=== PATIENT | male | born 1930 | race Caucasian/White ===

== ENCOUNTER 2017-03-12 10:25 | Observation (INO) | payer OTHER ==
[2017-03-12] VITALS (8 sets, daily range): BP systolic 165–195; BP diastolic 79–91; PULSE 51–79; TEMP 36.6–37; O2SAT 91–95; Ht 188 cm; Wt 67.1 kg
[~2017-03-12] VITALS: Ht 188 cm; Wt 67.1 kg
[2017-03-12] MEDS ORDERED: SODIUM CHLORIDE 0.9% 1000ML 1,000 ML IV SCH (10:43)
[2017-03-12 10:59] LABS: BASO % 0.5 %; BASO ABS # 0.04 K/uL (0-0.2); EOS ABS # 0.29 K/uL (0-0.5); HEMATOCRIT 43.5 % (42-52); HEMOGLOBIN 14.1 g/dL (14.0-18.0); IG# 0.01 K/uL (0.00-0.02); LYMPH % 14.8 %; LYMPH ABS # 1.08 K/uL (1.2-3.4); MEAN CELL VOLUME 92.4 fL (80-100); MEAN CORPUSCULAR HEMOGLOBIN 29.9 pg (25-34); MEAN CORPUSCULAR HGB CONC 32.4 g/dl (32-36); MEAN PLATELET VOLUME 11.7 fL (7.4-10.4); MONO % 6.8 %; NEUT % 73.8 %; NEUT ABS # 5.38 K/uL (1.4-6.5); PLATELET COUNT 164 K/uL (130-400); RED CELL DISTRIBUTION WIDTH SD 51.4 fL (36.4-46.3)
--- NOTE | 2017-03-12 11:03 | EMERGENCY ROOM VISIT NOTE ---
History Report prepared by Ga: Juan Moon Under the Supervision of: Dr. Ammon Decker D.O. First contact with patient: 10:30 Chief Complaint: TIA Stated Complaint: TIA Nursing Triage Summary: "Concerned about recurring TIA's." Pt has been experiencing intermittent weakness since December. For the last 3 days pt has been having intermittent left sided weakness, word searching, slurred speech and confusion that has been worsening. History of Present Illness The patient is a 86 year old male who presents to the Emergency Room with complaints of intermittent left side weakness and numbness beginning 1.5 months ago. His symptoms effect his entire left side. He states that his symptoms have occurred at the same time each of the past three mornings. Per , she is worried about a possible TIA. The patient adds he is weak and gets a "funny" tingling feeling in his hands. In addition, he states he has multiple cardiac stents and is diabetic. Patient uses a cane to assist with current symptoms. Per , she has noticed intermittent slurred speech and delayed responses along with his weakness. The patient does not have any history of strokes. 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 Pt denies headache, change in vision, fevers, chest pain, shortness of breath, nausea, vomiting, diarrhea, pain with urination, and melena. Patient adds that [place] and lives a very active lifestyle. Patient's last bowel movement was last night. Source of History: patient Onset: 1.5 months ago Position: other (Left side of body) Quality: numbness, other (weakness) Timing: intermittent Associated Symptoms: No chest pain, No SOB, No nausea, No vomiting, No abdominal pain, No melena, No diarrhea, No urinary symptoms Note: The patient also complains of tingling in his left hand. Review of Systems See HPI for pertinent positives & negatives. A total of 10 systems reviewed and were otherwise negative. Past Medical & Surgical Medical Problems: (1) TIA (transient ischemic attack) Family History No pertinent family medical history. Social History Smoking Status: Former Smoker Marital Status: Housing Status: lives with family Current/Historical Medications Scheduled Alprazolam (Xanax), 1 TAB PO HS Ascorbic Acid (Vitamin C), 500 MG PO DAILY Aspirin (Aspirin Ec), 81 MG PO PM Biotin (Biotin), 1,000 MCG PO DAILY Cholecalciferol (Vitamin D), 1,000 UNITS PO BID Cyanocobalamin (Vitamin B-12), 1,000 MCG PO DAILY Digoxin (Digoxin), 0.125 MG PO DAILY Furosemide (Lasix), 20 MG PO MWF Insulin Aspart (Novolog), 3-6 UNITS SC TID Insulin Glargine (Basaglar Kwikpen), 15 UNITS SC QAM Levothyroxine Sodium (Levothyroxine Sodium), 75 MG PO QAM Metoprolol Tartrate (Lopressor) (Lopressor), 12.5 MG PO BIDM Ocuvite Preservision (Ocuvite Preservision), 1 TAB PO BID Warfarin Sod (Jantoven), 7.5 MG PO MWF Warfarin Sodium (Coumadin), 5 MG PO 4XWK Allergies Coded Allergies: Banana (Verified Allergy, Unknown, `, 10/04/15) Itraconazole (Unverified Adverse Reaction, Intermediate, UNKNOWN, 03/12/17 ) Physical Exam Vital Signs Date Time Temp Pulse Resp B/P (MAP) Pulse Ox O2 Delivery O2 Flow Rate FiO2 03/12/17 12:44 96 Room Air 03/12/17 12:07 67 18 148/82 98 Room Air 03/12/17 11:02 61 03/12/17 10:27 84 18 144/88 92 Room Air Physical Exam GENERAL: Sitting up in bed, alert, well appearing, well nourished, no distress, non-toxic EYE EXAM: normal conjunctiva. PERRL and EOM's intact. OROPHARYNX: no exudate, no erythema, lips, buccal mucosa, and tongue normal and mucous membranes are moist NECK: supple, no nuchal rigidity, no adenopathy, non-tender CHEST: Pacemaker in left chest wall LUNGS: Clear to auscultation. Normal chest wall mechanics HEART: no murmurs, S1 normal and S2 normal ABDOMEN: abdomen soft, non-tender, normo-active bowel sounds, no masses, no rebound or guarding. BACK: Back is symmetrical on inspection and there is no deformity, no midline tenderness, no CVA tenderness. SKIN: no rashes and no bruising UPPER EXTREMITIES: upper extremities are grossly normal. LOWER EXTREMITIES: No pitting edema. NEURO EXAM: Normal sensorium, cranial nerves II-XII intact, normal speech, no weakness of arms, no weakness of legs. No drift. Finger to nose intact. Sensation intact. Medical Decision & Procedures ER Provider Diagnostic Interpretation: Radiology results as stated below per my review and the radiologist's interpretation: HEAD CT NONCONTRAST Findings: The paranasal sinuses and mastoid air cells are clear. The calvarium and skull base are intact. There is no mass, hematoma, midline shift, acute infarct. White matter hypodensity is nonspecific but suggestive of moderate microvascular ischemic change. The ventricles and sulci demonstrate moderate age-related involutional changes. Old small infarcts seen within the left cerebellar hemisphere. Impression: No acute intracranial abnormality. Atrophy and microvascular ischemic changes. 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 Electronically signed by: Hitesh Pike M.D. 03/12/2017 11:30 AM CHEST ONE VIEW PORTABLE FINDINGS: Cardiac silhouette is moderately enlarged. Single left subclavian pacer/AICD is noted with leads overlying the region of the right ventricle. Mild biapical pleural-parenchymal scarring. There is mild pulmonary vascular congestion without overt pulmonary edema. There is no pneumothorax. There is blunting of the right costophrenic angle with probable small right loculated effusion and/or pleural thickening. Hazy opacity of the lateral right midlung is also noted below the minor fissure. Bones of the chest appear grossly intact. IMPRESSION: 1. Cardiomegaly and pulmonary vascular congestion without overt pulmonary edema. 2. Small right pleural effusion and/or pleural thickening with patchy right basilar and lateral right midlung opacities. Correlate with prior chest radiographs. The above report was generated using voice recognition software. It may contain grammatical, syntax or spelling errors. Electronically signed by: Simon Berrios M.D. 03/12/2017 11:47 AM Laboratory Results 03/12/17 10:45 Red Blood Count 4.71, Mean Corpuscular Volume 92.4, Mean Corpuscular Hemoglobin 29.9, Mean Corpuscular Hemoglobin Concent 32.4, Mean Platelet Volume 11.7, Neutrophils (%) (Auto) 73.8, Lymphocytes (%) (Auto) 14.8, Monocytes (%) (Auto) 6.8, Eosinophils (%) (Auto) 4.0, Basophils (%) (Auto) 0.5, Neutrophils # (Auto) 5.38, Lymphocytes # (Auto) 1.08, Monocytes # (Auto) 0.50, Eosinophils # (Auto) 0.29, Basophils # (Auto) 0.04 03/12/17 10:45 Test 03/12/17 10:45 White Blood Count 7.30 K/uL (4.8-10.8) Red Blood Count 4.71 M/uL (4.7-6.1) Hemoglobin 14.1 g/dL (14.0-18.0) Hematocrit 43.5 % (42-52) Mean Corpuscular Volume 92.4 fL (80-100) Mean Corpuscular Hemoglobin 29.9 pg (25-34) Mean Corpuscular Hemoglobin Concent 32.4 g/dl (32-36) Platelet Count 164 K/uL (130-400) Mean Platelet Volume 11.7 fL (7.4-10.4) Neutrophils (%) (Auto) 73.8 % Lymphocytes (%) (Auto) 14.8 % Monocytes (%) (Auto) 6.8 % Eosinophils (%) (Auto) 4.0 % Basophils (%) (Auto) 0.5 % Neutrophils # (Auto) 5.38 K/uL (1.4-6.5) Lymphocytes # (Auto) 1.08 K/uL (1.2-3.4) Monocytes # (Auto) 0.50 K/uL (0.11-0.59) Eosinophils # (Auto) 0.29 K/uL (0-0.5) Basophils # (Auto) 0.04 K/uL (0-0.2) RDW Standard Deviation 51.4 fL (36.4-46.3) RDW Coefficient of Variation 15.0 % (11.5-14.5) Immature Granulocyte % (Auto) 0.1 % Immature Granulocyte # (Auto) 0.01 K/uL (0.00-0.02) Prothrombin Time 15.3 SECONDS (9.0-12.0) Prothromb Time International Ratio 1.5 (0.9-1.1) Activated Partial Thromboplast Time 32.9 SECONDS (21.0-31.0) Partial Thromboplastin Ratio 1.3 Anion Gap 7.0 mmol/L (3-11) Est Creatinine Clear Calc Drug Dose 37.5 ml/min Estimated GFR () 50.6 Estimated GFR (Non- 43.7 BUN/Creatinine Ratio 20.5 (10-20) Calcium Level 9.0 mg/dl (8.5-10.1) Magnesium Level 2.3 mg/dl (1.8-2.4) Total Creatine Kinase 93 U/L (39-308) Creatine Kinase MB 2.1 ng/ml (0.5-3.6) Creatine Kinase MB Ratio 2.3 (0-3.0) Troponin I < 0.015 ng/ml (0-0.045) Laboratory results per my review. Medications Administered Medications (Trade) Dose Ordered Sig/[place] Route Start Time Stop Time Status Last Admin Dose Admin Sodium Chloride 1,000 ml @ 50 mls/hr Q20H IV 03/12/17 10:43 03/12/17 15:27 DC 03/12/17 11:30 50 MLS/HR ECG Indication: weakness Rate (beats per minute): 54 Rhythm: atrial fibrillation Findings: PVC, Q waves (Septal), ST depression (Lateral), T-wave inversion ( Inferior), other (Normal axis. ) ED Course ED COURSE: Vital signs were reviewed and showed mild hypertension The patients medical record was reviewed The above diagnostic studies were performed and reviewed. ED treatments and interventions as stated above. 1035: The patient was evaluated in room A4. A complete history and physical examination was performed. 1043: Sodium Chloride 1000 ml @ 50 mls/hr IV 1155: Upon reevaluation, the patient is resting comfortably.I discussed my findings with the patient and he understands and agrees with the treatment plan. Based on the patients age, coexisting illnesses, exam and lab findings the decision to treat as an inpatient was made. The patient remained stable while under my care. The patient will be evaluated for further management. Medical Decision Differential Diagnosis includes but is not limited to ischemic Stroke, hemorrhagic stroke, bells palsy, mass, neoplasm, migraine headache, seizure, subarachnoid hemorrhage, TIA, and transient global amnesia. 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 Patient has no other complaints at this time. He notices generally comes and goes in the morning. Referred in by family member who is an ER physician. On exam patient is completely neurologically intact. CT head shows old left cerebellar infarct. CBC along with BMP and troponin was negative. INR was subtherapeutic at 1.5. EKG shows A. fib. Patient family were updated bedside. Patient was admitted to internal medicine for possible TIAs. Medication Reconcilliation Current Medication List: was personally reviewed by me Blood Pressure Screening Patient's blood pressure: Elevated blood pressure Blood pressure disposition: Elevated BP felt to be situational Consults Time Called: 1150 Consulting Physician: Supriya Frye PA-C of [facility] Returned Call: [phone] I reviewed the patient's case with Supriya Frye PA-C. She will evaluate the patient for further management. Impression Primary Impression: TIA (transient ischemic attack) Scribe Attestation The scribe's documentation has been prepared under my direction and personally reviewed by me in its entirety. I confirm that the note above accurately reflects all work, treatment, procedures, and medical decision making performed by me. Departure Information Dispostion Being Evaluated By Hospitalist Referrals Robert Osullivan M.D. (PCP) Forms HOME CARE DOCUMENTATION FORM, IMPORTANT VISIT INFORMATION, WORK / SCHOOL INSTRUCTIONS Patient Instructions My [facility] Problem Qualifiers Primary Impression: TIA (transient ischemic attack) Transient cerebral ischemia type: unspecified Qualified Codes: G45.9 - Transient cerebral ischemic attack, unspecified
[2017-03-12 11:07] LABS: INR 1.5 (0.9-1.1); PTT PATIENT 32.9 SECONDS (21.0-31.0)
[2017-03-12 11:21] LABS: BLOOD UREA NITROGEN 30 mg/dl (7-18); CARBON DIOXIDE 28 mmol/L (21-32); CREATININE 1.44 mg/dl (0.60-1.40); GLUCOSE 288 mg/dl (70-99); POTASSIUM 4.2 mmol/L (3.5-5.1); SODIUM 137 mmol/L (136-145)
[2017-03-12 11:26] LABS: CKMB 2.1 ng/ml (0.5-3.6)
--- NOTE | 2017-03-12 11:31 | DIAGNOSTIC IMAGING REPORT ---
HEAD CT NONCONTRAST CT DOSE: 614.27 mGy.cm HISTORY: Stroke TECHNIQUE: Multiaxial CT images of the head were performed without the use of intravenous contrast. Automated exposure control was utilized for this study. A dose lowering technique was utilized adhering to the principles of ALARA. Comparison: None. Findings: The paranasal sinuses and mastoid air cells are clear. The calvarium and skull base are intact. There is no mass, hematoma, midline shift, acute infarct. White matter hypodensity is nonspecific but suggestive of moderate microvascular ischemic change. The ventricles and sulci demonstrate moderate age-related involutional changes. Old small infarcts seen within the left cerebellar hemisphere. Impression: No acute intracranial abnormality. Atrophy and microvascular ischemic changes. 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 Electronically signed by: Hitesh Pike M.D. 03/12/2017 11:30 AM Dictated Date/Time: 03/12/2017 11:25 AM
--- NOTE | 2017-03-12 11:48 | DIAGNOSTIC IMAGING REPORT ---
CHEST ONE VIEW PORTABLE HISTORY: 86 years-old Male Stroke acute strokelike symptoms COMPARISON: None available TECHNIQUE: Portable AP view of the chest FINDINGS: Cardiac silhouette is moderately enlarged. Single left subclavian pacer/AICD is noted with leads overlying the region of the right ventricle. Mild biapical pleural-parenchymal scarring. There is mild pulmonary vascular congestion without overt pulmonary edema. There is no pneumothorax. There is blunting of the right costophrenic angle with probable small right loculated effusion and/or pleural thickening. Hazy opacity of the lateral right midlung is also noted below the minor fissure. Bones of the chest appear grossly intact. IMPRESSION: 1. Cardiomegaly and pulmonary vascular congestion without overt pulmonary edema. 2. Small right pleural effusion and/or pleural thickening with patchy right basilar and lateral right midlung opacities. Correlate with prior chest radiographs. The above report was generated using voice recognition software. It may contain grammatical, syntax or spelling errors. Electronically signed by: Simon Berrios M.D. 03/12/2017 11:47 AM Dictated Date/Time: 03/12/2017 11:44 AM
[2017-03-12] MEDS ORDERED: FURO-85 PO (12:08)
[2017-03-12] MEDS ORDERED: WARF7.5T4 PO (12:08)
[2017-03-12] MEDS ORDERED: CYAN10005 PO (12:08)
[2017-03-12] MEDS ORDERED: LEVO75TA5 PO (12:08)
[2017-03-12] MEDS ORDERED: ASPI81TA28 PO (12:08)
[2017-03-12] MEDS ORDERED: BIOT1TAB5 PO (12:08)
[2017-03-12] MEDS ORDERED: ALPR1TAB3 PO (12:08)
[2017-03-12] MEDS ORDERED: LNX125 PO (12:08)
[2017-03-12] MEDS ORDERED: INSU100I23 SC (12:08)
[2017-03-12] MEDS ORDERED: METO25TA56 PO (12:08)
[2017-03-12] MEDS ORDERED: MULT-190 PO (12:08)
[2017-03-12] MEDS ORDERED: CHOL100010 PO (12:08)
[2017-03-12] MEDS ORDERED: ASCA500 PO (12:08)
[2017-03-12] MEDS ORDERED: WARF5TAB90 PO (12:08)
[2017-03-12] MEDS ORDERED: NVLG SC (12:08)
[2017-03-12] MEDS ORDERED: HEPARIN IV LOW DOSE NO BOLUS STA (12:29)
[2017-03-12] MEDS ORDERED: ONDANSETRON INJ 2 MG/ML 2 ML VIAL IV PRN (12:30)
[2017-03-12] MEDS ORDERED: ACETAMINOPHEN 325 MG TAB PO PRN (12:30)
[2017-03-12] MEDS ORDERED: NITROGLYCERIN 0.4 MG SL PER TAB CHARGE SL PRN (12:30)
[2017-03-12] MEDS ORDERED: ALUMINUM/MAGNESIUM/SIMETH (MAALOX MAX) 30 ML UDC PO PRN (12:30)
[2017-03-12] MEDS ORDERED: HEPARIN 25000 UNIT/500 ML D5W ONE (13:34)
[2017-03-12] MEDS ORDERED: IV FLUIDS COMPLETED PRN (13:45)
--- NOTE | 2017-03-12 13:49 | HISTORY & PHYSICAL EXAMINATION ---
DATE OF ADMISSION: 03/12/2017 CHIEF COMPLAINT: Left-sided weakness and numbness on and off since last 3 days. HISTORY OF PRESENT ILLNESS: This is an 86-year-old male with past medical history significant for diabetes, chronic ischemic cardiomyopathy with EF of 25%, status post defibrillator, chronic kidney disease stage III, hypertension, BPH, aortic valve insufficiency and mitral valve regurgitation, anemia of chronic renal disease,hx of histoplasmosis, chronic atrial fibrillation, asymptomatic bilateral carotid artery stenosis presents with having weakness and numbness on the left side for the last 3 days. The patient says in last 3 days in the morning, he felt like weakness in his left upper extremity and some numbness and tingling in his left lower extremity, lasted for a couple of hours and yesterday it lasted for several hours and there is also a question of some slurred speech which was noticed by his son, which got him and his worried and came to the ER today. Currently, resting comfortably and asymptomatic. 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 He has some chronic balance issues and has chronic dizziness. Denies any headaches. No difficulty swallowing. Currently speaking fine. No sore throat, has some runny nose. Denies any chest pain or shortness of breath. No cough, no fever, no chills. No belly pain, no nausea, no vomiting, normal bowel and bladder movements. No recent weight gain or weight loss. Appetite is okay. No swelling in the legs. Currently, resting comfortably and hemodynamically stable. ALLERGIES: BANANA CONCENTRATE, TOSHIA INHIBITORS, ANGIOTENSIN RECEPTOR BLOCKERS. PAST MEDICAL HISTORY: As mentioned above. PAST SURGICAL HISTORY: Cardiac catheterization with drug-eluting stent to LAD and status post defibrillator, appendectomy, cataract surgeries, and repair of inguinal hernia. MEDICATIONS: Lopressor 12.5 mg p.o. b.i.d., Xanax 0.5 mg p.o. at bedtime, Coumadin 5 mg on Mondays and Fridays and 7.5 mg on all other days, levothyroxine 75 mcg p.o. daily; Lasix 20 mg p.o. Sunday, Sunday and Sunday; digoxin 125 mcg p.o. daily, Lantus 18 units q.a.m., vitamin D 1000 units b.i.d., Ocuvite 2 tablets b.i.d., aspirin 81 mg p.o. daily, biotin 600 mcg p.o. daily, vitamin C 500 mg p.o. daily, and vitamin B12 500 mcg p.o. daily. FAMILY HISTORY: Father had cancer. Mother had heart disorder. Son has bipolar. SOCIAL HISTORY: Quit smoking in 1989, prior to that smoked 10 years. Alcohol - a glass of wine and a can of beer daily. No drug use. , lives in the form. REVIEW OF SYMPTOMS: As per HPI. Rest of review of symptoms negative. PHYSICAL EXAMINATION: GENERAL: The patient is old and frail, not in distress. VITAL SIGNS: Temperature afebrile, pulse 61, respiratory rate 18, blood pressure 144/88, oxygen 92% room air. HEENT: No pallor, no icterus. Pupils equal, round, and reactive to light. NECK: No JVD, no neck masses, no carotid bruits. CARDIOVASCULAR: S1, S2 heard, irregular. No murmur, no gallop. RESPIRATORY SYSTEM: Normal AP diameter. No accessory muscle use. No wheezing, no crackles. ABDOMEN: Soft, bowel sounds present. Nontender. No distention. CENTRAL NERVOUS SYSTEM: Cranial nerves II-XII grossly intact. Pulse 5/5 in all extremities. Position sense intact. [id number] test normal. Coordination of movements normal. No pronator drift. LABORATORIES: Sodium 137, potassium 4.2, chloride 102, bicarbonate 28, BUN 30, creatinine 1.4, serum glucose 288. Calcium 9, magnesium 2.3, total creatinine kinase 93. Troponin I less than 0.015. WBC 7.3, hemoglobin 14.1, hematocrit 43.5, platelets 164. PT 15.3, INR 1.5, PTT 32.9. IMAGING DATA: Chest x-ray: Cardiomegaly with pulmonary vascular congestion without overt pulmonary edema, small right pleural effusion with patchy right bibasilar and middle lung opacities. 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 EKG: Atrial fibrillation with a rate of 54. No acute ST changes seen. ASSESSMENT AND PLAN: This is an 86-year-old male who presents with on and off left-sided weakness and numbness. 1. Possible transient ischemic attack left-sided weakness in upper extremity and numbness in the lower extremity on left side for the last 3 days on in the mornings, but currently resolved. 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 Cannot do MRI of the head because of the defibrillator. The patient has a history of atrial fibrillation, INR subtherapeutic. Will give extra dose of Coumadin and place him on IV heparin low dose . monitor on tele floor. Repeat CT of the head in the a.m. We will follow carotid ultrasound and echocardiogram. Consult neurology for further recommendations and PT and OT, prior to discharge. Close monitor. 2. History of coronary artery disease status post stents. Continue his home medication of aspirin and Lopressor, not on statin. Will follow lipid profile. 3. History of atrial fibrillation. Continue digoxin and Lopressor. On Coumadin, but INR therapeutic . low dose IV heparin and follow the PT/INR. 4. History of diabetes. Continue Lantus and insulin sliding scale. Will follow hemoglobin A1c levels. 5. HTN on Lopressor. Added lisinopril. Needs bmp in 1-2 week if discharged on lisinopril. iv hydralazine prn.Will monitor 6. Hypothyroidism. Continue Synthroid. 6. History of ischemic cardiomyopathy with ejection fraction of 25% and status post defibrillator, on Lasix; Lopressor 12.5 b.i.d. could be changed to Toprol-XL, also digoxin. We will monitor for any volume overload. 7. Chronic kidney disease stage III, baseline creatinine about 1.2 to 1.4. presented with creatinine 1.4. We will follow the labs, avoid nephrotoxic agents. 8. Deep vein thrombosis prophylaxis, sequential compression devices and IV heparin. 9. Disposition: Observation tele floor. Expect to discharge home and follow with his family doctor. Level 1 full code. MTDD
[2017-03-12] MEDS ORDERED: METOPROLOL TARTRATE 1 MG/ML VIAL IV PRN (15:30)
[2017-03-12] MEDS ORDERED: PHARMACIST DISCHARGE MED REC CONSULT PRN (16:00)
--- NOTE | 2017-03-12 16:16 | ECHOCARDIOGRAM REPORT ---
*NOTICE TO RECEIVING [employer] This information is strictly Confidential and protected under [place] law. [place] law prohibits you from making any further disclosure of this information unless further disclosure is expressly permitted by the written consent of the person to whom it pertains or is authorized by law. A general authorization for the release of medical or other information is not sufficient for this purpose. Hospital accepts no responsibility if the information is made available to any other person, INCLUDING THE PATIENT. Interpretation Summary * Name: PALLAVI SANCHEZ Study Date: 03/12/2017 03:02 PM BP: 175/79 mmHg * Patient Location: .[facility]\S\N287\S\2 HR: 67 * : 1930 (M/d/yyyy) Gender: Male Height: 75 in * Age: 86 yrs Ethnicity: [place] Weight: 158 lb * Ordering Physician: Jerzy Morocho * Referring Physician: Self, Referred * Performed By: Mikaela Reyes RDCS * * Reason For Study: TIA * BSA: 2.0 m2 * -- Conclusions -- * Normal LV chamber size with moderate concentric LVH. * Low normal LV systolic function with borderline global hypokinesis, EF 50-55%. * No segmental left ventricular wall motion abnormalities are noted. * Grade II diastolic dysfunction. * Aortic valve sclerosis mild, without significant aortic valvular stenosis. Mild aortic regurgitation. * Mild mitral regurgitation. * Mild tricuspid regurgitation. * Severe biatrial enlargement. Procedure Details * A saline contrast injection was performed to assess for cardiac shunting. * The injection was performed through an intravenous line in the right arm. * The attending nurse who injected the saline contrast was DOUGLAS DORADO. * A total of 20 cc of agitated saline was given. Left Ventricle * The left ventricle is normal in size. * There is moderate concentric left ventricular hypertrophy. * Ejection Fraction = 50-55%. * Left ventricular systolic function is low normal. * No segmental left ventricular wall motion abnormalities are noted. * There is borderline global hypokinesis of the left ventricle. Right Ventricle * The right ventricular cavity size is normal (basal dimension <4.2 cm in right ventricular apical 4-chamber view). * There is a pacemaker lead in the right ventricle. * The right ventricular systolic function is normal as assessed by tricuspid annular plane systolic excursion (TAPSE) (normal >1.5 cm). Atria * The left atrium is severely dilated. * The right atrium is severely dilated. * The interatrial septum is intact with no evidence for an atrial septal defect. Mitral Valve * There is mild mitral annular calcification. * There is no mitral valve stenosis. * There is mild mitral regurgitation. Tricuspid Valve * The tricuspid valve anatomy is normal. * There is no tricuspid stenosis. * There is mild tricuspid regurgitation. Aortic Valve * The aortic valve is trileaflet. * Aortic valve sclerosis mild, without significant aortic valvular stenosis. * Mild aortic regurgitation. Pulmonic Valve * The pulmonary valve is not well seen, but the Doppler examination is normal without significant regurgitation or stenosis. Great Vessels * The aortic root is normal size. Pericardium/Pleural * There is no pericardial effusion. Left Ventricular Diastolic Function * Diastolic dysfunction, Grade II (pseudonormalization pattern). MMode 2D Measurements and Calculations IVSd 1.4 cm IVSs 2.0 cm LVIDd 4.6 cm LVIDs 3.4 cm LVPWd 1.5 cm LVPWs 1.6 cm IVS/LVPW 0.95 FS 26.4 % EDV(Teich) 98.1 ml ESV(Teich) 47.3 ml EF(Teich) 51.8 % EDV(cubed) 98.3 ml ESV(cubed) 39.2 ml EF(cubed) 60.1 % % IVS thick 43.6 % % LVPW thick 5.5 % LV mass(C)d 275.6 grams LV mass(C)dI 138.8 grams/m\S\2 LV mass(C)s 256.6 grams LV mass(C)sI 129.3 grams/m\S\2 SV(Teich) 50.8 ml SI(Teich) 25.6 ml/m\S\2 SV(cubed) 59.1 ml SI(cubed) 29.8 ml/m\S\2 Ao root diam 4.1 cm Ao root area 12.9 cm\S\2 LA dimension 4.2 cm LA/Ao 1.0 LVAd ap4 36.5 cm\S\2 LVLd ap4 8.4 cm EDV(MOD-sp4) 131.5 ml EDV(sp4-el) 134.3 ml LVAs ap4 23.0 cm\S\2 LVLs ap4 7.4 cm ESV(MOD-sp4) 67.8 ml ESV(sp4-el) 60.3 ml EF(MOD-sp4) 48.5 % EF(sp4-el) 55.1 % LVAd ap2 32.7 cm\S\2 LVLd ap2 8.4 cm EDV(MOD-sp2) 106.5 ml EDV(sp2-el) 107.5 ml LVAs ap2 22.2 cm\S\2 LVLs ap2 7.9 cm ESV(MOD-sp2) 63.2 ml ESV(sp2-el) 53.0 ml EF(MOD-sp2) 40.7 % EF(sp2-el) 50.7 % LVLd %diff 0.31 % EDV(MOD-bp) 119.7 ml LVLs %diff 5.8 % ESV(MOD-bp) 66.9 ml EF(MOD-bp) 44.1 % SV(MOD-sp4) 63.7 ml SI(MOD-sp4) 32.1 ml/m\S\2 SV(MOD-sp2) 43.3 ml SI(MOD-sp2) 21.8 ml/m\S\2 SV(MOD-bp) 52.8 ml SI(MOD-bp) 26.6 ml/m\S\2 SV(sp4-el) 74.0 ml SI(sp4-el) 37.3 ml/m\S\2 SV(sp2-el) 54.6 ml SI(sp2-el) 27.5 ml/m\S\2 Doppler Measurements and Calculations MV E max yimi 89.0 cm/sec MV A max yimi 39.9 cm/sec MV E/A 2.2 MV dec time 0.16 sec Ao V2 max 159.0 cm/sec Ao max PG 10.1 mmHg Ao max PG (full) 8.2 mmHg LV V1 max PG 1.9 mmHg LV V1 max 68.5 cm/sec TR max yimi 266.8 cm/sec
[2017-03-12] MEDS ORDERED: ALPR0.5T PO (16:34)
[2017-03-12] MEDS: HydrALAZINE HCL 20 MG/ML VIAL IV. PRN (16:53)
[2017-03-12] MEDS ORDERED: METOPROLOL TARTRATE 25 MG TAB PO SCH ×2 (17:00)
[2017-03-12] MEDS: WARFARIN SOD 7.5 MG TAB PO SCH (17:07)
[2017-03-12] MEDS: INSULIN ASPART 100 UNITS/ML 3 ML PEN SC SCH ×2 (17:12→21:00)
--- NOTE | 2017-03-12 18:30 | DIAGNOSTIC IMAGING REPORT ---
CAROTID DOPPLER NECK ART CLINICAL HISTORY: 86 years-old Male presenting with TIA. TECHNIQUE: Real-time grayscale and color and spectral Doppler ultrasound imaging of the bilateral carotid arteries was performed. NASCET criteria was used in evaluating this study. COMPARISON: None. FINDINGS: Right: Common carotid: Patent. Peak systolic velocity 41 cm/s. Internal carotid artery: Atherosclerosis of the proximal ICA. Peak systolic velocity 97 cm/s. Systolic ratio: 2.4. External carotid artery: Atherosclerosis. Peak systolic velocity 124 cm/s. Left: Common carotid: Patent. Peak systolic velocity 40 cm/s. Internal carotid artery: Patent. Peak systolic velocity 55 cm/s. Systolic ratio: 1.1. External carotid artery: Patent. Peak systolic velocity 92 cm/s. Bilateral antegrade flow within the vertebral arteries. Reference ranges: Stenosis measurements are compared to reference velocity parameters. ICA peak systolic velocity (PSV) < 125 cm/s normal or indicating < 50% stenosis; ICA PSV 125-230 cm/s equivalent to 50-69% stenosis; ICA PSV > 230 cm/s equivalent to greater than or equal to 70% stenosis. ICA PSV to common carotid artery PSV ratio < 2 normal or < 50% stenosis; 2-4 equates to 50-69% stenosis, > 4 equates to greater than or equal to 70% stenosis. Normal ICA end-diastolic velocity less than 40. Blood pressure Brachial: Right: 162/89 mmHg, Left: 161/85 mmHg. IMPRESSION: Findings concerning for 50-69% stenosis of the proximal right internal carotid artery. These findings are slightly clavicle given the limited actual elevation in velocity in the right ICA, however, the relative increase in velocity to the common carotid artery is significant. If there is further clinical confirmation, CTA of the neck could be obtained. Electronically signed by: Maged Laguna M.D. 03/12/2017 6:28 PM Dictated Date/Time: 03/12/2017 6:27 PM
[2017-03-12] MEDS ORDERED: LISINOPRIL 5 MG TAB PO ONE (18:45)
[2017-03-12 20:09] LABS: PTT PATIENT 49.3 SECONDS (21.0-31.0)
[2017-03-12] MEDS: ALPRAZOLAM 0.5 MG TAB PO SCH (21:09)
[2017-03-12] MEDS: CHOLECALCIFEROL 1000 INTER.UNIT TAB PO SCH (21:10)
[2017-03-12] MEDS: ASPIRIN 81 MG ECTAB PO SCH (21:11)
[2017-03-12] MEDS: METOPROLOL TARTRATE 25 MG TAB PO SCH (21:11)
[2017-03-13] VITALS (11 sets, daily range): BP systolic 117–179; BP diastolic 67–91; PULSE 50–77; TEMP 36.4–37.1; O2SAT 95–98
[2017-03-13] MEDS: LEVOTHYROXINE 75 MCG TAB PO SCH (05:37)
--- NOTE | 2017-03-13 07:04 | NEUROLOGY CONSULTATION ---
DATE OF CONSULTATION: 03/12/2017 REASON FOR CONSULTATION: Possible transient ischemic attack. HISTORY OF PRESENT ILLNESS: This patient is an 86-year-old right-handed male with a history of diabetes, chronic ischemic cardiomyopathy with an EF of 50, status post defibrillator, chronic kidney disease, hypertension, aortic insufficiency, mitral regurg, chronic atrial fibrillation, "asymptomatic" bilateral carotid artery stenosis,, presents to the hospital for about a week of intermittent left-sided numbness. The patient indicates that these bouts tended to occur sometime after breakfast daily, lasting 1-3 hours. The episode yesterday lasted 3 hours and he was advised by his [id number]-eyu who is an ER physician in [place] to go to the Emergency Room. There was never any accompanying headache. There was no change in vision, speech, language. No facial droop or unilateral weakness. There was no vertigo, nausea, vomiting or headache. The patient has been well. Has not had any fevers, chills, sweats, abdominal pain, nausea, vomiting. CT of the head, noncontrast, which I have reviewed showed atrophy and microvascular ischemic changes which are moderately severe and old left cerebellar infarction. The patient had checked his blood sugar during the times of these events and it would be either normal or mildly high. It also has not been associated with any orthostatic lightheadedness. Electrocardiogram on admission, atrial fibrillation with slow ventricular response, occasional PVCs, left bundle-branch block. White count, H&H and platelet count are normal. INR of 1.5. Chemistry profile notable for a random blood sugar of 288, BUN 30, creatinine 1.44. MEDICAL HISTORY: As above. SURGICAL HISTORY: Cardiac cath with drug-eluting stent to LAD, status post defibrillator, appendectomy, cataract surgery, inguinal hernia. The patient indicates to me he has also had an arterial stent in the left lower extremity that was a complication of his cardiac catheterization. MEDICATIONS: Lopressor, Xanax, Coumadin, levothyroxine, Lasix, digoxin, Lantus, Ocuvite, aspirin, vitamin D, vitamin B12. FAMILY HISTORY: Father, cancer; mother, heart disease; son, bipolar. 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 He stopped smoking in 1989. Occasional wine and beer. [place]. PHYSICAL EXAMINATION: GENERAL: The patient is a well-developed male in no distress. There is normal speech and language and his affect is appropriate. VITAL SIGNS: 36.7, 51, 170/81. NECK: There are no carotid bruits. HEART: No heart murmurs. Regular rate and rhythm. ABDOMEN: Soft and nontender. EXTREMITIES: No pretibial edema is noted. NEUROLOGIC: Pupils are equal. Optic nerves unremarkable. Normal cobb, motility, facial sensation and facial symmetry. Tongue is midline. No facial anesthesia is noted. Full strength, no drift. Normal rapid alternating movements. Sensation decreased to light touch and temperature on the left side. There is a mid calf level to temperature and vibration level at the ankles. His reflexes are mildly brisk at the knees, absent at the ankles. Toes are downgoing. Mitzis-gf-gylm and wlsi-ut-uhpy are normal. IMPRESSION: Presumed lacunar transient ischemic attack, query lacunar stroke given the hemianesthesia. No signs clinically localizing to the cervical spine. PLAN: 1. I agree at present with anticoagulation with heparin until therapeutic with Coumadin. 2. I would recommend a carotid ultrasound given the stereotype nature of these events which could represent right internal carotid ischemia. 3. Recommend a followup CT of the head tomorrow morning. 4. If recurrent events, would check blood sugar as well as blood pressure. We will follow with you. JAMI
[2017-03-13 07:20] LABS: BASO % 0.8 %; BASO ABS # 0.05 K/uL (0-0.2); EOS % 5.2 %; EOS ABS # 0.31 K/uL (0-0.5); HEMATOCRIT 37.4 % (42-52); HEMOGLOBIN 12.2 g/dL (14.0-18.0); IG# 0.01 K/uL (0.00-0.02); LYMPH ABS # 1.14 K/uL (1.2-3.4); MEAN CELL VOLUME 90.3 fL (80-100); MEAN CORPUSCULAR HEMOGLOBIN 29.5 pg (25-34); MEAN CORPUSCULAR HGB CONC 32.6 g/dl (32-36); MEAN PLATELET VOLUME 11.3 fL (7.4-10.4); MONO % 10.3 %; MONO ABS # 0.62 K/uL (0.11-0.59); NEUT % 64.5 %; NEUT ABS # 3.87 K/uL (1.4-6.5); PLATELET COUNT 141 K/uL (130-400); RED CELL DISTRIBUTION WIDTH CV 14.9 % (11.5-14.5); RED CELL DISTRIBUTION WIDTH SD 49.2 fL (36.4-46.3)
[2017-03-13 07:27] LABS: HEMOGLOBIN A1C 6.9 % (4.5-5.6)
[2017-03-13 07:30] LABS: INR 1.7 (0.9-1.1)
[2017-03-13 07:35] LABS: HEMOGLOBIN A1C 6.9 % (4.5-5.6)
[2017-03-13 07:38] LABS: CALCIUM 8.5 mg/dl (8.5-10.1); CREATININE 1.2 mg/dl (0.60-1.40)
[2017-03-13 08:43] LABS: PTT PATIENT 60.6 SECONDS (21.0-31.0)
--- NOTE | 2017-03-13 08:59 | DIAGNOSTIC IMAGING REPORT ---
CT HEAD WITHOUT CONTRAST (CT) CLINICAL HISTORY: TIA COMPARISON STUDY: 03/12/2017 TECHNIQUE: Axial CT of the brain is performed from the vertex to the skull base. IV contrast was not administered for this examination. A dose lowering technique was utilized adhering to the principles of ALARA. CT DOSE: 614.27 mGy.cm FINDINGS: No intra or extra-axial mass lesions are visualized. There is no CT evidence of acute cortical infarction. There is no evidence of midline shift. There is no acute hemorrhage. No calvarial fractures are visualized. There are moderate white matter hypodensities likely on a small vessel basis. There is an old left cerebellar infarct. There is no evidence of pathologic ventricular dilatation. There is no evidence of acute sinusitis IMPRESSION: No acute intracranial findings Electronically signed by: Gregor Santos M.D. 03/13/2017 8:58 AM Dictated Date/Time: 03/13/2017 8:57 AM
[2017-03-13] MEDS ORDERED: NON-FORMULARY MEDICATION (Biotin 1,000 MCG) PO SCH (09:00)
[2017-03-13] MEDS ORDERED: LISINOPRIL 5 MG TAB PO SCH (09:00)
[2017-03-13] MEDS: CEROVITE ADV FORMULA TAB PO SCH (09:04)
[2017-03-13] MEDS: ATORVASTATIN 40 MG TAB PO SCH (09:04)
[2017-03-13] MEDS: CHOLECALCIFEROL 1000 INTER.UNIT TAB PO SCH ×2 (09:05→21:35)
[2017-03-13] MEDS: CYANOCOBALAMIN 500 MCG TAB (VIT B-12) PO SCH (09:05)
[2017-03-13] MEDS: ASCORBIC ACID 500 MG TAB PO SCH (09:05)
[2017-03-13] MEDS: METOPROLOL TARTRATE 25 MG TAB PO SCH ×2 (09:07→16:37)
[2017-03-13] MEDS: INSULIN ASPART 100 UNITS/ML 3 ML PEN SC SCH ×4 (09:09→21:00)
[2017-03-13] MEDS: INSULIN GLARGINE SOLOSTAR 100 UNITS/ML 3 ML PEN SC SCH (09:10)
--- NOTE | 2017-03-13 10:10 | CONSULTATION REPORT ---
DATE OF CONSULTATION: 03/13/2017 CONSULTATION FOR: Minnie quiles. REASON FOR CONSULTATION: TIA. HISTORY OF PRESENT ILLNESS: This is an elderly 86-year-old male patient who I followed for the past several years with a history of an ischemic cardiomyopathy and chronic systolic heart failure. He is status post ICD and has chronic stage III kidney disease. He also has chronic atrial fibrillation and has been anticoagulated as outpatient. Most interesting, however, is his history of histoplasmosis. 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 Following those events, he has done well. He had presented with weakness of his left upper extremity and some slurred speech. This lasted for several hours and spontaneously resolved. It should be noted that the patient's warfarin was subtherapeutic on admission and I think this may have contributed to his TIA. He has no current cardiac complaints. ALLERGIES: TOSHIA INHIBITORS, ANGIOTENSIN RECEPTOR BLOCKERS AND BANANAS. PAST MEDICAL HISTORY: As outlined above, he has an ischemic cardiomyopathy. By our records, his last estimated left ventricular ejection fraction was 25%. Interestingly, during this admission, he had a repeat echocardiogram and his EF is now above 50%. He has markedly enlarged atrium most likely on the basis of chronic atrial fibrillation. He has had a previous drug-eluting stent in the LAD. At some time, he may have had an anterior wall VT. He is a diabetic with chronic kidney disease. He received an ICD at [facility] almost a decade ago. He has mild valvular heart disease with aortic insufficiency and mitral regurgitation. He has chronic anemia due to his kidney disease. 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 He lives with his . FAMILY MEDICAL HISTORY: Noncontributory. REVIEW OF SYSTEMS: A 10-point review of systems is negative except for the history of chief complaint. PHYSICAL EXAMINATION: GENERAL: He is alert and oriented. He is in no acute distress. HEENT: He is normocephalic. Pupils are equal and reactive to light. Extraocular muscles are intact bilaterally. VITAL SIGNS: Blood pressure 140/80 and pulse is regular at 60 beats per minute. He is afebrile. NECK: The neck veins are flat. Carotids have good upstrokes bilaterally without bruits. Thyroid is nonpalpable. CARDIOVASCULAR: Heart has an irregular rhythm. Normal S1 and S2. No S3 or S4. No cardiac rubs or murmurs. GASTROINTESTINAL: Abdomen is soft and nontender without organomegaly. RESPIRATORY: Breath sounds equal bilaterally and clear to auscultation. NEUROLOGIC: Grossly intact. SKIN: Warm to touch. LYMPH NODES: Negative to palpation. LABORATORY DATA: Initial CT shows some old cerebellar infarct and some age-related changes. Carotid ultrasound shows a 50%-69% stenosis on the right. IMPRESSION: 1. Transient ischemic attack. 2. Atrial fibrillation with subtherapeutic anticoagulation. 3. Ischemic cardiomyopathy with chronic systolic heart failure. 4. Status post ICD for primary prevention. 5. Diabetes mellitus. RECOMMENDATIONS: From a cardiac standpoint, the patient is stable. Neurology is on the case and evaluating the patient, but my thoughts are that this may be related to a subtherapeutic warfarin. We will follow along with you during his hospital stay. I would correct his warfarin to make sure his INR is above 2 before discharge.
[2017-03-13] MEDS ORDERED: OPTIRAY 320 IV PRN (14:00)
--- NOTE | 2017-03-13 14:13 | DIAGNOSTIC IMAGING REPORT ---
CTA ANGIOGRAPHY OF THE HEAD CLINICAL HISTORY: Transient ischemic attack. Recurrent left hemianesthesia. Possible right ICA stenosis. COMPARISON STUDY: Head CT March 13, 2017 at 8:53 AM. TECHNIQUE: Helical axial images of the head were obtained following uneventful intravenous administration of 95 cc of Optiray 320. A dose lowering technique was utilized adhering to the principles of ALARA. CT DOSE: 594.52 mGy.cm FINDINGS: No acute intracranial hemorrhage, midline shift or mass effect is identified. Ventricular system is unremarkable for age. Basilar cisterns are patent. An old left cerebellar infarct is noted. Right basal ganglia lacunar infarcts are age indeterminate although likely old. The bilateral M1, M2, A1 and A2 segments are patent. There is no abrupt vessel cut off. There is moderate atherosclerotic plaque within the bilateral cavernous carotids with mild stenosis. There is mild stenosis of the distal left middle cerebral artery as well as mild stenosis of the intracranial portion of the left vertebral artery. There is no intracranial aneurysm. There is no dissection within the major intracranial vessels. Sinuses and mastoid air cells are clear. There are no significant calvarial abnormalities. IMPRESSION: 1. No abrupt vessel cut off or intracranial aneurysm. 2. Moderate atherosclerotic plaque within the intracranial vessels with mild multifocal stenoses. Electronically signed by: Lj Guzman M.D. 03/13/2017 2:11 PM Dictated Date/Time: 03/13/2017 2:01 PM
--- NOTE | 2017-03-13 14:19 | DIAGNOSTIC IMAGING REPORT ---
NECK CTA HISTORY: Assess carotid stenosis. TECHNIQUE: Multiaxial CT images of the neck were performed following the intravenous administration of contrast to evaluate the major cervical vessels. Maximum intensity projection images were also obtained. All measurements were calculated based on NASCET criteria. A dose lowering technique was utilized adhering to the principles of ALARA. COMPARISON STUDY: None. FINDINGS: The aortic arch and proximal great vessels are widely patent. There is no significant stenosis, occlusion, or dissection identified within the bilateral common carotid, internal carotid, or vertebral arteries. Mild calcified plaque within the bilateral carotid bifurcations. There is approximately 40% stenosis at the origin of the right external carotid artery. 4 mm subpleural nodule within the left lung apex. There is also a stellate 6 mm nodule within the left lung apex which may represent scarring. A 4 mm nodule within the right upper lobe on image 2 of 237. Multiple mediastinal lymph nodes with the largest measuring 1 cm in short axis diameter. Left subclavian catheter is seen within the SVC. IMPRESSION: 1. No significant stenosis, occlusion, or dissection within the common carotid, internal carotid or vertebral arteries. 2. Approximately 40% stenosis at the origin of the right external carotid artery. 3. A few subcentimeter indeterminate pulmonary nodules with the largest measuring 6 mm. Please refer to the chart below for recommended follow-up. 4. Prominent mediastinal lymph nodes. Please refer to below summary of Fleischner criteria recommendations for follow-up of incidental CT nodules (Angie Hanley, Guidelines for management of small pulmonary nodules detected on CT scans: A statement from the Fleischner Society, Radiology 237: [phone].) SOLID NODULES Solitary nodule size: <6 mm * Low risk patients: no follow-up needed * high risk patients: optional CT at 12 months Solitary nodule size: 6-8 mm * Low risk patients: follow-up at 6-12 months, then consider further follow-up at 18-24 months * high risk patients: initial follow-up CT at 6-12 months and then at 18-24 months if no change Solitary nodule size: >8 mm * either low or high risk patients - consider follow-up CT at 3 months, and/or CT-PET, and/or biopsy Multiple nodules size: <6 mm * Low risk patients: no routine follow-up * high risk patients: optional CT at 12 months Multiple nodules size: 6-8 mm * Low risk patients: follow-up at 3-6 months, then consider further follow-up at 18-24 months * high risk patients: follow-up at 3-6 months, then at 18-24 months if no change Multiple nodules size: >8 mm * Low risk patients: follow-up at 3-6 months, then consider further follow-up at 18-24 months * high risk patients: follow-up at 3-6 months, then at 18-24 months if no change Note: newly detected indeterminate nodule in persons 35 years of age or older. * Low risk patients: minimal or absent history of smoking and/or other known risk factors * high risk patients: history of smoking or of other known risk factors (e.g. first degree relative with lung cancer, or exposure to asbestos, radon, uranium) * if a nodule up to 8 mm is partly solid or is ground glass further follow-up is required after 24 months to exclude possible slow growing adenocarcinoma (HAL) SUBSOLID NODULES Solitary pure ground-glass nodule * nodule size <6 mm - no CT follow-up required * nodule size >=6 mm - follow-up CT at 6-12 months, then every 2 years until 5 years Solitary part-solid nodule * nodule size <6 mm - no CT follow-up required * nodule size >=6 mm - follow-up CT at 3-6 months. If unchanged, and solid component remains <6 mm, then annual follow-up for 5 years Multiple subsolid nodules * nodule size <6 mm - follow-up CT at 3-6 months, consider further follow-up at 2 and 4 years if stable * nodule size >=6 mm - follow-up CT at 3-6 months, subsequent management based on the most suspicious nodule(s) Electronically signed by: Hitesh Pike M.D. 03/13/2017 2:17 PM Dictated Date/Time: 03/13/2017 2:08 PM
[2017-03-13] MEDS: HydrALAZINE HCL 20 MG/ML VIAL IV. PRN (14:43)
[2017-03-13] MEDS ORDERED: DIGOXIN 0.125 MG TAB PO SCH (16:00)
[2017-03-13] MEDS: WARFARIN SOD 7.5 MG TAB PO SCH (16:36)
--- NOTE | 2017-03-13 18:37 | Progress Note ---
Internal Med Progress Note Date of Service: Mar 13, 2017. Provider Documentation: SUBJECTIVE: resting comfortably just has some tinglings in left little finger eating ok could not sleep well last night and likes to go home soon denies any pain OBJECTIVE: Vital Signs-as noted below Exam: General-alert and oriented. not in distress ENT-Normal hearing Neck-no neck masses Lungs-Cta b/l no wheezing or crackles Heart-S1 and S2 heard regular No murmurs Abdomen-Soft Bowel sounds present Non tender No distension Extremities-No edema No erythema Neuro-alert and awake moves extremities Lab data as noted below. ASSESSMENT & PLAN: This is an 86-year-old male who presents with on and off left-sided weakness and numbness. 1. Possible transient ischemic attack left-sided weakness in upper extremity and numbness in the lower extremity on left side for the last 3 days on in the mornings, but currently resolved. 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 Cannot do MRI of the head because of the defibrillator. The patient has a history of atrial fibrillation, INR subtherapeutic. o iv heparin. INR 1.7 today. pt/ot 2. History of coronary artery disease status post stents. Continue his home medication of aspirin and Lopressor, not on statin. lipid profile at goal. 3. History of atrial fibrillation. Continue digoxin and Lopressor. On Coumadin, but INR therapeutic . low dose IV heparin and follow the PT/INR. 4. History of diabetes. Continue Lantus and insulin sliding scale. Hba1c 6.9 5. HTN on Lopressor. Added lisinopril. Needs bmp in 1-2 week if discharged on lisinopril. iv hydralazine prn.Will monitor 6. Hypothyroidism. Continue Synthroid. 6. History of ischemic cardiomyopathy with ejection fraction of 25% and status post defibrillator, on Lasix; Lopressor 12.5 b.i.d. could be changed to Toprol-XL, also digoxin. We will monitor for any volume overload. 7. Chronic kidney disease stage III, baseline creatinine about 1.2 to 1.4. presented with creatinine 1.4. We will follow the labs, avoid nephrotoxic agents. 8. Deep vein thrombosis prophylaxis, sequential compression devices and IV heparin. 9. Disposition: Observation tele floor. Expect to discharge home and follow with his family doctor. Level 1 full code. Vital Signs: Date Time Temp Pulse Resp B/P (MAP) Pulse Ox O2 Delivery O2 Flow Rate FiO2 03/13/17 16:37 77 03/13/17 16:33 77 170/81 (110) 03/13/17 16:16 Room Air 03/13/17 14:45 73 174/81 (112) 03/13/17 14:39 36.7 56 20 176/91 (119) 97 03/13/17 14:34 59 98 03/13/17 12:44 Room Air 03/13/17 11:10 36.4 50 20 117/67 (84) 98 03/13/17 09:15 Room Air 03/13/17 09:11 70 03/13/17 07:27 37.1 56 20 155/76 (102) 95 03/13/17 05:39 160/77 (104) 03/13/17 04:00 36.7 58 20 169/83 (111) 95 Room Air 03/13/17 04:00 Room Air 03/13/17 00:00 Room Air 03/12/17 23:49 36.6 57 20 172/85 (114) 95 Room Air 03/12/17 20:00 95 Room Air 03/12/17 19:31 37.0 79 18 181/83 (115) 91 Room Air 03/12/17 18:33 66 165/91 (115) Lab Results: Results Past 24 Hours Test 03/12/17 19:38 03/12/17 20:35 03/13/17 07:01 03/13/17 07:23 Range/Units Activated Partial Thromboplast Time 49.3 60.6 21.0-31.0 SECONDS Partial Thromboplastin Ratio 1.9 2.3 Bedside Glucose 128 200 70-99 mg/dl White Blood Count 6.00 4.8-10.8 K/uL Red Blood Count 4.14 4.7-6.1 M/uL Hemoglobin 12.2 14.0-18.0 g/dL Hematocrit 37.4 42-52 % Mean Corpuscular Volume 90.3 80-100 fL Mean Corpuscular Hemoglobin 29.5 25-34 pg Mean Corpuscular Hemoglobin Concent 32.6 32-36 g/dl Platelet Count 141 130-400 K/uL Mean Platelet Volume 11.3 7.4-10.4 fL Neutrophils (%) (Auto) 64.5 % Lymphocytes (%) (Auto) 19.0 % Monocytes (%) (Auto) 10.3 % Eosinophils (%) (Auto) 5.2 % Basophils (%) (Auto) 0.8 % Neutrophils # (Auto) 3.87 1.4-6.5 K/uL Lymphocytes # (Auto) 1.14 1.2-3.4 K/uL Monocytes # (Auto) 0.62 0.11-0.59 K/uL Eosinophils # (Auto) 0.31 0-0.5 K/uL Basophils # (Auto) 0.05 0-0.2 K/uL RDW Standard Deviation 49.2 36.4-46.3 fL RDW Coefficient of Variation 14.9 11.5-14.5 % Immature Granulocyte % (Auto) 0.2 % Immature Granulocyte # (Auto) 0.01 0.00-0.02 K/uL Prothrombin Time 17.3 9.0-12.0 SECONDS Prothromb Time International Ratio 1.7 0.9-1.1 Sodium Level 137 136-145 mmol/L Potassium Level 4.0 3.5-5.1 mmol/L Chloride Level 102 98-107 mmol/L Carbon Dioxide Level 30 21-32 mmol/L Anion Gap 5.0 3-11 mmol/L Blood Urea Nitrogen 25 7-18 mg/dl Creatinine 1.20 0.60-1.40 mg/dl Est Creatinine Clear Calc Drug Dose 42.3 ml/min Estimated GFR () 63.1 Estimated GFR (Non- 54.4 BUN/Creatinine Ratio 20.8 10-20 Random Glucose 194 70-99 mg/dl Estimated Average Glucose 151 mg/dl Hemoglobin A1c 6.9 4.5-5.6 % Calcium Level 8.5 8.5-10.1 mg/dl Magnesium Level 2.1 1.8-2.4 mg/dl Triglycerides Level 61 0-150 mg/dl Cholesterol Level 117 0-200 mg/dl HDL Cholesterol 57 mg/dl LDL Cholesterol, Calculated 48 mg/dl VLDL Cholesterol, Calculated 12 mg/dl Cholesterol/HDL Ratio 2.1 Thyroid Stimulating Hormone (TSH) 2.530 0.300-4.500 uIu/ml Free Thyroxine 1.28 0.80-1.60 ng/dl Digoxin Level 1.0 0.8-2.0 ng/ml Test 03/13/17 11:15 03/13/17 16:45 03/13/17 16:51 03/13/17 18:16 Range/Units Bedside Glucose 106 73 70-99 mg/dl Lyme Disease IgG Antibody NEG NEG Lyme Disease IgM Antibody NEG NEG
[2017-03-13] MEDS: HEPARIN 25,000 UNIT/500ML D5W 500 ML IV PRN ×2 (19:03→21:46)
--- NOTE | 2017-03-13 19:14 | PROGRESS NOTE ---
DATE: 03/13/2017 SUBJECTIVE: I am seeing Mr. Sarah in followup of multiple episodes of left hemianesthesia. His CT of the head today was unchanged compared to prior showing old left cerebellar infarction and moderately severe chronic bilateral chronic ischemic changes. An MRI cannot be done because of the permanent pacemaker. Carotid ultrasound suggests that was concern for a 50% to 69% stenosis of proximal right internal carotid. CTA of the neck and head were done in followup confirmation, there was no significant intracranial stenosis and there was no significant stenosis in the bilateral common carotid arteries, although there was mention of prominent mediastinal lymph nodes. He indicates he had one spell of numbness in the left face last evening. The patient had a mild bifrontal headache. With the episode of numbness, there was not any confusion or focal shaking activity. PHYSICAL EXAMINATION: VITAL SIGNS: 37, 77, 170/81. GENERAL: The patient is awake and alert. There is normal speech and language. His affect is appropriate. HEENT: Normal visual cobb. No visual extinction. Normal facial symmetry. NEUROLOGIC: Normal speech and language. Symmetric strength and reflexes, downgoing toes. There is a patchy decreased sensation to light touch between the left arm and left leg. His gait is reasonably good for age. IMPRESSION AND PLAN: 1. Presumed clinical small vessel transient ischemic attack based on sensory symptoms alone. Continue antiplatelet therapy, gradual reduction in blood pressure, and therapeutic anticoagulation with Coumadin. Fortunately there is no extracranial or intracranial stenosis. 2. 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 We spoke about safety ambulating outside and on uneven ground. I will do some blood work for treatable etiologies such as B12 deficiency and hypothyroidism. He will follow with you. JAMI
[2017-03-13] MEDS: ALPRAZOLAM 0.5 MG TAB PO SCH (21:35)
[2017-03-13] MEDS: ASPIRIN 81 MG ECTAB PO SCH (21:35)
[2017-03-14] VITALS: BP 168/89; PULSE 71; TEMP 36.7; O2SAT 96
[2017-03-14 02:27] LABS: RAPID PLASMA REAGIN NONREACTIVE (NONREACT)
[2017-03-14 04:00] VITALS: BP 154/83; PULSE 64; TEMP 36.5; O2SAT 96
[2017-03-14 05:23] LABS: BASO % 0.4 %; BASO ABS # 0.02 K/uL (0-0.2); EOS % 5.8 %; HEMATOCRIT 36.3 % (42-52); HEMOGLOBIN 12.1 g/dL (14.0-18.0); IG# 0.01 K/uL (0.00-0.02); LYMPH % 25.4 %; LYMPH ABS # 1.31 K/uL (1.2-3.4); MEAN CELL VOLUME 89.9 fL (80-100); MEAN CORPUSCULAR HGB CONC 33.3 g/dl (32-36); MEAN PLATELET VOLUME 11.3 fL (7.4-10.4); MONO % 10.5 %; MONO ABS # 0.54 K/uL (0.11-0.59); NEUT % 57.7 %; NEUT ABS # 2.97 K/uL (1.4-6.5); PLATELET COUNT 139 K/uL (130-400); RED CELL DISTRIBUTION WIDTH SD 48.8 fL (36.4-46.3); WHITE BLOOD COUNT 5.15 K/uL (4.8-10.8)
[2017-03-14 05:48] LABS: CALCIUM 8.6 mg/dl (8.5-10.1); CREATININE 1.07 mg/dl (0.60-1.40); POTASSIUM 3.7 mmol/L (3.5-5.1)
[2017-03-14] MEDS: LEVOTHYROXINE 75 MCG TAB PO SCH (05:56)
[2017-03-14 06:01] LABS: PTT PATIENT 79.3 SECONDS (21.0-31.0)
[2017-03-14] MEDS: HEPARIN 25,000 UNIT/500ML D5W 500 ML IV PRN (06:15)
[2017-03-14 07:27] VITALS: BP 171/81; PULSE 71; TEMP 36.3; O2SAT 96
[2017-03-14] MEDS: CYANOCOBALAMIN 500 MCG TAB (VIT B-12) PO SCH (08:40)
[2017-03-14] MEDS: CHOLECALCIFEROL 1000 INTER.UNIT TAB PO SCH (08:40)
[2017-03-14] MEDS: ATORVASTATIN 40 MG TAB PO SCH (08:40)
[2017-03-14] MEDS: METOPROLOL TARTRATE 25 MG TAB PO SCH (08:40)
[2017-03-14] MEDS: ASCORBIC ACID 500 MG TAB PO SCH (08:41)
[2017-03-14] MEDS: CEROVITE ADV FORMULA TAB PO SCH (08:42)
[2017-03-14] MEDS: INSULIN GLARGINE SOLOSTAR 100 UNITS/ML 3 ML PEN SC SCH (08:49)
[2017-03-14] MEDS: INSULIN ASPART 100 UNITS/ML 3 ML PEN SC SCH ×2 (08:50→12:23)
[2017-03-14] MEDS ORDERED: FUROSEMIDE 20 MG TAB PO SCH (09:00)
[2017-03-14] MEDS ORDERED: LISINOPRIL 10 MG TAB PO SCH (09:00)
[2017-03-14] MEDS ORDERED: LISINOPRIL 10 MG TAB PO STA (09:26)
--- NOTE | 2017-03-14 09:55 | CARDIOLOGY PROGRESS NOTE ---
DATE: 03/14/2017 DATE: 03/14/2017 FOLLOW-UP VISIT SUBJECTIVE: The patient is an 86-year-old male with a history of ischemic cardiomyopathy and chronic systolic heart failure. He also has chronic atrial fibrillation. The patient was admitted with transient ischemic attack like symptoms. Neurology was consulted and it appears that he has had no acute events by imaging. His INR was subtherapeutic on admission and it is currently 2 today. He has no new complaints. OBJECTIVE: GENERAL: He is alert and oriented in no acute distress. VITAL SIGNS: Blood pressure is 170/80. Pulse is regular at 71. He is afebrile. HEAD, EYES, EARS, NOSE, AND THROAT: He is normocephalic. Pupils are equal and reactive to light. Extraocular muscles are intact bilaterally. NECK: The neck veins are flat. Carotids have good upstrokes bilaterally without bruits. Thyroid is nonpalpable. RESPIRATORY: Breath sounds equal bilaterally and clear to auscultation. CARDIOVASCULAR: Heart has a regular rhythm. Normal S1, S2. No S3, S4. No cardiac rubs or murmurs. GASTROINTESTINAL: Abdomen is soft, nontender without organomegaly. EXTREMITIES: Free of edema, digit clubbing, or cyanosis. NEUROLOGIC: Grossly intact. SKIN: Warm to touch. LYMPH NODES: Negative to palpation. LABORATORY DATA: INR is 2.0 today. IMPRESSION: 1. Transient ischemic attack. 2. Subtherapeutic warfarin. 3. Chronic atrial fibrillation. 4. Chronic systolic heart failure because of an ischemic cardiomyopathy. 5. Chronic atrial fibrillation. RECOMMENDATIONS: I believe this patient could be discharged to outpatient followup. I do note that he had some lymph nodes on his CT imaging. 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 I think this could be followed as an outpatient. I will arrange outpatient visit through our clinic.
[2017-03-14 11:13] VITALS: BP 130/69; PULSE 50; TEMP 36.5; O2SAT 97
[2017-03-14] MEDS ORDERED: ATOR-22 PO (11:34)
[2017-03-14] MEDS ORDERED: CMD75 PO (11:34)
[2017-03-14] MEDS ORDERED: LSN20 PO (11:34)
--- NOTE | 2017-03-14 11:40 | Discharge Instructions ---
Discharge Instructions Date of Service Mar 14, 2017. Admission Reason for Admission: TIA Discharge Discharge Diagnosis / Problem: TIA. Hypertensive urgency Discharge Goals Goal(s): Decrease discomfort, Improve function Activity Recommendations Activity Limitations: resume your previous activity . Instructions / Follow-Up Instructions / Follow-Up FOLLOWUP WITH FAMILY DOCTOR ON Feb AT12:45AM FOLLOWUP WITH CARDIOLOGY SCHEDULED IN 1-2 WEEKS. FOLLOWUP LABS: PT/INR WITH COUMADIN CLINIC IN 2-3 DAYS FOR COUMADIN DOSING. NOTIFIED COUMADIN CLINIC. TO TAKE COUMADIN 7.5MG PO EVERY DAY IN PM UNTIL FURTHER INSTRUCTIONS FROM COUMADIN CLINIC. ADDED NEW BLOOD PRESSURE MEDICATION LISINOPRIL 20MG DAILY. ADDED CHOLESTEROL MEDICATION LIPITOR 20MG DAILY. BLOOD PRESSURE AND CHOLESTEROL FOLLOWUP WITH FAMILY DOCTOR AND CARDIOLOGY. LAB: BMP IN 1-2 WEEKS STARTED ON NEW MEDICATION LISINOPRIL( TO CHECK RENAL FUNCTION AND POTASSIUM LEVELS) Risk Factors for Stroke: You can reduce your chances of stroke by working with your medical provider to adopt a healthy lifestyle. Some specific ways to lower your chance of stroke are: * If you are a smoker, now is the time to stop smoking cigarettes * If you are diabetic, improve the control of your blood sugars * Avoid excessive amounts of alcohol * Control high blood pressure * Lose weight if you are overweight * Be sure to lead an active lifestyle * Eat a healthy diet low in salt, cholesterol and fat You should know about other risk factors for stroke that you are unable to control. These include: * Age 55 years or older * Male gender * Certain racial groups: , or / * Family History of Stroke, Mini stroke or Heart Attack * Sickle Cell Disease Follow Up: It is important for you to keep your follow up appointments with your medical provider. Current Hospital Diet Patient's current hospital diet: AHA Diet (Heart Healthy), Diabetes Type 2 Diet Discharge Diet Recommended Diet: AHA Diet (Heart Healthy), Diabetes Type 2 Diet Pending Studies Studies pending at discharge: no Laboratory Results Hemoglobin A1c Test 03/13/17 07:01 Range/Units Estimated Average Glucose 151 mg/dl Hemoglobin A1c 6.9 H 4.5-5.6 % Lipid Panel Test 03/13/17 07:01 Range/Units Triglycerides Level 61 0-150 mg/dl Cholesterol Level 117 0-200 mg/dl HDL Cholesterol 57 mg/dl Cholesterol/HDL Ratio 2.1 LDL Cholesterol, Calculated 48 mg/dl Medical Emergencies . Who to Call and When: Medical Emergencies: Call 911 immediately if you experience any of the following warning signs and symptoms of Stroke: * Sudden numbness or weakness of the face, arm or leg, especially on one side of the body * Sudden confusion, trouble speaking or understanding * Sudden trouble seeing in one or both eyes * Sudden trouble walking, dizziness, loss of balance or coordination * Sudden severe headache with no cause Do not delay calling 911 if you experience any warning signs or symptoms of a stroke. Delay in seeking medical attention may affect what treatments can be given to you. . Non-Emergent Contact Non-Emergency issues call your: Primary Care Provider . . "Provider Documentation" section prepared by Jerzy Morocho. . Stroke Core Measures Reason no t-PA for Stroke: Treatment not indicated Reason no antithrom by day 2: Treatment provided - N/A Reason no antithrom at D/C: Treatment provided - N/A Reason no statin at D/C: Treatment provided - N/A Reason no anticoag w/a fib: Treatment provided - N/A VTE Core Measure Inpt VTE Proph given/why not?: Warfarin (Coumadin), Other Anticoagulation (IV HEPARIN)
[2017-03-14 12:14] VITALS: BP 130/69; PULSE 50; TEMP 36.5; O2SAT 97
--- NOTE | 2017-03-14 14:19 | Pharmacy Progress Note ---
Pharmacist Stroke Counseling Date of Service Mar 14, 2017. Scope Pharmacy has been consulted to provide medication discharge counseling for this patient admitted with ischemic stroke/hemorrhagic stroke/ transient ischemic attack as per the Pharmacist Discharge Counseling for Stroke Patients Protocol. Medications on Discharge New Medications: Atorvastatin (Lipitor) 20 Mg Tab 20 MG PO DAILY for 30 Days, #30 TAB 2 Refills Lisinopril (Lisinopril) 20 Mg Tab 20 MG PO QAM, #30 TAB 2 Refills Warfarin Sod (Coumadin) 7.5 Mg Tab 7.5 MG PO DAILY@16, #30 TAB 2 Refills Continued Medications: Alprazolam (Xanax) 0.5 Mg Tab 1 TAB PO HS for 30 Days, TAB Ascorbic Acid (Vitamin C) 500 Mg Tab 500 MG PO DAILY Aspirin (Aspirin Ec) 81 Mg Tab 81 MG PO PM Biotin (Biotin) 1,000 Mcg Tab 1000 MCG PO DAILY Cholecalciferol (Vitamin D) 1,000 Unit Tab 1000 UNITS PO BID Cyanocobalamin (Vitamin B-12) 1,000 Mcg Tab 1000 MCG PO DAILY Digoxin (Digoxin) 0.125 Mg Tab 0.125 MG PO DAILY Furosemide (Lasix) 20 Mg Tab 20 MG PO MWF Insulin Aspart (Novolog) 100 Units/Ml Inj 3-6 UNITS SC TID BEFORE MEALS, NEEDED Insulin Glargine (Basaglar Kwikpen) 100 Unit/Ml Inj 15 UNITS SC QAM BEFORE BREAKFAST Levothyroxine Sodium (Levothyroxine Sodium) 75 Mcg Tab 75 MG PO QAM TAKE WITH WATER FIRST THING IN THE AM Metoprolol Tartrate (Lopressor) (Lopressor) 25 Mg Tab 12.5 MG PO BIDM 1/2 OF A 25 MG TWICE DAILY WITH FOOD Ocuvite Preservision (Ocuvite Preservision) 1 Tab Tab 1 TAB PO BID Discontinued Medications: Warfarin Sod (Jantoven) 7.5 Mg Tab 7.5 MG PO MWF MORNING Warfarin Sodium (Coumadin) 5 Mg Tab 5 MG PO 4XWK SUN, TUES, THURS, SAT Action The above medications, specifically ones for stroke treatment/prophylaxis, have been reviewed in detail with the patient and/or patient tax representative(s) prior to discharge. This includes indication, common adverse reactions, drug interactions, and medication administration. Medication counseling has been employed using the teach-back method to ensure understanding. Outcome The patient and/or patient tax representative(s) have demonstrated understanding of the medications. Please note, they are aware that the pharmacist will call them within 72 hours post-discharge to confirm that the appropriate medications are being taken and answer any further medication related questions the patient might have at that time. Contact information Individual to be contacted: Patient (George) Relationship to patient (if applicable): N/A Phone number: [phone] Best time to call: Lunch time Additional comments: Patient with potential issue picking up medication today- pt received doses of medications this morning. Should be okay to miner pick tomorrow. Potential interactions with digoxin (lisinopril/atorvastatin), aware this should be monitored/s/s of digoxin toxicity. Thank you for allowing pharmacy to be involved in the care of this patient. Please call [phone] or [phone] with any additional questions
--- NOTE | 2017-03-14 18:18 | Progress Note ---
Internal Med Progress Note Date of Service: Mar 14, 2017. Provider Documentation: SUBJECTIVE: sitting on the chair comfortably no more weakness or numbness on left side no chest pain or sob ok to go home OBJECTIVE: Vital Signs-as noted below Exam: General-alert and oriented. not in distress ENT-Normal hearing Neck-no neck masses Lungs-Cta b/l no wheezing or crackles Heart-S1 and S2 heard regular No murmurs Abdomen-Soft Bowel sounds present Non tender No distension Extremities-No edema No erythema Neuro-alert and awake moves extremities Lab data as noted below. ASSESSMENT & PLAN: This is an 86-year-old male who presents with on and off left-sided weakness and numbness. 1. Possible transient ischemic attack left-sided weakness in upper extremity and numbness in the lower extremity on left side for the last 3 days on in the mornings, but currently resolved. 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 Cannot do MRI of the head because of the defibrillator. The patient has a history of atrial fibrillation, INR subtherapeutic 1.5 on presentation. started on iv heparin and increased Coumadin to 7.5mg daily. INR 2.0 today discharged home with close f/u with pcp and Coumadin clinic. pt/ot 2. History of coronary artery disease status post stents. Continue his home medication of aspirin and Lopressor, not on statin. lipid profile at goal.added stain at discharge 3. History of atrial fibrillation. Continue digoxin and Lopressor. On Coumadin, but INR sub therapeutic on presentation. f/u with cardiology and Coumadin clinic. 4. History of diabetes. Continue Lantus and insulin sliding scale. Hba1c 6.9 5. HTN uncontrolled on Lopressor. Added lisinopril. Needs bmp in 1-2 week if discharged on lisinopril. iv hydralazine prn.Will monitor 6. Hypothyroidism. Continue Synthroid. 6. History of ischemic cardiomyopathy with ejection fraction of 25% and status post defibrillator, on Lasix; Lopressor 12.5 b.i.d. could be changed to Toprol-XL, also digoxin. We will monitor for any volume overload.stable. f/u with cardiology 7. Chronic kidney disease stage III, baseline creatinine about 1.2 to 1.4. presented with creatinine 1.4. We will follow the labs, avoid nephrotoxic agents. Discharged home with home health Vital Signs: Date Time Temp Pulse Resp B/P (MAP) Pulse Ox O2 Delivery O2 Flow Rate FiO2 03/14/17 12:14 36.5 50 18 97 Room Air 03/14/17 12:00 Room Air 03/14/17 11:13 36.5 50 18 130/69 (89) 97 Room Air 03/14/17 08:01 Room Air 03/14/17 07:27 36.3 71 18 171/81 (111) 96 Room Air 03/14/17 04:00 Room Air 03/14/17 04:00 36.5 64 18 154/83 (106) 96 Room Air 03/14/17 00:00 Room Air 03/14/17 00:00 36.7 71 20 168/89 (115) 96 Room Air 03/13/17 20:20 77 169/83 (111) 03/13/17 20:00 Room Air 03/13/17 19:57 36.9 68 18 179/79 (112) 95 Room Air Lab Results: Results Past 24 Hours Test 03/13/17 18:16 03/13/17 20:11 03/14/17 05:06 03/14/17 07:33 Range/Units Vitamin B12 Level 1227 211-911 pg/mL Folate 20.36 >5.38 ng/mL Bedside Glucose 104 110 70-99 mg/dl White Blood Count 5.15 4.8-10.8 K/uL Red Blood Count 4.04 4.7-6.1 M/uL Hemoglobin 12.1 14.0-18.0 g/dL Hematocrit 36.3 42-52 % Mean Corpuscular Volume 89.9 80-100 fL Mean Corpuscular Hemoglobin 30.0 25-34 pg Mean Corpuscular Hemoglobin Concent 33.3 32-36 g/dl Platelet Count 139 130-400 K/uL Mean Platelet Volume 11.3 7.4-10.4 fL Neutrophils (%) (Auto) 57.7 % Lymphocytes (%) (Auto) 25.4 % Monocytes (%) (Auto) 10.5 % Eosinophils (%) (Auto) 5.8 % Basophils (%) (Auto) 0.4 % Neutrophils # (Auto) 2.97 1.4-6.5 K/uL Lymphocytes # (Auto) 1.31 1.2-3.4 K/uL Monocytes # (Auto) 0.54 0.11-0.59 K/uL Eosinophils # (Auto) 0.30 0-0.5 K/uL Basophils # (Auto) 0.02 0-0.2 K/uL RDW Standard Deviation 48.8 36.4-46.3 fL RDW Coefficient of Variation 15.0 11.5-14.5 % Immature Granulocyte % (Auto) 0.2 % Immature Granulocyte # (Auto) 0.01 0.00-0.02 K/uL Prothrombin Time 20.7 9.0-12.0 SECONDS Prothromb Time International Ratio 2.0 0.9-1.1 Activated Partial Thromboplast Time 79.3 21.0-31.0 SECONDS Partial Thromboplastin Ratio 3.1 Sodium Level 137 136-145 mmol/L Potassium Level 3.7 3.5-5.1 mmol/L Chloride Level 104 98-107 mmol/L Carbon Dioxide Level 29 21-32 mmol/L Anion Gap 4.0 3-11 mmol/L Blood Urea Nitrogen 24 7-18 mg/dl Creatinine 1.07 0.60-1.40 mg/dl Est Creatinine Clear Calc Drug Dose 47.4 ml/min Estimated GFR () 72.5 Estimated GFR (Non- 62.5 BUN/Creatinine Ratio 22.1 10-20 Random Glucose 90 70-99 mg/dl Calcium Level 8.6 8.5-10.1 mg/dl Magnesium Level 2.0 1.8-2.4 mg/dl Test 03/14/17 11:32 Range/Units Bedside Glucose 166 70-99 mg/dl
--- NOTE | 2017-03-14 18:49 | Discharge Summary ---
Discharge Summary Date of Service Mar 14, 2017. Discharge Summary Admission Date: Mar 12, 2017 at 12:58 Discharge Date: Mar 14, 2017 Discharge Disposition: Home with services Principal Diagnosis: TIA UNCONTROLLED HYPERTENSION SUB THERAPEUTIC INR Secondary Diagnoses/Problems: diabetes, chronic ischemic cardiomyopathy with EF of 25%, status post defibrillator, chronic kidney disease stage III, hypertension, BPH, aortic valve insufficiency and mitral valve regurgitation, anemia of chronic renal disease,hx of histoplasmosis, chronic atrial fibrillation, asymptomatic bilateral carotid artery stenosis Procedures: CT HEAD: No acute intracranial abnormality. Atrophy and microvascular ischemic changes. 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 CAROTID US: Findings concerning for 50-69% stenosis of the proximal right internal carotid artery. These findings are slightly clavicle given the limited actual elevation in velocity in the right ICA, however, the relative increase in velocity to the common carotid artery is significant. If there is further clinical confirmation, CTA of the neck could be obtained. CTA HEAD: 1. No abrupt vessel cut off or intracranial aneurysm. 2. Moderate atherosclerotic plaque within the intracranial vessels with mild multifocal stenoses CTA NECK: 1. No significant stenosis, occlusion, or dissection within the common carotid, internal carotid or vertebral arteries. 2. Approximately 40% stenosis at the origin of the right external carotid artery. 3. A few subcentimeter indeterminate pulmonary nodules with the largest measuring 6 mm. Please refer to the chart below for recommended follow-up. 4. Prominent mediastinal lymph nodes. ECHO: ormal LV chamber size with moderate concentric LVH. * Low normal LV systolic function with borderline global hypokinesis, EF 50- 55%. * No segmental left ventricular wall motion abnormalities are noted. * Grade II diastolic dysfunction. * Aortic valve sclerosis mild, without significant aortic valvular stenosis. Mild aortic regurgitation. * Mild mitral regurgitation. * Mild tricuspid regurgitation. * Severe biatrial enlargement. Consultations: CARDIOLOGY NEUROLOGY Medication Reconciliation New Medications: Atorvastatin (Lipitor) 20 Mg Tab 20 MG PO DAILY for 30 Days, #30 TAB 2 Refills Lisinopril (Lisinopril) 20 Mg Tab 20 MG PO QAM, #30 TAB 2 Refills Warfarin Sod (Coumadin) 7.5 Mg Tab 7.5 MG PO DAILY@16, #30 TAB 2 Refills Continued Medications: Alprazolam (Xanax) 0.5 Mg Tab 1 TAB PO HS for 30 Days, TAB Ascorbic Acid (Vitamin C) 500 Mg Tab 500 MG PO DAILY Aspirin (Aspirin Ec) 81 Mg Tab 81 MG PO PM Biotin (Biotin) 1,000 Mcg Tab 1000 MCG PO DAILY Cholecalciferol (Vitamin D) 1,000 Unit Tab 1000 UNITS PO BID Cyanocobalamin (Vitamin B-12) 1,000 Mcg Tab 1000 MCG PO DAILY Digoxin (Digoxin) 0.125 Mg Tab 0.125 MG PO DAILY Furosemide (Lasix) 20 Mg Tab 20 MG PO MWF Insulin Aspart (Novolog) 100 Units/Ml Inj 3-6 UNITS SC TID BEFORE MEALS, NEEDED Insulin Glargine (Basaglar Kwikpen) 100 Unit/Ml Inj 15 UNITS SC QAM BEFORE BREAKFAST Levothyroxine Sodium (Levothyroxine Sodium) 75 Mcg Tab 75 MG PO QAM TAKE WITH WATER FIRST THING IN THE AM Metoprolol Tartrate (Lopressor) (Lopressor) 25 Mg Tab 12.5 MG PO BIDM 1/2 OF A 25 MG TWICE DAILY WITH FOOD Ocuvite Preservision (Ocuvite Preservision) 1 Tab Tab 1 TAB PO BID Discontinued Medications: Warfarin Sod (Jantoven) 7.5 Mg Tab 7.5 MG PO MWF MORNING Warfarin Sodium (Coumadin) 5 Mg Tab 5 MG PO 4XWK SUN, ES, THURS, SAT Admission Information HPI (per Admitting provider): This is an 86-year-old male with past medical history significant for diabetes, chronic ischemic cardiomyopathy with EF of 25%, status post defibrillator, chronic kidney disease stage III, hypertension, BPH, aortic valve insufficiency and mitral valve regurgitation, anemia of chronic renal disease,hx of histoplasmosis, chronic atrial fibrillation, asymptomatic bilateral carotid artery stenosis presents with having weakness and numbness on the left side for the last 3 days. The patient says in last 3 days in the morning, he felt like weakness in his left upper extremity and some numbness and tingling in his left lower extremity, lasted for a couple of hours and yesterday it lasted for several hours and there is also a question of some slurred speech which was noticed by his son, which got him and his worried and came to the ER today. Currently, resting comfortably and asymptomatic. 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 He has some chronic balance issues and has chronic dizziness. Denies any headaches. No difficulty swallowing. Currently speaking fine. No sore throat, has some runny nose. Denies any chest pain or shortness of breath. No cough, no fever, no chills. No belly pain, no nausea, no vomiting, normal bowel and bladder movements. No recent weight gain or weight loss. Appetite is okay. No swelling in the legs. Currently, resting comfortably and hemodynamically stable. Physical Exam (per Admitting): GENERAL: The patient is old and frail, not in distress. VITAL SIGNS: Temperature afebrile, pulse 61, respiratory rate 18, blood pressure 144/88, oxygen 92% room air. HEENT: No pallor, no icterus. Pupils equal, round, and reactive to light. NECK: No JVD, no neck masses, no carotid bruits. CARDIOVASCULAR: S1, S2 heard, irregular. No murmur, no gallop. RESPIRATORY SYSTEM: Normal AP diameter. No accessory muscle use. No wheezing, no crackles. ABDOMEN: Soft, bowel sounds present. Nontender. No distention. CENTRAL NERVOUS SYSTEM: Cranial nerves II-XII grossly intact. Pulse 5/5 in all extremities. Position sense intact. [id number] test normal. Coordination of movements normal. No pronator drift. Hospital Course This is an 86-year-old male who presents with on and off left-sided weakness and numbness. 1. Possible transient ischemic attack left-sided weakness in upper extremity and numbness in the lower extremity on left side for the last 3 days on in the mornings, but currently resolved. 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 Cannot do MRI of the head because of the defibrillator. The patient has a history of atrial fibrillation, INR subtherapeutic 1.5 on presentation. started on iv heparin and increased Coumadin to 7.5mg daily. INR 2.0 today discharged home with close f/u with pcp and Coumadin clinic. pt/ot 2. History of coronary artery disease status post stents. Continue his home medication of aspirin and Lopressor, not on statin. lipid profile at goal.added stain at discharge 3. History of atrial fibrillation. Continue digoxin and Lopressor. On Coumadin, but INR sub therapeutic on presentation. f/u with cardiology and Coumadin clinic. 4. History of diabetes. Continue Lantus and insulin sliding scale. Hba1c 6.9 5. HTN uncontrolled on Lopressor. Added lisinopril. Needs bmp in 1-2 week if discharged on lisinopril. iv hydralazine prn.Will monitor 6. Hypothyroidism. Continue Synthroid. 6. History of ischemic cardiomyopathy with ejection fraction of 25% and status post defibrillator, on Lasix; Lopressor 12.5 b.i.d. could be changed to Toprol-XL, also digoxin. We will monitor for any volume overload.stable. f/u with cardiology 7. Chronic kidney disease stage III, baseline creatinine about 1.2 to 1.4. presented with creatinine 1.4. We will follow the labs, avoid nephrotoxic agents. 8. LUNG NODULE ON CTA NECK MULTIPLE NODULES PROBABLY FROM HISTOPLASMOSIS LARGEST 6MM F/U WITH PCP Discharged home with home health Total time spent on discharge = 35MINUTES This includes examination of the patient, discharge planning, medication reconciliation, and communication with other providers. Discharge Instructions Discharge Instructions Date of Service Mar 14, 2017. Admission Reason for Admission: TIA Discharge Discharge Diagnosis / Problem: TIA. Hypertensive urgency Discharge Goals Goal(s): Decrease discomfort, Improve function Activity Recommendations Activity Limitations: resume your previous activity . Instructions / Follow-Up Instructions / Follow-Up FOLLOWUP WITH FAMILY DOCTOR ON Feb AT12:45AM FOLLOWUP WITH CARDIOLOGY SCHEDULED IN 1-2 WEEKS. FOLLOWUP LABS: PT/INR WITH COUMADIN CLINIC IN 2-3 DAYS FOR COUMADIN DOSING. NOTIFIED COUMADIN CLINIC. TO TAKE COUMADIN 7.5MG PO EVERY DAY IN PM UNTIL FURTHER INSTRUCTIONS FROM COUMADIN CLINIC. ADDED NEW BLOOD PRESSURE MEDICATION LISINOPRIL 20MG DAILY. ADDED CHOLESTEROL MEDICATION LIPITOR 20MG DAILY. BLOOD PRESSURE AND CHOLESTEROL FOLLOWUP WITH FAMILY DOCTOR AND CARDIOLOGY. LAB: BMP IN 1-2 WEEKS STARTED ON NEW MEDICATION LISINOPRIL( TO CHECK RENAL FUNCTION AND POTASSIUM LEVELS) Risk Factors for Stroke: You can reduce your chances of stroke by working with your medical provider to adopt a healthy lifestyle. Some specific ways to lower your chance of stroke are: * If you are a smoker, now is the time to stop smoking cigarettes * If you are diabetic, improve the control of your blood sugars * Avoid excessive amounts of alcohol * Control high blood pressure * Lose weight if you are overweight * Be sure to lead an active lifestyle * Eat a healthy diet low in salt, cholesterol and fat You should know about other risk factors for stroke that you are unable to control. These include: * Age 55 years or older * Male gender * Certain racial groups: , or / * Family History of Stroke, Mini stroke or Heart Attack * Sickle Cell Disease Follow Up: It is important for you to keep your follow up appointments with your medical provider. Current Hospital Diet Patient's current hospital diet: AHA Diet (Heart Healthy), Diabetes Type 2 Diet Discharge Diet Recommended Diet: AHA Diet (Heart Healthy), Diabetes Type 2 Diet Pending Studies Studies pending at discharge: no Laboratory Results Hemoglobin A1c Test 03/13/17 07:01 Range/Units Estimated Average Glucose 151 mg/dl Hemoglobin A1c 6.9 H 4.5-5.6 % Lipid Panel Test 03/13/17 07:01 Range/Units Triglycerides Level 61 0-150 mg/dl Cholesterol Level 117 0-200 mg/dl HDL Cholesterol 57 mg/dl Cholesterol/HDL Ratio 2.1 LDL Cholesterol, Calculated 48 mg/dl Medical Emergencies . Who to Call and When: Medical Emergencies: Call 911 immediately if you experience any of the following warning signs and symptoms of Stroke: * Sudden numbness or weakness of the face, arm or leg, especially on one side of the body * Sudden confusion, trouble speaking or understanding * Sudden trouble seeing in one or both eyes * Sudden trouble walking, dizziness, loss of balance or coordination * Sudden severe headache with no cause Do not delay calling 911 if you experience any warning signs or symptoms of a stroke. Delay in seeking medical attention may affect what treatments can be given to you. . Non-Emergent Contact Non-Emergency issues call your: Primary Care Provider . . "Provider Documentation" section prepared by Jerzy Morocho. . Stroke Core Measures Reason no t-PA for Stroke: Treatment not indicated Reason no antithrom by day 2: Treatment provided - N/A Reason no antithrom at D/C: Treatment provided - N/A Reason no statin at D/C: Treatment provided - N/A Reason no anticoag w/a fib: Treatment provided - N/A VTE Core Measure Inpt VTE Proph given/why not?: Warfarin (Coumadin), Other Anticoagulation (IV HEPARIN)
[2017-03-15] MEDS ORDERED: LISINOPRIL 20 MG TAB PO SCH (09:00)
--- NOTE | 2017-03-20 14:07 | Pharmacy Progress Note ---
Pharmacist Post D/C Phone Note Date of phone call: Mar 20, 2017. Individual with whom pharmacist spoke to: spoke initially to the patient's spouse then to the patient, George Sarah The following questions were reviewed during the phone call with responses listed below each: Can you tell me the medications that you are currently taking as well as when and how you take each medication? - Atorvastatin and lisinopril once daily. Warfarin was followed up on 03/16 with dose change necessary due to INR with follow-up tomorrow When have you missed any doses of your medications? - None - has followed the instructions on the prescription bottle What side effects are you having from your medications? - No new side effects after starting these new medications What questions do you have about your medications? - No new questions What problems are you having obtaining your medications? - He was able to obtain the new prescriptions When is your next appointment with your primary care doctor? - The patient has an appointment with Dr. Osullivan, tomorrow, Mar 21, 2017 Additional comments: - Due to the holiday period, this call occurred more than 72 hours after discharge As per the Pharmacist Discharge Counseling for Stroke Patients Protocol, this phone call has been completed within 72 hours of discharge. Thank you for allowing us to be involved in the care of this patient.
== END 2017-03-14 14:43 | disposition home or self-care (01) ==
LOC: C.EDB 10:26 → C.MED 12:58 → ENRESERV 13:19
PROVIDERS: ADMIT Hospitalist; ATTEND Internal Medicine
DX: G45.9 Transient cerebral ischemic attack, unspecified (principal); I16.0 Hypertensive urgency; R53.1 Weakness; E11.9 Type 2 diabetes mellitus without complications; I25.5 Ischemic cardiomyopathy; I25.10 Atherosclerotic heart disease of native coronary artery without angina pectoris; N18.3 Chronic kidney disease, stage 3 (moderate); I12.9 Hypertensive chronic kidney disease with stage 1 through stage 4 chronic kidney disease, or unspecified chronic kidney disease; N40.0 Benign prostatic hyperplasia without lower urinary tract symptoms; I48.91 Unspecified atrial fibrillation; E03.9 Hypothyroidism, unspecified; Z86.73 Personal history of transient ischemic attack (TIA), and cerebral infarction without residual deficits; Z87.891 Personal history of nicotine dependence; Z79.4 Long term (current) use of insulin; Z79.82 Long term (current) use of aspirin; Z79.01 Long term (current) use of anticoagulants; Z95.5 Presence of coronary angioplasty implant and graft; Z90.89 Acquired absence of other organs; Z98.41 Cataract extraction status, right eye; Z95.0 Presence of cardiac pacemaker; Z98.42 Cataract extraction status, left eye; Z82.49 Family history of ischemic heart disease and other diseases of the circulatory system; Z81.8 Family history of other mental and behavioral disorders; Z86.19 Personal history of other infectious and parasitic diseases

== ENCOUNTER 2019-01-19 11:36 | Inpatient (IN) ==
[2019-01-19 12:10] LABS: Basophils # (auto) 0.04 K/uL (0-0.2); Basophils % (auto) 0.7 %; Eosinophils # (auto) 0.21 K/uL (0-0.5); Eosinophils % (auto) 3.7 %; Hematocrit (blood only) 39.4 % (42-52); Hemoglobin 12.9 g/dL (14.0-18.0); Immature Granulocytes # (auto) 0.01 K/uL (0.00-0.02); Immature Granulocytes % (auto) 0.2 %; Lymphocytes # (auto) 1.03 K/uL (1.2-3.4); Lymphocytes % (auto) 18.1 %; Mean Corpuscular Hemoglobin 30.4 pg (25-34); Mean Corpuscular Hgb Conc 32.7 g/dL (32-36); Mean Corpuscular Volume 92.7 fL (80-100); Mean Platelet Volume 12.1 fL (7.4-10.4); Monocytes # (auto) 0.57 K/uL (0.11-0.59); Neutrophils # (auto) 3.84 K/uL (1.4-6.5); Neutrophils % (auto) 67.3 %; Platelet Count 160 K/uL (130-400); RDW Coefficient of Variation 15.1 % (11.5-14.5); RDW Standard Deviation 50.5 fL (36.4-46.3); Red Blood Count 4.25 M/uL (4.7-6.1)
[2019-01-19] MEDS ORDERED: OPTIRAY 320 125ml IV PRN (12:11)
[2019-01-19 12:18] LABS: INR 3.2 (0.9-1.1); Partial Thromboplastin Ratio 1.6; Partial Thromboplastin Time 43.8 Seconds (21.0-31.0); Prothrombin Time 30.2 Seconds (9.0-12.0)
[2019-01-19 12:20] LABS: iSTAT Creatinine 1.4 mg/dl (0.6-1.3); iSTAT Hemoglobin 13.3 g/dl (14.0-18.0); iSTAT Ionized Calcium 1.23 mmol/l (1.12-1.32)
[2019-01-19 12:26] LABS: Alanine Aminotransferase 15 U/L (12-78); Albumin Level 3.4 gm/dl (3.4-5.0); Aspartate Aminotransferase 14 U/L (15-37); BUN Creatinine Ratio 21.9 (10-20); Blood Urea Nitrogen 30 mg/dl (7-18); Calcium 8.9 mg/dl (8.5-10.1); Carbon Dioxide 30 mmol/L (21-32); Chloride 105 mmol/L (98-107); Creatinine Clr Calc Pharmacy 38.2 ml/min; Est GFR (African American) 53.5; Est GFR (Non-African American) 46.1; Glucose 68 mg/dl (70-99); Sodium 140 mmol/L (136-145)
[2019-01-19 12:30] LABS: Albumin Globulin Ratio 0.8 (0.9-2); Alkaline Phosphatase 110 U/L (45-117); Bilirubin,Total 0.7 mg/dl (0.2-1); Globulin 4.2 gm/dl (2.5-4.0); Total Protein 7.6 gm/dl (6.4-8.2); Troponin I < 0.015 ng/ml (0-0.045)
--- NOTE | 2019-01-19 12:42 | CT Scan Report ---
CT head/brain wo con CT DOSE: HISTORY: Mental status change Stroke evaluation TECHNIQUE: Multiaxial CT images of the head were performed without the use of intravenous contrast. A dose lowering technique was utilized adhering to the principles of ALARA. Comparison: 03/13/2017 Findings: The paranasal sinuses and mastoid air cells are clear. Age-related atrophy and chronic smal l vessel change. No acute intracranial abnormality. Impression: No acute intracranial abnormality. Age-related atrophy and chronic small vessel change. The above report was generated using voice recognition software. It may contain grammatical, syntax or spelling errors. Electronically signed by: Rojelio Watkins M.D. 01/19/2019 12:41 PM
--- NOTE | 2019-01-19 12:47 | CT Scan Report ---
CT angio neck with con HISTORY: Mental status change TIA, confusion/L weakness now improving TECHNIQUE: Multiaxial CT angiography of the neck was performed IV contrast: 100 cc All measurements were calculated based on NASCET criteria. Maximum intensity projection images were also obtained. A dose lowering technique was utilized adhering to the principles of ALARA. COMPARISON STUDY: 03/13/2017 FINDINGS: The aortic arch and proximal great vessels are widely patent. Mild plaque formation bilate rally. No significant left carotid stenosis. 40-50% narrowing origin right external carotid artery. This is unchanged from the prior exam. The vertebral basilar system shows moderate scattered plaque formation. There is a 75% stenosis of th e superior aspect of the left vertebral. There is a 50% stenosis of the right vertebral artery. This is seen at approximately the level of C1. Basilar is unremarkable. 1. IMPRESSION: 1. 40% stenosis origin right external carotid artery. RLQ. Scattered plaque formation of the carotid systems bilaterally with no additional stenosis. 3. 75% stenosis superior aspect left vertebral artery with a 50% stenosis of the right vertebral juan antonio ry. This is seen approximately the level of C1. The above report was generated using voice recognition software. It may contain grammatical, syntax or spelling errors. Electronically signed by: Rojelio Watkins M.D. 01/19/2019 12:46 PM
--- NOTE | 2019-01-19 12:51 | CT Scan Report ---
CT angio head w con HISTORY: TIA, confusion/L weakness TECHNIQUE: Multiaxial CT angiography of the head was performed IV contrast: None. Maximum intensit y projection images were also obtained. A dose lowering technique was utilized adhering to the princ iplStepan. COMPARISON: None. FINDINGS: There is no mass, hematoma, midline shift, or acute infarct. Intracranial vasculature is in general unremarkable. There is 30-40% narrowing of the cavernous components of the internal carotid arteries bilaterally. It is approximately 50% stenosis of the supraclinoid regions of the carotid sys tem bilaterally. No evidence for high grade or critical stenosis. IMPRESSION: 1. Moderate atherosclerotic narrowing of the cavernous components of the internal carotid arteries bi laterally. 2. This is estimated at 30-40% bilaterally. 3. 50% stenosis of the supraclinoid aspects of the internal carotid arteries bilaterally. 4. No evidence for critical stenosis. 5. Significant stenotic change of the distal vertebral arteries is again noted bilaterally. The above report was generated using voice recognition software. It may contain grammatical, syntax or spelling errors. Electronically signed by: Rojelio Watkins M.D. 01/19/2019 12:50 PM
--- NOTE | 2019-01-19 14:01 | History & Physical Report ---
Date of Service January 19, 2019 Assessment & Plan (1) TIA (transient ischemic attack): Pt is 88 y/o M with PMH TIA in 2017, DM II, CKD III, anemia of chronic disease, HTN, chronic ischemic cardiomyopathy, s/p defibrillator, chronic A. 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 Same symptoms have occurred several other times past month, lasting a few minutes and resolving. CT HEAD:No acute intracranial abnormality. Age-related atrophy and chronic small vessel change. CTA HEAD: 1. 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 2. This is estimated at 30-40% bilaterally. 3. 50% stenosis of the supraclinoid aspects of the internal carotid arteries bilaterally. 4. No evidence for critical stenosis. 5. Significant stenotic change of the distal vertebral arteries is again noted bilaterally. CTA NECK: 40% stenosis origin right external carotid artery. RLQ. Scattered plaque formation of the carotid systems bilaterally with no additional stenosis. 75% stenosis superior aspect left vertebral artery with a 50% stenosis of the right vertebral artery. This is seen approximately the level of C1. -No further symptoms while in ER. In ER vital stable, no significant electrolyte abnormality -INR: 3.2, had today's dose. Will hold tomorrow and re-evaluate INR -Continue aspirin 81mg daily -Lipid panel in AM, start low dose atorvastatin -Unable to perform MRI secondary to defibrillator -Echo -aspiration precautions -PT/OT consult -CBC, BMP in am -Neurology consult (2) Chronic atrial fibrillation: On Coumadin Rate controlled -Digoxin level pending -Continue digoxin -INR: 3.2, had today's dose. Will hold tomorrow and re-evaluate INR -Continue metoprolol (3) Chronic combined systolic and diastolic CHF (congestive heart failure): (4) Cardiomyopathy, ischemic: 2017 echo: EF: 50-55%, grade II diastolic dysfunction, mild aortic sclerosis, mild aortic regurgitation, mild mitral regurgitation, mild tricuspid regurgitation -Appears euvolemic -Continue lasix MWF (5) Diabetes mellitus, type II: A1c: 7.4 on 10/07/2018 -Hold home insulin -Novolog, Lantus Sliding scale per protocol (6) HTN (hypertension): Stable -Continue metoprolol (7) CKD (chronic kidney disease), stage III: Cr: 1.36. Baseline Cr: 1.2 -Monitor renal functions -Avoid nephrotoxic agents when possible (8) Anemia, chronic disease: Hgb: 12.9. Baseline ~12.4 -Monitor H&H (9) Hypothyroidism: TSH: 6.5 on 09/17/18 -Continue levothyroxine DVT Prophylaxis -On Coumadin with INR: 3.2 Full Code as per discussion with pt, reports if poor prognosis would not want on prolonged life support Follows with Dr Osullivan for routine care Pt was seen and care coordinated with Dr Tapia. See addendum History of Present Illness Chief Complaint: Confusion, Left sided weakness Primary Care Provider: Robert Osullivan MD Pt is 88 y/o M with PMH TIA in 2017, DM II, CKD III, anemia of chronic disease, HTN, chronic ischemic cardiomyopathy, s/p defibrillator, chronic A. 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 Reports has had several episodes of the same over the last couple of months and symptoms lasted for a few minutes and resolve. Reports patient with frequent falls over the past year. Reports several months ago fell and hit head, did not seek treatment at that time. Reports couple days ago fell however family member was there to catch him and denies any injury or hitting head. Reports having some neck and lower back pain intermittently. Reports only has left hand paresthesias when he sleeps on the left side " incorrectly". Denies any other paresthesias. Chronic vision loss, denies any other vision changes. Reports chronic intermittent lower extremity edema with left worse than right leg, however reports no significant edema recently. Denies fever/chills, diaphoresis, N/V/D/C, CEE, dizziness, syncope, CP, SOB, orthopnea, palpitations, cough, sore throat, choking, otalgia, rhinorrhea, abdominal pain, rashes, urinary symptoms. Allergies Allergy/AdvReac Type Severity Reaction Status Date / Time banana Allergy Unknown ` Verified 01/19/19 12:47 itraconazole AdvReac Intermediate UNKNOWN Unverified 03/12/17 12:09 Home Medications Home Medications Medication Instructions Recorded Confirmed Type BD Ultra-Fine Short Pen Needle 31 #400 ea NS 12/03/18 01/19/19 Rx gauge x 08/08" glucagon (human recombinant) 1 mg 1 mg IM Q20M PRN #1 ea 01/17/19 01/19/19 Rx solution for injection levothyroxine 50 mcg tablet 50 mcg PO DAILY #90 tab 01/17/19 01/19/19 Rx Super Beta Prostate 2 cap PO BID 01/19/19 History alprazolam 0.5 mg PO HS 01/19/19 01/19/19 History ascorbic acid (vitamin C) 500 mg PO DAILY 01/19/19 01/19/19 History aspirin 81 mg PO DAILY 01/19/19 01/19/19 History biotin 1 mg PO DAILY 01/19/19 01/19/19 History cholecalciferol (vitamin D3) 1,000 unit PO BID 01/19/19 01/19/19 History cyanocobalamin (vitamin B-12) 1,000 mcg PO DAILY 01/19/19 01/19/19 History digoxin 125 mcg PO QAM 01/19/19 01/19/19 History furosemide 20 mg PO 3XWK 01/19/19 01/19/19 History insulin aspart U-100 [Novolog 6 - 12 unit SQ TIDM 01/19/19 01/19/19 History Flexpen U-100 Insulin] insulin glargine [Basaglar KwikPen 8 unit SQ HS 01/19/19 01/19/19 History U-100 Insulin] metoprolol tartrate 12.5 mg PO BID 01/19/19 01/19/19 History vit C,K-Ex-jtvej-lutein-zeaxan 1 tab PO BID 01/19/19 01/19/19 History [PreserVision AREDS-2] warfarin 5 mg PO UD 01/19/19 01/19/19 History Past Med/Surg History Family History Other Cancer Heart disease Social History Preferred Language: Kyr[place] Communication Ability: Effective 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 Beliefs That Will Affect Care: None Current Living Situation: Spouse Other Information That Helps Us Care for You: No Feels Safe at Home: Yes Safety Concerns: Feels Safe At This Time Smoking Status: Former smoker Hx Alcohol Use: Yes Alcohol type: wine Alcohol Intake Frequency: Weekly Hx Substance Use: No Review of Systems Review of Systems: All systems reviewed & are unremarkable except as noted in HPI & below Physical Exam Physical Exam: General: no acute distress, moderate developed, moderate nourished elderly male Head: normocephalic, atraumatic Eyes: PERRL, EOM's intact, conjunctiva non-injected, anicteric ENT: Hard of hearing, normal inspection external ears, nose, mucous membranes moist Neck: supple, trachea midline, non-tender Lungs: clear, no respiratory distress, no wheezing/rhonchi/rales CV: irregularly irregular, no murmur, no pretibial edema Abd: normal BS, soft, non-tender Ext: no cyanosis, no calf tenderness Neuro: A&O x 3, facial sensation is intact and symmetric, The face is strong and symmetric, Soft palate elevates symmetrically, no dysarthria, shoulder shrug intact, Tongue is midline, normal movement, Muscle tone normal. Strength equal upper and lower bilateral extremities, normal affect Skin: warm, dry Results & Data Vital Signs (Past 12 Hours) Vital Signs Temp Pulse Pulse Resp BP BP Pulse Ox 01/19/19 12:21 60 20 153/87 H 96 01/19/19 12:01 60 20 137/71 96 01/19/19 11:38 36.4 C L 61 18 130/85 94 Laboratory Results Short CBC 01/19/19 Range/Units 11:53 WBC 5.70 (4.8-10.8) K/uL Hgb 12.9 L (14.0-18.0) g/dL Hct 39.4 L (42-52) % Plt Count 160 (130-400) K/uL BMP 01/19/19 11:53 Sodium 140 Potassium 4.0 Chloride 105 Carbon Dioxide 30 BUN 30 H Creatinine 1.36 Glucose 68 L Calcium 8.9 Cardiac Enzymes 01/19/19 Range/Units 11:53 Troponin I < 0.015 (0-0.045) ng/ml Liver Function 01/19/19 Range/Units 11:53 Total Bilirubin 0.7 (0.2-1) mg/dl AST 14 L (15-37) U/L ALT 15 (12-78) U/L Alkaline Phosphatase 110 (45-117) U/L Albumin 3.4 (3.4-5.0) gm/dl Diagnostic Findings CT HEAD: Impression: No acute intracranial abnormality. Age-related atrophy and chronic small vessel change. CTA HEAD: IMPRESSION: 1. 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 2. This is estimated at 30-40% bilaterally. 3. 50% stenosis of the supraclinoid aspects of the internal carotid arteries bilaterally. 4. No evidence for critical stenosis. 5. Significant stenotic change of the distal vertebral arteries is again noted bilaterally. CTA NECK: IMPRESSION: 1. 40% stenosis origin right external carotid artery. RLQ. Scattered plaque formation of the carotid systems bilaterally with no additional stenosis. 3. 75% stenosis superior aspect left vertebral artery with a 50% stenosis of the right vertebral artery. This is seen approximately the level of C1. Supervising Physician Co-Signing Physician Notes I saw this patient with the physician sales assistant entertainment and media, I participated in the history, physical, review of systems, and physical exam. I reviewed the medications with the patient and the physician sales assistant entertainment and media and helped reconcile the medications. I helped take a detailed family and social history as well. I formulated the assessment and plan personally with the physician sales assistant entertainment and media and went over it with the patient. ROS-No Headache, No Visual Changes, No Nausea, No Vomiting, No Fever, No Chills, No Neck Pain or Stiffness, No Chest Pain, No Palpitations, No SOB, No SANDOVAL, No Cough, No Sputum, No Wheezing, No Abdominal Pain, No Diarrhea, No Hematemesis, No Hemoptysis, No Unexpected Weight Loss, No Flank pain, No Melena, No Hematochezia, No Frequency, No Urgency, No Burning, No Hematuria, No Rashes, No Diaphoresis. Appetite is Normal, blind R Eye, c/o falls and legs giving out Physical Exam Gen-AAO x 3, NAD, Afebrile Head-NCAT, EOMI, PERRLA, Anicteric Sclera, No Posterior Pharyngeal Erythema Neck-Supple, No JVD, No Thyromegaly, No Masses, No LAD, No Bruits Lungs-Clear to Auscultation Bilaterally, No Rales, No Rhonchi, No Wheezing, No Crepitus Chest-No S4, +S1, +S2, No S3, No Murmurs, No Rubs, No Gallops, No Ectopy Abdomen-Soft, Bowel Sounds Present, Non Tender, Non Distended, No Hepatomegaly, No Splenomegaly, No Palpable Masses, No Rebound, No Rigidity, No Guarding Musculoskeletal-Full Range of Motion Bilaterally, No CVAT Extremities-No Cyanosis, No Clubbing, No Edema Nuero-Cranial Nerves II-XII grossly intact, Motor WNL, DTRs WNL, Strength WNL, Non Focal Psych-Normal Mood
[2019-01-19] MEDS ORDERED: GLUCAGON FOR INJ 1 MG VIAL SQ PRN (15:59)
[2019-01-19] MEDS ORDERED: DEXTROSE 50% 50 ML SYRINGE IV PRN (15:59)
[2019-01-19] MEDS ORDERED: ACETAMINOPHEN 325 MG TAB PO PRN (15:59)
[2019-01-19] MEDS ORDERED: PHARMACIST DISCHARGE MED REC CONSULT PRN (15:59)
[2019-01-19] MEDS ORDERED: CARBOHYDRATES FOR HYPOGLYCEMIA PO PRN (15:59)
[2019-01-19] MEDS ORDERED: GLUCOSE 10 TABS/TUBE PO PRN (15:59)
[2019-01-19] MEDS ORDERED: GLUCOSE 40% GEL 15 GM TUBE PO PRN (15:59)
--- NOTE | 2019-01-19 17:20 | CT Scan Report ---
CT cervical spine wo con CT DOSE: HISTORY: Pain neck pain TECHNIQUE: Multiaxial CT images of the cervical spine were performed and reformatted in the sagittal and coronal plane without the use of contrast. A dose lowering technique was utilized adhering to th e principles of ALARA. COMPARISON: None. FINDINGS: Vertebral body stature is normal. Considerable degenerative disc change C6-C7. No evidence for compression deformity. Moderate degenerative changes of the posterior elements. Transaxial images show no evidence of bony compromise of the spinal canal. C1-C2 complex is intact. M oderate degenerative changes present. IMPRESSION: Moderate degenerative change. No acute process. The above report was generated using voice recognition software. It may contain grammatical, syntax or spelling errors. Electronically signed by: Rojelio Watkins M.D. 01/19/2019 5:19 PM
[2019-01-19] MEDS: INSULIN ASPART 100 UNITS/ML 3 ML PEN SC SCH ×2 (17:38→20:22)
--- NOTE | 2019-01-19 17:43 | CT Scan Report ---
CT thoracic spine wo con CT DOSE: HISTORY: Pain back pain TECHNIQUE: Multiaxial CT images of the thoracic spine were performed and reformatted in the sagittal and coronal plane without the use of contrast. A dose lowering technique was utilized adhering to th e principles of ALARA. COMPARISON: None. FINDINGS: Vertebral body stature is unremarkable. Findings of osteoporosis. Considerable degenerative disc changes throughout. No evidence for an acute compression deformity. Degenerative changes of posterior elements throughout. Right pleural effusion is present. Bibasilar p arenchymal nodularity is noted. No evidence for a true lytic or blastic process. IMPRESSION: No fractures within the thoracic spine. Generalized degenerative change and osteoporosis. Bibasilar p leural fluid, parenchymal infiltrative change, and potential posterior nodularity. The above report was generated using voice recognition software. It may contain grammatical, syntax or spelling errors. Electronically signed by: Rojelio Watkins M.D. 01/19/2019 5:41 PM
--- NOTE | 2019-01-19 17:45 | CT Scan Report ---
CT lumbar spine wo con CT DOSE: 1896.22 mGy.cm HISTORY: Pain Back pain TECHNIQUE: Multiaxial CT images of the lumbar spine were performed and reformatted in the sagittal an d coronal plane without the use of contrast. A dose lowering technique was utilized adhering to the principles of ALARA. COMPARISON: None. FINDINGS: Significant degenerative disc changes throughout. Osteoporosis. No evidence for compression deformity. Moderate degenerative changes of posterior elements. Is also noted made of residual contrast within her right renal hilar nephrotic kidney. There is contr ast within the proximal to mid right ureter with the possibility of an annular lesion of the ureter a t the mid sacral level raised. IMPRESSION: 1. Considerable degenerative change lumbar spine. 2. Osteoporosis. 3. No evidence for compression deformity. 4. Residual contrast primarily within the right ureter and upper right renal collecting system with a ssociated hydronephrosis. Possibility of an annular lesion of the mid sacral level right ureter is co nsidered. The above report was generated using voice recognition software. It may contain grammatical, syntax or spelling errors. Electronically signed by: Rojelio Watkins M.D. 01/19/2019 5:44 PM
--- NOTE | 2019-01-19 20:13 | Emergency Department Note ---
Entered by Alejandra Tesfaye acting as a scribe for History of Present Illness General Chief complaint: TIA Symptoms Stated complaint: TIA History of Present Illness Provider complaint: TIA symptoms Onset (ago): hour(s) 2 Severity: similar to prior episodes (1 week ago) Pain Consistency: + other (episode) Maximum Pain Intensity: 2 Quality: + other (TIA symptoms) Associated symptoms: + denies other symptoms (current pain, trauma) and + other (sudden onset of confusion and left sided weakness, weakness worse in left leg, lasted 5-10 minutes, PCP remcommends outpatient treatment, on Coumadin, history of TIA) The patient is an 88 year old male who presents to the ED with complaints of an episode of TIA symptoms that occurred 2 hours ago. The patient states that he had a sudden onset of confusion and left sided weakness at this time. The patient states that the weakness is worse in his left leg specifically. The patient states that these symptoms only lasted for 5-10 minutes. The patient notes that he had a similar episode of these symptoms 1 week ago. The patient denies current pain or trauma. The patient states that he saw his PCP 3 days ago and they recommended outpatient workup. The patient notes that he is on Coumadin and has a history of TIA. Home Medications Home Medications Medication Instructions Recorded Confirmed Type BD Ultra-Fine Short Pen Needle 31 #400 ea NS 12/03/18 01/19/19 Rx gauge x 5/16" glucagon (human recombinant) 1 mg 1 mg IM Q20M PRN #1 ea 01/17/19 01/19/19 Rx solution for injection levothyroxine 50 mcg tablet 50 mcg PO DAILY #90 tab 01/17/19 01/19/19 Rx Super Beta Prostate 2 cap PO BID 01/19/19 History alprazolam 0.5 mg PO HS 01/19/19 01/19/19 History ascorbic acid (vitamin C) 500 mg PO DAILY 01/19/19 01/19/19 History aspirin 81 mg PO DAILY 01/19/19 01/19/19 History biotin 1 mg PO DAILY 01/19/19 01/19/19 History cholecalciferol (vitamin D3) 1,000 unit PO BID 01/19/19 01/19/19 History cyanocobalamin (vitamin B-12) 1,000 mcg PO DAILY 01/19/19 01/19/19 History digoxin 125 mcg PO QAM 01/19/19 01/19/19 History furosemide 20 mg PO 3XWK 01/19/19 01/19/19 History insulin aspart U-100 [Novolog 6 - 12 unit SQ TIDM 01/19/19 01/19/19 History Flexpen U-100 Insulin] insulin glargine [Basaglar KwikPen 8 unit SQ HS 01/19/19 01/19/19 History U-100 Insulin] metoprolol tartrate 12.5 mg PO BID 01/19/19 01/19/19 History vit C,H-Ja-rpxop-lutein-zeaxan 1 tab PO BID 01/19/19 01/19/19 History [PreserVision AREDS-2] warfarin 5 mg PO UD 01/19/19 01/19/19 History Allergies Allergy/AdvReac Type Severity Reaction Status Date / Time banana Allergy Unknown ` Verified 01/19/19 12:47 itraconazole AdvReac Intermediate UNKNOWN Unverified 03/12/17 12:09 Past Med/Surg History Family History Other Cancer Heart disease Social History Preferred Language: Japanese Communication Ability: Effective Intellectual Property Counsel Required: No Beliefs That Will Affect Care: None Current Living Situation: Spouse Other Information That Helps Us Care for You: No Feels Safe at Home: Yes Safety Concerns: Feels Safe At This Time Smoking Status: Former smoker Hx Alcohol Use: Yes Alcohol type: wine Alcohol Intake Frequency: Weekly Hx Substance Use: No Review of Systems See HPI for pertinent positives & negatives. and A total of 10 systems reviewed and were otherwise negative Physical Exam Vital Signs Vital Signs - 24 hr 01/19/19 11:38 01/19/19 11:55 01/19/19 11:56 Temperature 36.4 C L Temperature Source Oral Sepsis Recent Fever Within 48 Hours No Sepsis New/Unexplained Change in Mental Status No Sepsis Action Taken by Nursing No Action Required Pulse Rate 61 64 61 Pulse Rate [Apical] Pulse Rate from SpO2 Sensor 61 60 Respiratory Rate 18 Blood Pressure 130/85 137/71 Blood Pressure [Right Arm] Blood Pressure Mean 100 93 Blood Pressure Mean [Right Arm] Pulse Oximetry 94 96 97 Oxygen Delivery Method Room Air 01/19/19 12:00 01/19/19 12:01 01/19/19 12:21 Temperature Temperature Source Sepsis Recent Fever Within 48 Hours Sepsis New/Unexplained Change in Mental Status Sepsis Action Taken by Nursing Pulse Rate 67 63 Pulse Rate [Apical] 60 60 Pulse Rate from SpO2 Sensor 63 Respiratory Rate 20 20 Blood Pressure 153/87 H Blood Pressure [Right Arm] 137/71 153/87 H Blood Pressure Mean 109 Blood Pressure Mean [Right Arm] 93 109 Pulse Oximetry 96 96 Oxygen Delivery Method Room Air Room Air 01/19/19 12:30 01/19/19 12:44 01/19/19 13:00 Temperature Temperature Source Sepsis Recent Fever Within 48 Hours Sepsis New/Unexplained Change in Mental Status Sepsis Action Taken by Nursing Pulse Rate 61 61 62 Pulse Rate [Apical] Pulse Rate from SpO2 Sensor 60 60 63 Respiratory Rate 19 20 Blood Pressure 157/81 H 155/85 H Blood Pressure [Right Arm] Blood Pressure Mean 106 108 Blood Pressure Mean [Right Arm] Pulse Oximetry 96 95 96 Oxygen Delivery Method 01/19/19 13:30 Temperature Temperature Source Sepsis Recent Fever Within 48 Hours Sepsis New/Unexplained Change in Mental Status Sepsis Action Taken by Nursing Pulse Rate 58 L Pulse Rate [Apical] Pulse Rate from SpO2 Sensor 61 Respiratory Rate 17 Blood Pressure 156/89 H Blood Pressure [Right Arm] Blood Pressure Mean 111 Blood Pressure Mean [Right Arm] Pulse Oximetry 97 Oxygen Delivery Method GENERAL: Awake, alert, well-appearing, in no distress HENT: Normocephalic, atraumatic. Oropharynx unremarkable. EYES: Normal conjunctiva. Sclera non-icteric. NECK: Supple. No nuchal rigidity. RESPIRATORY: Clear to auscultation. No wheezes. Normal respiratory effort. CARDIAC: Normal rate. Normal rhythm. Extremities warm and well perfused. GI: Soft, non-distended. No tenderness to palpation. No rebound or guarding RECTAL: Deferred. MUSCULOSKELETAL: Atraumatic. Chest examination reveals no tenderness. LOWER EXTREMITIES: Calves are equal size bilaterally and non-tender. No edema NEURO: Normal sensorium. No sensory or motor deficits noted. No facial droop. No pronator drift or leg drift. No slurred speech. Cranial nerves 2-12 grossly intact. SKIN: Warm and dry. No rash or jaundice noted. Course 1153: Past medical records reviewed. The patient was evaluated in room A01. A complete history and physical exam was performed. 1228: I updated the patient at this time. 1325: I discussed the patient's case with Dr. Burgess [facility] Hospitalist. He will evaluate the patient for further management. Consultations Consultation #1: I discussed the patient's case with Dr. Burgess [facility] Hospitalist. He will evaluate the patient for further management. Time: 13:25 Administered Medications Insulin Aspart (Novolog Flexpen) 0 units SC ACHS AZAEL Stop: 02/18/19 16:29 Last Admin: 01/19/19 17:38 Dose: 4 units Documented by: [id number] Cosigned by: [id number] Discontinued Medications Ioversol (Optiray 320 125ml) 120 ml IV ONCE PRN PRN Reason: Interaction Checking Stop: 01/23/19 12:10 Last Admin: 01/19/19 12:11 Dose: 120 ml Documented by: [id number] Medical Decision Making Differential Diagnosis Differential diagnosis: Etiologies such as metabolic, infection, hypo/hyperglycemia, electrolyte abnormalities, cardiac sources, intracerebral event, toxicologic, neurologic, as well as others were entertained. Medical Records Attestation: I reviewed the patient's medical records. Home Medications Current Medication List: was personally reviewed by me Laboratory Data Attestation: I reviewed the patient's lab results. Result diagrams: 01/19/19 11:53 01/19/19 11:53 Lab Results 01/19/19 01/19/19 01/19/19 Range/Units 11:53 11:53 11:53 WBC 5.70 (4.8-10.8) K/uL RBC 4.25 L (4.7-6.1) M/uL Hgb 12.9 L (14.0-18.0) g/dL POC Hgb (14.0-18.0) g/dl Hct 39.4 L (42-52) % POC Hct (42-52) % MCV 92.7 (80-100) fL MCH 30.4 (25-34) pg MCHC 32.7 (32-36) g/dL RDW Std Deviation 50.5 H (36.4-46.3) fL RDW Coeff of Manohar 15.1 H (11.5-14.5) % Plt Count 160 (130-400) K/uL MPV 12.1 H (7.4-10.4) fL Immature Gran % (Auto) 0.2 % Neut % (Auto) 67.3 % Lymph % (Auto) 18.1 % Bent % (Auto) 10.0 % Eos % (Auto) 3.7 % Baso % (Auto) 0.7 % Immature Gran # (Auto) 0.01 (0.00-0.02) K/uL Neut # (Auto) 3.84 (1.4-6.5) K/uL Lymph # (Auto) 1.03 L (1.2-3.4) K/uL Bent # (Auto) 0.57 (0.11-0.59) K/uL Eos # (Auto) 0.21 (0-0.5) K/uL Baso # (Auto) 0.04 (0-0.2) K/uL PT 30.2 H (9.0-12.0) Seconds POC INR (0.9-1.1) INR 3.2 H (0.9-1.1) APTT 43.8 H (21.0-31.0) Seconds PTT Ratio 1.6 POC Sodium (135-144) mEq/L Sodium 140 (136-145) mmol/L POC Potassium (3.3-5.0) mEq/L Potassium 4.0 (3.5-5.1) mmol/L POC Chloride (101-112) mEq/L Chloride 105 (98-107) mmol/L Carbon Dioxide 30 (21-32) mmol/L POC Total CO2 (24-31) mEq/l Anion Gap 5.0 (3-11) POC Anion Gap (16-25) mmol/L POC BUN (7-18) mg/dl BUN 30 H (7-18) mg/dl Creatinine 1.36 (0.6-1.4) mg/dl POC Creatinine (0.6-1.3) mg/dl Est Cr Clr Drug Dosing 38.2 ml/min Est GFR ( Amer) 53.5 Est GFR (Non-Af Amer) 46.1 BUN/Creatinine Ratio 21.9 H (10-20) Glucose 68 L (70-99) mg/dl POC Glucose (70-99) POC Glucose (other) (70-99) mg/dl Calcium 8.9 (8.5-10.1) mg/dl POC Ioniz Calcium Demetrio (1.12-1.32) mmol/l Magnesium 2.0 (1.8-2.4) mg/dl Total Bilirubin 0.7 (0.2-1) mg/dl AST 14 L (15-37) U/L ALT 15 (12-78) U/L Alkaline Phosphatase 110 (45-117) U/L Troponin I < 0.015 (0-0.045) ng/ml Total Protein 7.6 (6.4-8.2) gm/dl Albumin 3.4 (3.4-5.0) gm/dl Globulin 4.2 H (2.5-4.0) gm/dl Albumin/Globulin Ratio 0.8 L (0.9-2) Blood Type Antibody Screen 01/19/19 01/19/19 01/19/19 Range/Units 11:53 12:04 12:06 WBC (4.8-10.8) K/uL RBC (4.7-6.1) M/uL Hgb (14.0-18.0) g/dL POC Hgb 13.3 L (14.0-18.0) g/dl Hct (42-52) % POC Hct 39 L (42-52) % MCV (80-100) fL MCH (25-34) pg MCHC (32-36) g/dL RDW Std Deviation (36.4-46.3) fL RDW Coeff of Manohar (11.5-14.5) % Plt Count (130-400) K/uL MPV (7.4-10.4) fL Immature Gran % (Auto) % Neut % (Auto) % Lymph % (Auto) % Bent % (Auto) % Eos % (Auto) % Baso % (Auto) % Immature Gran # (Auto) (0.00-0.02) K/uL Neut # (Auto) (1.4-6.5) K/uL Lymph # (Auto) (1.2-3.4) K/uL Bent # (Auto) (0.11-0.59) K/uL Eos # (Auto) (0-0.5) K/uL Baso # (Auto) (0-0.2) K/uL PT (9.0-12.0) Seconds POC INR 3.2 H (0.9-1.1) INR (0.9-1.1) APTT (21.0-31.0) Seconds PTT Ratio POC Sodium 141 (135-144) mEq/L Sodium (136-145) mmol/L POC Potassium 4.0 (3.3-5.0) mEq/L Potassium (3.5-5.1) mmol/L POC Chloride 102 (101-112) mEq/L Chloride (98-107) mmol/L Carbon Dioxide (21-32) mmol/L POC Total CO2 29 (24-31) mEq/l Anion Gap (3-11) POC Anion Gap 15.0 L (16-25) mmol/L POC BUN 30 H (7-18) mg/dl BUN (7-18) mg/dl Creatinine (0.6-1.4) mg/dl POC Creatinine 1.4 H (0.6-1.3) mg/dl Est Cr Clr Drug Dosing ml/min Est GFR ( Amer) Est GFR (Non-Af Amer) BUN/Creatinine Ratio (10-20) Glucose (70-99) mg/dl POC Glucose 97 (70-99) POC Glucose (other) 68 L* (70-99) mg/dl Calcium (8.5-10.1) mg/dl POC Ioniz Calcium Demetrio 1.23 (1.12-1.32) mmol/l Magnesium (1.8-2.4) mg/dl Total Bilirubin (0.2-1) mg/dl AST (15-37) U/L ALT (12-78) U/L Alkaline Phosphatase (45-117) U/L Troponin I (0-0.045) ng/ml Total Protein (6.4-8.2) gm/dl Albumin (3.4-5.0) gm/dl Globulin (2.5-4.0) gm/dl Albumin/Globulin Ratio (0.9-2) Blood Type Antibody Screen 01/19/19 Range/Units 12:23 WBC (4.8-10.8) K/uL RBC (4.7-6.1) M/uL Hgb (14.0-18.0) g/dL POC Hgb (14.0-18.0) g/dl Hct (42-52) % POC Hct (42-52) % MCV (80-100) fL MCH (25-34) pg MCHC (32-36) g/dL RDW Std Deviation (36.4-46.3) fL RDW Coeff of Manohar (11.5-14.5) % Plt Count (130-400) K/uL MPV (7.4-10.4) fL Immature Gran % (Auto) % Neut % (Auto) % Lymph % (Auto) % Bent % (Auto) % Eos % (Auto) % Baso % (Auto) % Immature Gran # (Auto) (0.00-0.02) K/uL Neut # (Auto) (1.4-6.5) K/uL Lymph # (Auto) (1.2-3.4) K/uL Bent # (Auto) (0.11-0.59) K/uL Eos # (Auto) (0-0.5) K/uL Baso # (Auto) (0-0.2) K/uL PT (9.0-12.0) Seconds POC INR (0.9-1.1) INR (0.9-1.1) APTT (21.0-31.0) Seconds PTT Ratio POC Sodium (135-144) mEq/L Sodium (136-145) mmol/L POC Potassium (3.3-5.0) mEq/L Potassium (3.5-5.1) mmol/L POC Chloride (101-112) mEq/L Chloride (98-107) mmol/L Carbon Dioxide (21-32) mmol/L POC Total CO2 (24-31) mEq/l Anion Gap (3-11) POC Anion Gap (16-25) mmol/L POC BUN (7-18) mg/dl BUN (7-18) mg/dl Creatinine (0.6-1.4) mg/dl POC Creatinine (0.6-1.3) mg/dl Est Cr Clr Drug Dosing ml/min Est GFR ( Amer) Est GFR (Non-Af Amer) BUN/Creatinine Ratio (10-20) Glucose (70-99) mg/dl POC Glucose (70-99) POC Glucose (other) (70-99) mg/dl Calcium (8.5-10.1) mg/dl POC Ioniz Calcium Demetrio (1.12-1.32) mmol/l Magnesium (1.8-2.4) mg/dl Total Bilirubin (0.2-1) mg/dl AST (15-37) U/L ALT (12-78) U/L Alkaline Phosphatase (45-117) U/L Troponin I (0-0.045) ng/ml Total Protein (6.4-8.2) gm/dl Albumin (3.4-5.0) gm/dl Globulin (2.5-4.0) gm/dl Albumin/Globulin Ratio (0.9-2) Blood Type B Positive Antibody Screen NEGATIVE Imaging Data Radiologist's Impression: Radiology results as stated below per my review and the radiologist's interpretation: CT head/brain wo con CT DOSE: HISTORY: Mental status change Stroke evaluation TECHNIQUE: Multiaxial CT images of the head were performed without the use of intravenous contrast. A dose lowering technique was utilized adhering to the principles of ALARA. Comparison: 03/13/2017 Findings: The paranasal sinuses and mastoid air cells are clear. Age-related atrophy and chronic small vessel change. No acute intracranial abnormality. Impression: No acute intracranial abnormality. Age-related atrophy and chronic small vessel change. The above report was generated using voice recognition software. It may contain grammatical, syntax or spelling errors. Electronically signed by: Rojelio Watkins M.D. 01/19/2019 12:[address] angio head w con HISTORY: TIA, confusion/L weakness TECHNIQUE: Multiaxial CT angiography of the head was performed IV contrast: None. Maximum intensity projection images were also obtained. A dose low ering technique was utilized adhering to the principles of ALARA. COMPARISON: None. FINDINGS: There is no mass, hematoma, midline shift, or acute infarct. Intracranial vasculature is in general unremarkable. There is 30-40% narrowing of the cavernous components of the internal carotid arteries bilaterally. It is approximately 50% stenosis of the supraclinoid regions of the carotid system bilaterally. No evidence for high grade or critical stenosis. IMPRESSION: 1. 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 2. This is estimated at 30-40% bilaterally. 3. 50% stenosis of the supraclinoid aspects of the internal carotid arteries bilaterally. 4. No evidence for critical stenosis. 5. Significant stenotic change of the distal vertebral arteries is again noted bilaterally. The above report was generated using voice recognition software. It may contain grammatical, syntax or spelling errors. Electronically signed by: Rojelio Watkins M.D. 01/19/2019 12:[address] cervical spine wo con CT DOSE: HISTORY: Pain neck pain TECHNIQUE: Multiaxial CT images of the cervical spine were performed and reformatted in the sagittal and coronal plane without the use of contrast. A dose lowering technique was utilized adhering to the principles of ALARA. COMPARISON: None. FINDINGS: Vertebral body stature is normal. Considerable degenerative disc change C6-C7. No evidence for compression deformity. Moderate degenerative changes of the posterior elements. Transaxial images show no evidence of bony compromise of the spinal canal. C1-C2 complex is intact. Moderate degenerative changes present. IMPRESSION: Moderate degenerative change. No acute process. The above report was generated using voice recognition software. It may contain grammatical, syntax or spelling errors. Electronically signed by: Rojelio Watkins M.D. 01/19/2019 5:[address] angio neck with con HISTORY: Mental status change TIA, confusion/L weakness now improving TECHNIQUE: Multiaxial CT angiography of the neck was performed IV contrast: 100 cc All measurements were calculated based on NASCET criteria. Maximum intensity projection images were also obtained. A dose lowering technique was utilized adhering to the principles of ALARA. COMPARISON STUDY: 03/13/2017 FINDINGS: The aortic arch and proximal great vessels are widely patent. Mild plaque formation bilaterally. No significant left carotid stenosis. 40-50% narrowing origin right external carotid artery. This is unchanged from the prior exam. The vertebral basilar system shows moderate scattered plaque formation. There is a 75% stenosis of the superior aspect of the left vertebral. There is a 50% stenosis of the right vertebral artery. This is seen at approximately the level of C1. Basilar is unremarkable. 1. IMPRESSION: 1. 40% stenosis origin right external carotid artery. RLQ. Scattered plaque formation of the carotid systems bilaterally with no additional stenosis. 3. 75% stenosis superior aspect left vertebral artery with a 50% stenosis of the right vertebral artery. This is seen approximately the level of C1. The above report was generated using voice recognition software. It may contain grammatical, syntax or spelling errors. Electronically signed by: Rojelio Watkins M.D. 01/19/2019 12:46 PM ECG Data Attestation: I personally reviewed and interpreted this ECG as follows: Indication: other (TIA) Rate (beats per minute): 60 Rhythm: other (junctional rhythm) Findings: + other (frequently paced) and + left axis deviation; no ST elevation Comparison ECG Date: from (03/13/2017) Change: the following changes noted (now predominately paced) Blood Pressure Blood Pressure Findings: Elevated blood pressure Blood Pressure Disposition: further management by hospitalist GAURAV Narrative Patient is a 88-year-old gentleman with a past medical history significant for TIA, AICD, peripheral vascular disease, diabetes presenting today with onset around 1030 abruptly of confusion and some left-sided weakness particuarly in the left leg. This has resolved and according to lasted maybe 5 to 10 minutes. This happened several times in the past week and last Sunday. History of TIA in 2017. Patient denies pain or trauma. Patient reportedly back at baseline and I do not see significant neuro deficit on exam here. Patient is on Coumadin and has an INR of 3.2 today. Noncontrast scan of the head was complete without acute intracranial bleed. CT angiography was also completed of the head and neck without acute large vessel occlusion noted patient does have evidence of some stenoses. Concern given the escalating repeat episodes of TIA. Laboratory studies without other significant findings. Believe the patient requires admission for further evaluation of these periods of concerning TIA symptoms. Discussed with [facility] hospitalist team. Impression & Plan TIA (transient ischemic attack) Discharge Plan Visit Data *Final* Discharge Date/Time: 01/19/19 15:35 Chief Complaint: TIA Symptoms Stated Complaint: TIA ED Provider: George De Discharge Problem: TIA (transient ischemic attack) Patient Disposition: Admitted As Inpatient Discharge Instructions Interventions: ED Discharge Assessment Last Done: 01/19/19 15:35 The gayathriibe's documentation has been prepared under my direction and personally reviewed by me in its entirety. I confirm that the note above accurately reflects all work, treatment, procedures, and medical decision making performed by me.
[2019-01-19] MEDS: INSULIN GLARGINE SOLOSTAR 100 UNITS/ML 3 ML PEN SC SCH (20:22)
[2019-01-19] MEDS: CEROVITE ADV FORMULA TAB PO SCH (20:22)
[2019-01-19] MEDS: METOPROLOL TARTRATE 25 MG TAB PO SCH (20:22)
[2019-01-19] MEDS: CHOLECALCIFEROL 1,000 UNITS TAB PO SCH (20:22)
[2019-01-19] MEDS: ALPRAZolam 0.5 MG TABLET PO SCH (20:23)
[2019-01-20 03:26] LABS: Appearance Urine Clear (Clear); Bilirubin Urine Negative (Negative); Blood Urine Negative (Negative); Color Urine Yellow; Glucose Urine UA Negative (Negative); Ketones Urine Negative (Negative); Leukocyte Esterase Urine Negative (Negative); Nitrite Urine Negative (Negative); Protein Urine Negative (Negative); Specific Gravity Urine 1.025 (1.000-1.030); Urobilinogen Urine Negative (Negative); pH Urine 6.5 (4.5-7.5)
[2019-01-20] MEDS: LEVOTHYROXINE SODIUM 50 MCG TABLET PO SCH (05:26)
[2019-01-20 06:24] LABS: Estimated Average Glucose 157 mg/dl; Hemoglobin A1C 7.1 % (4.5-5.6)
[2019-01-20 06:38] LABS: Basophils # (auto) 0.06 K/uL (0-0.2); Basophils % (auto) 1.1 %; Eosinophils # (auto) 0.25 K/uL (0-0.5); Eosinophils % (auto) 4.8 %; Hematocrit (blood only) 35.9 % (42-52); Hemoglobin 11.9 g/dL (14.0-18.0); Immature Granulocytes # (auto) 0.01 K/uL (0.00-0.02); Immature Granulocytes % (auto) 0.2 %; Lymphocytes # (auto) 1.15 K/uL (1.2-3.4); Mean Corpuscular Hemoglobin 29.8 pg (25-34); Mean Corpuscular Hgb Conc 33.1 g/dL (32-36); Mean Platelet Volume 11.2 fL (7.4-10.4); Monocytes # (auto) 0.48 K/uL (0.11-0.59); Monocytes % (auto) 9.2 %; Neutrophils # (auto) 3.28 K/uL (1.4-6.5); Neutrophils % (auto) 62.7 %; Platelet Count 135 K/uL (130-400); RDW Coefficient of Variation 14.6 % (11.5-14.5); RDW Standard Deviation 47.8 fL (36.4-46.3); Red Blood Count 3.99 M/uL (4.7-6.1); White Blood Count 5.23 K/uL (4.8-10.8)
[2019-01-20 06:49] LABS: INR 2.7 (0.9-1.1); Prothrombin Time 26.1 Seconds (9.0-12.0)
[2019-01-20 07:14] LABS: BUN Creatinine Ratio 19.8 (10-20); Calcium 8.7 mg/dl (8.5-10.1); Est GFR (African American) 54.4; Potassium 3.9 mmol/L (3.5-5.1)
[2019-01-20] MEDS: ASPIRIN 81 MG ECTAB PO SCH (08:49)
[2019-01-20] MEDS: DIGOXIN 0.125 MG TAB PO SCH (08:49)
[2019-01-20] MEDS: ATORVASTATIN 10 MG TAB PO SCH (08:50)
[2019-01-20] MEDS: ASCORBIC ACID 500 MG TAB PO SCH (08:50)
[2019-01-20] MEDS: CEROVITE ADV FORMULA TAB PO SCH ×2 (08:50→20:16)
[2019-01-20] MEDS: CHOLECALCIFEROL 1,000 UNITS TAB PO SCH ×2 (08:50→20:16)
[2019-01-20] MEDS: METOPROLOL TARTRATE 25 MG TAB PO SCH ×2 (08:50→20:16)
[2019-01-20] MEDS: CYANOCOBALAMIN 500 MCG TABLET (VITAMIN B-12) PO SCH (08:50)
[2019-01-20] MEDS: INSULIN ASPART 100 UNITS/ML 3 ML PEN SC SCH ×4 (08:51→20:16)
[2019-01-20] MEDS ORDERED: FUROSEMIDE 20 MG TAB PO SCH (12:00)
--- NOTE | 2019-01-20 15:12 | Neurology Consultation ---
Date of Consultation January 20, 2019 Assessment & Plan (1) TIA (transient ischemic attack): 1. CT head- no acute findings 2. CTA head/neck- 75% left vert stenosis/ 50% right vert stenosis 3. CT c/t/l - no acute findings 4. TTE- EF 50% no ASD 5. continue coumadin with therapeutic INR 2.0-3.0 6. continue aspirin 81 mg daily 7. medical management per primary team 8. EEG- no seizure activity- may need 72 hour EEG as outpatient to r/o seizure 9. ZIO patch as outpatient 10. orthostatic blood pressures- ordered Supervising Physician Co-Signing Physician Notes I have seen and discussed above patient with Dr Sandro Tamez, neurology I have seen and examined and interviewed this man in the accompaniment of his and have discussed the case with Lilly Fatima PA-C Currently he presents with several episodes of fairly stereotypic type characterized by the onset of bilateral left greater than right leg weakness and confusion with some language disturbance all of relatively brief duration (no more than 10 minutes maximum) and generally associated with rapid assumption of the erect posture after having been seated in a chair and usually occurring in the mid morning hours This occurs with a preceding history of bilateral knee pain for which she uses a lot of "homemade" bracing devices but is not associated on examination of any significant spasticity evidence for polyneuropathy or anything that would suggest a significant central gait disturbance and without any other focal neurologic signs He does have a mild cardiomyopathy, atrial fibrillation, and a pacemaker on board which prevents performance of an MRI but imaging of 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 and is totally negative in terms of evidence for potential lesions that might cause cervical thoracic or lumbar cord compromise and frankly the story sounds more like a central event My suspicions are that this is recurrent hypotensive episodes perhaps related to orthostatic issues perhaps due to a cardiac arrhythmia and I really doubt that these are seizures particularly in light of the fact we have at least one EEG is normal but apparently he is anxious for discharge and we are going to arrange for a 70 to our outpatient monitoring study and a ZIO patch and will follow-up on an outpatient basis Arrangements for these studies are currently being made and these impressions and recommendations have been discussed with his hospitalist Dr. Patty Tamez MD History of Present Illness Reason for Consultation: TIA Requesting Physician: Edis Brambila MD Attending Physician: Edis Brambila MD History of Present Illness George is an 88 year old male with PMH -TIA in 2017, DM II, CKD III, anemia of chronic disease, HTN, chronic ischemic cardiomyopathy, s/p defibrillator, chronic A. 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 He had several episodes of the same over the last couple of months and symptoms lasted for a few minutes and resolve. There has also been frequent falls over the past year. When he fell several days ago a family member was there to catch him and denies any injury or hitting head. He does have some neck and lower back pain intermittently. There is left hand paresthesias when he sleeps on the left side " incorrectly". [place] with his has 3 adult children that are not local. He is still driving but not at night. denies CP, SOB, abdominal pain, one sided weekness, numbness tingling, N, V, swallowing issues, vision changes. Allergies Allergy/AdvReac Type Severity Reaction Status Date / Time banana Allergy Unknown ` Verified 01/19/19 12:47 itraconazole AdvReac Intermediate UNKNOWN Unverified 03/12/17 12:09 Home Medications Home Medications Medication Instructions Recorded Confirmed Type BD Ultra-Fine Short Pen Needle 31 #400 ea NS 12/03/18 01/19/19 Rx gauge x 5/16" glucagon (human recombinant) 1 mg 1 mg IM Q20M PRN #1 ea 01/17/19 01/19/19 Rx solution for injection levothyroxine 50 mcg tablet 50 mcg PO DAILY #90 tab 01/17/19 01/19/19 Rx Super Beta Prostate 2 cap PO BID 01/19/19 History alprazolam 0.5 mg PO HS 01/19/19 01/19/19 History ascorbic acid (vitamin C) 500 mg PO DAILY 01/19/19 01/19/19 History aspirin 81 mg PO DAILY 01/19/19 01/19/19 History biotin 1 mg PO DAILY 01/19/19 01/19/19 History cholecalciferol (vitamin D3) 1,000 unit PO BID 01/19/19 01/19/19 History cyanocobalamin (vitamin B-12) 1,000 mcg PO DAILY 01/19/19 01/19/19 History digoxin 125 mcg PO QAM 01/19/19 01/19/19 History furosemide 20 mg PO 3XWK 01/19/19 01/19/19 History insulin aspart U-100 [Novolog 6 - 12 unit SQ TIDM 01/19/19 01/19/19 History Flexpen U-100 Insulin] insulin glargine [Basaglar KwikPen 8 unit SQ HS 01/19/19 01/19/19 History U-100 Insulin] metoprolol tartrate 12.5 mg PO BID 01/19/19 01/19/19 History vit C,A-Ib-czxfh-lutein-zeaxan 1 tab PO BID 01/19/19 01/19/19 History [PreserVision AREDS-2] warfarin 5 mg PO UD 01/19/19 01/19/19 History Patient History Family History Other Cancer Heart disease Social History Preferred Language: Azeri Communication Ability: Effective Engineering Systems Analyst Required: No Beliefs That Will Affect Care: None Current Living Situation: Spouse Other Information That Helps Us Care for You: No Feels Safe at Home: Yes Safety Concerns: Feels Safe At This Time Smoking Status: Former smoker Hx Alcohol Use: Yes Alcohol type: wine Alcohol Intake Frequency: Weekly Hx Substance Use: No Physical Exam Physical Exam: Physical Exam: Constitutional: appearance nourished, healthy and normal Ears, Nose, Mouth and Throat: mucous membranes moist, no injection and skin normal, eyes normal Cardiovascular: irregular Respiratory: clear to auscultation (CTA) and no rales, ronchi or wheeze Musculoskeletal: no peripheral edema and good distal pulses Skin: no stigmata of neurocutaneous disease noted and normal and intact Eyes: extraocular muscles intact (EOMI) and pupils equal, round and reactive to light (PERRL) NEUROLOGIC EXAMINATION: Mental status: Alert and interactive Oriented to [facility], president [place], 2019 Oriented to person Speech fluent with no evidence of aphasia Cranial Nerves smile eye brow raise symmetric Reflexes: Deep tendon reflexes were symmetrical. Sensory: light or cool touch Coordination: Romberg present with eye closed Gait/Stance: Posture normal. Gait normal: with steady with steps, base, tandem gait. Motor: Negative for pronator drift of out stretched arms with eyes closed. Strength: biceps triceps deltoids bilaterally 5/5 hip flex 5/5 Results & Data Vital Signs (Past 12 Hours) Vital Signs Temp Pulse Pulse Pulse Resp BP Pulse Ox 01/20/19 11:31 36.7 C 77 16 177/89 H 98 01/20/19 08:49 64 01/20/19 08:18 61 01/20/19 07:34 36.4 C L 60 16 183/91 H 96 01/20/19 04:00 36.5 C 62 20 159/77 H 93 Laboratory Results Abnormal lab results 01/19/19 01/19/19 01/19/19 Range/Units 11:53 17:02 20:18 RBC (4.7-6.1) M/uL Hgb (14.0-18.0) g/dL Hct (42-52) % RDW Std Deviation (36.4-46.3) fL RDW Coeff of Manohar (11.5-14.5) % MPV (7.4-10.4) fL Lymph # (Auto) (1.2-3.4) K/uL PT (9.0-12.0) Seconds INR (0.9-1.1) BUN (7-18) mg/dl POC Glucose 139 H 139 H (70-99) Hemoglobin A1c 7.1 H (4.5-5.6) % 01/20/19 01/20/19 01/20/19 Range/Units 06:12 06:12 06:12 RBC 3.99 L (4.7-6.1) M/uL Hgb 11.9 L (14.0-18.0) g/dL Hct 35.9 L (42-52) % RDW Std Deviation 47.8 H (36.4-46.3) fL RDW Coeff of Manohar 14.6 H (11.5-14.5) % MPV 11.2 H (7.4-10.4) fL Lymph # (Auto) 1.15 L (1.2-3.4) K/uL PT 26.1 H (9.0-12.0) Seconds INR 2.7 H (0.9-1.1) BUN 27 H (7-18) mg/dl POC Glucose (70-99) Hemoglobin A1c (4.5-5.6) % 01/20/19 Range/Units 11:41 RBC (4.7-6.1) M/uL Hgb (14.0-18.0) g/dL Hct (42-52) % RDW Std Deviation (36.4-46.3) fL RDW Coeff of Manohar (11.5-14.5) % MPV (7.4-10.4) fL Lymph # (Auto) (1.2-3.4) K/uL PT (9.0-12.0) Seconds INR (0.9-1.1) BUN (7-18) mg/dl POC Glucose 171 H (70-99) Hemoglobin A1c (4.5-5.6) % Diagnostic Findings CT head-No acute intracranial abnormality. Age-related atrophy and chronic small vessel change. CTA head- Moderate atherosclerotic narrowing of the cavernous components of the internal carotid arteries bilaterally. This is estimated at 30-40% bilaterally. 50% stenosis of the supraclinoid aspects of the internal carotid arteries bilaterally. No evidence for critical stenosis. Significant stenotic change of the distal vertebral arteries is again noted bilaterally. CTA neck- 40% stenosis origin right external carotid artery. RLQ. Scattered plaque formation of the carotid systems bilaterally with no additional stenosis. 75% stenosis superior aspect left vertebral artery with a 50% stenosis of the right vertebral artery. This is seen approximately the level of C1. CT c spine-moderate degenerative change. No acute process. CT l spine-Considerable degenerative change lumbar spine. Osteoporosis. No evidence for compression deformity. Residual contrast primarily within the right ureter and upper right renal collecting system with associated hydronephrosis. Possibility of an annular lesion of the mid sacral level right ureter is considered. CT t spine-No fractures within the thoracic spine. Generalized degenerative change and osteoporosis. Bibasilar pleural fluid, parenchymal infiltrative change, and potential posterior nodularity. TTE- EF 50% no ASD EEG- This is a normal EEG during wakefulness revealing no evidence for focal or generalized encephalopathy or potentially epileptogenic activity but a brief d uration tracing would not exclude the diagnosis of a partial seizure disorder and an outpatient 72-hour tracing may be advisable depending on the clinical situation
--- NOTE | 2019-01-20 15:14 | Electroencephalogram ---
EEG Procedure Note Date of Service January 20, 2019 Start / End Times Start Time: 910 End Time: 930 Referring Physician Sandro Tamez MD History Recurrent stereotypic episodes of confusion and left leg weakness of brief duration Home Medication List Home Medications Medication Instructions Recorded Confirmed Type BD Ultra-Fine Short Pen Needle 31 #400 ea NS 12/03/18 01/19/19 Rx gauge x 5/16" glucagon (human recombinant) 1 mg 1 mg IM Q20M PRN #1 ea 01/17/19 01/19/19 Rx solution for injection levothyroxine 50 mcg tablet 50 mcg PO DAILY #90 tab 01/17/19 01/19/19 Rx Super Beta Prostate 2 cap PO BID 01/19/19 History alprazolam 0.5 mg PO HS 01/19/19 01/19/19 History ascorbic acid (vitamin C) 500 mg PO DAILY 01/19/19 01/19/19 History aspirin 81 mg PO DAILY 01/19/19 01/19/19 History biotin 1 mg PO DAILY 01/19/19 01/19/19 History cholecalciferol (vitamin D3) 1,000 unit PO BID 01/19/19 01/19/19 History cyanocobalamin (vitamin B-12) 1,000 mcg PO DAILY 01/19/19 01/19/19 History digoxin 125 mcg PO QAM 01/19/19 01/19/19 History furosemide 20 mg PO 3XWK 01/19/19 01/19/19 History insulin aspart U-100 [Novolog 6 - 12 unit SQ TIDM 01/19/19 01/19/19 History Flexpen U-100 Insulin] insulin glargine [Basaglar KwikPen 8 unit SQ HS 01/19/19 01/19/19 History U-100 Insulin] metoprolol tartrate 12.5 mg PO BID 01/19/19 01/19/19 History vit C,W-Xy-wtzjn-lutein-zeaxan 1 tab PO BID 01/19/19 01/19/19 History [PreserVision AREDS-2] warfarin 5 mg PO UD 01/19/19 01/19/19 History Inpatient Medication List Alprazolam (Xanax) 0.5 mg PO HS [facility] Stop: 02/18/19 20:59 Last Admin: 01/19/19 20:23 Dose: 0.5 mg Documented by: [id number] Ascorbic Acid (Vitamin C) 500 mg PO DAILY [facility] Stop: 02/19/19 08:59 Last Admin: 01/20/19 08:50 Dose: 500 mg Documented by: [id number] Aspirin (Ecotrin Ectab) 81 mg PO DAILY [facility] Stop: 02/19/19 08:59 Last Admin: 01/20/19 08:49 Dose: 81 mg Documented by: [id number] Atorvastatin Calcium (Lipitor) 10 [facility] Stop: 02/19/19 08:59 Last Admin: 01/20/19 08:50 Dose: 10 mg Documented by: [id number] Cyanocobalamin (Vitamin B-12) 1,000 mcg PO DAILY [facility] Stop: 02/19/19 08:59 Last Admin: 01/20/19 08:50 Dose: 1,000 mcg Documented by: [id number] Digoxin (Lanoxin) 0.125 mg PO QAWW [facility] Stop: 02/19/19 08:59 Last Admin: 01/20/19 08:49 Dose: 0.125 mg Documented by: [id number] Furosemide (Lasix) 20 mg PO [id number] [facility] Stop: 02/19/19 11:59 Last Admin: 01/20/19 12:16 Dose: 20 mg Documented by: [id number] Insulin Aspart (Novolog Flexpen) 0 units [facility] Stop: 02/18/19 16:29 Last Admin: 01/20/19 12:16 Dose: 4 units Documented by: [id number] Cosigned by: [id number] Admin: 01/20/19 08:51 Dose: 1 units Documented by: [id number] Cosigned by: [id number] Admin: 01/19/19 20:22 Dose: Not Given Documented by: [id number] Cosigned by: [id number] Admin: 01/19/19 17:38 Dose: 4 units Documented by: [id number] Cosigned by: [id number] Insulin Glargine (Lantus Solostar Pen) 0 units [facility]; Protocol Stop: 02/18/19 20:59 Last Admin: 01/19/19 20:22 Dose: 8 units Documented by: [id number] Cosigned by: [id number] [facility]othy[facility]ine [facility]th[facility]) [facility] Stop: 02/19/19 06:29 Last Admin: 01/20/19 05:26 Dose: 50 mcg Documented by: [id number] Metoprolol Tartrate (Lopressor) 12.5 mg PO BID [facility] Stop: 02/18/19 20:59 Last Admin: 01/20/19 08:50 Dose: 12.5 mg Documented by: [id number] Admin: 01/19/19 20:22 Dose: 12.5 mg Documented by: [id number] Multivitamins/Minerals (Multivitamin W/ Minerals Tab) 1 tab PO BID [facility] Stop: 02/18/19 20:59 Last Admin: 01/20/19 08:50 Dose: 1 tab Documented by: [id number] Admin: 01/19/19 20:22 Dose: 1 tab Documented by: [id number] Vitamin D (Vitamin D3) 1,000 units PO BID [facility] Stop: 02/18/19 20:59 Last Admin: 01/20/19 08:50 Dose: 1,000 units Documented by: [id number] Admin: 01/19/19 20:22 Dose: 1,000 units Documented by: [id number] Discontinued Medications Ioversol (Optiray 320 125ml) 120 ml IV ONCE PRN PRN Reason: Interaction Checking Stop: 01/23/19 12:10 Last Admin: 01/19/19 12:11 Dose: 120 ml Documented by: [id number] Description This is a 21 electrode EEG with a single channel dedicated to limited EKG. The electrodes were placed in accordance with the International 10-20 system. This EEG was obtained as a bedside recording is of good technical quality with few or no muscle movement artifacts. Photic stimulation was performed. Drowsiness and light sleep are not obtained. Under these conditions there is evidence for normal symmetrical background alpha rhythm and posterior head regions of up to 10 Hz maximum frequency of up to 30 V maximum amplitude. Central mid frequency modest voltage theta activity of symmetrical type is seen as well. Anterior head region maximum bilaterally symmetrical low voltage fast activity in the beta range is present Photic stimulation provokes a modest driving response without a photo myogenic a photoparoxysmal component No time during the brief waking tracing is evidence for potentially epileptogenic activity Interpretation Normal during wakefulness without a focal generalized encephalopathy or potentially epileptogenic activity Clinical Correlation This is a normal EEG during wakefulness revealing no evidence for focal or generalized encephalopathy or potentially epileptogenic activity but a brief duration tracing would not exclude the diagnosis of a partial seizure disorder and an outpatient 72-hour tracing may be advisable depending on the clinical situation Sandro Tamez MD
[2019-01-20] MEDS ORDERED: WARFARIN SOD 5 MG TAB PO SCH (16:00)
--- NOTE | 2019-01-20 16:27 | Hospitalist Progress Note ---
Date of Service January 20, 2019 Assessment & Plan (1) TIA (transient ischemic attack): Patient is an 88-year-old male with multiple comorbidities presents with history of an episode of confusion and left leg weakness that occurred this morning lasting 5 to 10 minutes and resolved. Strokelike symptoms --CT HEAD:No acute intracranial abnormality. Age-related atrophy and chronic small vessel change. --CTA HEAD:Moderate atherosclerotic narrowing of the cavernous components of the internal carotid arteries bilaterally. This is estimated at 30-40% bilaterally. 50% stenosis of the supraclinoid aspects of the internal carotid arteries bilaterally. No evidence for critical stenosis. Significant stenotic change of the distal vertebral arteries is again noted bilaterally. --NECK CTA: 40% stenosis origin right external carotid artery. RLQ. Scattered plaque formation of the carotid systems bilaterally with no additional stenosis. 75% stenosis superior aspect left vertebral artery with a 50% stenosis of the right vertebral artery. This is seen approximately the level of C1. --EEG:Normal during wakefulness without a focal generalized encephalopathy or potentially epileptogenic activity --ECHO: Mild global hypokinesis of left ventricle, EF 50%, no thrombus, pulmonary hypertension, no evidence of ASD. Could not assess patent foramen ovale --INR in therapeutic range, on Coumadin for chronic atrial fibrillation --Lipid panel within normal limits --Continue aspirin --Also on Coumadin --Could not perform MRI secondary to defibrillator --aspiration precautions --PT/OT eval completed --Appreciate neurology input --Needs 72-hour EEG, ZI0 patch arranged as outpatient (2) Chronic atrial fibrillation: -Rate controlled -Digoxin level: Normal -Continue digoxin, metoprolol -INR: 2.7 today Resume Coumadin (3) Chronic combined systolic and diastolic CHF (congestive heart failure): (4) Cardiomyopathy, ischemic: 2017 echo: EF: 50-55%, grade II diastolic dysfunction, mild aortic sclerosis, mild aortic regurgitation, mild mitral regurgitation, mild tricuspid regurgitation -Appears euvolemic -Continue lasix MWF (5) Diabetes mellitus, type II: A1c: 7.4 on 10/07/2018 -Hold home insulin -Novolog, Lantus Sliding scale per protocol (6) HTN (hypertension): Stable -Continue metoprolol (7) CKD (chronic kidney disease), stage III: Cr: 1.36. Baseline Cr: 1.2 -Monitor renal functions -Avoid nephrotoxic agents when possible (8) Anemia, chronic disease: Hgb: 12.9. Baseline ~12.4 -Monitor H&H (9) Hypothyroidism: TSH: 6.5 on 09/17/18 -Continue levothyroxine DVT Px -On Coumadin CODE STATUS Full code Disposition Plan to discharge home today Subjective Patient is seen and examined at bedside Left-sided weakness resolved Did well with physical therapy today No new focal weakness Denies any chest pain, shortness of breath, nausea, abdominal pain, dizziness Discussed with neurology today Here to get discharged Office no other complaints Review of Systems Review of Systems: All systems reviewed & are unremarkable except as noted in HPI & below Physical Exam Physical Exam: Physical Exam: Vitals signs as noted above General Appearance:Moderately built and nourished, no apparent distress Head: normocephalic, Atraumatic Eyes: normal inspection, EOMI Neck: supple, Trachea midline Respiratory/Chest: Normal breath sounds, CTA Cardiovascular: S1, S2, No murmur Abdomen/GI:Soft, Non tender, Bowel sounds present Extremities/Musculoskelatal:normal inspection, no edema Neurologic/Psych:AAOX3, grossly no focal neurological deficits Skin: normal color, warm Results & Data Vital Signs (Past 12 Hours) Vital Signs Temp Pulse Pulse Resp BP Pulse Ox 01/20/19 15:49 36.7 C 60 19 168/85 H 95 01/20/19 11:31 36.7 C 77 16 177/89 H 98 01/20/19 08:49 64 01/20/19 08:18 61 01/20/19 07:34 36.4 C L 60 16 183/91 H 96 Laboratory Results Short CBC 01/20/19 Range/Units 06:12 WBC 5.23 (4.8-10.8) K/uL Hgb 11.9 L (14.0-18.0) g/dL Hct 35.9 L (42-52) % Plt Count 135 (130-400) K/uL BMP 01/20/19 06:12 Sodium 140 Potassium 3.9 Chloride 105 Carbon Dioxide 29 BUN 27 H Creatinine 1.34 Glucose 89 Calcium 8.7 Urine 01/20/19 Range/Units 03:00 Urine Color Yellow Urine Appearance Clear (Clear) Urine pH 6.5 (4.5-7.5) Ur Specific [place] 1.025 (1.000-1.030) Urine Protein Negative (Negative) Urine Glucose (UA) Negative (Negative)
[2019-01-20] MEDS ORDERED: STROKE PATIENT DISCHARGE STA (16:38)
--- NOTE | 2019-01-20 16:39 | Discharge Summary ---
Date of Service January 20, 2019 Discharge Data Allergies Allergy/AdvReac Type Severity Reaction Status Date / Time banana Allergy Unknown ` Verified 01/19/19 12:47 itraconazole AdvReac Intermediate UNKNOWN Unverified 03/12/17 12:09 Hospital Course (1) TIA (transient ischemic attack): (2) Chronic atrial fibrillation: (3) Chronic combined systolic and diastolic CHF (congestive heart failure): (4) Cardiomyopathy, ischemic: (5) Diabetes mellitus, type II: (6) HTN (hypertension): (7) CKD (chronic kidney disease), stage III: (8) Anemia, chronic disease: (9) Hypothyroidism: Discharge Plan Discharge Items Patient Disposition: Home - Self-Care Reason For Visit: TIA Discharge Diagnosis: Strokelike symptoms Activity: Resume your previous activity Exercise/Sports: Gradually increase as tolerated Non-emergency contact: Primary Care Provider and Neurologist Call non-emergency contact if: you have any medication questions, your symptoms worsen, your pain is not controlled, your pain is worsening, your pain is unusual for you, your pain is concerning for you and you have a fever Follow-up/Referrals: Robert Osullivan MD [Primary Care Provider] - Diet: Carb Consistent or DM2 and Heart Healthy Addtl Attending Provider Instructions: Follow-up with your primary care physician Dr. Osullivan on January 24, 2019 at 2:40 PM Follow-up with your neurologist Dr. Sandro Tamez in 4 to 6 weeks as needed Get a 72-hour electroencephalogram, ZIO patch arranged as outpatient as per the recommendations from your neurologist Seek immediate medical attention if your symptoms reoccur or worsen Risk Factors for Stroke: You can reduce your chances of stroke by working with your medical provider to adopt a healthy lifestyle. Some specific ways to lower your chance of stroke are: * If you are a smoker, now is the time to stop smoking cigarettes * If you are diabetic, improve the control of your blood sugars * Avoid excessive amounts of alcohol * Control high blood pressure * Lose weight if you are overweight * Be sure to lead an active lifestyle * Eat a healthy diet low in salt, cholesterol and fat You should know about other risk factors for stroke that you are unable to control. These include: * Age 55 years or older * Male gender * Certain racial groups: , or / * Family History of Stroke, Mini stroke or Heart Attack * Sickle Cell Disease Follow Up: It is important for you to keep your follow up appointments with your medical provider. Who to Call and When: Medical Emergencies: Call 911 immediately if you experience any of the following warning signs and symptoms of Stroke: * Sudden numbness or weakness of the face, arm or leg, especially on one side of the body * Sudden confusion, trouble speaking or understanding * Sudden trouble seeing in one or both eyes * Sudden trouble walking, dizziness, loss of balance or coordination * Sudden severe headache with no cause Do not delay calling 911 if you experience any warning signs or symptoms of a stroke. Delay in seeking medical attention may affect what treatments can be given to y ou. Pending Studies at Discharge: No Stand-Alone Forms: My [facility] [employer], Smoking Cessation Medications and DC Order Prescriptions: New atorvastatin 10 mg Tablet 10 mg PO QAM Qty: 30 RF: 0 Continued pen needle, diabetic [BD Ultra-Fine Short Pen Needle] 31 gauge x 5/16" needle .ROUTE .MEDSUPPLY Qty: 400 RF: 3 Glucagon Emergency Kit (human) 1 mg recon soln 1 mg IM Q20M PRN (Reason: hypoglycemia) Qty: 1 RF: 3 levothyroxine 50 mcg tablet 50 mcg PO DAILY Qty: 90 RF: 3 cyanocobalamin (vitamin B-12) 1,000 mcg Tablet 1,000 mcg PO DAILY RF: 0 aspirin 81 mg Tablet,Delayed Release (Dr/Ec) 81 mg PO DAILY RF: 0 alprazolam 0.5 mg tablet 0.5 mg PO HS RF: 0 ascorbic acid (vitamin C) 500 mg Tablet 500 mg PO DAILY RF: 0 warfarin 5 mg tablet 5 mg PO UD RF: 0 digoxin 125 mcg (0.125 mg) tablet 125 mcg PO QAM RF: 0 furosemide 20 mg tablet 20 mg PO 3XWK RF: 0 metoprolol tartrate 25 mg tablet 12.5 mg PO BID RF: 0 cholecalciferol (vitamin D3) 1,000 unit (25 mcg) Tablet 1,000 unit PO BID RF: 0 biotin 1 mg Capsule 1 mg PO DAILY RF: 0 PreserVision AREDS-2 [id number] [id number]-mg Capsule 1 tab PO BID RF: 0 Super Beta Prostate 2 cap PO BID RF: 0 Novolog Flexpen U-100 Insulin 100 unit/mL (3 mL) insulin pen 6 - 12 unit SQ TIDM RF: 0 Ambaragljovan HanleyPen U-100 Insulin 100 unit/mL (3 mL) insulin pen 8 unit SQ HS RF: 0 Discharge Orders: Discharge Order (Routine); Ordered 01/20/19 Ordered By: Edis Brambila Admission Data Admit Date/Time: 01/19/19 13:51 Attending Provider: Edis Brambila Admit Provider: Shantanu Tapia Primary Care Provider: Robert Osullivan Other Providers: Sandro Tamez ; Shantanu Tapia
[2019-01-20] MEDS: INSULIN GLARGINE SOLOSTAR 100 UNITS/ML 3 ML PEN SC SCH (20:15)
[2019-01-20] MEDS: ALPRAZolam 0.5 MG TABLET PO SCH (20:16)
[2019-01-21] MEDS: LEVOTHYROXINE SODIUM 50 MCG TABLET PO SCH (05:46)
[2019-01-21 07:04] LABS: Basophils # (auto) 0.03 K/uL (0-0.2); Basophils % (auto) 0.6 %; Eosinophils # (auto) 0.19 K/uL (0-0.5); Hematocrit (blood only) 37.5 % (42-52); Hemoglobin 12.2 g/dL (14.0-18.0); Immature Granulocytes # (auto) 0.01 K/uL (0.00-0.02); Immature Granulocytes % (auto) 0.2 %; Lymphocytes # (auto) 1.04 K/uL (1.2-3.4); Lymphocytes % (auto) 21.7 %; Mean Corpuscular Hemoglobin 29.6 pg (25-34); Mean Corpuscular Hgb Conc 32.5 g/dL (32-36); Monocytes # (auto) 0.48 K/uL (0.11-0.59); Neutrophils # (auto) 3.05 K/uL (1.4-6.5); Neutrophils % (auto) 63.5 %; Platelet Count 143 K/uL (130-400); RDW Coefficient of Variation 14.7 % (11.5-14.5); RDW Standard Deviation 48.4 fL (36.4-46.3); Red Blood Count 4.12 M/uL (4.7-6.1)
[2019-01-21 07:24] LABS: INR 1.8 (0.9-1.1)
[2019-01-21 07:41] LABS: BUN Creatinine Ratio 21.6 (10-20); Calcium 8.6 mg/dl (8.5-10.1); Creatinine Clr Calc Pharmacy 35.8 ml/min; Est GFR (African American) 53.5; Est GFR (Non-African American) 46.1; Potassium 3.9 mmol/L (3.5-5.1)
[2019-01-21] MEDS: ASPIRIN 81 MG ECTAB PO SCH (08:36)
[2019-01-21] MEDS: DIGOXIN 0.125 MG TAB PO SCH (08:36)
[2019-01-21] MEDS: ASCORBIC ACID 500 MG TAB PO SCH (08:37)
[2019-01-21] MEDS: CYANOCOBALAMIN 500 MCG TABLET (VITAMIN B-12) PO SCH (08:37)
[2019-01-21] MEDS: CHOLECALCIFEROL 1,000 UNITS TAB PO SCH (08:37)
[2019-01-21] MEDS: INSULIN ASPART 100 UNITS/ML 3 ML PEN SC SCH (08:37)
[2019-01-21] MEDS: CEROVITE ADV FORMULA TAB PO SCH (08:37)
[2019-01-21] MEDS: METOPROLOL TARTRATE 25 MG TAB PO SCH (08:37)
[2019-01-21] MEDS: ATORVASTATIN 10 MG TAB PO SCH (08:37)
--- NOTE | 2019-01-21 10:25 | Hospitalist Progress Note ---
Date of Service January 21, 2019 Assessment & Plan (1) TIA (transient ischemic attack): Patient is an 88-year-old male with multiple comorbidities presents with history of an episode of confusion and left leg weakness that occurred this morning lasting 5 to 10 minutes and resolved. Stroke like symptoms --CT HEAD:No acute intracranial abnormality. Age-related atrophy and chronic small vessel change. --CTA HEAD:Moderate atherosclerotic narrowing of the cavernous components of the internal carotid arteries bilaterally. This is estimated at 30-40% bilaterally. 50% stenosis of the supraclinoid aspects of the internal carotid arteries bilaterally. No evidence for critical stenosis. Significant stenotic change of the distal vertebral arteries is again noted bilaterally. --NECK CTA: 40% stenosis origin right external carotid artery. RLQ. Scattered plaque formation of the carotid systems bilaterally with no additional stenosis. 75% stenosis superior aspect left vertebral artery with a 50% stenosis of the right vertebral artery. This is seen approximately the level of C1. --EEG:Normal during wakefulness without a focal generalized encephalopathy or potentially epileptogenic activity --ECHO: Mild global hypokinesis of left ventricle, EF 50%, no thrombus, pulmonary hypertension, no evidence of ASD. Could not assess patent foramen ovale --INR in therapeutic range, on Coumadin for chronic atrial fibrillation --Lipid panel within normal limits --Continue aspirin --Also on Coumadin --Could not perform MRI secondary to defibrillator --aspiration precautions --PT/OT eval completed --Appreciate neurology input --Needs 72-hour EEG, ZI0 patch arranged as outpatient (2) Chronic atrial fibrillation: -Rate controlled -Digoxin level: Normal -Continue digoxin, metoprolol -INR: 1.8 today Continue Coumadin (3) Chronic combined systolic and diastolic CHF (congestive heart failure): (4) Cardiomyopathy, ischemic: 2017 echo: EF: 50-55%, grade II diastolic dysfunction, mild aortic sclerosis, mild aortic regurgitation, mild mitral regurgitation, mild tricuspid regurgitation -Appears euvolemic -Continue lasix MWF (5) Diabetes mellitus, type II: A1c: 7.4 on 10/07/2018 -Hold home insulin -Novolog, Lantus Sliding scale per protocol (6) HTN (hypertension): Stable -Continue metoprolol (7) CKD (chronic kidney disease), stage III: Cr: 1.36. Baseline Cr: 1.2 -Monitor renal functions -Avoid nephrotoxic agents when possible (8) Anemia, chronic disease: Hgb: 12.9. Baseline ~12.4 -Monitor H&H (9) Hypothyroidism: TSH: 6.5 on 09/17/18 -Continue levothyroxine DVT Px -On Coumadin CODE STATUS Full code Disposition Plan to discharge home today Subjective Patient is seen and examined at bedside No new focal weakness Pacer Interrogation done Eager to et discharged Denies any chest pain, shortness of breath, nausea, abdominal pain, dizziness Review of Systems Review of Systems: All systems reviewed & are unremarkable except as noted in HPI & below Physical Exam Physical Exam: Physical Exam: Vitals signs as noted above General Appearance:Moderately built and nourished, no apparent distress Head: normocephalic, Atraumatic Eyes: normal inspection, EOMI Neck: supple, Trachea midline Respiratory/Chest: Normal breath sounds, CTA Cardiovascular: S1, S2, No murmur Abdomen/GI:Soft, Non tender, Bowel sounds present Extremities/Musculoskelatal:normal inspection, no edema Neurologic/Psych:AAOX3, grossly no focal neurological deficits Skin: normal color, warm Results & Data Vital Signs (Past 12 Hours) Vital Signs Temp Pulse Pulse Resp BP BP Pulse Ox 01/21/19 10:14 60 01/21/19 08:36 61 01/21/19 07:36 36.6 C 61 16 153/79 H 95 01/21/19 04:00 36.6 C 65 18 159/82 H 95 01/20/19 23:52 36.5 C 72 18 151/82 H 94 01/20/19 23:09 63 Laboratory Results Short CBC 01/21/19 Range/Units 06:36 WBC 4.80 (4.8-10.8) K/uL Hgb 12.2 L (14.0-18.0) g/dL Hct 37.5 L (42-52) % Plt Count 143 (130-400) K/uL BMP 01/21/19 06:36 Sodium 139 Potassium 3.9 Chloride 104 Carbon Dioxide 31 BUN 29 H Creatinine 1.36 Glucose 110 H Calcium 8.6
--- NOTE | 2019-01-21 10:27 | Discharge Summary ---
Date of Service January 21, 2019 Admission HPI Per Admitting Provider Chief Complaint: Confusion, Left sided weakness Primary Care Provider: Robert Osullivan MD Pt is 88 y/o M with PMH TIA in 2017, DM II, CKD III, anemia of chronic disease, HTN, chronic ischemic cardiomyopathy, s/p defibrillator, chronic A. 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 Reports has had several episodes of the same over the last couple of months and symptoms lasted for a few minutes and resolve. Reports patient with frequent falls over the past year. Reports several months ago fell and hit head, did not seek treatment at that time. Reports couple days ago fell however family member was there to catch him and denies any injury or hitting head. Reports having some neck and lower back pain intermittently. Reports only has left hand paresthesias when he sleeps on the left side " incorrectly". Denies any other paresthesias. Chronic vision loss, denies any other vision changes. Reports chronic intermittent lower extremity edema with left worse than right leg, however reports no significant edema recently. Denies fever/chills, diaphoresis, N/V/D/C, CEE, dizziness, syncope, CP, SOB, orthopnea, palpitations, cough, sore throat, choking, otalgia, rhinorrhea, abdominal pain, rashes, urinary symptoms. Admission Exam Per Admitting Provider General: no acute distress, moderate developed, moderate nourished elderly male Head: normocephalic, atraumatic Eyes: PERRL, EOM's intact, conjunctiva non-injected, anicteric ENT: Hard of hearing, normal inspection external ears, nose, mucous membranes moist Neck: supple, trachea midline, non-tender Lungs: clear, no respiratory distress, no wheezing/rhonchi/rales CV: irregularly irregular, no murmur, no pretibial edema Abd: normal BS, soft, non-tender Ext: no cyanosis, no calf tenderness Neuro: A&O x 3, facial sensation is intact and symmetric, The face is strong and symmetric, Soft palate elevates symmetrically, no dysarthria, shoulder shrug intact, Tongue is midline, normal movement, Muscle tone normal. Strength equal upper and lower bilateral extremities, normal affect Skin: warm, dry Principal Diagnosis Strokelike symptoms Discharge Data Allergies Allergy/AdvReac Type Severity Reaction Status Date / Time banana Allergy Unknown ` Verified 01/19/19 12:47 itraconazole AdvReac Intermediate UNKNOWN Unverified 03/12/17 12:09 Consultations 01/19/19 13:01 ED Decision to Admit Stat 01/19/19 15:59 Consult Case Management - Discharge Planning Routine Consult Neurology Routine Procedures Performed --CT HEAD:No acute intracranial abnormality. Age-related atrophy and chronic small vessel change. --CTA HEAD:Moderate atherosclerotic narrowing of the cavernous components of the internal carotid arteries bilaterally. This is estimated at 30-40% bilaterally. 50% stenosis of the supraclinoid aspects of the internal carotid arteries bilaterally. No evidence for critical stenosis. Significant stenotic change of the distal vertebral arteries is again noted bilaterally. --NECK CTA: 40% stenosis origin right external carotid artery. RLQ. Scattered plaque formation of the carotid systems bilaterally with no additional stenosis. 75% stenosis superior aspect left vertebral artery with a 50% stenosis of the right vertebral artery. This is seen approximately the level of C1. --EEG:Normal during wakefulness without a focal generalized encephalopathy or potentially epileptogenic activity --ECHO: Mild global hypokinesis of left ventricle, EF 50%, no thrombus, pulmonary hypertension, no evidence of ASD. Could not assess patent foramen ovale Ordered Studies 01/19/19 11:53 CT head/brain wo con Stat 01/19/19 12:03 CT angio head w con Stat CT angio neck with con Stat 01/19/19 15:59 CT cervical spine wo con Routine CT lumbar spine wo con Routine CT thoracic spine wo con Routine Hospital Course (1) TIA (transient ischemic attack): Patient is an 88-year-old male with multiple comorbidities presents with history of an episode of confusion and left leg weakness that occurred this morning lasting 5 to 10 minutes and resolved. Stroke like symptoms --CT HEAD:No acute intracranial abnormality. Age-related atrophy and chronic small vessel change. --CTA HEAD:Moderate atherosclerotic narrowing of the cavernous components of the internal carotid arteries bilaterally. This is estimated at 30-40% bilaterally. 50% stenosis of the supraclinoid aspects of the internal carotid arteries bilaterally. No evidence for critical stenosis. Significant stenotic change of the distal vertebral arteries is again noted bilaterally. --NECK CTA: 40% stenosis origin right external carotid artery. RLQ. Scattered plaque formation of the carotid systems bilaterally with no additional stenosis. 75% stenosis superior aspect left vertebral artery with a 50% stenosis of the right vertebral artery. This is seen approximately the level of C1. --EEG:Normal during wakefulness without a focal generalized encephalopathy or potentially epileptogenic activity --ECHO: Mild global hypokinesis of left ventricle, EF 50%, no thrombus, pulmonary hypertension, no evidence of ASD. Could not assess patent foramen ovale --INR in therapeutic range, on Coumadin for chronic atrial fibrillation --Lipid panel within normal limits --Continue aspirin --Also on Coumadin --Could not perform MRI secondary to defibrillator --aspiration precautions --PT/OT eval completed --Appreciate neurology input --Needs 72-hour EEG, ZI0 patch arranged as outpatient (2) Chronic atrial fibrillation: -Rate controlled -Digoxin level: Normal -Continue digoxin, metoprolol -INR: 1.8 today Continue Coumadin (3) Chronic combined systolic and diastolic CHF (congestive heart failure): (4) Cardiomyopathy, ischemic: 2017 echo: EF: 50-55%, grade II diastolic dysfunction, mild aortic sclerosis, mild aortic regurgitation, mild mitral regurgitation, mild tricuspid regurgitation -Appears euvolemic -Continue lasix MWF (5) Diabetes mellitus, type II: A1c: 7.4 on 10/07/2018 -Hold home insulin -Novolog, Lantus Sliding scale per protocol (6) HTN (hypertension): Stable -Continue metoprolol (7) CKD (chronic kidney disease), stage III: Cr: 1.36. Baseline Cr: 1.2 -Monitor renal functions -Avoid nephrotoxic agents when possible (8) Anemia, chronic disease: Hgb: 12.9. Baseline ~12.4 -Monitor H&H (9) Hypothyroidism: TSH: 6.5 on 09/17/18 -Continue levothyroxine DVT Px -On Coumadin CODE STATUS Full code Disposition Plan to discharge home today Total Time Total Time Spent Total Time Spent (In Minutes): 40 minutes Total Time Includes: Examination of the Patient, Discharge Planning, Medication Reconciliation, Communication With Other Providers and Other Discharge Plan Discharge Items Patient Disposition: Home - Self-Care Reason For Visit: TIA Discharge Diagnosis: Strokelike symptoms Activity: Resume your previous activity Exercise/Sports: Gradually increase as tolerated Non-emergency contact: Primary Care Provider and Neurologist Call non-emergency contact if: you have any medication questions, your symptoms worsen, your pain is not controlled, your pain is worsening, your pain is unus ual for you, your pain is concerning for you and you have a fever Follow-up/Referrals: Robert Osullivan MD [Primary Care Provider] - Diet: Carb Consistent or DM2 and Heart Healthy Addtl Attending Provider Instructions: Follow-up with your primary care physician Dr. Osullivan on January 24, 2019 at 2:40 PM Follow-up with your neurologist Dr. Sandro Tamez in 4 to 6 weeks as needed Get a 72-hour electroencephalogram, ZIO patch arranged as outpatient as per the recommendations from your neurologist Take 7.5 mg warfarin (Coumadin) today and resume to usual usual dose starting tomorrow as your PT/INR is subtherapeutic today Seek immediate medical attention if your symptoms reoccur or worsen Risk Factors for Stroke: You can reduce your chances of stroke by working with your medical provider to adopt a healthy lifestyle. Some specific ways to lower your chance of stroke are: * If you are a smoker, now is the time to stop smoking cigarettes * If you are diabetic, improve the control of your blood sugars * Avoid excessive amounts of alcohol * Control high blood pressure * Lose weight if you are overweight * Be sure to lead an active lifestyle * Eat a healthy diet low in salt, cholesterol and fat You should know about other risk factors for stroke that you are unable to control. These include: * Age 55 years or older * Male gender * Certain racial groups: , or / * Family History of Stroke, Mini stroke or Heart Attack * Sickle Cell Disease Follow Up: It is important for you to keep your follow up appointments with your medical provider. Who to Call and When: Medical Emergencies: Call 911 immediately if you experience any of the following warning signs and symptoms of Stroke: * Sudden numbness or weakness of the face, arm or leg, especially on one side of the body * Sudden confusion, trouble speaking or understanding * Sudden trouble seeing in one or both eyes * Sudden trouble walking, dizziness, loss of balance or coordination * Sudden severe headache with no cause Do not delay calling 911 if you experience any warning signs or symptoms of a stroke. Delay in seeking medical attention may affect what treatments can be given to you. Pending Studies at Discharge: No Stand-Alone Forms: My [facility], Smoking Cessation Medications and DC Order Prescriptions: New atorvastatin 10 mg Tablet 10 mg PO QAM Qty: 30 RF: 0 Continued pen needle, diabetic [BD Ultra-Fine Short Pen Needle] 31 gauge x 5/16" needle .ROUTE .MEDSUPPLY Qty: 400 RF: 3 Glucagon Emergency Kit (human) 1 mg recon soln 1 mg IM Q20M PRN (Reason: hypoglycemia) Qty: 1 RF: 3 levothyroxine 50 mcg tablet 50 mcg PO DAILY Qty: 90 RF: 3 cyanocobalamin (vitamin B-12) 1,000 mcg Tablet 1,000 mcg PO DAILY RF: 0 aspirin 81 mg Tablet,Delayed Release (Dr/Ec) 81 mg PO DAILY RF: 0 alprazolam 0.5 mg tablet 0.5 mg PO HS RF: 0 ascorbic acid (vitamin C) 500 mg Tablet 500 mg PO DAILY RF: 0 warfarin 5 mg tablet 5 mg PO UD RF: 0 digoxin 125 mcg (0.125 mg) tablet 125 mcg PO QAM RF: 0 furosemide 20 mg tablet 20 mg PO 3XWK RF: 0 metoprolol tartrate 25 mg tablet 12.5 mg PO BID RF: 0 cholecalciferol (vitamin D3) 1,000 unit (25 mcg) Tablet 1,000 unit PO BID RF: 0 biotin 1 mg Capsule 1 mg PO DAILY RF: 0 PreserVision AREDS-2 [id number]-mg Capsule 1 tab PO BID RF: 0 Super Beta Prostate 2 cap PO BID RF: 0 Novolog Flexpen U-100 Insulin 100 unit/mL (3 mL) insulin pen 6 - 12 unit SQ TIDM RF: 0 Basaglar KwikPen U-100 Insulin 100 unit/mL (3 mL) insulin pen 8 unit SQ HS RF: 0 Discharge Orders: Discharge Order (Routine); Ordered 01/21/19 Ordered By: Edis Brambila Admission Data Admit Date/Time: 01/19/19 13:51 Attending Provider: Edsi Brambila Admit Provider: Shantanu Tapia Primary Care Provider: Robert Osullivan Other Providers: Sandro Tamez Gary Other Interventions: Discharge Summary Assessment (RN) Last Done: 01/21/19 10:36 DC Date/Time DO NOT enter until pt leaves facility: 01/21/19 11:41
[2019-01-21] MEDS ORDERED: WARFARIN SOD 7.5 MG TAB PO SCH (16:00)
--- NOTE | 2019-02-04 13:24 | Coding Query ---
CODING QUERY To promote full compliance with coding requirements relating to patient care, provider participation is requested in all cases of [employer] uncertainty. Please assist us with the question(s) below: Coding Question(s): Please clarify if TIA was ruled out. Physician's Response(s): TIA Thank you Kayley Harrington Principal Diagnosis: "that condition established after study, to be chiefly responsible for occasioning the admission of the patient to the hospital for care." Co-Existing Principal Diagnosis: "when two or more diagnoses equally meet the criteria for principal diagnosis as determined by the circumstances of admission, diagnostic work up, and/or therapy provided, and the Alphabetic Index, Tabular List, or another coding guideline does not provide sequencing direction, any one of the diagnoses may be sequenced first." "When the physician has documented what appears to be a current diagnosis in the body of the record, but has not included the diagnosis in the final diagnostic statement, the physician should be asked whether the diagnosis should be added." (Source [facility] 2 QTR90. p3-4) JAMI
== END 2019-01-21 11:41 | disposition home or self-care (01) | DRG 69 ==
LOC: ED 11:36 → 2N 13:51 → SUATTDRO 13:51 → 2N 15:35

== ENCOUNTER 2019-03-16 16:44 | Inpatient (IN) ==
[2019-03-16 17:20] LABS: Basophils # (auto) 0.04 K/uL (0-0.2); Basophils % (auto) 0.7 %; Eosinophils # (auto) 0.14 K/uL (0-0.5); Eosinophils % (auto) 2.4 %; Hematocrit (blood only) 28.5 % (42-52); Immature Granulocytes # (auto) 0.02 K/uL (0.00-0.02); Immature Granulocytes % (auto) 0.3 %; Lymphocytes # (auto) 0.59 K/uL (1.2-3.4); Lymphocytes % (auto) 10.1 %; Mean Corpuscular Hemoglobin 30.3 pg (25-34); Mean Corpuscular Hgb Conc 31.6 g/dL (32-36); Mean Platelet Volume 10.9 fL (7.4-10.4); Monocytes # (auto) 0.49 K/uL (0.11-0.59); Monocytes % (auto) 8.4 %; Neutrophils # (auto) 4.54 K/uL (1.4-6.5); Neutrophils % (auto) 78.1 %; Platelet Count 202 K/uL (130-400); RDW Coefficient of Variation 15.9 % (11.5-14.5); RDW Standard Deviation 54.7 fL (36.4-46.3); Red Blood Count 2.97 M/uL (4.7-6.1); White Blood Count 5.82 K/uL (4.8-10.8)
--- NOTE | 2019-03-16 17:36 | XRay Report ---
XR chest 1V portable CLINICAL HISTORY: weakness COMPARISON STUDY: Chest radiograph March 12, 2017. FINDINGS: A left subclavian pacer/AICD is in place. Moderate cardiomegaly is noted without evidence f or pulmonary edema. There is no pneumothorax. Minimal left basilar opacity favors atelectasis. There is a small right pleural effusion which is unchanged. IMPRESSION: 1. No pneumothorax. 2. No change in a small right pleural effusion with mild bibasilar opacities. 3. Stable cardiomegaly without evidence for pulmonary edema. ACT 112: Negative or not required by law. Electronically signed by: Lj Guzman M.D. 03/16/2019 5:35 PM
--- NOTE | 2019-03-16 17:41 | XRay Report ---
XR femur RT 2V routine CLINICAL HISTORY: fall, lateral hematoma COMPARISON: None FINDINGS: Alignment of the right hip and right knee is anatomic. There is no acute fracture within t he right femur. 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 Postoperative findings wit hin the right hemipelvis are noted. There is moderate vascular calcification. There is no right knee joint effusion. IMPRESSION: No acute fracture of the right femur. ACT 112: Negative or not required by law. Electronically signed by: Lj Guzman M.D. 03/16/2019 5:39 PM
[2019-03-16 17:44] LABS: Albumin Level 3.1 gm/dl (3.4-5.0); BUN Creatinine Ratio 22.8 (10-20); Calcium 8.6 mg/dl (8.5-10.1); Creatinine Clr Calc Pharmacy 36.9 ml/min; Est GFR (African American) 51.6; Est GFR (Non-African American) 44.5; Magnesium 2.1 mg/dl (1.8-2.4); Potassium 5.2 mmol/L (3.5-5.1)
--- NOTE | 2019-03-16 17:51 | CT Scan Report ---
CT OF THE HEAD WITHOUT CONTRAST CLINICAL HISTORY: Fall. Weakness. COMPARISON STUDY: Head CT January 19, 2019. CT DOSE: 614.27 mGy.cm TECHNIQUE: Helical axial images of the head were obtained without IV contrast. Automated exposure con trol was utilized for the study. A dose lowering technique was utilized adhering to the principles o f ALARA. FINDINGS: No acute intracranial hemorrhage, midline shift or mass effect is present. The ventricular system is stable. Basilar cisterns are patent. There are no extra axial collections. White matter hyp odensities are unchanged and suggest extensive small vessel disease. 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 There are no findings to suggest acute dural sinus thrombosis or acute territorial infarct. There is no calvarial fracture. IMPRESSION: 1. No acute intracranial findings. No change in appearance of the brain. 2. No calvarial fracture. ACT 112: Negative or not required by law. Electronically signed by: Lj Guzman M.D. 03/16/2019 5:50 PM
[2019-03-16 17:54] LABS: Albumin Globulin Ratio 0.7 (0.9-2); Globulin 4.4 gm/dl (2.5-4.0); Thyroid Stimulating Hormone 5.38 uIu/ml (0.300-4.500); Total Protein 7.5 gm/dl (6.4-8.2)
[2019-03-16 18:07] LABS: T4 Free Thyroxine 1.1 ng/dl (0.8-1.6)
[2019-03-16] MEDS ORDERED: SODIUM CHLORIDE 0.9% 1000ML 1,000 ML IV STA (18:32)
[2019-03-16 18:42] LABS: Appearance Urine Clear (Clear); Bilirubin Urine Negative (Negative); Blood Urine Negative (Negative); Color Urine Yellow; Glucose Urine UA Trace (Negative); Ketones Urine Negative (Negative); Leukocyte Esterase Urine Negative (Negative); Nitrite Urine Negative (Negative); Protein Urine Negative (Negative); Specific Gravity Urine 1.015 (1.000-1.030); Urobilinogen Urine Negative (Negative); pH Urine 6.5 (4.5-7.5)
[2019-03-16 18:50] LABS: Prothrombin Time 43.4 Seconds (9.0-12.0)
[2019-03-16 18:51] LABS: INR 4.7 (0.9-1.1)
[2019-03-16] MEDS ORDERED: ONDANSETRON INJ 2 MG/ML 2 ML VIAL IV PRN (21:28)
[2019-03-16] MEDS ORDERED: ACETAMINOPHEN 325 MG TAB PO PRN (21:28)
[2019-03-16] MEDS ORDERED: NITROGLYCERIN SL 0.4 MG/TAB TAB SL PRN (21:28)
[2019-03-16] MEDS ORDERED: POLYETHYLENE (MIRALAX) 17 GM PACK PO PRN (21:28)
[2019-03-16] MEDS ORDERED: PHYTONADIONE 5 MG TAB PO STA (21:28)
[2019-03-16] MEDS ORDERED: GLUCOSE 40% GEL 15 GM TUBE PO PRN (22:15)
[2019-03-16] MEDS ORDERED: DEXTROSE 50% 50 ML SYRINGE IV PRN (22:15)
[2019-03-16] MEDS ORDERED: GLUCAGON FOR INJ 1 MG VIAL IM PRN (22:15)
[2019-03-16] MEDS ORDERED: GLUCOSE 10 TABS/TUBE PO PRN (22:15)
[2019-03-16] MEDS: ALPRAZolam 0.5 MG TABLET PO SCH (22:38)
[2019-03-16] MEDS: INSULIN GLARGINE SOLOSTAR 100 UNITS/ML 3 ML PEN SQ SCH (22:39)
[2019-03-16] MEDS: METOPROLOL TARTRATE 25 MG TAB PO SCH (22:39)
[2019-03-16] MEDS: CHOLECALCIFEROL 1,000 UNITS TAB PO SCH (22:39)
[2019-03-16] MEDS: CEROVITE ADV FORMULA TAB PO SCH (22:39)
[2019-03-16] MEDS: INSULIN ASPART 100 UNITS/ML 3 ML PEN SC SCH (22:39)
[2019-03-16] MEDS: SODIUM CHLORIDE 0.9% 1000ML 1,000 ML IV SCH (22:40)
[2019-03-16] MEDS ORDERED: INSULIN ASPART 100 UNITS/ML 3 ML PEN SC STA (22:54)
--- NOTE | 2019-03-16 23:17 | History and Physical Report ---
DATE OF ADMISSION: 03/16/2019 CHIEF COMPLAINT: Status post fall, anemia. HISTORY OF PRESENT ILLNESS: This is 88-year-old male with past medical history significant for type 2 diabetes, peripheral vascular disease, chronic kidney disease stage III, hypothyroidism, ischemic heart disease, chronic atrial fibrillation, chronic systolic heart failure, hypertension, BPH, anemia of chronic kidney disease, status post defibrillator, history of TIA, history of frequent falls, history of insomnia, who lives with his , walks with a walker. Comes in because of fall. The patient says now and then he is falling at home because his legs give away. Today he was walking with a walker and his legs gave away and he fell down, slightly hit his head, but not much impact on the head, but he has soreness in his right knee and thigh region. Whenever he falls, he could not get up. This is an ongoing issue. He says his legs are getting weak and they give up and he falls. He is on Coumadin for his atrial fibrillation. The patient denies any loss of consciousness. No headache, no blurred visions. He has some earache in the ear where he puts his hearing aids. No runny nose, no sore throat, no difficulty swallowing. Appetite is okay. No chest pain, no shortness of breath, no cough, no fever, no chills, no nausea, no abdominal pain. Normal bowel and bladder movements. No blood in the stools, black stools. No hematuria. No swelling or rash. Currently resting comfortable and hemodynamically stable. ALLERGIES: BANANA, TOSHIA INHIBITORS, ANGIOTENSIN RECEPTOR BLOCKERS. PAST MEDICAL HISTORY: As mentioned above. PAST SURGICAL HISTORY: Cardiac stent placement, insertion of defibrillator, appendectomy, cataract surgery, inguinal hernia repair, repair of laparoscopic hernia x2. MEDICATIONS: The patient is on aspirin 81 mg p.o. daily, alprazolam 0.5 mg p.o. at bedtime, vitamin C 500 mg p.o. daily, atorvastatin 10 mg p.o. a.m., biotin 1 mg p.o. at lunchtime, vitamin D 1000 units p.o. b.i.d., vitamin B12 1000 mcg p.o. daily, digoxin 125 mcg p.o. daily, Lasix 20 mg p.o. daily, ibuprofen 200 mg p.o. q. 6 hours p.r.n., insulin glargine 8-10 units at bedtime, levothyroxine 50 mcg p.o. daily, metoprolol tartrate 12.5 mg p.o. b.i.d., PreserVision Areds 1 tablet p.o. q.i.d., Coumadin 5 mg as directed. FAMILY HISTORY: Significant for father had cancer, mother had heart disorder, son has bipolar disorder. SOCIAL HISTORY: . Quit smoking in 1959, smoked for 10 years. Alcohol,few drinks of alcohol per week. No drug use. REVIEW OF SYSTEMS: As per HPI. Rest of the review of systems negative. PHYSICAL EXAMINATION: GENERAL: The patient is old and frail, not in acute distress. VITAL SIGNS: Temperature 36.7, pulse 71, respiratory rate 21, blood pressure 162/79, oxygen 92% room air. HEENT: No pallor, no icterus. Pupils equal, round, reactive to light. NECK: No JVD, no neck masses, no carotid bruits. CARDIOVASCULAR: S1, S2 heard, regular rate and rhythm, no murmur, no gallop. RESPIRATORY SYSTEM: Normal AP diameter. No accessory muscle use. No wheezing, no crackles. ABDOMEN: Soft, bowel sounds are present. Nontender. No distention. CENTRAL NERVOUS SYSTEM: Alert, awake, and oriented. Obeys simple commands. Moves extremities. EXTREMITIES: Right lower extremity, bruise seen in the thigh region and also knee region. No erythema seen. LABORATORY DATA: WBC 5.8, hemoglobin 9, hematocrit 28.5, platelets 202. PT 43.4, INR 4.7. Sodium 136, potassium 5.2, chloride 103, bicarbonate 29, BUN 32, creatinine 1.4, serum glucose 256, calcium 8.6, magnesium 2.1, total bilirubin 1, AST 20, ALT 17, alkaline phosphatase 116, total creatinine kinase 113, total protein 7.5. TSH 5.3, free T4 of 1.1. Urinalysis negative. IMAGING DATA: Femur x-ray, no acute fracture is seen on the right femur x-ray. CT of the head, no acute intracranial findings. Chest x-ray, no pneumothorax, no changes, small right pleural effusion with bibasilar opacities, stable cardiomegaly without evidence for pulmonary edema. ASSESSMENT AND PLAN: This is an 88-year-old male who presents status post fall. 1. Status post fall. History of multiple falls. Possibly from deconditioning . He says his legs give away. PT and OT. Social Service to help with discharge planning. 2. Questionable right thigh hematoma. The patient is status post fall and having some soreness in the right leg and his hemoglobin dropped from 12.9 in December to 9 today and his INR is 4.7. We will give vitamin K 2.5. We will check ultrasound to for any hematoma and will monitor his hemoglobin. 3. History of elevated INR of 4.7, holding Coumadin, and gave him PO vitamin K 2.5mg. Follow the PT/INR. 4. History of atrial fibrillation, rate controlled on Lopressor and digoxin. Holding aspirin and Coumadin as above. 5. History of type 2 diabetes. Continue his home insulin, long-acting insulin and sliding scale. Follow hemoglobin A1c levels. Follow his blood sugars. 6. History of insomnia. Continue Xanax at bedtime. 7. Hyperlipidemia. Continue statin. 8. Hypothyroidism. Continue levothyroxine. His TSH is slightly high and free T4 is normal. Needs to follow up with family doctor with repeat levels. 9. Hyperkalemia, potassium of 5.2, borderline high. We will follow the repeat labs. 10. Chronic systolic congestive heart failure, on digoxin, Lopressor, and Lasix. EF of 50% on echo done in December 2018. Getting IV fluids at 75 mL per hour. We will monitor for any volume overload. Status post ICD. 11. History of benign prostatic hypertrophy, will monitor for any urinary retention. 12. Anemia of chronic kidney disease, stage III. Hemoglobin is 12.9. We will follow the labs. 13. Deep venous thrombosis prophylaxis, sequential compression devices. INR is supratherapeutic. DISPOSITION: Closely monitor in the med/surg tele. Level 1 full code. PT, OT prior to discharge. Social Service to help with discharge planning. Addendum: HB in am 8.2 and INR still 4.6. Will get blood consent. Follow ultrasound of right lower extremity. H and h q6hrs.Will give another vitamin k iv 2.5mg.Will consider consulting orthopedics. MTDD
--- NOTE | 2019-03-17 00:05 | Emergency Department Note ---
Entered by Alejandra Tesfaye acting as a scribe for ED Provider Note CHIEF COMPLAINT: Fall HISTORY OF PRESENT ILLNESS: The patient is an 88 year old male who presents to the Emergency Room with complaints of intermittent falls that started a couple weeks ago. The patient states that he falls because he loses all feeling in his legs and then he becomes too weak to hold himself up. The patient states that he came to the ED because he was too weak to stand up on his own after the fall today. The patient states that within the past week, he has fallen at least once or twice every day. The patient notes that he fell 3 weeks ago and hit the left side of his head. The patient notes that he has bruises all over his body from falling so frequently. The patient states that he has e-mailed his doctors about this problem, but none of them have responded. The patient notes that he is diabetic and his sugars have been high in the 300-340 range. Pt denies LOC, headache, fevers, chills, diaphoresis, visual changes, neck pain, chest pain, breathing difficulties, nausea, vomiting, abdominal pain, back pain, melena, hematochezia, urinary symptoms, numbness, lymphadenopathy, rash, or other complaints. REVIEW OF SYSTEMS: See HPI for pertinent positives and negatives. A total of ten systems were reviewed and were otherwise negative. PMHx/PSHx: TIA, DM II, CKD III, diabetes, anemia of chronic disease, HTN, chronic ischemic cardiomyopathy, defibrillator, chronic A. fib on Coumadin, chronic systolic and diastolic heart failure, carotid stenosis, hypothyroidism, chronic balance issues, frequent falls. SOCIAL HISTORY: Patient lives at home with . He is a former smoker. PHYSICAL EXAM: GENERAL: Awake, alert, well-appearing, in no distress HENT: Normocephalic, atraumatic. Oropharynx unremarkable. EYES: PERRL. Normal conjunctiva. Sclera non-icteric. NECK: Inspection normal. Non-tender. Supple. No nuchal rigidity. FROM. No masses. RESPIRATORY: Clear to auscultation. No wheezes. No rales. Normal respiratory effort. CARDIAC: Normal rate. Normal rhythm. No murmurs. No rubs. Extremities warm and well perfused. Pulses equal. No JVD. GI: Soft, non-distended. No tenderness to palpation. No rebound or guarding. No masses. RECTAL: Deferred. MUSCULOSKELETAL: Atraumatic. Chest examination reveals no tenderness. The back is symmetrical on inspection without obvious abnormality. There is no CVA tenderness to palpation. No joint edema. UPPER EXTREMITIES: Scattered bruises to bilateral upper extremities. LOWER EXTREMITIES: Calves are equal size bilaterally and non-tender. No edema. Hematoma to lateral right knee, lateral right thigh and medial lower right thigh. Tenderness and firmness to hematoma on right thigh without erythema. NEURO: 3.5- 4/5 strength bilateral lower extremities, cranial nerves II-XII intact, normal rapid alternating movements. Normal sensorium. No sensory or motor deficits noted. SKIN: No rash or jaundice noted. EMERGENCY DEPARTMENT COURSE: 164: Past medical records reviewed. The patient was evaluated in room C05, and a complete history and physical examination were performed. 171: I updated the patient's on the treatment plan. The patient is resting comfortably. 1810: I updated the patient and his on the test results and plan for ad mission. They verbally agree and understand. 184: I discussed the patient's case with Dr. Suni Hartman, Hospitalist. He will evaluate the patient for further management. MEDICAL DECISION MAKING: C5 Prior records/ancillary studies reviewed. Nursing notes reviewed and agree them. Additional history obtained from the patient's . The patient's history was concerning for weakness. Differential diagnosis: Etiologies such as metabolic, infection, hypo/hyperglycemia, electrolyte abnormalities, cardiac sources, intracerebral event, toxicologic, neurologic, as well as others were entertained. Physical examination: As above. Moderate size hematoma in the right femur. Generally weak in the lower extremities. No saddle anesthesia. ER treatment provided: IV [place] hydration On reassessment the patient was stable. Diagnostics interpretation by me: ECG: Paced rhythm. The labs revealed an unremarkable white count. CBC did reveal the patient's hemoglobin dropped from 12 down to 9. This is concerning in light of the right thigh hematoma. INR reveals a supratherapeutic INR. Urinalysis negative. Troponin negative. Total CK negative. Imaging studies: CT scan of the head was negative for acute process. Chest x-ray and x-ray of the right femur negative for acute process. The patient is not doing well at home. He is very weak. He has a significant hematoma in the right thigh with a supratherapeutic INR. He needs serial H&H monitoring, management of his coagulopathy, and evaluation of his generalized weakness as he was too weak to get up without assistance today. Consultation: A consultation was placed with the hospitalist. The case was discussed and diagnostics were reviewed. The patient was evaluated in the ER for further treatment. IMPRESSION: Weakness Anemia Hematoma of right lower extremity Supratherapeutic INR PLAN: Being evaluated by Hospitalist The scribe's documentation has been prepared under my direction and personally reviewed by me in its entirety. I confirm that the note above accurately reflects all work, treatment, procedures, and medical decision making performed by me. Impression & Plan Weakness, Anemia, Hematoma of right lower extremity, Supratherapeutic INR Past Med/Surg History Medical History (Updated 03/16/19 @ 20:29 by Alejandra Tesfaye) Anemia, chronic disease (Chronic) Cardiac defibrillator in place (Chronic) Cardiomyopathy, ischemic (Chronic) Chronic atrial fibrillation (Chronic) Chronic combined systolic and diastolic CHF (congestive heart failure) (Chronic) CKD (chronic kidney disease), stage III (Chronic) HTN (hypertension) (Chronic) Hypothyroidism (Chronic) Meniere disease (Chronic) Recurrent falls (Chronic) TIA (transient ischemic attack) (Chronic) 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) Surgical History History of appendectomy (Chronic) History of heart artery stent (Chronic) 2004 - Hx of cataract surgery (Chronic) Family History (Updated 01/19/19 @ 14:11 by Janina Frye PA-C) Other Cancer Heart disease Social History Preferred Language: Armenian Communication Ability: Effective Child Day Care Provider Required: No Beliefs That Will Affect Care: None Current Living Situation: Spouse Other Information That Helps Us Care for You: No Feels Safe at Home: Yes Safety Concerns: Feels Safe At This Time Smoking Status: Former smoker Hx Alcohol Use: Yes Alcohol type: beer and wine Alcohol Intake Frequency: Weekly Hx Substance Use: No Results & Data Vital Signs Vital Signs - 24 hr 03/16/19 16:27 03/16/19 16:48 03/16/19 17:02 Temperature 36.7 C Temperature Source Oral Pulse Rate 61 61 65 Pulse Rate [Apical] Pulse Rate from SpO2 Sensor Respiratory Rate 18 15 21 Respiratory Effort / Characteristics Non-Labored Spontaneous Respiratory Depth Normal Blood Pressure 163/80 H 163/80 H Blood Pressure [Right Arm] Blood Pressure Mean 107 107 Blood Pressure Mean [Right Arm] Pulse Oximetry 96 Oxygen Delivery Method Room Air Sepsis Recent Fever Within 48 Hours No Sepsis Action Taken by Nursing No Action Required 03/16/19 17:10 03/16/19 17:18 03/16/19 17:20 Temperature Temperature Source Pulse Rate 65 64 Pulse Rate [Apical] Pulse Rate from SpO2 Sensor Respiratory Rate 24 22 Respiratory Effort / Characteristics Respiratory Depth Blood Pressure Blood Pressure [Right Arm] Blood Pressure Mean Blood Pressure Mean [Right Arm] Pulse Oximetry 96 Oxygen Delivery Method Room Air Sepsis Recent Fever Within 48 Hours Sepsis Action Taken by Nursing 03/16/19 17:25 03/16/19 17:30 03/16/19 17:50 Temperature Temperature Source Pulse Rate 69 70 84 Pulse Rate [Apical] Pulse Rate from SpO2 Sensor 70 73 Respiratory Rate 18 23 17 Respiratory Effort / Characteristics Respiratory Depth Blood Pressure 175/89 H Blood Pressure [Right Arm] Blood Pressure Mean 119 Blood Pressure Mean [Right Arm] Pulse Oximetry 97 98 Oxygen Delivery Method Sepsis Recent Fever Within 48 Hours Sepsis Action Taken by Nursing 03/16/19 18:00 03/16/19 18:10 03/16/19 18:20 Temperature Temperature Source Pulse Rate 68 65 73 Pulse Rate [Apical] Pulse Rate from SpO2 Sensor Respiratory Rate 20 20 20 Respiratory Effort / Characteristics Respiratory Depth Blood Pressure Blood Pressure [Right Arm] Blood Pressure Mean Blood Pressure Mean [Right Arm] Pulse Oximetry Oxygen Delivery Method Sepsis Recent Fever Within 48 Hours Sepsis Action Taken by Nursing 03/16/19 18:21 03/16/19 18:22 03/16/19 18:30 Temperature Temperature Source Pulse Rate 72 76 Pulse Rate [Apical] 69 Pulse Rate from SpO2 Sensor 73 Respiratory Rate 17 19 23 Respiratory Effort / Characteristics Non-Labored Respiratory Depth Normal Blood Pressure 150/76 H Blood Pressure [Right Arm] 150/76 H Blood Pressure Mean 108 Blood Pressure Mean [Right Arm] 100 Pulse Oximetry 97 96 Oxygen Delivery Method Room Air Sepsis Recent Fever Within 48 Hours Sepsis Action Taken by Nursing 03/16/19 18:40 03/16/19 18:50 03/16/19 19:00 Temperature Temperature Source Pulse Rate 68 70 70 Pulse Rate [Apical] Pulse Rate from SpO2 Sensor Respiratory Rate 19 16 15 Respiratory Effort / Characteristics Respiratory Depth Blood Pressure 100/78 Blood Pressure [Right Arm] Blood Pressure Mean 82 Blood Pressure Mean [Right Arm] Pulse Oximetry Oxygen Delivery Method Sepsis Recent Fever Within 48 Hours Sepsis Action Taken by Nursing 03/16/19 19:01 03/16/19 19:10 03/16/19 19:20 Temperature Temperature Source Pulse Rate 76 76 74 Pulse Rate [Apical] Pulse Rate from SpO2 Sensor Respiratory Rate 14 23 21 Respiratory Effort / Characteristics Respiratory Depth Blood Pressure Blood Pressure [Right Arm] Blood Pressure Mean Blood Pressure Mean [Right Arm] Pulse Oximetry Oxygen Delivery Method Sepsis Recent Fever Within 48 Hours Sepsis Action Taken by Nursing 03/16/19 19:30 03/16/19 19:40 03/16/19 19:50 Temperature Temperature Source Pulse Rate 72 70 75 Pulse Rate [Apical] Pulse Rate from SpO2 Sensor Respiratory Rate 23 20 21 Respiratory Effort / Characteristics Respiratory Depth Blood Pressure Blood Pressure [Right Arm] Blood Pressure Mean Blood Pressure Mean [Right Arm] Pulse Oximetry Oxygen Delivery Method Sepsis Recent Fever Within 48 Hours Sepsis Action Taken by Nursing 03/16/19 20:00 03/16/19 20:01 03/16/19 20:10 Temperature Temperature Source Pulse Rate 70 67 76 Pulse Rate [Apical] Pulse Rate from SpO2 Sensor Respiratory Rate 22 23 16 Respiratory Effort / Characteristics Respiratory Depth Blood Pressure 162/79 H Blood Pressure [Right Arm] Blood Pressure Mean 117 Blood Pressure Mean [Right Arm] Pulse Oximetry 92 Oxygen Delivery Method Sepsis Recent Fever Within 48 Hours Sepsis Action Taken by Nursing 03/16/19 20:20 03/16/19 20:30 Temperature Temperature Source Pulse Rate 71 76 Pulse Rate [Apical] Pulse Rate from SpO2 Sensor Respiratory Rate 21 16 Respiratory Effort / Characteristics Respiratory Depth Blood Pressure Blood Pressure [Right Arm] Blood Pressure Mean Blood Pressure Mean [Right Arm] Pulse Oximetry Oxygen Delivery Method Sepsis Recent Fever Within 48 Hours Sepsis Action Taken by Assisted Medications Current Medication List: was personally reviewed by me Laboratory Data Attestation: I reviewed the patient's lab results. Result diagrams: 03/16/19 17:10 03/16/19 17:10 Lab Results 03/16/19 03/16/19 03/16/19 Range/Units 17:10 17:10 17:10 WBC 5.82 (4.8-10.8) K/uL RBC 2.97 L (4.7-6.1) M/uL Hgb 9.0 L (14.0-18.0) g/dL Hct 28.5 L (42-52) % MCV 96.0 (80-100) fL MCH 30.3 (25-34) pg MCHC 31.6 L (32-36) g/dL RDW Std Deviation 54.7 H (36.4-46.3) fL RDW Coeff of Manohar 15.9 H (11.5-14.5) % Plt Count 202 (130-400) K/uL MPV 10.9 H (7.4-10.4) fL Immature Gran % (Auto) 0.3 % Neut % (Auto) 78.1 % Lymph % (Auto) 10.1 % [place] % (Auto) 8.4 % Eos % (Auto) 2.4 % Baso % (Auto) 0.7 % Immature Gran # (Auto) 0.02 (0.00-0.02) K/uL Neut # (Auto) 4.54 (1.4-6.5) K/uL Lymph # (Auto) 0.59 L (1.2-3.4) K/uL [place]lee # (Auto) 0.49 (0.11-0.59) K/uL Eos # (Auto) 0.14 (0-0.5) K/uL Baso # (Auto) 0.04 (0-0.2) K/uL PT 43.4 H (9.0-12.0) Seconds INR 4.7 H (0.9-1.1) Sodium 136 (136-145) mmol/L Potassium 5.2 H (3.5-5.1) mmol/L Chloride 103 (98-107) mmol/L Carbon Dioxide 29 (21-32) mmol/L Anion Gap 4.0 (3-11) BUN 32 H (7-18) mg/dl Creatinine 1.40 (0.6-1.4) mg/dl Est Cr Clr Drug Dosing 36.9 ml/min Est GFR ( Amer) 51.6 Est GFR (Non-Af Amer) 44.5 BUN/Creatinine Ratio 22.8 H (10-20) Glucose 256 H (70-99) mg/dl Calcium 8.6 (8.5-10.1) mg/dl Magnesium 2.1 (1.8-2.4) mg/dl Total Bilirubin 1.0 (0.2-1) mg/dl AST 20 (15-37) U/L ALT 17 (12-78) U/L Alkaline Phosphatase 116 (45-117) U/L Total Creatine Kinase 113 (39-308) U/L Total Protein 7.5 (6.4-8.2) gm/dl Albumin 3.1 L (3.4-5.0) gm/dl Globulin 4.4 H (2.5-4.0) gm/dl Albumin/Globulin Ratio 0.7 L (0.9-2) TSH 5.380 H (0.300-4.500) uIu/ml Free T4 1.10 (0.8-1.6) ng/dl Urine Color Urine Appearance (Clear) Urine pH (4.5-7.5) Ur Specific [place] (1.000-1.030) Urine Protein (Negative) Urine Glucose (UA) (Negative) Urine Ketones (Negative) Urine Blood (Negative) Urine Nitrite (Negative) Urine Bilirubin (Negative) Urine Urobilinogen (Negative) Ur Leukocyte Esterase (Negative) 03/16/19 Range/Units 18:30 WBC (4.8-10.8) K/uL RBC (4.7-6.1) M/uL Hgb (14.0-18.0) g/dL Hct (42-52) % MCV (80-100) fL MCH (25-34) pg MCHC (32-36) g/dL RDW Std Deviation (36.4-46.3) fL RDW Coeff of Manohar (11.5-14.5) % Plt Count (130-400) K/uL MPV (7.4-10.4) fL Immature Gran % (Auto) % Neut % (Auto) % Lymph % (Auto) % [place] % (Auto) % Eos % (Auto) % Baso % (Auto) % Immature Gran # (Auto) (0.00-0.02) K/uL Neut # (Auto) (1.4-6.5) K/uL Lymph # (Auto) (1.2-3.4) K/uL [place] # (Auto) (0.11-0.59) K/uL Eos # (Auto) (0-0.5) K/uL Baso # (Auto) (0-0.2) K/uL PT (9.0-12.0) Seconds INR (0.9-1.1) Sodium (136-145) mmol/L Potassium (3.5-5.1) mmol/L Chloride (98-107) mmol/L Carbon Dioxide (21-32) mmol/L Anion Gap (3-11) BUN (7-18) mg/dl Creatinine (0.6-1.4) mg/dl Est Cr Clr Drug Dosing ml/min Est GFR ( Amer) Est GFR (Non-Af Amer) BUN/Creatinine Ratio (10-20) Glucose (70-99) mg/dl Calcium (8.5-10.1) mg/dl Magnesium (1.8-2.4) mg/dl Total Bilirubin (0.2-1) mg/dl AST (15-37) U/L ALT (12-78) U/L Alkaline Phosphatase (45-117) U/L Total Creatine Kinase (39-308) U/L Total Protein (6.4-8.2) gm/dl Albumin (3.4-5.0) gm/dl Globulin (2.5-4.0) gm/dl Albumin/Globulin Ratio (0.9-2) TSH (0.300-4.500) uIu/ml Free T4 (0.8-1.6) ng/dl Urine Color Yellow Urine Appearance Clear (Clear) Urine pH 6.5 (4.5-7.5) Ur Specific [place] 1.015 (1.000-1.030) Urine Protein Negative (Negative) Urine Glucose (UA) Trace H (Negative) Urine Ketones Negative (Negative) Urine Blood Negative (Negative) Urine Nitrite Negative (Negative) Urine Bilirubin Negative (Negative) Urine Urobilinogen Negative (Negative) Ur Leukocyte Esterase Negative (Negative) Administered Medications Alprazolam (Xanax) 0.5 mg PO HS [facility] Stop: 04/15/19 21:27 Last Admin: 03/16/19 22:38 Dose: 0.5 mg Documented by: [id number] Sodium Chloride (Nss 1000ml) 1,000 mls @ 75 mls/hr IV .[id number] AZAEL Stop: 04/15/19 21: Last Admin: 03/16/19 22:40 Dose: 75 mls/hr Documented by: [id number] Insulin Aspart (Novolog Flexpen) 0 units SC ACHS AZAEL Stop: 04/15/19 21:59 Last Admin: 03/16/19 22:39 Dose: 7 units Documented by: [id number] Cosigned by: [id number] Insulin Glargine (Lantus Solostar Pen) 8 units SQ HS [facility] Stop: 04/15/19 21:27 Last Admin: 03/16/19 22:39 Dose: 8 units Documented by: [id number] Cosigned by: [id number] Metoprolol Tartrate (Lopressor) 12.5 mg PO BID AZAEL Stop: 04/15/19 21:27 Last Admin: 03/16/19 22:39 Dose: Not Given Documented by: [id number] Multivitamins/Minerals (Multivitamin W/ Minerals Tab) 1 tab PO BID [facility]AEL Stop: 04/15/19 21:59 Last Admin: 03/16/19 22:39 Dose: 1 tab Documented by: [id number] Vitamin D (Vitamin D3) 1,000 units PO BID [facility]EL Stop: 04/15/19 21:59 Last Admin: 03/16/19 22:39 Dose: 1,000 units Documented by: [id number] Discontinued Medications Sodium Chloride (Nss 1000ml) 1,000 mls @ 125 mls/hr IV .Q8H STA Stop: 03/17/19 02:31 Last Infusion: 03/16/19 22:02 Dose: 0 mls/hr Documented by: [id number] Admin: 03/16/19 18:59 Dose: 125 mls/hr Documented by: [id number] Insulin Aspart (Novolog Flexpen) 5 units SC NOW STA Stop: 03/16/19 22:55 Last Admin: 03/16/19 23:25 Dose: 5 units Documented by: [id number] Cosigned by: [id number] Phytonadione (Mephyton) 2.5 mg PO NOW STA Stop: 03/16/19 21:29 Last Admin: 03/16/19 22:38 Dose: 2.5 mg Documented by: [id number] Imaging Data Radiologist's Impression: Radiology results as stated below per my review and the radiologist's interpretation: CT OF THE HEAD WITHOUT CONTRAST CLINICAL HISTORY: Fall. Weakness. COMPARISON STUDY: Head CT January 19, 2019. CT DOSE: 614.27 mGy.cm TECHNIQUE: Helical axial images of the head were obtained without IV contrast. Automated exposure control was utilized for the study. A dose lowering technique was utilized adhering to the principles of ALARA. FINDINGS: No acute intracranial hemorrhage, midline shift or mass effect is present. The ventricular system is stable. Basilar cisterns are patent. There are no extra axial collections. White matter hypodensities are unchanged and suggest extensive small vessel disease. 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 There are no findings to suggest acute dural sinus thrombosis or acute territorial infarct. There is no calvarial fracture. IMPRESSION: 1. No acute intracranial findings. No change in appearance of the brain. 2. No calvarial fracture. ACT 112: Negative or not required by law. Electronically signed by: Lj Guzman M.D. 03/16/2019 5:50 PM XR chest 1V portable CLINICAL HISTORY: weakness COMPARISON STUDY: Chest radiograph March 12, 2017. FINDINGS: A left subclavian pacer/AICD is in place. Moderate cardiomegaly is noted without evidence for pulmonary edema. There is no pneumothorax. Minimal left basilar opacity favors atelectasis. There is a small right pleural effusion which is unchanged. IMPRESSION: 1. No pneumothorax. 2. No change in a small right pleural effusion with mild bibasilar opacities. 3. Stable cardiomegaly without evidence for pulmonary edema. ACT 112: Negative or not required by law. Electronically signed by: Lj Guzman M.D. 03/16/2019 5:35 PM XR femur RT 2V routine CLINICAL HISTORY: fall, lateral hematoma COMPARISON: None FINDINGS: Alignment of the right hip and right knee is anatomic. There is no acute fracture within the right femur. 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 Postoperative findings within the right hemipelvis are noted. There is moderate vascular calcification. There is no right knee joint effusion. IMPRESSION: No acute fracture of the right femur. ACT 112: Negative or not required by law. Electronically signed by: Lj Guzman M.D. 03/16/2019 5:39 PM ECG Data Attestation: I personally reviewed and interpreted this ECG as follows: Indication: + weakness Rate (beats per minute): 63 Rhythm: other (paced rhythm) ECG ST segments: no ST elevation ECG Findings: no PVCs Comparison ECG Date: from (01/19/2019) Change: no significant change Blood Pressure Blood Pressure Findings: Elevated blood pressure Blood Pressure Disposition: further management by hospitalist Head Trauma GCS Score: 15 Discharge Plan Visit Data *Final* Discharge Date/Time: 03/16/19 20:54 Chief Complaint: Illness Stated Complaint: DIFF. AMBULATING ED Provider: Sandro Barrett Discharge Problem: Weakness, Anemia, Hematoma of right lower extremity, Supratherapeutic INR Patient Disposition: Admitted As Inpatient Discharge Instructions Interventions: ED Discharge Assessment Last Done: 03/16/19 20:54 Discharge Problem: Anemia Qualifiers: Anemia type: unspecified type Qualified Code(s): D64.9 - Anemia, unspecified Hematoma of right lower extremity Qualifiers: Encounter type: initial encounter Qualified Code(s): S80.11XA - Contusion of right lower leg, initial encounter The scribe's documentation has been prepared under my direction and personally reviewed by me in its entirety. I confirm that the note above accurately reflects all work, treatment, procedures, and medical decision making performed by me.
[2019-03-17] MEDS: CARBOHYDRATES FOR HYPOGLYCEMIA PO PRN ×2 (03:26→03:45)
[2019-03-17 05:37] LABS: Basophils # (auto) 0.03 K/uL (0-0.2); Basophils % (auto) 0.6 %; Eosinophils # (auto) 0.28 K/uL (0-0.5); Eosinophils % (auto) 5.6 %; Hematocrit (blood only) 25.7 % (42-52); Hemoglobin 8.2 g/dL (14.0-18.0); Immature Granulocytes # (auto) 0.01 K/uL (0.00-0.02); Immature Granulocytes % (auto) 0.2 %; Lymphocytes # (auto) 0.81 K/uL (1.2-3.4); Lymphocytes % (auto) 16.3 %; Mean Corpuscular Hemoglobin 30.3 pg (25-34); Mean Corpuscular Hgb Conc 31.9 g/dL (32-36); Mean Corpuscular Volume 94.8 fL (80-100); Mean Platelet Volume 10.2 fL (7.4-10.4); Monocytes # (auto) 0.64 K/uL (0.11-0.59); Monocytes % (auto) 12.9 %; Neutrophils # (auto) 3.21 K/uL (1.4-6.5); Neutrophils % (auto) 64.4 %; Platelet Count 188 K/uL (130-400); RDW Coefficient of Variation 16.1 % (11.5-14.5); RDW Standard Deviation 55.5 fL (36.4-46.3); Red Blood Count 2.71 M/uL (4.7-6.1); White Blood Count 4.98 K/uL (4.8-10.8)
[2019-03-17] MEDS: LEVOTHYROXINE SODIUM 50 MCG TABLET PO SCH (05:40)
[2019-03-17 06:02] LABS: Prothrombin Time 41.9 Seconds (9.0-12.0)
[2019-03-17 06:07] LABS: BUN Creatinine Ratio 23.9 (10-20); Calcium 8.6 mg/dl (8.5-10.1); Creatinine Clr Calc Pharmacy 44.1 ml/min; Est GFR (African American) 67.6; Est GFR (Non-African American) 58.3; Magnesium 2.1 mg/dl (1.8-2.4); Potassium 4.5 mmol/L (3.5-5.1)
[2019-03-17 06:14] LABS: INR 4.6 (0.9-1.1)
[2019-03-17] MEDS ORDERED: PHYTONADIONE 2.5 MG in SODIUM CHLORIDE 0.9% 50 ML IV ONE (06:30)
[2019-03-17 07:30] LABS: Estimated Average Glucose 169 mg/dl; Hemoglobin A1C 7.5 % (4.5-5.6)
--- NOTE | 2019-03-17 07:46 | Ultrasound Report ---
US extremity nonvascular HISTORY: 88 years-old Male right thigh hematoma acute pain and swelling of the right thigh with poss ible hematoma COMPARISON: Right femur radiographs 03/16/2019 TECHNIQUE: Multiple real-time sonographic images of the right thigh soft tissues were obtained assess ing grayscale appearance and color flow FINDINGS: Within the area of clinical concern about the proximal right thigh there are multiple heterogeneous c ollections which predominantly appear to be intramuscular, conglomerate measuring up to 19.8 x 3.8 x 2.8 cm without areas of flow. Mild to moderate associated subcutaneous edema. IMPRESSION: Heterogeneous multiloculated collection(s) of the proximal right thigh measuring up to 20 cm suggest intramuscular hematomas. Follow-up recommended. ACT 112: Positive. There are findings on this exam that require communication between the performing entity and the patient following Patient Test Result Information Act ([place] Act 112) guidelines. The above report was generated using voice recognition software. It may contain grammatical, syntax o r spelling errors. Electronically signed by: Simon Berrios M.D. 03/17/2019 7:45 AM
[2019-03-17] MEDS: CHOLECALCIFEROL 1,000 UNITS TAB PO SCH ×2 (07:55→21:02)
[2019-03-17] MEDS: METOPROLOL TARTRATE 25 MG TAB PO SCH ×2 (07:56→20:05)
[2019-03-17] MEDS: ATORVASTATIN 10 MG TAB PO SCH (07:56)
[2019-03-17] MEDS: FUROSEMIDE 20 MG TAB PO SCH (07:56)
[2019-03-17] MEDS: CEROVITE ADV FORMULA TAB PO SCH ×2 (07:57→20:05)
[2019-03-17] MEDS: INSULIN ASPART 100 UNITS/ML 3 ML PEN SC SCH ×4 (07:58→21:03)
[2019-03-17] MEDS ORDERED: PNEUMOCOCCAL Polysaccharide Vaccine 25mcg/0.5mL vial/Syr IM ONE (08:00)
[2019-03-17] MEDS ORDERED: DIGOXIN 0.125 MG TAB PO SCH (09:00)
--- NOTE | 2019-03-17 10:57 | Hospitalist Progress Note ---
Date of Service March 17, 2019 Assessment & Plan (1) Hematoma of right lower extremity: RLE Large Intramuscular hematoma - patient is status post fall and having some soreness in the RLE, large posterior thigh ecchymosis - hemoglobin dropped from 12.9 in December to 9 on admission - in the setting of supratherapeutic INR of 4.7 - US of RLE obtained, shows 20 cm intramuscular hematoma, will need f/u US - RLE thigh circumference 42.5 cm, LLE 40.5 cm, will cont. to monitor - ortho consulted, no surg. intervention at this time, manage coagulopathy, will cont. to follow - currently pt has difficulty moving his RLE - PT/OT ordered - cont. to monitor H&H, hold coumadin (2) Supratherapeutic INR: INR elevated at 4.7, received PO vit.K and then IV vit. K by admitting night physician - cont. to hold coumadin for now - cont. to monitor INR (3) Chronic atrial fibrillation: - on lopressor and digoxin - on coumadin, currently INR supratherapeuric, will hold coumadin for now - follows with Dr. Shah (4) Acute on chronic anemia: Hx of anemia of chronic disease, hx of CKD stage III - now exacerbated d/t hematoma Acute blood loss anemia - will cont. 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 home levothyroxine (7) Coronary artery disease: s/p stent in LAD in 2004 - holding ASA, d/t hematoma - will plan to restart as soon as possible if bleeding controlled - cont. home lopressor and digoxin (8) Recurrent falls: - previously worked w/ PT - no s/p fall, will need further PT/OT eval and treatment - ambulation complicated by RLE hematoma (9) Chronic combined systolic and diastolic CHF (congestive heart failure): EF of 50% on echo done in December 2018. Getting IV fluids at 75 mL per hour. We will monitor for any volume overload. Status post ICD. Subjective Pt is lying in bed in no acute distress, however can not really lift his RLE. He is s/p fall, large ecchymosis noted jahaira. posterior thigh, U/S shows 20 cm intramuscular hematoma. Circumference measured by nursing staff - RLE 42.5 cm, LLE 40.5 cm INR elevated at 4.7, received PO vit K and IV vit. K Review of Systems Review of Systems: All systems reviewed & are unremarkable except as noted in HPI & below Constitutional: no fever and no chills Respiratory: no cough and no dyspnea Cardiovascular: no chest pain and no palpitations Gastrointestinal: no abdominal pain, no nausea and no vomiting Musculoskeletal: + muscle weakness (can not lift his RLE, after fall) Physical Exam Physical Exam: GENERAL: Elderly thin male, lying in bed, not in acute distress. HEENT: No pallor, no icterus. Pupils equal, round, reactive to light. NECK: No JVD, no neck masses, no carotid bruits. CARDIOVASCULAR: S1, S2 heard, regular rate and rhythm, no murmur, no gallop. RESPIRATORY: Normal AP diameter. No accessory muscle use. Clear to auscultation bilaterally. No wheezing, no crackles. ABDOMEN: Soft, bowel sounds are present. Nontender. No distention. CENTRAL NERVOUS SYSTEM: Alert, awake, and oriented. Obeys simple commands. Speech fluent, no facial asymmetry, moves all 4 extremities, has difficulty lifting his right lower extremity due to hematoma EXTREMITIES: Right lower extremity, ecchymosis at posterior thigh and knee. No erythema seen. Results & Data Vital Signs (Past 12 Hours) Vital Signs Temp Pulse Pulse Resp BP BP Pulse Ox 03/17/19 08:30 56 L 03/17/19 08:00 36.4 C L 50 L 18 147/69 H 96 03/17/19 07:54 36.6 C 68 18 157/85 H 95 03/17/19 07:00 36.4 C L 71 18 167/72 H 95 03/17/19 06:13 36.4 C L 61 16 157/71 H 96 03/17/19 01:16 61 03/16/19 23:25 36.5 C 64 18 164/85 H 95 Laboratory Results 03/17/19 03/17/19 03/17/19 Range/Units 07:59 05:24 05:24 WBC (4.8-10.8) K/uL RBC (4.7-6.1) M/uL Hgb (14.0-18.0) g/dL Hct (42-52) % MCV (80-100) fL MCH (25-34) pg MCHC (32-36) g/dL RDW Std Deviation (36.4-46.3) fL RDW Coeff of Manohar (11.5-14.5) % Plt Count (130-400) K/uL MPV (7.4-10.4) fL Immature Gran % (Auto) % Neut % (Auto) % Lymph % (Auto) % [place] % (Auto) % Eos % (Auto) % Baso % (Auto) % Immature Gran # (Auto) (0.00-0.02) K/uL Neut # (Auto) (1.4-6.5) K/uL Lymph # (Auto) (1.2-3.4) K/uL [place] # (Auto) (0.11-0.59) K/uL Eos # (Auto) (0-0.5) K/uL Baso # (Auto) (0-0.2) K/uL PT (9.0-12.0) Seconds INR (0.9-1.1) Sodium 141 (136-145) mmol/L Potassium 4.5 (3.5-5.1) mmol/L Chloride 107 (98-107) mmol/L Carbon Dioxide 32 (21-32) mmol/L Anion Gap 2.0 L (3-11) BUN 27 H (7-18) mg/dl Creatinine 1.12 (0.6-1.4) mg/dl Est Cr Clr Drug Dosing 44.1 ml/min Est GFR ( Amer) 67.6 Est GFR (Non-Af Amer) 58.3 BUN/Creatinine Ratio 23.9 H (10-20) Glucose 91 (70-99) mg/dl POC Glucose 71 (70-99) Estimat Average Glucose 169 mg/dl Hemoglobin A1c 7.5 H (4.5-5.6) % Calcium 8.6 (8.5-10.1) mg/dl Magnesium 2.1 (1.8-2.4) mg/dl Total Bilirubin (0.2-1) mg/dl AST (15-37) U/L ALT (12-78) U/L Alkaline Phosphatase (45-117) U/L Total Creatine Kinase (39-308) U/L Total Protein (6.4-8.2) gm/dl Albumin (3.4-5.0) gm/dl Globulin (2.5-4.0) gm/dl Albumin/Globulin Ratio (0.9-2) TSH (0.300-4.500) uIu/ml Free T4 (0.8-1.6) ng/dl Urine Color Urine Appearance (Clear) Urine pH (4.5-7.5) Ur Specific [place] (1.000-1.030) Urine Protein (Negative) Urine Glucose (UA) (Negative) Urine Ketones (Negative) Urine Blood (Negative) Urine Nitrite (Negative) Urine Bilirubin (Negative) Urine Urobilinogen (Negative) Ur Leukocyte Esterase (Negative) 03/17/19 03/17/19 03/17/19 Range/Units 05:24 05:24 04:00 WBC 4.98 (4.8-10.8) K/uL RBC 2.71 L (4.7-6.1) M/uL Hgb 8.2 L (14.0-18.0) g/dL Hct 25.7 L (42-52) % MCV 94.8 (80-100) fL MCH 30.3 (25-34) pg MCHC 31.9 L (32-36) g/dL RDW Std Deviation 55.5 H (36.4-46.3) fL RDW Coeff of Manohar 16.1 H (11.5-14.5) % Plt Count 188 (130-400) K/uL MPV 10.2 (7.4-10.4) fL Immature Gran % (Auto) 0.2 % Neut % (Auto) 64.4 % Lymph % (Auto) 16.3 % [place] % (Auto) 12.9 % Eos % (Auto) 5.6 % Baso % (Auto) 0.6 % Immature Gran # (Auto) 0.01 (0.00-0.02) K/uL Neut # (Auto) 3.21 (1.4-6.5) K/uL Lymph # (Auto) 0.81 L (1.2-3.4) K/uL [place] # (Auto) 0.64 H (0.11-0.59) K/uL Eos # (Auto) 0.28 (0-0.5) K/uL Baso # (Auto) 0.03 (0-0.2) K/uL PT 41.9 H (9.0-12.0) Seconds INR 4.6 H (0.9-1.1) Sodium (136-145) mmol/L Potassium (3.5-5.1) mmol/L Chloride (98-107) mmol/L Carbon Dioxide (21-32) mmol/L Anion Gap (3-11) BUN (7-18) mg/dl Creatinine (0.6-1.4) mg/dl Est Cr Clr Drug Dosing ml/min Est GFR ( Amer) Est GFR (Non-Af Amer) BUN/Creatinine Ratio (10-20) Glucose (70-99) mg/dl POC Glucose 89 (70-99) Estimat Average Glucose mg/dl Hemoglobin A1c (4.5-5.6) % Calcium (8.5-10.1) mg/dl Magnesium (1.8-2.4) mg/dl Total Bilirubin (0.2-1) mg/dl AST (15-37) U/L ALT (12-78) U/L Alkaline Phosphatase (45-117) U/L Total Creatine Kinase (39-308) U/L Total Protein (6.4-8.2) gm/dl Albumin (3.4-5.0) gm/dl Globulin (2.5-4.0) gm/dl Albumin/Globulin Ratio (0.9-2) TSH (0.300-4.500) uIu/ml Free T4 (0.8-1.6) ng/dl Urine Color Urine Appearance (Clear) Urine pH (4.5-7.5) Ur Specific [place] (1.000-1.030) Urine Protein (Negative) Urine Glucose (UA) (Negative) Urine Ketones (Negative) Urine Blood (Negative) Urine Nitrite (Negative) Urine Bilirubin (Negative) Urine Urobilinogen (Negative) Ur Leukocyte Esterase (Negative) 03/17/19 03/17/19 03/17/19 Range/Units 03:41 03:24 03:22 WBC (4.8-10.8) K/uL RBC (4.7-6.1) M/uL Hgb (14.0-18.0) g/dL Hct (42-52) % MCV (80-100) fL MCH (25-34) pg MCHC (32-36) g/dL RDW Std Deviation (36.4-46.3) fL RDW Coeff of Manohar (11.5-14.5) % Plt Count (130-400) K/uL MPV (7.4-10.4) fL Immature Gran % (Auto) % Neut % (Auto) % Lymph % (Auto) % [place] % (Auto) % Eos % (Auto) % Baso % (Auto) % Immature Gran # (Auto) (0.00-0.02) K/uL Neut # (Auto) (1.4-6.5) K/uL Lymph # (Auto) (1.2-3.4) K/uL [place] # (Auto) (0.11-0.59) K/uL Eos # (Auto) (0-0.5) K/uL Baso # (Auto) (0-0.2) K/uL PT (9.0-12.0) Seconds INR (0.9-1.1) Sodium (136-145) mmol/L Potassium (3.5-5.1) mmol/L Chloride (98-107) mmol/L Carbon Dioxide (21-32) mmol/L Anion Gap (3-11) BUN (7-18) mg/dl Creatinine (0.6-1.4) mg/dl Est Cr Clr Drug Dosing ml/min Est GFR ( Amer) Est GFR (Non-Af Amer) BUN/Creatinine Ratio (10-20) Glucose (70-99) mg/dl POC Glucose 66 L* 65 L* 73 (70-99) Estimat Average Glucose mg/dl Hemoglobin A1c (4.5-5.6) % Calcium (8.5-10.1) mg/dl Magnesium (1.8-2.4) mg/dl Total Bilirubin (0.2-1) mg/dl AST (15-37) U/L ALT (12-78) U/L Alkaline Phosphatase (45-117) U/L Total Creatine Kinase (39-308) U/L Total Protein (6.4-8.2) gm/dl Albumin (3.4-5.0) gm/dl Globulin (2.5-4.0) gm/dl Albumin/Globulin Ratio (0.9-2) TSH (0.300-4.500) uIu/ml Free T4 (0.8-1.6) ng/dl Urine Color Urine Appearance (Clear) Urine pH (4.5-7.5) Ur Specific [place] (1.000-1.030) Urine Protein (Negative) Urine Glucose (UA) (Negative) Urine Ketones (Negative) Urine Blood (Negative) Urine Nitrite (Negative) Urine Bilirubin (Negative) Urine Urobilinogen (Negative) Ur Leukocyte Esterase (Negative) 03/17/19 03/16/19 03/16/19 Range/Units 03:20 22:26 18:30 WBC (4.8-10.8) K/uL RBC (4.7-6.1) M/uL Hgb (14.0-18.0) g/dL Hct (42-52) % MCV (80-100) fL MCH (25-34) pg MCHC (32-36) g/dL RDW Std Deviation (36.4-46.3) fL RDW Coeff of Manohar (11.5-14.5) % Plt Count (130-400) K/uL MPV (7.4-10.4) fL Immature Gran % (Auto) % Neut % (Auto) % Lymph % (Auto) % [place] % (Auto) % Eos % (Auto) % Baso % (Auto) % Immature Gran # (Auto) (0.00-0.02) K/uL Neut # (Auto) (1.4-6.5) K/uL Lymph # (Auto) (1.2-3.4) K/uL [place] # (Auto) (0.11-0.59) K/uL Eos # (Auto) (0-0.5) K/uL Baso # (Auto) (0-0.2) K/uL PT (9.0-12.0) Seconds INR (0.9-1.1) Sodium (136-145) mmol/L Potassium (3.5-5.1) mmol/L Chloride (98-107) mmol/L Carbon Dioxide (21-32) mmol/L Anion Gap (3-11) BUN (7-18) mg/dl Creatinine (0.6-1.4) mg/dl Est Cr Clr Drug Dosing ml/min Est GFR ( Amer) Est GFR (Non-Af Amer) BUN/Creatinine Ratio (10-20) Glucose (70-99) mg/dl POC Glucose 55 L* 348 H* (70-99) Estimat Average Glucose mg/dl Hemoglobin A1c (4.5-5.6) % Calcium (8.5-10.1) mg/dl Magnesium (1.8-2.4) mg/dl Total Bilirubin (0.2-1) mg/dl AST (15-37) U/L ALT (12-78) U/L Alkaline Phosphatase (45-117) U/L Total Creatine Kinase (39-308) U/L Total Protein (6.4-8.2) gm/dl Albumin (3.4-5.0) gm/dl Globulin (2.5-4.0) gm/dl Albumin/Globulin Ratio (0.9-2) TSH (0.300-4.500) uIu/ml Free T4 (0.8-1.6) ng/dl Urine Color Yellow Urine Appearance Clear (Clear) Urine pH 6.5 (4.5-7.5) Ur Specific [place] 1.015 (1.000-1.030) Urine Protein Negative (Negative) Urine Glucose (UA) Trace H (Negative) Urine Ketones Negative (Negative) Urine Blood Negative (Negative) Urine Nitrite Negative (Negative) Urine Bilirubin Negative (Negative) Urine Urobilinogen Negative (Negative) Ur Leukocyte Esterase Negative (Negative) 03/16/19 03/16/19 03/16/19 Range/Units 17:10 17:10 17:10 WBC 5.82 (4.8-10.8) K/uL RBC 2.97 L (4.7-6.1) M/uL Hgb 9.0 L (14.0-18.0) g/dL Hct 28.5 L (42-52) % MCV 96.0 (80-100) fL MCH 30.3 (25-34) pg MCHC 31.6 L (32-36) g/dL RDW Std Deviation 54.7 H (36.4-46.3) fL RDW Coeff of Manohar 15.9 H (11.5-14.5) % Plt Count 202 (130-400) K/uL MPV 10.9 H (7.4-10.4) fL Immature Gran % (Auto) 0.3 % Neut % (Auto) 78.1 % Lymph % (Auto) 10.1 % [place] % (Auto) 8.4 % Eos % (Auto) 2.4 % Baso % (Auto) 0.7 % Immature Gran # (Auto) 0.02 (0.00-0.02) K/uL Neut # (Auto) 4.54 (1.4-6.5) K/uL Lymph # (Auto) 0.59 L (1.2-3.4) K/uL [place] # (Auto) 0.49 (0.11-0.59) K/uL Eos # (Auto) 0.14 (0-0.5) K/uL Baso # (Auto) 0.04 (0-0.2) K/uL PT 43.4 H (9.0-12.0) Seconds INR 4.7 H (0.9-1.1) Sodium 136 (136-145) mmol/L Potassium 5.2 H (3.5-5.1) mmol/L Chloride 103 (98-107) mmol/L Carbon Dioxide 29 (21-32) mmol/L Anion Gap 4.0 (3-11) BUN 32 H (7-18) mg/dl Creatinine 1.40 (0.6-1.4) mg/dl Est Cr Clr Drug Dosing 36.9 ml/min Est GFR ( Amer) 51.6 Est GFR (Non-Af Amer) 44.5 BUN/Creatinine Ratio 22.8 H (10-20) Glucose 256 H (70-99) mg/dl POC Glucose (70-99) Estimat Average Glucose mg/dl Hemoglobin A1c (4.5-5.6) % Calcium 8.6 (8.5-10.1) mg/dl Magnesium 2.1 (1.8-2.4) mg/dl Total Bilirubin 1.0 (0.2-1) mg/dl AST 20 (15-37) U/L ALT 17 (12-78) U/L Alkaline Phosphatase 116 (45-117) U/L Total Creatine Kinase 113 (39-308) U/L Total Protein 7.5 (6.4-8.2) gm/dl Albumin 3.1 L (3.4-5.0) gm/dl Globulin 4.4 H (2.5-4.0) gm/dl Albumin/Globulin Ratio 0.7 L (0.9-2) TSH 5.380 H (0.300-4.500) uIu/ml Free T4 1.10 (0.8-1.6) ng/dl Urine Color Urine Appearance (Clear) Urine pH (4.5-7.5) Ur Specific [place] (1.000-1.030) Urine Protein (Negative) Urine Glucose (UA) (Negative) Urine Ketones (Negative) Urine Blood (Negative) Urine Nitrite (Negative) Urine Bilirubin (Negative) Urine Urobilinogen (Negative) Ur Leukocyte Esterase (Negative) Diagnostic Findings U/S RLE 03/17/2019 FINDINGS: Within the area of clinical concern about the proximal right thigh there are multiple heterogeneous collections which predominantly appear to be intramuscular, conglomerate measuring up to 19.8 x 3.8 x 2.8 cm without areas of flow. Mild to moderate associated subcutaneous edema. IMPRESSION: Heterogeneous multiloculated collection(s) of the proximal right thigh measuring up to 20 cm suggest intramuscular hematomas. Follow-up recommended. Medications Administered Current Inpatient Medications Acetaminophen (Tylenol) 650 mg PO Q4H PRN PRN Reason: Pain or Fever Stop: 04/15/19 21:27 Alprazolam (Xanax) 0.5 mg PO HS [facility] Stop: 04/15/19 21:27 Last Admin: 03/16/19 22:38 Dose: 0.5 mg Documented by: Ascorbic Acid (Vitamin C) 500 mg PO QDL [facility] Stop: 04/16/19 11:29 Atorvastatin Calcium (Lipitor) 10 mg PO QAM [facility] Stop: 04/16/19 08:59 Last Admin: 03/17/19 07:56 Dose: 10 mg Documented by: Cyanocobalamin (Vitamin B-12) 1,000 mcg PO QDL [facility] Stop: 04/16/19 11:29 Dextrose (Dextrose 50%) 25 - 50 ml IV UD PRN; Protocol PRN Reason: Hypoglycemia Protocol Stop: 04/15/19 22:14 Digoxin (Lanoxin) 0.125 mg PO DAILY@1600 [facility] Stop: 04/16/19 15:59 Furosemide (Lasix) 20 mg PO DAILY [facility] Stop: 04/16/19 08:59 Last Admin: 03/17/19 07:56 Dose: 20 mg Documented by: Glucagon (Glucagen) 1 mg IM UD PRN; Protocol PRN Reason: Hypoglycemia Protocol Stop: 04/15/19 22:14 Glucose (Glucose 40%) 15 - 30 gm PO UD PRN; Protocol PRN Reason: Hypoglycemia Protocol Stop: 04/15/19 22:14 Glucose (Dex4 Glucose) 4 - 8 tabs PO UD PRN; Protocol PRN Reason: Hypoglycemia Protocol Stop: 04/15/19 22:14 Sodium Chloride (Nss 1000ml) 1,000 mls @ 75 mls/hr IV .[id number] [facility] Stop: 04/15/19 21:27 Last Admin: 03/16/19 22:40 Dose: 75 mls/hr Documented by: Insulin Aspart (Novolog Flexpen) 0 units SC ACHS [facility] Stop: 04/15/19 21:59 Last Admin: 03/17/19 07:58 Dose: Not Given Documented by: Insulin Glargine (Lantus Solostar Pen) 8 units SQ HS [facility] Stop: 04/15/19 21:27 Last Admin: 03/16/19 22:39 Dose: 8 units Documented by: Levothyroxine Sodium (Synthroid) 50 mcg PO DAILYBB [facility] Stop: 04/16/19 06:29 Last Admin: 03/17/19 05:40 Dose: 50 mcg Documented by: Metoprolol Tartrate (Lopressor) 12.5 mg PO BID [facility] Stop: 04/15/19 21:27 Last Admin: 03/17/19 07:56 Dose: 12.5 mg Documented by: Miscellaneous (Carbohydrates For Hypoglycemia) 15 - 30 gm PO UD PRN PRN Reason: Hypoglycemia Treatment Stop: 04/15/19 22:14 Last Admin: 03/17/19 03:45 Dose: 15 gm Documented by: Multivitamins/Minerals (Multivitamin W/ Minerals Tab) 1 tab PO BID [facility] Stop: 04/15/19 21:59 Last Admin: 03/17/19 07:57 Dose: 1 tab Documented by: Nitroglycerin (Nitrostat) 0.4 mg SL UD PRN PRN Reason: Chest Pain Stop: 04/15/19 21:27 Ondansetron HCl (Zofran) 4 mg IV Q6H PRN PRN Reason: Nausea Stop: 04/15/19 21:27 Polyethylene Glycol (Miralax Powder Packet) 17 gm PO DAILY PRN PRN Reason: Constipation Stop: 04/15/19 21:27 Vitamin D (Vitamin D3) 1,000 units PO BID AZAEL Stop: 04/15/19 21:59 Last Admin: 03/17/19 07:55 Dose: 1,000 units Documented by: (1) Hematoma of right lower extremity Encounter type: initial encounter Qualified Code(s): S80.11XA - Contusion of right lower leg, initial encounter
[2019-03-17 11:10] LABS: Hematocrit (blood only) 27.2 % (42-52); Hemoglobin 8.7 g/dL (14.0-18.0)
[2019-03-17] MEDS: SODIUM CHLORIDE 0.9% 1000ML 1,000 ML IV SCH (11:44)
[2019-03-17] MEDS: ASCORBIC ACID 500 MG TAB PO SCH (11:45)
[2019-03-17] MEDS: CYANOCOBALAMIN 500 MCG TABLET (VITAMIN B-12) PO SCH (11:45)
[2019-03-17] MEDS: DIGOXIN 0.125 MG TAB PO SCH (16:34)
[2019-03-17 17:16] LABS: Hematocrit (blood only) 27.9 % (42-52); Hemoglobin 8.9 g/dL (14.0-18.0)
--- NOTE | 2019-03-17 19:00 | Consultation Report ---
DATE OF CONSULTATION: 03/17/2019 PERTINENT HISTORY: This is an 88-year-old gentleman seen at request of Dr. Po Rothman. The patient was reportedly having difficulty with ambulation and had several falls, the worst of which apparently struck thigh on a bench at home, had severe pain, swelling and transported to [facility], he is evaluated for multiple medical issues including the contusion on his right thigh and subsequently had an ultrasound performed which revealed fluid collection measuring 19.8 x 3.8 x 2.8 cm without area of flow within the proximal right thigh at the area of concern. No active bleeding was noted. The patient's INR was noted to be 4.7, supratherapeutic and Coumadin is being reversed and corrected. The patient had no numbness or tingling in his legs. He does have weakness and some difficulty with weightbearing; however, he attributes this to a generalized weakness rather than any specific pain. PAST MEDICAL HISTORY: Type 2 diabetes, peripheral vascular disease, kidney disease stage III, hypothyroidism, ischemic heart disease, chronic atrial fibrillation, chronic systolic heart failure, hypertension, BPH, chronic kidney disease, cardiac dysrhythmia, history of TIA, history of frequent recurrent falls and insomnia. PAST SURGICAL HISTORY: Cardiac stent placed and insertion of AICD, appendectomy, cataract surgery, inguinal hernia repair, repair of laparoscopic hernia x2. ALLERGIES: BANANAS, TOSHIA INHIBITORS, ANGIOTENSIN RECEPTOR BLOCKERS. MEDICATIONS: Please note the list present in the medical record. 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 He is . Quit smoking in 1960, smoked for 10 years. Drinks alcohol occasionally. Denies drug or tobacco abuse. He is retired. PHYSICAL EXAMINATION: A pleasant 88-year-old gentleman lying supine in his hospital room bed. He is awake, alert and oriented x3. Speech clear and fluent. Affect is appropriate. He is conversant and has discomfort related to his right lateral thigh. Right lateral thigh demonstrates skin warm, dry and intact. Dorsalis pedis and posterior tibial pulses are 2/4 symmetric bilaterally. Cap refill is approximately 2 seconds. Feet are warm. Hair growth is scant. He has tenderness to palpation in the proximal lateral right thigh in the area of firm hematoma. There is no skin breakdown, no skin at risk. No streaking, no redness, no erythema. Radiographs and ultrasound reviewed confirming a hematoma lateral thigh. No obvious fractures. IMPRESSION: 1. Right lateral thigh hematoma status post mechanical fall. 2. Right lateral thigh pain. 3. Coagulopathy with supratherapeutic INR, bilateral leg weakness, generalized deconditioning, multiple medical comorbidities. RECOMMENDATION: Continue observation. Nonsurgical candidate at this time, continue management of supratherapeutic coagulopathy as per Department of Medicine. I will follow with you. Thank you for the opportunity to consult in care of this patient.
[2019-03-17] MEDS: ALPRAZolam 0.5 MG TABLET PO SCH (21:02)
[2019-03-17] MEDS: INSULIN GLARGINE SOLOSTAR 100 UNITS/ML 3 ML PEN SQ SCH (21:03)
[2019-03-17 23:04] LABS: Hemoglobin 7.9 g/dL (14.0-18.0)
[2019-03-18] MEDS: SODIUM CHLORIDE 0.9% 1000ML 1,000 ML IV SCH ×2 (01:05→14:18)
[2019-03-18] MEDS: LEVOTHYROXINE SODIUM 50 MCG TABLET PO SCH (05:50)
[2019-03-18 06:45] LABS: Hematocrit (blood only) 26.9 % (42-52); Hemoglobin 8.5 g/dL (14.0-18.0); Mean Corpuscular Hemoglobin 30.5 pg (25-34); Mean Corpuscular Hgb Conc 31.6 g/dL (32-36); Mean Corpuscular Volume 96.4 fL (80-100); Mean Platelet Volume 10.8 fL (7.4-10.4); Platelet Count 205 K/uL (130-400); RDW Coefficient of Variation 16.2 % (11.5-14.5); Red Blood Count 2.79 M/uL (4.7-6.1); White Blood Count 5.42 K/uL (4.8-10.8)
[2019-03-18 06:58] LABS: INR 1.4 (0.9-1.1)
[2019-03-18 07:21] LABS: BUN Creatinine Ratio 20.7 (10-20); Calcium 8.7 mg/dl (8.5-10.1); Creatinine Clr Calc Pharmacy 39.8 ml/min; Est GFR (African American) 59.8; Est GFR (Non-African American) 51.6; Magnesium 1.8 mg/dl (1.8-2.4); Potassium 4.7 mmol/L (3.5-5.1)
[2019-03-18] MEDS: INSULIN ASPART 100 UNITS/ML 3 ML PEN SC SCH ×4 (09:05→20:34)
[2019-03-18] MEDS: CHOLECALCIFEROL 1,000 UNITS TAB PO SCH ×2 (09:07→20:31)
[2019-03-18] MEDS: METOPROLOL TARTRATE 25 MG TAB PO SCH ×2 (09:07→20:35)
[2019-03-18] MEDS: ATORVASTATIN 10 MG TAB PO SCH (09:07)
[2019-03-18] MEDS: FUROSEMIDE 20 MG TAB PO SCH (09:08)
[2019-03-18] MEDS: CEROVITE ADV FORMULA TAB PO SCH ×2 (09:08→20:30)
[2019-03-18] MEDS: ASCORBIC ACID 500 MG TAB PO SCH (12:22)
[2019-03-18] MEDS: CYANOCOBALAMIN 500 MCG TABLET (VITAMIN B-12) PO SCH (12:22)
[2019-03-18] MEDS ORDERED: PHARMACY GLYCEMIC MGMT CONSULT PRN (14:32)
--- NOTE | 2019-03-18 15:21 | Pharmacy Report ---
Glycemic Control Consultation - Date of Service March 18, 2019 - Scope Scope: Glycemic Pharmacist consulted by Dr Rothman on 03/18/19 for glycemic control and to write orders per [facility] inpatient glycemic control protocol - Objective Weight: 68.4 kg Accuchecks BSG (last 24hrs): 03/17/19 03/17/19 03/18/19 16:23 20:45 06:15 Glucose 278 H POC Glucose 216 H 223 H 03/18/19 03/18/19 03/18/19 07:50 11:49 11:50 Glucose POC Glucose 294 H 328 H* 299 H 03/18/19 11:51 Glucose POC Glucose 314 H* Laboratory Data (last 24hrs): 03/18/19 06:15 Potassium 4.7 Carbon Dioxide 30 Anion Gap 4.0 Creatinine 1.24 Est Cr Clr Drug Dosing 39.8 HbA1c: Hemoglobin A1c 7.5 % (4.5-5.6) H 03/17/19 05:24 - Recent Pertinent Medications Outpatient Anti-diabetic Regimen: * Lantus 8-10 units HS * Novolog 6-12 units QID prn * A1c = 7.5 % on 03/17/19 The patient WAS receiving: * Basal insulin: Lantus 8 units qHS * Correctional Insulin: Novolog Correction per scale ACHS Goal Range: Low 120 mg/dL - High 150 mg/dL Correction Factor: 30 mg/dL/unit * Prandial insulin: Per carb ratio of 1 unit per 15 grams CHO consumed Risk Factors for Insulin Resistance: * IVF: NS @ 75 ml/hr * Diet: T2DM - Assessment & Plan Assessment & Plan: ASSESSMENT: * 88 y/o M admitted for fall. Patient with Type 1 Diabetes managed at home by Lantus and Novolog. * In the past around 24 hrs, patient's BSGs have been high above 200 and the latest BSG at lunch today trended up above 300. * Lantus dose at HS was increased to 10 units which is the upper limit of patient's home dose. * Novolog parameters were tightened based on insulin SQ calculator using wt and stress factor of between 2 to 3. PLAN FOR INPATIENT GLYCEMIC CONTROL: * Basal insulin: increased * Lantus 10 units SQ HS * Bolus insulin: tightened * NovoLog per scale ACHS or Q6hrs while NPO * Goal Range: Low 120 mg/dL - High 150 mg/dL * Correction Factor: 25 mg/dL/unit * Nutritional / Prandial insulin per carb ratio of 1 unit per 12 grams CHO consumed * Please note that the plan above was derived based on current level of insulin resistance and hospital stress. These recommendations are appropriate for inpatient admission only. Plan of care upon discharge will need to be reassessed to avoid potential outpatient hypo/hyperglycemia. Thank you.
[2019-03-18] MEDS ORDERED: WARFARIN SOD 2.5 MG TAB PO SCH (16:00)
[2019-03-18] MEDS: DIGOXIN 0.125 MG TAB PO SCH (16:55)
[2019-03-18] MEDS: ALPRAZolam 0.5 MG TABLET PO SCH (20:30)
[2019-03-18] MEDS: INSULIN GLARGINE SOLOSTAR 100 UNITS/ML 3 ML PEN SQ SCH (20:32)
--- NOTE | 2019-03-18 23:48 | Hospitalist Progress Note ---
Date of Service March 18, 2019 Assessment & Plan (1) Hematoma of right lower extremity: RLE Large Intramuscular hematoma - patient is status post fall and having some soreness in the RLE, large posterior thigh ecchymosis - hemoglobin dropped from 12.9 in December to 9 on admission - in the setting of supratherapeutic INR of 4.7 - US of RLE obtained, shows 20 cm intramuscular hematoma, will need f/u US - RLE thigh circumference 42.5 cm, LLE 40.5 cm, will cont. to monitor - circumference unchanged today (03/18) - ortho consulted, no surg. intervention at this time, manage coagulopathy, will cont. to follow - currently pt has difficulty moving his RLE - PT/OT ordered - cont. to monitor H&H,current Hgb 8.5 - held coumadin, now INR 1.4, will start coumadin at lower dose (2.5 mg today) (2) Supratherapeutic INR: INR elevated at 4.7, received PO vit.K and then IV vit. K by admitting night physician - now INR 1.4, will re-start coumadin at lower dose of 2.5 mg today - cont. to monitor INR (3) Chronic atrial fibrillation: - on lopressor and digoxin - initially INR supratherapeuric, so coumadin was held yesterday - now INR 1.4, will re-start coumadin at lower dose of 2.5 mg today - pt follows with Dr. Shah - pt says he had to cancel appointment w/ Dr. Shah who wanted to have digoxin level done - will order digoxin level, if level not in range will notify Dr. Shah and adjust dose appropriately (4) Acute on chronic anemia: Hx of anemia of chronic disease, hx of CKD stage III - now exacerbated d/t hematoma Acute blood loss anemia - will cont. 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 home lopressor and digoxin, statin (7) Recurrent falls: - previously worked w/ PT - now s/p fall, will need further PT/OT eval and treatment - ambulation complicated by RLE hematoma (8) Chronic combined systolic and diastolic CHF (congestive heart failure): EF of 50% on echo done in December 2018. Status post ICD - Getting IV fluids at 75 mL per hour, will stop now, pt has good PO intake - will monitor for any volume overload. (9) Hypothyroidism: - cont. home levothyroxine - TSH slightly elevated, T4 wnl, will need to follow up as outpt CODE STATUS: FULL DVT ppx: on coumadin (initially supratherapeutic, now INR 1.4, will re-start coumadin) Dispo: pt will need PT/OT, likely rehab/snf after discharge Subjective Pt is lying in bed in no acute distress, however can not really lift his RLE. He is s/p fall, large ecchymosis noted jahaira. posterior thigh, U/S shows 20 cm intramuscular hematoma. Circumference measured by nursing staff, unchanged from yesterday INR down to 1.4 Pt says he missed the appointment w/ Dr. Shah, was supposed to get digoxin level done, will order. Denies fever, chills, chest pain, shortness of breath, abd. pain, nausea, vomiting. Update: Pt's son Emmett, asked to be called. Talked to him in the evening, he is concerned about pt's frequent falling. Review of Systems Review of Systems: All systems reviewed & are unremarkable except as noted in HPI & below Constitutional: + weakness (jahaira. in lower extremities); no fever and no chills Respiratory: no cough and no dyspnea Cardiovascular: no chest pain and no palpitations Gastrointestinal: no abdominal pain, no nausea and no vomiting Musculoskeletal: + muscle weakness (can not lift his RLE, after fall) Physical Exam Physical Exam: GENERAL: Elderly thin male, lying in bed, not in acute distress. HEENT: No pallor, no icterus. Pupils equal, round, reactive to light. NECK: No JVD, no neck masses, no carotid bruits. CARDIOVASCULAR: S1, S2 heard, regular rate and rhythm, no murmur, no gallop. RESPIRATORY: Normal AP diameter. No accessory muscle use. Clear to auscultation bilaterally. No wheezing, no crackles. ABDOMEN: Soft, bowel sounds are present. Nontender. No distention. CENTRAL NERVOUS SYSTEM: Alert, awake, and oriented. Speech fluent, no facial asymmetry, moves all 4 extremities, has difficulty lifting his right lower extremity due to hematoma EXTREMITIES: Right lower extremity, ecchymosis at posterior thigh and knee. No erythema seen. Results & Data Vital Signs (Past 12 Hours) Vital Signs Temp Pulse Pulse Resp BP BP Pulse Ox 03/18/19 23:19 36.4 C L 60 20 165/83 H 98 03/18/19 19:25 37.0 C 54 L 20 162/77 H 98 03/18/19 16:55 65 03/18/19 15:58 60 03/18/19 15:38 36.3 C L 60 20 142/69 H 97 Laboratory Results 03/18/19 03/18/19 03/18/19 Range/Units 20:27 16:37 11:51 WBC (4.8-10.8) K/uL RBC (4.7-6.1) M/uL Hgb (14.0-18.0) g/dL Hct (42-52) % MCV (80-100) fL MCH (25-34) pg MCHC (32-36) g/dL RDW Std Deviation (36.4-46.3) fL RDW Coeff of Manohar (11.5-14.5) % Plt Count (130-400) K/uL MPV (7.4-10.4) fL PT (9.0-12.0) Seconds INR (0.9-1.1) Sodium (136-145) mmol/L Potassium (3.5-5.1) mmol/L Chloride (98-107) mmol/L Carbon Dioxide (21-32) mmol/L Anion Gap (3-11) BUN (7-18) mg/dl Creatinine (0.6-1.4) mg/dl Est Cr Clr Drug Dosing ml/min Est GFR ( Amer) Est GFR (Non-Af Amer) BUN/Creatinine Ratio (10-20) Glucose (70-99) mg/dl POC Glucose 140 H 120 H 314 H* (70-99) Calcium (8.5-10.1) mg/dl Magnesium (1.8-2.4) mg/dl 03/18/19 03/18/19 03/18/19 Range/Units 11:50 11:49 07:50 WBC (4.8-10.8) K/uL RBC (4.7-6.1) M/uL Hgb (14.0-18.0) g/dL Hct (42-52) % MCV (80-100) fL MCH (25-34) pg MCHC (32-36) g/dL RDW Std Deviation (36.4-46.3) fL RDW Coeff of Manohar (11.5-14.5) % Plt Count (130-400) K/uL MPV (7.4-10.4) fL PT (9.0-12.0) Seconds INR (0.9-1.1) Sodium (136-145) mmol/L Potassium (3.5-5.1) mmol/L Chloride (98-107) mmol/L Carbon Dioxide (21-32) mmol/L Anion Gap (3-11) BUN (7-18) mg/dl Creatinine (0.6-1.4) mg/dl Est Cr Clr Drug Dosing ml/min Est GFR ( Amer) Est GFR (Non-Af Amer) BUN/Creatinine Ratio (10-20) Glucose (70-99) mg/dl POC Glucose 299 H 328 H* 294 H (70-99) Calcium (8.5-10.1) mg/dl Magnesium (1.8-2.4) mg/dl 03/18/19 03/18/19 03/18/19 Range/Units 06:15 06:15 06:15 WBC 5.42 (4.8-10.8) K/uL RBC 2.79 L (4.7-6.1) M/uL Hgb 8.5 L (14.0-18.0) g/dL Hct 26.9 L (42-52) % MCV 96.4 (80-100) fL MCH 30.5 (25-34) pg MCHC 31.6 L (32-36) g/dL RDW Std Deviation 55.0 H (36.4-46.3) fL RDW Coeff of Manohar 16.2 H (11.5-14.5) % Plt Count 205 (130-400) K/uL MPV 10.8 H (7.4-10.4) fL PT 14.0 H (9.0-12.0) Seconds INR 1.4 H (0.9-1.1) Sodium 137 (136-145) mmol/L Potassium 4.7 (3.5-5.1) mmol/L Chloride 103 (98-107) mmol/L Carbon Dioxide 30 (21-32) mmol/L Anion Gap 4.0 (3-11) BUN 26 H (7-18) mg/dl Creatinine 1.24 (0.6-1.4) mg/dl Est Cr Clr Drug Dosing 39.8 ml/min Est GFR ( Amer) 59.8 Est GFR (Non-Af Amer) 51.6 BUN/Creatinine Ratio 20.7 H (10-20) Glucose 278 H (70-99) mg/dl POC Glucose (70-99) Calcium 8.7 (8.5-10.1) mg/dl Magnesium 1.8 (1.8-2.4) mg/dl Medications Administered Current Inpatient Medications Acetaminophen (Tylenol) 650 mg PO Q4H PRN PRN Reason: Pain or Fever Stop: 04/15/19 21:27 Alprazolam (Xanax) 0.5 mg PO HS [facility] Stop: 04/15/19 21:27 Last Admin: 03/18/19 20:30 Dose: 0.5 mg Documented by: Ascorbic Acid (Vitamin C) 500 mg PO QDL [facility] Stop: 04/16/19 11:29 Last Admin: 03/18/19 12:22 Dose: 500 mg Documented by: Atorvastatin Calcium (Lipitor) 10 mg PO QAM [facility] Stop: 04/16/19 08:59 Last Admin: 03/18/19 09:07 Dose: 10 mg Documented by: Cyanocobalamin (Vitamin B-12) 1,000 mcg PO QDL [facility] Stop: 04/16/19 11:29 Last Admin: 03/18/19 12:22 Dose: 1,000 mcg Documented by: Dextrose (Dextrose 50%) 25 - 50 ml IV UD PRN; Protocol PRN Reason: Hypoglycemia Protocol Stop: 04/15/19 22:14 Digoxin (Lanoxin) 0.125 mg PO DAILY@1600 [facility] Stop: 01/22/20 15:59 Last Admin: 03/18/19 16:55 Dose: 0.125 mg Documented by: Furosemide (Lasix) 20 mg PO DAILY [facility] Stop: 04/16/19 08:59 Last Admin: 03/18/19 09:08 Dose: 20 mg Documented by: Glucagon (Glucagen) 1 mg IM UD PRN; Protocol PRN Reason: Hypoglycemia Protocol Stop: 04/15/19 22:14 Glucose (Glucose 40%) 15 - 30 gm PO UD PRN; Protocol PRN Reason: Hypoglycemia Protocol Stop: 04/15/19 22:14 Glucose (Dex4 Glucose) 4 - 8 tabs PO UD PRN; Protocol PRN Reason: Hypoglycemia Protocol Stop: 04/15/19 22:14 Sodium Chloride (Nss 1000ml) 1,000 mls @ 75 mls/hr IV .[id number] [facility] Stop: 04/15/19 21:27 Last Admin: 03/18/19 14:18 Dose: 75 mls/hr Documented by: Insulin Aspart (Novolog Flexpen) 0 units SC ACHS [facility] Stop: 04/15/19 21:59 Last Admin: 03/18/19 20:34 Dose: Not Given Documented by: Insulin Glargine (Lantus Solostar Pen) 10 units SQ HS [facility] Stop: 04/17/19 20:59 Last Admin: 03/18/19 20:32 Dose: 10 units Documented by: Levothyroxine Sodium (Synthroid) 50 mcg PO DAILYBB [facility] Stop: 04/16/19 06:29 Last Admin: 03/18/19 05:50 Dose: 50 mcg Documented by: Metoprolol Tartrate (Lopressor) 12.5 mg PO BID [facility] Stop: 04/15/19 21:27 Last Admin: 03/18/19 20:35 Dose: 12.5 mg Documented by: Miscellaneous (Carbohydrates For Hypoglycemia) 15 - 30 gm PO UD PRN PRN Reason: Hypoglycemia Treatment Stop: 04/15/19 22:14 Last Admin: 03/17/19 03:45 Dose: 15 gm Documented by: Miscellaneous Information (Consult Glycemic Management Pharmacy) 1 ea N/A UD PRN PRN Reason: Consult Stop: 04/17/19 14:31 Multivitamins/Minerals (Multivitamin W/ Minerals Tab) 1 tab PO BID [facility] Stop: 04/15/19 21:59 Last Admin: 03/18/19 20:30 Dose: 1 tab Documented by: Nitroglycerin (Nitrostat) 0.4 mg SL UD PRN PRN Reason: Chest Pain Stop: 04/15/19 21:27 Ondansetron HCl (Zofran) 4 mg IV Q6H PRN PRN Reason: Nausea Stop: 04/15/19 21:27 Polyethylene Glycol (Miralax Powder Packet) 17 gm PO DAILY PRN PRN Reason: Constipation Stop: 04/15/19 21:27 Vitamin D (Vitamin D3) 1,000 units PO BID [facility] Stop: 04/15/19 21:59 Last Admin: 03/18/19 20:31 Dose: 1,000 units Documented by: Warfarin Sodium (Coumadin) 2.5 mg PO DAILY@1600 [facility] Stop: 04/17/19 15:59 Last Admin: 03/18/19 16:54 Dose: 2.5 mg Documented by: (1) Hematoma of right lower extremity Encounter type: initial encounter Qualified Code(s): S80.11XA - Contusion of right lower leg, initial encounter
[2019-03-19] MEDS: SODIUM CHLORIDE 0.9% 1000ML 1,000 ML IV SCH (02:24)
[2019-03-19] MEDS: LEVOTHYROXINE SODIUM 50 MCG TABLET PO SCH (06:19)
--- NOTE | 2019-03-19 06:32 | Orthopedic Progress Note ---
Date of Service March 19, 2019 Assessment & Plan (1) Hematoma of right lower extremity: Continue conservative management. Nonsurgical candidate at this time, continue management of supratherapeutic coagulopathy as per primary team. Subjective Pt is lying in bed in no acute distress, having some pain in his thigh but states it is improving. denies N/T He denies fever, chills, chest pain, shortness of breath, abd. pain, nausea, vomiting. Physical Exam Physical Exam: Vital Signs Temp 36.1 C L 03/19/19 04:45 Pulse 60 03/19/19 04:45 Resp 21 03/19/19 04:45 BP 155/81 H 03/19/19 04:45 Pulse Ox 96 03/19/19 04:45 Intake & Output 03/18/19 03/18/19 03/19/19 06:59 18:59 06:59 Intake Total 1200 / 2330.25 1541.25 / 2723.75 1182.5 / 2723.75 Output Total 1001 / 1101 400 / 600 200 / 600 Balance 199 / 1229.25 1141.25 / 2123.75 982.5 / 2123.75 Weight 68.4 kg 69.6 kg Intake: IV 1000 / 2030.25 991.25 / 1898.75 907.5 / 1898.75 Nss 1000ML 1,0 00 ml @ 75 mls/hr 1000 / 1980 991.25 / 1898.75 907.5 / 1898.75 IV .[id number] SC H Rx#:[id number] Oral 200 / 300 550 / 825 275 / 825 Output: Urine 1000 / 1100 400 / 600 200 / 600 # Bowel Movement s / Other: # Unmeasured Voi ds 3 1 Constitutional: WD/WN, vitals as above Musculoskeletal: right thigh: Right lateral thigh He has tenderness to palpation in the proximal lateral right thigh in the area of firm hematoma. DP and posterior tibial pulses are 2/4 symmetric bilaterally. Cap refill is approximately 2 seconds. . There is no skin breakdown, no skin at risk. No streaking, no redness, no erythema. Results & Data Vital Signs (Past 12 Hours) Vital Signs Temp Pulse Pulse Resp BP BP Pulse Ox 03/19/19 04:45 36.1 C L 60 21 155/81 H 96 03/19/19 03:50 62 03/18/19 23:19 36.4 C L 60 20 165/83 H 98 03/18/19 19:25 37.0 C 54 L 20 162/77 H 98 (1) Hematoma of right lower extremity Encounter type: initial encounter Qualified Code(s): S80.11XA - Contusion of right lower leg, initial encounter
[2019-03-19 06:50] LABS: Hematocrit (blood only) 27.7 % (42-52); Hemoglobin 8.8 g/dL (14.0-18.0); Mean Corpuscular Hemoglobin 30.1 pg (25-34); Mean Corpuscular Hgb Conc 31.8 g/dL (32-36); Mean Corpuscular Volume 94.9 fL (80-100); Mean Platelet Volume 10.6 fL (7.4-10.4); Platelet Count 211 K/uL (130-400); RDW Coefficient of Variation 16.4 % (11.5-14.5); Red Blood Count 2.92 M/uL (4.7-6.1); White Blood Count 5.25 K/uL (4.8-10.8)
[2019-03-19 06:57] LABS: INR 1.3 (0.9-1.1); Prothrombin Time 12.8 Seconds (9.0-12.0)
[2019-03-19 07:34] LABS: BUN Creatinine Ratio 21.3 (10-20); Calcium 8.7 mg/dl (8.5-10.1); Creatinine Clr Calc Pharmacy 40.5 ml/min; Est GFR (African American) 59.8; Est GFR (Non-African American) 51.6; Potassium 3.9 mmol/L (3.5-5.1)
[2019-03-19] MEDS: CEROVITE ADV FORMULA TAB PO SCH ×2 (08:07→21:26)
[2019-03-19] MEDS: METOPROLOL TARTRATE 25 MG TAB PO SCH ×2 (08:07→21:26)
[2019-03-19] MEDS: FUROSEMIDE 20 MG TAB PO SCH (08:08)
[2019-03-19] MEDS: INSULIN ASPART 100 UNITS/ML 3 ML PEN SC SCH ×4 (08:08→21:27)
[2019-03-19] MEDS: ATORVASTATIN 10 MG TAB PO SCH (08:08)
[2019-03-19] MEDS: CHOLECALCIFEROL 1,000 UNITS TAB PO SCH ×2 (08:08→21:27)
[2019-03-19] MEDS: CYANOCOBALAMIN 500 MCG TABLET (VITAMIN B-12) PO SCH (12:09)
[2019-03-19] MEDS: ASCORBIC ACID 500 MG TAB PO SCH (12:09)
--- NOTE | 2019-03-19 12:58 | Hospitalist Progress Note ---
Date of Service March 19, 2019 Assessment & Plan (1) Hematoma of right lower extremity: RLE Large Intramuscular hematoma - patient is status post fall and having some soreness in the RLE, large posterior thigh ecchymosis - hemoglobin dropped from 12.9 ( 0n December 2018) to 8.8 - in the setting of supratherapeutic INR of 4.7-given IV vitamin K, INR improved to 1.3 - US of RLE obtained, shows 20 cm intramuscular hematoma - ortho consulted, no surg. intervention at this time, manage coagulopathy, will cont. to follow -LE - PT/OT ordered - cont. to monitor H&H, hold coumadin (2) Supratherapeutic INR: INR elevated at 4.7, received PO vit.K and then IV vit. K by admitting night physician - cont. to hold coumadin for now -NR 1.3, given extensive nests of hematoma, will continue to hold Coumadin for next few days (3) Chronic atrial fibrillation: - on lopressor and digoxin -Coumadin kept on hold for hematoma - follows with Dr. Shah (4) Acute on chronic anemia: Hx of anemia of chronic disease, hx of CKD stage III - now exacerbated d/t hematoma Acute blood loss anemia Due to large right lower extremity hematoma, - will cont. 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 home levothyroxine (7) Coronary artery disease: s/p stent in LAD in 2004 - holding ASA, d/t hematoma -No complaint of angina, no chest pain no shortness of breath no dyspnea on exertion - cont. home lopressor and digoxin (8) Recurrent falls: - pt has been having intermittent weakness /jerky movement of left lower ext which extends to his left arm describes as complete numbness and weakness leading to fall recent admission to [facility] on 01/19/19 with complaint of episode of confusion and left leg weakness that occurred this morning lasting 5 to 10 minutes. Reports has had several episodes of the same over the last couple of months and symptoms lasted for a few minutes and resolve. few months back pt fell due to left sided weakness and hit his back of the head , did not lose consciousness Reports patient with frequent falls over the past year -symptoms has been progressively getting worse . Reports having some neck and lower back pain and rt knee pain intermittently. pt had detail neuro imaging done on 12/2018 admission for possible stroke like symptom , including Neurology eval --CT HEAD:No acute intracranial abnormality. Age-related atrophy and chronic small vessel change. --CTA HEAD:Moderate atherosclerotic narrowing of the cavernous components of the internal carotid arteries bilaterally. This is estimated at 30-40% bilaterally. 50% stenosis of the supraclinoid aspects of the internal carotid arteries bilaterally. No evidence for critical stenosis. Significant stenotic change of the distal vertebral arteries is again noted bilaterally. --NECK CTA: 40% stenosis origin right external carotid artery. RLQ. Scattered plaque formation of the carotid systems bilaterally with no additional stenosis. 75% stenosis superior aspect left vertebral artery with a 50% stenosis of the right vertebral artery. This is seen approximately the level of C1. MRI could not be done due to presence of Debirillator device --EEG:Normal during wakefulness without a focal generalized encephalopathy or potentially epileptogenic activity --ECHO: Mild global hypokinesis of left ventricle, EF 50%, no thrombus, pulmonary hypertension, no evidence of ASD. 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 ) Neurology eval requested , pt remains in high risk for bleeding due to trauma /recurrent fall on coumadin 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 : noted in CTA of neck on 01/19/2019 -symptoms of intermittent left sided weakness, paresthesia causing loss of balance and fall will consult vascular surgery (9) Chronic combined systolic and diastolic CHF (congestive heart failure): stable vol status CODE STATUS : FULL CODE DISPOSITION: PT/OT eval requested given recurrent fall may benefit with SNF update given to pt;s family , son present at bedside pts family requested to discuss /update pt's DIL -Physician in [facility] spoke with Pt's DIL Dr Jovita Sarah # [phone] given update Subjective Patient reports of feeling fine, very pleasant, Right lower extremity pain and discomfort has improved markedly, still has significant ecchymosis, bruise No cough, no chest heaviness, no shortness of breath or dyspnea on exertion Complains of chronic left lower extremity weakness episodic, due to left upper extremity weakness, leading to recurrent fall Review of Systems Musculoskeletal: + joint pain (Left knee) and + muscle weakness (Left lower extremity) Physical Exam Constitutional: WD/WN, vitals as above no acute distress Eyes: PERRL, conjunctivae normal, anicteric sclerae ENMT: external ear and nose normal, oropharynx normal Neck: trachea midline, no thyromegaly Respiratory: normal respiratory effort, lungs clear to auscultation Cardiovascular: RRR, no murmur, no edema Gastrointestinal (Abdomen): normal bowel sounds, soft, nontender, no hepatosplenomegaly Musculoskeletal: Extremities: + lower leg abnormality (Diffuse ecchymosis on right lower extremity) Right Diffuse ecchymosis on right lower extremity, lower thigh and upper leg area, no open wounds Neurologic: PERRL, EOMI, accommodation nl, no face palsy, no dysarthria Psychiatric: A+Ox3, euthymic affect Results & Data Vital Signs (Past 12 Hours) Vital Signs Temp Pulse Pulse Resp BP BP Pulse Ox 03/19/19 11:28 36.4 C L 80 18 140/52 L 95 03/19/19 07:52 36.8 C 82 18 156/80 H 99 03/19/19 07:22 62 03/19/19 04:45 36.1 C L 60 21 155/81 H 96 03/19/19 03:50 62 (1) Hematoma of right lower extremity Encounter type: initial encounter Qualified Code(s): S80.11XA - Contusion of right lower leg, initial encounter
[2019-03-19] MEDS: DIGOXIN 0.125 MG TAB PO SCH (17:04)
[2019-03-19] MEDS: INSULIN GLARGINE SOLOSTAR 100 UNITS/ML 3 ML PEN SQ SCH (21:25)
[2019-03-19] MEDS: ALPRAZolam 0.5 MG TABLET PO SCH (21:29)
[2019-03-20] MEDS: LEVOTHYROXINE SODIUM 50 MCG TABLET PO SCH (06:32)
[2019-03-20 06:52] LABS: Hematocrit (blood only) 29.4 % (42-52); Hemoglobin 9.5 g/dL (14.0-18.0)
[2019-03-20 07:14] LABS: INR 1.2 (0.9-1.1); Prothrombin Time 12.6 Seconds (9.0-12.0)
--- NOTE | 2019-03-20 08:05 | Pharmacy Report ---
Glycemic Control Progress Note - Date of Service March 20, 2019 - Scope Glycemic Pharmacist consulted for glycemic control to write orders per [facility] inpatient glycemic control protocol. - Objective Accuchecks BSG(last 24 hours):: 03/19/19 03/19/19 03/19/19 11:25 16:08 21:24 POC Glucose 173 H 183 H 143 H 03/20/19 07:49 POC Glucose 89 HbA1c:: Hemoglobin A1c 7.5 % (4.5-5.6) H 03/17/19 05:24 - Recent Pertinent Medications The patient is currently receiving: * Basal insulin: Lantus 10 units every 24 hours * Correctional Insulin: Novolog Correction per scale ACHS Goal Range: Low 120 mg/dL - High 150 mg/dL Correction Factor: 25 mg/dL/unit * Prandial insulin: Per carb ratio of 1 unit per 10 grams CHO consumed - Outpatient Anti-Diabetic Meds Lantus 8-10 units HS plus Novolog 6-12 units QID PRN (32-58 units/day) - Assessment & Plan ASSESSMENT: * See progress note from 03/18/19 for more background info, in short: * Pt receiving SQ basal bolus insulin regimen for hyperglycemia secondary to baseline DM (outpatient regimen on hold). * Patient is currently receiving an average of 23 units of insulin per day * 10 units of basal insulin * 13 units of prandial/correctional insulin * BSGs ranging 120 - 183 mg/dl over the past 24hrs * Changes needed to insulin regimen: * AM Fasting BSG = 89 mg/dl. This is slightly below goal range for patient based on inpatient targets and co-morbidities. Therefore Basal insulin will be reduced slightly to 9 units. at home patient takes between 8-10 units. * Post-prandial BSGs did trend up yesterday. Only two blood sugars out of range. Tighten carbohydrate ratio slightly. * Total daily dose = ~20-25 units. PLAN FOR INPATIENT GLYCEMIC CONTROL: * Decreasing Lantus to 9 units SQ HS * Continuing correction factor of 25 mg/dl/unit * Changing carb ratio to 1 unit per 9 grams CHO consumed * Continuing goal range of Low 110 mg/dL - High 140 mg/dL RECOMMENDATIONS FOR DISCHARGE: * Patient's HbA1C is reasonably controlled for his age and co-morbidities. May also not be entirely accurate due to anemia of chronic disease. Recommend following blood sugars as an outpatient and adjusting appropriately. * Please note that the plan above was derived based on current level of insulin resistance and hospital stress. These recommendations are appropriate for inpatient admission only. Plan of care upon discharge will need to be reassessed to avoid potential outpatient hypo/hyperglycemia. Thank you.
[2019-03-20] MEDS: INSULIN ASPART 100 UNITS/ML 3 ML PEN SC SCH ×4 (08:07→20:34)
[2019-03-20] MEDS: CEROVITE ADV FORMULA TAB PO SCH ×2 (08:09→20:32)
[2019-03-20] MEDS: METOPROLOL TARTRATE 25 MG TAB PO SCH (08:09)
[2019-03-20] MEDS: CHOLECALCIFEROL 1,000 UNITS TAB PO SCH ×2 (08:09→20:33)
[2019-03-20] MEDS: FUROSEMIDE 20 MG TAB PO SCH (08:10)
[2019-03-20] MEDS: ATORVASTATIN 10 MG TAB PO SCH (08:10)
--- NOTE | 2019-03-20 08:47 | Hospitalist Progress Note ---
Date of Service March 20, 2019 Assessment & Plan (1) Hematoma of right lower extremity: RLE Large Intramuscular hematoma - patient is status post fall and having some soreness in the RLE, large posterior thigh ecchymosis - hemoglobin dropped from 12.9 ( 0n December 2018) to 8.8 - in the setting of supratherapeutic INR of 4.7-given IV vitamin K, INR improved to 1.3 - US of RLE obtained, shows 20 cm intramuscular hematoma - ortho consulted, no surg. intervention at this time, - - PT/OT ordered (2) Supratherapeutic INR: INR elevated at 4.7, received PO vit.K and then IV vit. K by admitting night physician -INR 1.2 today, Is hemoglobin staying is stable, symptomatically patient's pain and discomfort on the right leg improved, ordered to resume Coumadin (3) Chronic atrial fibrillation: - on lopressor and digoxin -Coumadin kept on hold for hematoma - follows with Dr. 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 home levothyroxine - TSH slightly elevated, T4 wnl, will need to follow up as outpt CODE STATUS: FULL DVT ppx: on coumadin (initially supratherapeutic, now INR 1.4, will re-start coumadin) Dispo: pt will need PT/OT, likely rehab/snf after discharge (7) Coronary artery disease: s/p stent in LAD in 2005 - holding ASA, d/t hematoma -No complaint of angina, no chest pain no shortness of breath no dyspnea on exertion - cont. home lopressor and digoxin (8) Recurrent falls: - pt has been having intermittent weakness /jerky movement of left lower ext which extends to his left arm describes as complete numbness and weakness leading to fall recent admission to [facility] on 01/19/19 with complaint of episode of confusion and left leg weakness that occurred this morning lasting 5 to 10 minutes. Reports has had several episodes of the same over the last couple of months and symptoms lasted for a few minutes and resolve. few months back pt fell due to left sided weakness and hit his back of the head , did not lose consciousness Reports patient with frequent falls over the past year -symptoms has been progressively getting worse . Reports having some neck and lower back pain and rt knee pain intermittently. pt had detail neuro imaging done on 12/2018 admission for possible stroke like symptom , including Neurology eval --CT HEAD:No acute intracranial abnormality. Age-related atrophy and chronic small vessel change. --CTA HEAD:Moderate atherosclerotic narrowing of the cavernous components of the internal carotid arteries bilaterally. This is estimated at 30-40% bilaterally. 50% stenosis of the supraclinoid aspects of the internal carotid arteries bilaterally. No evidence for critical stenosis. Significant stenotic change of the distal vertebral arteries is again noted bilaterally. --NECK CTA: 40% stenosis origin right external carotid artery. RLQ. Scattered plaque formation of the carotid systems bilaterally with no additional stenosis. 75% stenosis superior aspect left vertebral artery with a 50% stenosis of the right vertebral artery. This is seen approximately the level of C1. MRI could not be done due to presence of Debirillator device --EEG:Normal during wakefulness without a focal generalized encephalopathy or potentially epileptogenic activity --ECHO: Mild global hypokinesis of left ventricle, EF 50%, no thrombus, pulmonary hypertension, no evidence of ASD. 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 fib on Coumadin, history of coronary artery disease, peripheral vascular disease high risk for embolic CVA No vascular surgery coverage until March 26 2019 [facility] Initial plan was to consider transfer to [facility] for possible neuro surgery procedure for left intravertebral artery stent, Discussed with on-call neurology Dr. Gaitan -given the fact patient does not present with acute stroke, recommend optimizing medical management, continue with aspirin, statin, Coumadin should be resumed when risk of bleeding is acceptable Do not believe patient needs an urgent left vertebral artery stent placement Patient should be seen neurology in the clinic for further evaluation (9) Chronic combined systolic and diastolic CHF (congestive heart failure): stable vol status CODE STATUS : FULL CODE DISPOSITION: PT/OT eval requested given recurrent fall may benefit with SNF update given to pt;s family , pts family requested to discuss /update pt's DIL -Physician in [facility] Dr Jovita Sarah # [phone] given update Subjective Patient is seen after returning from lower extremity Doppler/arterial ultrasound States he had an on eventful night-no pain or discomfort reported on right lower extremity, This morning his left leg was more weak and wobbly, does not have any left knee pain, no weakness or paresthesia of left upper extremity, no neck pain, no headache no blurred vision speech is fluent No fever chills, no shortness of breath no cough, denies of any abdominal pain or discomfort Review of Systems Review of Systems: All systems reviewed & are unremarkable except as noted in HPI & below Constitutional: + weakness (jahaira. in lower extremities); no fever and no chills Musculoskeletal: + joint pain (Left knee) and + muscle weakness (Left lower extremity) Physical Exam Constitutional: WD/WN, vitals as above no acute distress Eyes: PERRL, conjunctivae normal, anicteric sclerae ENMT: external ear and nose normal, oropharynx normal Neck: trachea midline, no thyromegaly Respiratory: normal respiratory effort, lungs clear to auscultation Cardiovascular: RRR, no murmur, no edema Gastrointestinal (Abdomen): normal bowel sounds, soft, nontender, no hepatosplenomegaly Musculoskeletal: Extremities: + lower leg abnormality (Diffuse ecchymosis on right lower extremity) Neurologic: PERRL, EOMI, accommodation nl, no face palsy, no dysarthria Psychiatric: A+Ox3, euthymic affect Results & Data Vital Signs (Past 12 Hours) Vital Signs Temp Pulse Pulse Pulse Resp BP BP 03/20/19 07:34 36.3 C L 100 H 18 153/75 H 03/20/19 04:10 37.1 C 69 20 155/61 H 03/20/19 01:38 89 03/19/19 23:17 36.8 C 75 19 171/82 H 03/19/19 20:54 74 Pulse Ox 03/20/19 07:34 92 03/20/19 04:10 97 03/20/19 01:38 03/19/19 23:17 95 03/19/19 20:54 (1) Hematoma of right lower extremity Encounter type: initial encounter Qualified Code(s): S80.11XA - Contusion of right lower leg, initial encounter
--- NOTE | 2019-03-20 09:23 | Ultrasound Report ---
US arterial duplex LE BI HISTORY: 88 years-old Male peripheral vascular disease /weakness acute bilateral lower extremity wea tegan with peripheral arterial disease. Reported right thigh hematoma COMPARISON: Right lower extremity sonographic images 03/17/2019 TECHNIQUE: Segmental blood pressures were obtained bilaterally. No grayscale images were submitted fo r review. FINDINGS: RIGHT: Brachial-115 (index); posterior tibial-168 (1.46); dorsalis pedis-159 (1.38). LEFT: Brachial-113 (index); posterior tibial-159 (1.38); dorsalis pedis-146 (1.27). No decreased segmental blood pressures identified to suggest significant peripheral arterial disease. IMPRESSION: Segmental blood pressures as above. ACT 112: Negative or not required by law. The above report was generated using voice recognition software. It may contain grammatical, syntax o r spelling errors. Electronically signed by: Simon Berrios M.D. 03/20/2019 9:22 AM
[2019-03-20] MEDS ORDERED: WARFARIN SOD 5 MG TAB PO ONE (10:45)
[2019-03-20] MEDS ORDERED: OPTIRAY 320 125ml IV PRN (10:59)
--- NOTE | 2019-03-20 11:27 | CT Scan Report ---
CT angio head wo/w, CT angio neck with con HISTORY: 88 years-old Male left verterbral artery occlusion follow-up study in a patient with histor y of left vertebral artery stenosis. COMPARISON: Head CT 03/16/2019, CTA head neck 01/19/2019 TECHNIQUE: CTA of the head and neck was obtained following the intravenous ministration of 119 mL Opt iray 320 IV contrast. 3-D coronal and sagittal MIPS were obtained from the axial data set and were sethi bmitted for review. Additional noncontrast CT of the head was obtained. All measurements were obtaine d utilizing NASCET criteria. A dose lowering technique was used consistent with the principals of JAVI KRAUSE. FINDINGS: CT HEAD: Age-related involutional changes with ex vacuo ventriculomegaly. Remote lacunar infarctions of the ri ght morrison radiata and caudate nucleus. Extensive patchy white matter hypodensities suggest chronic m icrovascular ischemic disease. Cephalization malacia of the left cerebellar hemisphere suggests remot e infarct. Cerebral vascular calcifications noted. There is no acute intracranial hemorrhage, midline shift, abnormal extra-axial collection, hydrocephalus or acute territorial ischemia or intracranial mass. No abnormal intracranial enhancement. Prior bilateral cataract repair. No acute fracture. Soft tissues are unremarkable. Mastoid air cells and paranasal sinuses appear clear. CTA HEAD AND NECK: The opacified pulmonary arterial tree is unremarkable. The imaged thoracic aortic arch. Some unremark able. There is patency of the imaged bilateral subclavian arteries. Patent bilateral common carotid a rteries. The origin of the left common carotid artery is not imaged. Moderate mixed plaque of the yves ateral carotid bulbs results in less than 50% stenosis bilaterally. There is approximately 50% lumina l narrowing at the origin of the right external carotid artery. Calcified plaque of the cavernous, cl inoid and supraclinoid segments bilaterally. Focal area of 60% luminal narrowing of the supraclinoid left internal carotid artery, image 412 of series 4 is unchanged from comparison. Bilateral middle ce rebral arteries are patent. Multifocal luminal narrowing of the left M1 segment, high-grade just prox imal to the trifurcation, image 422 series 4 which is also unchanged. The bilateral anterior cerebral arteries are patent. Calcified plaque of the bilateral V3 and V4 segments. There is mild luminal narrowing of less than 50 % involving the bilateral V4 segments. Mild tortuosity/kinking of the V3 segment right vertebral juan antonio ry on image 265 series 4 without high-grade stenosis. The basilar and posterior cerebral arteries are patent. There is mostly mild multifocal luminal narrowing throughout the right P1 segment with short segment moderate luminal narrowing on image 44 series 4. This is also unchanged from comparison. No aneurysm or dissection. Cerebral venous sinuses appear patent. No pneumothorax. 6 x 4 mm solid nodule of the left lung apex. 3 mm apical left solid nodules unchange d. Mild biapical pleural-parenchymal scarring. 5 mm solid nodule of the superior segment left lower l obe. Partially imaged left pectoral pacer. Prior bilateral cataract repair. Degenerative changes of t he spine. Mastoid air cells are clear. IMPRESSION: 1. No acute intracranial abnormality. 2. CTA head and neck is unchanged from 01/19/2019 and demonstrates no aneurysm, dissection or proxima l branch occlusion. 3. 60% luminal narrowing of the supraclinoid left internal carotid artery. 4. High-grade stenosis of the distal left M1 segment, just proximal to the trifurcation. 5. Solid nodules of the left lung apex as above measure up to 6 mm. A follow-up nonemergent CT of the chest recommended to evaluate for additional pulmonary nodules. 6. No vertebral artery occlusion. 7. Additional findings as above. ACT 112: Negative or not required by law. Please refer to below summary of Fleischner criteria recommendations for follow-up of incidental CT n odules (Angie Hanley, Guidelines for management of small pulmonary nodules detected on CT scans: A sta tement from the Fleischner Society, Radiology 237: [phone].) SOLID NODULES Multiple nodules size: <6 mm * Low risk patients: no routine follow-up * high risk patients: optional CT at 12 months Multiple nodules size: 6-8 mm * Low risk patients: follow-up at 3-6 months, then consider further follow-up at 18-24 months * high risk patients: follow-up at 3-6 months, then at 18-24 months if no change Note: newly detected indeterminate nodule in persons 35 years of age or older. * Low risk patients: minimal or absent history of smoking and/or other known risk factors * high risk patients: history of smoking or of other known risk factors (e.g. first degree relative with lung cancer, or exposure to asbestos, radon, uranium) * if a nodule up to 8 mm is partly solid or is ground glass further follow-up is required after 24 m onths to exclude possible slow growing adenocarcinoma (HAL) The above report was generated using voice recognition software. It may contain grammatical, syntax o r spelling errors. Electronically signed by: Simon Berrios M.D. 03/20/2019 11:25 AM
[2019-03-20] MEDS: ASPIRIN 81 MG ECTAB PO SCH (11:28)
[2019-03-20] MEDS: CYANOCOBALAMIN 500 MCG TABLET (VITAMIN B-12) PO SCH (12:47)
[2019-03-20] MEDS: ASCORBIC ACID 500 MG TAB PO SCH (12:47)
--- NOTE | 2019-03-20 14:37 | Neurology Consultation ---
Date of Consultation March 20, 2019 Assessment & Plan (1) Weakness: 1. bilateral LE weakness- increased over past few months 2. orthopedics for LE injury- will follow 3. PT/OT for discharge needs 4. input of family for baseline weakness (2) Diabetic peripheral neuropathy associated with type 1 diabetes mellitus: 1. improve DM control but consider patient age (3) Chronic atrial fibrillation: 1. super therapeutic at admission now subtherapeutic INR 2.0-3.0 for afib 2. already on aspirin 81 mg daily 3. cardiac defibrillator in place 4. MRI may be helpful to r/o stroke however with cardiac defibrillator likely not possible Supervising Physician Co-Signing Physician Notes I have seen and discussed above patient with Dr Lilly Mcfarland, neurology patient is seen and examined with Lilly Fatima. He gives a history of an unknown duration episodes of the left leg giving out. This was not associated with any left leg pain. He denies that this is associated with any lightheadedness or other focal neurologic concerns. It has only occurred with walking. It is not associated with back back or leg pain. He does admit to some numbness in his feet. There is some urgency incontinence. On last admission CT of the CT and L-spine did not show anything of significance which would explain his symptoms. Report a prior CTA of the head and neck. While showing some vascular disease would not none of which would explain his symptoms in his left lower extremity. The patient denies weight loss. On exam he is a wake and alert speech and language are normal. Affect is appropriate. He is mildly impulsive. There is no facial masking. There is normal extraocular motility. Normal visual cobb. No facial asymmetry. No head voice or jaw tremor. No resting tremor or cogwheel rigidity. The patient is diffusely thin without focal atrophy or fasciculations. Strength is essentially full in the upper and lower extremities. He is areflexic at the knees and ankles. There is no clonus and toes are downgoing. Vibration sense is only appreciated at the knees and there is above the ankle level to temperature. The patient uses his walker impulsively. When asked to stop he continues to walk. While he was walking he had sudden shaking of the left lower extremity. It was difficult to comment as to whether or not this was weakness. It did not appear to be clonus. Could be freezing although it was unclear and the patient did not feel as if it was an episode of inability to move the leg and felt rather that it was weakness. Impression episodes of left leg giving out unclear etiology. The patient does not have significant vascular disease or accompanying neurologic symptoms which would explain his focal complaints of the left lower extremity. Similarly he denies orthostasis but I would recommend checking orthostatic blood pressures and pulses. As the patient is unclear as to when the left leg weakness began i.e. does not know if it was present before the December hospitalization would recommend repeat CT of the baldwin-spine. The patient appears to have a fairly significant peripheral neuropathy which is likely the reason in general for falls. Most likely this is diabetic. Would check for labs for other treatable etiologies. Including B12 folate TSH RPR. Clinically I do not think he is diabetic amyotrophy. As an outpatient a nerve conduction EMG might be reasonable. Check CK if not already done. Will follow with you History of Present Illness Reason for Consultation: left LE weakness Requesting Physician: Mirtha Arellano MD Attending Physician: Mirtha Arellano MD History of Present Illness George is an 88 year old male with PMH DM2, PVD, CKD III, hypothyroidism, ischemic heart disease, chronic AF,chronic systolic heart failure, HTN, BPH, anemia of chronic kidney disease, status post defibrillator, history of TIA, history of frequent falls, history of insomnia, [place] (menieres disease), macular degeneration who lives with his and walks with a walker. He states his legs are wobbly when he walks. Prior to admission he was walking with his walker and his legs gave way and he fell. His legs are ongoing weakness which he feels is getting worse. He is on coumadin for AF. denies CP, SOB, abdominal pain, back or leg pain, vision changes, headache, LE weakness bilaterally left worse than right Allergies Allergy/AdvReac Type Severity Reaction Status Date / Time banana Allergy Unknown ` Verified 03/16/19 17:51 itraconazole AdvReac Intermediate UNKNOWN Unverified 03/16/19 17:51 Home Medications Home Medications Medication Instructions Recorded Confirmed Type BD Ultra-Fine Short Pen Needle 31 #400 ea NS 12/03/18 03/16/19 Rx gauge x 5/16" glucagon (human recombinant) 1 mg 1 mg IM Q20M PRN #1 ea 01/17/19 03/16/19 Rx solution for injection levothyroxine 50 mcg tablet 50 mcg PO DAILY #90 tab 01/17/19 03/16/19 Rx PreserVision AREDS-2 1 tab PO BID 01/19/19 03/16/19 History alprazolam 0.5 mg PO HS 01/19/19 03/16/19 History ascorbic acid (vitamin C) 500 mg PO QDL 01/19/19 03/16/19 History aspirin 81 mg PO QAM 01/19/19 03/16/19 History biotin 1 mg PO QDL 01/19/19 03/16/19 History cholecalciferol (vitamin D3) 1,000 unit PO BID 01/19/19 03/16/19 History cyanocobalamin (vitamin B-12) 1,000 mcg PO QDL 01/19/19 03/16/19 History digoxin 125 mcg PO QAM 01/19/19 03/16/19 History metoprolol tartrate 12.5 mg PO BID 01/19/19 03/16/19 History warfarin 5 mg PO UD 01/19/19 03/16/19 History atorvastatin 10 mg PO QAM #30 tab 01/20/19 03/16/19 Rx furosemide 20 mg tablet 20 mg PO DAILY tab 02/12/19 03/16/19 History insulin aspart U-100 100 unit/mL 6 - 12 unit SQ QID PRN ml 02/12/19 03/16/19 History (3 mL) subcutaneous pen insulin glargine 100 unit/mL (3 8 - 10 units SQ HS ml 02/12/19 03/16/19 History mL) subcutaneous pen ibuprofen 200 mg PO Q6H PRN 03/16/19 03/16/19 History dzfocq-bbmrefn-[id number] palm-min 17 1 cap PO BID 03/16/19 03/16/19 History [Prostate Therapy] Patient History Medical History (Updated 03/19/19 @ 12:23 by Po Rothman MD) Anemia, chronic disease (Chronic) Cardiac defibrillator in place (Chronic) Cardiomyopathy, ischemic (Chronic) Chronic atrial fibrillation (Chronic) Chronic combined systolic and diastolic CHF (congestive heart failure) (Chronic) CKD (chronic kidney disease), stage III (Chronic) HTN (hypertension) (Chronic) Hypothyroidism (Chronic) Meniere disease (Chronic) Recurrent falls (Chronic) TIA (transient ischemic attack) (Chronic) 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) Surgical History History of appendectomy (Chronic) History of heart artery stent (Chronic) 2004 - Hx of cataract surgery (Chronic) Family History (Updated 01/19/19 @ 14:11 by Janina Frye PA-C) Other Cancer Heart disease Social History Preferred Language: Tajik Communication Ability: Effective Environmental Aid Required: No Beliefs That Will Affect Care: None marital status: Current Living Situation: Spouse Other Information That Helps Us Care for You: No Feels Safe at Home: Yes Safety Concerns: Feels Safe At This Time Smoking Status: Former smoker Hx Alcohol Use: Yes Alcohol type: beer and wine Alcohol Intake Frequency: Weekly Hx Substance Use: No Physical Exam Physical Exam: Physical Exam: Constitutional: appearance very thin ill appearing Ears, Nose, Mouth and Throat: mucous membranes moist, no injection and skin normal, eyes normal, [place] Cardiovascular: irregular Respiratory: course breath sounds Musculoskeletal: distal pulses intact Skin: no stigmata of neurocutaneous disease noted and normal and intact Eyes: extraocular muscles intact (EOMI) and pupils equal, round and reactive to light (PERRL), central vision decreased NEUROLOGIC EXAMINATION: Mental status: Alert and interactive Oriented to hospital Oriented to person Speech no slurred speech Cranial Nerves smile eye brow raise symmetric Reflexes: Deep tendon reflexes were symmetrical and graded 2/5. GT proprioception decreased Sensory: light touch and vibration absent to knees Coordination: finger to nose intact if in peripheral vision Gait/Stance: Posture lying in bed. gait tandem not shuffling, using walker and becomes unable to move left LE, after some time again able to walk tandem Motor: Negative for pronator drift of out stretched arms with eyes closed. 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, hip flex left 4+/5, hip flex halted right, plantar flex ext 5/5 Results & Data Vital Signs (Past 12 Hours) Vital Signs Temp Pulse Pulse Resp BP BP Pulse Ox 03/20/19 11:00 36.6 C 62 16 123/67 92 03/20/19 08:10 64 03/20/19 07:34 36.3 C L 100 H 18 153/75 H 92 03/20/19 04:10 37.1 C 69 20 155/61 H 97 Laboratory Results Abnormal lab results 03/19/19 03/19/19 03/20/19 Range/Units 16:08 21:24 06:26 Hgb (14.0-18.0) g/dL Hct (42-52) % PT 12.6 H (9.0-12.0) Seconds INR 1.2 H (0.9-1.1) POC Glucose 183 H 143 H (70-99) 03/20/19 03/20/19 Range/Units 06:26 11:15 Hgb 9.5 L (14.0-18.0) g/dL Hct 29.4 L (42-52) % PT (9.0-12.0) Seconds INR (0.9-1.1) POC Glucose 177 H (70-99) Diagnostic Findings CTA head/ neck- No acute intracranial abnormality. CTA head and neck is unchanged from 01/19/2019 and demonstrates no aneurysm, dissection or proximal branch occlusion. 60% luminal narrowing of the supraclinoid left internal carotid artery. High-grade stenosis of the distal left M1 segment, just proximal to the trifurcation. Solid nodules of the left lung apex as above measure up to 6 mm. A follow-up nonemergent CT of the chest recommended to evaluate for additional pulmonary nodules. No vertebral artery occlusion. US LE- Heterogeneous multiloculated collection(s) of the proximal right thigh measuring up to 20 cm suggest intramuscular hematomas. Follow-up recommended. CXR-. No pneumothorax No change in a small right pleural effusion with mild bibasilar opacities. Stable cardiomegaly without evidence for pulmonary edema. xray femur-No acute fracture of the right femur.
[2019-03-20] MEDS: DIGOXIN 0.125 MG TAB PO SCH (16:06)
--- NOTE | 2019-03-20 20:13 | Hospitalist Progress Note ---
Date of Service March 20, 2019 Subjective ATTENDING NOTE: Orthostatic vitals noted : Lying : 123/61 sitting : 107/33 standing : 94/57 significant orthostatic drop of BP noted ordered to DC all bp med ( Lasix /metoprolol ) IV NSS 500 ml bolus now then cont 100ml/hr x 1 liter postural hypotension could be contributing to pts intermittent left sided weakness /TIA like symptoms cont to monitor in tele Mirtha Arellano MD Results & Data Vital Signs (Past 12 Hours) Vital Signs Temp Pulse Pulse Resp BP BP Pulse Ox 03/20/19 16:26 60 03/20/19 16:24 36.3 C L 62 18 146/72 H 94 03/20/19 16:06 62 03/20/19 11:00 36.6 C 62 16 123/67 92 03/20/19 08:10 64
[2019-03-20] MEDS ORDERED: SODIUM CHLORIDE 0.9% 1000ML 500 ML IV ONE (20:20)
[2019-03-20] MEDS: ALPRAZolam 0.5 MG TABLET PO SCH (20:34)
[2019-03-20] MEDS: INSULIN GLARGINE SOLOSTAR 100 UNITS/ML 3 ML PEN SQ SCH (20:35)
[2019-03-20] MEDS ORDERED: SODIUM CHLORIDE 0.9% 1000ML 1,000 ML IV SCH (20:50)
[2019-03-21 06:29] LABS: Hematocrit (blood only) 26.5 % (42-52); Hemoglobin 8.4 g/dL (14.0-18.0)
[2019-03-21 06:39] LABS: INR 1.3 (0.9-1.1); Prothrombin Time 13.1 Seconds (9.0-12.0)
[2019-03-21] MEDS: LEVOTHYROXINE SODIUM 50 MCG TABLET PO SCH (06:39)
[2019-03-21] MEDS: ASPIRIN 81 MG ECTAB PO SCH (08:01)
[2019-03-21] MEDS: CHOLECALCIFEROL 1,000 UNITS TAB PO SCH ×2 (08:01→21:53)
[2019-03-21] MEDS: CEROVITE ADV FORMULA TAB PO SCH ×2 (08:01→21:54)
[2019-03-21] MEDS: INSULIN ASPART 100 UNITS/ML 3 ML PEN SC SCH ×4 (08:01→21:54)
[2019-03-21] MEDS: ATORVASTATIN 10 MG TAB PO SCH (08:01)
[2019-03-21 08:44] LABS: Folate (Folic Acid) 22.19 ng/ml (>5.38)
--- NOTE | 2019-03-21 11:21 | Orthopedic Progress Note ---
Date of Service March 21, 2019 Assessment & Plan (1) Hematoma of right lower extremity: Continue conservative management. Nonsurgical candidate at this time, continue management of supratherapeutic coagulopathy as per primary team. Ortho to sign off. Reconsult if any worsening symptoms. He may follow up with us on a prn basis. Subjective Much improved right leg pain and hematoma. States he is feeling better. No other complaints today. Physical Exam Constitutional: WD/WN, vitals as above no acute distress Musculoskeletal: Right lateral thigh: Hematoma noted with induration but little tenderness today. The ecchymosis of the posteromedial distal upper leg and medial lower leg is stable. Skin: no rashes, warm and dry Neurologic: normal touch/pain/proprioception Psychiatric: A+Ox3, euthymic affect Results & Data Vital Signs (Past 12 Hours) Vital Signs Temp Pulse Pulse Resp BP Pulse Ox 03/21/19 09:00 65 03/21/19 07:13 36.3 C L 65 18 143/68 H 98 03/21/19 02:57 36.5 C 64 19 148/70 H 98 03/21/19 02:02 62 03/20/19 23:20 36.4 C L 65 19 144/57 H 100 (1) Hematoma of right lower extremity Encounter type: initial encounter Qualified Code(s): S80.11XA - Contusion of right lower leg, initial encounter
[2019-03-21] MEDS: CYANOCOBALAMIN 500 MCG TABLET (VITAMIN B-12) PO SCH (11:56)
[2019-03-21] MEDS: ASCORBIC ACID 500 MG TAB PO SCH (11:56)
--- NOTE | 2019-03-21 13:18 | Neurology Progress Note ---
Date of Service March 21, 2019 Assessment & Plan (1) Weakness: 1. bilateral LE weakness- increased over past few months- today appears better 2. orthopedics for LE injury- will follow 3. PT/OT for discharge needs 4. input of family for baseline weakness but falls are likely due to severe peripheral neuropathy- DM related 5. needs better control of DM but need to consider age 6. folice acid, B12, TSH- WNL, RPR pending (2) Diabetic peripheral neuropathy associated with type 1 diabetes mellitus: 1. improve DM control but consider patient age (3) Chronic atrial fibrillation: 1. super therapeutic at admission now subtherapeutic INR 2.0-3.0 for afib 2. already on aspirin 81 mg daily 3. cardiac defibrillator in place 4. MRI may be helpful to r/o stroke however with cardiac defibrillator likely not possible will request follow up for EMG as outpatient will be available for any questions concerns. Supervising Physician Co-Signing Physician Notes I have seen and discussed above patient with Dr Sandro Tamez, neurology I have seen this man today, reviewed his history, have spoken with his family, and discussed his case with Dr. Arellano and have reviewed the prior notes by Lilly Fatima and Dr. Lilly Mcfarland I had seen him in December at which point a question was raised about seizures, we found evidence for some moderate stenosis of the vertebral arteries 50% on one side and 75% on the other, EEGs were negative, imaging studies of the brain have shown leukoencephalopathic changes moderate severity and exam was consistent with a polyneuropathy. My conclusions at that point was that he was having orthostatic hypotension is most likely cause of his recurrent falls but then he was lost to follow-up and apparently his blood pressure medications have been maintained, beta-fern was apparently restarted and his gait declined significantly to the point he was now using a walker and had more instability and near syncopal events. CT angiographic studies done this time around again show the modest stenoses in the vertebrals and a high-grade stenosis of the left supraclinoid portion of the internal carotid artery and Dr. Arellano apparently contacted neurology or neurosurgery at [place] and was told that these lesions were not surgically approachable and that medical management was appropriate and I certainly agree with this position Today he is improved he is able to stand take a few steps but he has a gait apraxia and the polyneuropathy by examination which is mainly sensory and there is no myelopathy on my examination The blood pressure medications have been stopped, his Coumadin which was held has been restarted, but he still remains orthostatic and I believe midodrine is been added to the mix We will check back through the weekend but at this point I do not think neurology has a whole lot more to offer here other than suggestions that his blood pressure be permitted to run a little higher than standard to maintain perfusion pressures through these moderately stenosed vessels Sandro Tamez MD Joann Vazquez is an 88 year old male with PMH DM2, PVD, CKD III, hypothyroidism, ischemic heart disease, chronic AF,chronic systolic heart failure, HTN, BPH, anemia of chronic kidney disease, status post defibrillator, history of TIA, history of frequent falls, history of insomnia, [employer] (menieres disease), macular degeneration who lives with his and walks with a walker. He states his legs are wobbly when he walks. Prior to admission he was walking with his walker and his legs gave way and he fell. His legs are ongoing weakness which he feels is getting worse. He is on coumadin for AF. denies He is sitting up in bedside chair and wants to know when he is going home. He states he is feeling better todayCP, SOB, abdominal pain, back or leg pain, vision changes, headache/ Physical Exam Physical Exam: Gen: alert NAD lungs course breath sounds CV irregular strength biceps triceps hand drafter refrigeration 5/5 bilaterall hip flex plantar flex ext 5/5 bilaterally sensation decreased to cool light touch and vibration below knee. Results & Data Vital Signs (Past 12 Hours) Vital Signs Temp Pulse Pulse Resp BP Pulse Ox 03/21/19 11:27 36.8 C 57 L 18 133/66 90 03/21/19 09:00 65 03/21/19 07:13 36.3 C L 65 18 143/68 H 98 03/21/19 02:57 36.5 C 64 19 148/70 H 98 03/21/19 02:02 62 Laboratory Results Abnormal lab results 03/20/19 03/20/19 03/21/19 Range/Units 16:25 20:33 06:05 Hgb (14.0-18.0) g/dL Hct (42-52) % PT 13.1 H (9.0-12.0) Seconds INR 1.3 H (0.9-1.1) POC Glucose 113 H 132 H (70-99) Vitamin B12 (211-911) pg/ml 03/21/19 03/21/19 03/21/19 Range/Units 06:05 06:05 07:32 Hgb 8.4 L (14.0-18.0) g/dL Hct 26.5 L (42-52) % PT (9.0-12.0) Seconds INR (0.9-1.1) POC Glucose 126 H (70-99) Vitamin B12 919 H (211-911) pg/ml 03/21/19 Range/Units 11:43 Hgb (14.0-18.0) g/dL Hct (42-52) % PT (9.0-12.0) Seconds INR (0.9-1.1) POC Glucose 216 H (70-99) Vitamin B12 (211-911) pg/ml Diagnostic Findings no new imaging
[2019-03-21] MEDS: WARFARIN SOD 5 MG TAB PO SCH (17:09)
[2019-03-21] MEDS: DIGOXIN 0.125 MG TAB PO SCH (17:09)
[2019-03-21] MEDS: MIDODRINE HCL 2.5 MG TAB PO SCH (17:09)
--- NOTE | 2019-03-21 17:46 | Hospitalist Progress Note ---
Date of Service March 21, 2019 Assessment & Plan (1) Hematoma of right lower extremity: RLE Large Intramuscular hematoma - patient is status post fall and having some soreness in the RLE, large posterior thigh ecchymosis - hemoglobin dropped from 12.9 ( 0n December 2018) to 8.8 - in the setting of supratherapeutic INR of 4.7-given IV vitamin K, - US of RLE obtained, shows 20 cm intramuscular hematoma - ortho consulted, no surg. intervention at this time, -Coumadin resumed -high risk for stroke due to history of paroxysmal A. fib Continue to monitor H&H (2) Supratherapeutic INR: INR elevated at 4.7, received PO vit.K and then IV vit. K by admitting night physician - symptomatically patient's pain and discomfort on the right leg improved, ordered to resume Coumadin INR 1.3 Continue Coumadin with close monitoring of H&H goal INR 23 (3) Chronic atrial fibrillation: - on lopressor and digoxin -Ordered to resume Coumadin, given risk of acute CVA without anticoagulation - follows with Dr. Shah (4) Acute on chronic anemia: Hx of anemia of chronic disease, hx of CKD stage III - now exacerbated d/t hematoma Acute blood loss anemia Due to large right lower extremity hematoma, -Hemoglobin 9.58.4 today, Given 1.5 L of IV NSS fluid overnight due to orthostatic hypotension Possible dilutional 8 H&H tomorrow (5) Type 1 diabetes mellitus with complications: Hgb A1c 7.5% - follows w/ endocrine clinic, last visit per EMR, in 01/2019 - (6) Hypothyroidism: - cont. home levothyroxine - TSH slightly elevated, T4 wnl, will need to follow up as outpt CODE STATUS: FULL (7) Coronary artery disease: s/p stent in LAD in 2004 - holding ASA, d/t hematoma -No complaint of angina, no chest pain no shortness of breath no dyspnea on exertion - cont. home lopressor and digoxin Orthostatic Hypotension Orthostatic vitals show: BP lying 153/61 Sitting 125/68 Standing : 144/54 Orthostatic/postural drop of blood pressure noted more than 30 mmHg Possible causing weakness paresthesia on left extremities (patient had stenosis of left vertebral artery) Order to DC Lasix, metoprolol Allow permissive hypertension: Goal SBP between [id number] Started on midodrine 5 mg 3 times daily, Continue to monitor (8) Recurrent falls: - pt has been having intermittent weakness /jerky movement of left lower ext which extends to his left arm describes as complete numbness and weakness leading to fall recent admission to [facility] on 01/19/19 with complaint of episode of confusion and left leg weakness that occurred this morning lasting 5 to 10 minutes. Reports has had several episodes of the same over the last couple of months and symptoms lasted for a few minutes and resolve. few months back pt fell due to left sided weakness and hit his back of the head , did not lose consciousness Reports patient with frequent falls over the past year -symptoms has been progressively getting worse . Reports having some neck and lower back pain and rt knee pain intermittently. pt had detail neuro imaging done on 12/2018 admission for possible stroke like symptom , including Neurology eval --CT HEAD:No acute intracranial abnormality. Age-related atrophy and chronic small vessel change. --CTA HEAD:Moderate atherosclerotic narrowing of the cavernous components of the internal carotid arteries bilaterally. This is estimated at 30-40% bilaterally. 50% stenosis of the supraclinoid aspects of the internal carotid arteries bilaterally. No evidence for critical stenosis. Significant stenotic change of the distal vertebral arteries is again noted bilaterally. --NECK CTA: 40% stenosis origin right external carotid artery. RLQ. Scattered plaque formation of the carotid systems bilaterally with no additional stenosis. 75% stenosis superior aspect left vertebral artery with a 50% stenosis of the right vertebral artery. This is seen approximately the level of C1. MRI could not be done due to presence of Debirillator device --EEG:Normal during wakefulness without a focal generalized encephalopathy or potentially epileptogenic activity --ECHO: Mild global hypokinesis of left ventricle, EF 50%, no thrombus, pulmonary hypertension, no evidence of ASD. 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 fib on Coumadin, history of coronary artery disease, peripheral vascular disease high risk for embolic CVA No vascular surgery coverage until March 26 2019 [facility] Initial plan was to consider transfer to [facility] for possible neuro surgery procedure for left intravertebral artery stent, Discussed with on-call neurology Dr. Gaitan -given the fact patient does not present with acute stroke, recommend optimizing medical management, continue with aspirin, statin, Coumadin should be resumed when risk of bleeding is acceptable Do not believe patient needs an urgent left vertebral artery stent placement Patient should be seen neurology in the clinic for further evaluation (9) Chronic combined systolic and diastolic CHF (congestive heart failure): stable vol status CODE STATUS : FULL CODE DISPOSITION: PT/OT eval requested Patient will need to skilled rehab, referral made to [facility] Will need continued hospital stay secondary to ambulatory dysfunction, orthostatic hypotension, titration of Coumadin dose to goal INR 23 update given to pt;s family , pts family requested to discuss /update pt's DIL -Physician in [facility] Dr Jovita Sarah # [phone] given update Subjective Offers no new complaint, No pain or discomfort on right lower extremity Able to walk to the bathroom today no dizzy spell or lightheadedness, had occasional left lower extremity weakness with shakiness No fall or syncope No cough no fever or chills Feels comfortable Review of Systems Constitutional: + weakness (jahaira. in lower extremities); no fever and no chills Musculoskeletal: + joint pain (Left knee) and + muscle weakness (Left lower extremity) Physical Exam Constitutional: WD/WN, vitals as above no acute distress Eyes: PERRL, conjunctivae normal, anicteric sclerae ENMT: external ear and nose normal, oropharynx normal Neck: trachea midline, no thyromegaly Respiratory: normal respiratory effort, lungs clear to auscultation Cardiovascular: RRR, no murmur, no edema Gastrointestinal (Abdomen): normal bowel sounds, soft, nontender, no hepatosplenomegaly Musculoskeletal: Extremities: + lower leg abnormality (Diffuse ecchymosis on right lower extremity) Neurologic: PERRL, EOMI, accommodation nl, no face palsy, no dysarthria Psychiatric: A+Ox3, euthymic affect Results & Data Vital Signs (Past 12 Hours) Vital Signs Temp Pulse Pulse Resp BP Pulse Ox 03/21/19 17:09 72 03/21/19 16:18 36.5 C 89 18 160/74 H 96 03/21/19 16:04 61 03/21/19 11:27 36.8 C 57 L 18 133/66 90 03/21/19 09:00 65 03/21/19 07:13 36.3 C L 65 18 143/68 H 98 (1) Hematoma of right lower extremity Encounter type: initial encounter Qualified Code(s): S80.11XA - Contusion of right lower leg, initial encounter
[2019-03-21] MEDS: ALPRAZolam 0.5 MG TABLET PO SCH (21:53)
[2019-03-21] MEDS: INSULIN GLARGINE SOLOSTAR 100 UNITS/ML 3 ML PEN SQ SCH ×2 (21:53→22:10)
[2019-03-22] MEDS: LEVOTHYROXINE SODIUM 50 MCG TABLET PO SCH (06:16)
[2019-03-22] MEDS ORDERED: INSULIN GLARGINE SOLOSTAR 100 UNITS/ML 3 ML PEN SQ ONE (08:15)
[2019-03-22] MEDS: CHOLECALCIFEROL 1,000 UNITS TAB PO SCH ×2 (08:16→20:52)
[2019-03-22] MEDS: ASPIRIN 81 MG ECTAB PO SCH (08:16)
[2019-03-22] MEDS: MIDODRINE HCL 2.5 MG TAB PO SCH ×3 (08:16→17:13)
[2019-03-22] MEDS: CEROVITE ADV FORMULA TAB PO SCH ×2 (08:16→20:52)
[2019-03-22] MEDS: ATORVASTATIN 10 MG TAB PO SCH (08:16)
[2019-03-22] MEDS: INSULIN ASPART 100 UNITS/ML 3 ML PEN SC SCH ×4 (08:17→20:53)
[2019-03-22 09:07] LABS: Hematocrit (blood only) 27.4 % (42-52); Hemoglobin 8.9 g/dL (14.0-18.0)
[2019-03-22 09:14] LABS: INR 1.2 (0.9-1.1); Prothrombin Time 12.4 Seconds (9.0-12.0)
--- NOTE | 2019-03-22 11:55 | Communication Note ---
Date of Service: March 22, 2019 Mr. Sarah is sitting in bed today reading is conversant although he has some limitations due to his hearing impairment and seems to comprehend fairly well well what has been going on. He states that he has been up walking with assistance needs his walker for security but has not had any symptomatic orthostatic hypotensive like events in the blood pressure recordings have shown no significant blood pressure drops. He is currently off his metoprolol, Lasix, is going back on the Coumadin, is having his hemoglobin checked sequentially as he does have a large hematoma and has dropped his hemoglobin to below 9 g. Certainly this is contributing to his orthostasis is much is anything. 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 His blood pressure control be too strict Certainly the autonomic component of any polyneuropathy is adding to the problem here as well and it may well be that he needs to be off all antihypertensives unless he has significant congestive heart failure that would require diuretics or other agents to control and cardiology may have to review his case while he is here in the hospital. 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
[2019-03-22] MEDS: CYANOCOBALAMIN 500 MCG TABLET (VITAMIN B-12) PO SCH (12:35)
[2019-03-22] MEDS: ASCORBIC ACID 500 MG TAB PO SCH (12:35)
--- NOTE | 2019-03-22 16:06 | Hospitalist Progress Note ---
Date of Service March 22, 2019 Assessment & Plan (1) Hematoma of right lower extremity: RLE Large Intramuscular hematoma Improvement of pain, and ecchymosis on the right lower thigh noted - patient is status post fall and having some soreness in the RLE, large posterior thigh ecchymosis - - US of RLE obtained, shows 20 cm intramuscular hematoma - ortho consulted, no surg. intervention at this time, -Coumadin resumed -high risk for stroke due to history of paroxysmal A. fib Monitor H&H reports of improvement of pain swelling and discomfort on right lower extremity Able to bear weight (2) Supratherapeutic INR: INR elevated at 4.7, received PO vit.K and then IV vit. K by admitting night physician - symptomatically patient's pain and discomfort on the right leg improved, Coumadin resumed, no IV heparin bridge secondary to presence of large hematoma goal INR 23 (3) Chronic atrial fibrillation: - on lopressor and digoxin -Ordered to resume Coumadin, given risk of acute CVA without anticoagulation - follows with Dr. 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 home levothyroxine - TSH slightly elevated, T4 wnl, will need to follow up as outpt CODE STATUS: FULL (7) Coronary artery disease: s/p stent in LAD in 2004 -Aspirin resumed a -No complaint of angina, no chest pain no shortness of breath no dyspnea on exertion -Digoxin Pressor discontinued secondary toxicity hypotension with symptomatic weakness in the left lower extremity Orthostatic Hypotension Orthostatic vitals show: BP lying 153/61 Sitting 125/68 Standing : 144/54 Orthostatic/postural drop of blood pressure noted more than 30 mmHg -Has advanced underlying diabetic neuropathy Possible causing weakness paresthesia on left extremities (patient had stenosis of left vertebral artery) Order to DC Lasix, metoprolol Allow permissive hypertension: Goal SBP between [id number] Started on midodrine 5 mg 3 times daily,/dose increased to 10 mg 3 times daily, improvement of BP noted with less orthostatic change Continue to monitor (8) Recurrent falls: -Time of left lower extremity weakness has improved after postural hypotension is resolved, addition of midodrine pt has been having intermittent weakness /jerky movement of left lower ext which extends to his left arm describes as complete numbness and weakness leading to fall recent admission to [facility] on 01/19/19 with complaint of episode of confusion and left leg weakness that occurred this morning lasting 5 to 10 minutes. Reports has had several episodes of the same over the last couple of months and symptoms lasted for a few minutes and resolve. few months back pt fell due to left sided weakness and hit his back of the head , did not lose consciousness Reports patient with frequent falls over the past year -symptoms has been progressively getting worse . Reports having some neck and lower back pain and rt knee pain intermittently. pt had detail neuro imaging done on 12/2018 admission for possible stroke like symptom , including Neurology eval --CT HEAD:No acute intracranial abnormality. Age-related atrophy and chronic small vessel change. --CTA HEAD:Moderate atherosclerotic narrowing of the cavernous components of the internal carotid arteries bilaterally. This is estimated at 30-40% bilaterally. 50% stenosis of the supraclinoid aspects of the internal carotid arteries bilaterally. No evidence for critical stenosis. Significant stenotic change of the distal vertebral arteries is again noted bilaterally. --NECK CTA: 40% stenosis origin right external carotid artery. RLQ. Scattered plaque formation of the carotid systems bilaterally with no additional stenosis. 75% stenosis superior aspect left vertebral artery with a 50% stenosis of the right vertebral artery. This is seen approximately the level of C1. MRI could not be done due to presence of Debirillator device --EEG:Normal during wakefulness without a focal generalized encephalopathy or potentially epileptogenic activity --ECHO: Mild global hypokinesis of left ventricle, EF 50%, no thrombus, pulmonary hypertension, no evidence of ASD. 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 fib on Coumadin, history of coronary artery disease, peripheral vascular disease high risk for embolic CVA No vascular surgery coverage until March 26 2019 [facility] Initial plan was to consider transfer to [facility] for possible neuro surgery procedure for left intravertebral artery stent, Discussed with on-call neurology Dr. Gaitan -given the fact patient does not present with acute stroke, recommend optimizing medical management, continue with aspirin, statin, Coumadin should be resumed when risk of bleeding is acceptable Do not believe patient needs an urgent left vertebral artery stent placement Patient should be seen neurology in the clinic for further evaluation (9) Chronic combined systolic and diastolic CHF (congestive heart failure): stable vol status CODE STATUS : FULL CODE DISPOSITION: PT/OT eval requested Patient will need to skilled rehab, referral made to [facility] update given to pt;s family , pts family requested to discuss /update pt's DIL -Physician in [facility] Dr Jovita Sarah # [phone] given update Subjective Is much better today, minimum pain and discomfort on left lower extremity, Blood pressure remains stable with minimum drops while changing position sitting to standing Able to walk on the hallway with walker, Right lower extremity pain has significantly improved No fever or chills, no cough no shortness of breath no dyspnea Review of Systems Review of Systems: All systems reviewed & are unremarkable except as noted in HPI & below Physical Exam Constitutional: WD/WN, vitals as above no acute distress Eyes: PERRL, conjunctivae normal, anicteric sclerae ENMT: external ear and nose normal, oropharynx normal Neck: trachea midline, no thyromegaly Respiratory: normal respiratory effort, lungs clear to auscultation Cardiovascular: RRR, no murmur, no edema Gastrointestinal (Abdomen): normal bowel sounds, soft, nontender, no hepatosplenomegaly Musculoskeletal: no cyanosis or clubbing, extremities motor strength 5/5 Neurologic: PERRL, EOMI, accommodation nl, no face palsy, no dysarthria Psychiatric: A+Ox3, euthymic affect Results & Data Vital Signs (Past 12 Hours) Vital Signs Temp Pulse Pulse Resp BP Pulse Ox 03/22/19 11:22 36.3 C L 59 L 16 168/83 H 98 03/22/19 08:00 64 03/22/19 07:15 36.4 C L 16 L 16 166/93 H 96 (1) Hematoma of right lower extremity Encounter type: initial encounter Qualified Code(s): S80.11XA - Contusion of right lower leg, initial encounter
[2019-03-22] MEDS: WARFARIN SOD 5 MG TAB PO SCH (17:12)
[2019-03-22] MEDS: DIGOXIN 0.125 MG TAB PO SCH (17:13)
[2019-03-22] MEDS: CARBOHYDRATES FOR HYPOGLYCEMIA PO PRN (20:10)
[2019-03-22] MEDS: ALPRAZolam 0.5 MG TABLET PO SCH (20:56)
[2019-03-22] MEDS ORDERED: INSULIN GLARGINE SOLOSTAR 100 UNITS/ML 3 ML PEN SQ SCH (21:00)
[2019-03-22] MEDS: [UNRECOGNIZED DRUG - REMARK] SCH (23:50)
[2019-03-23] MEDS: LEVOTHYROXINE SODIUM 50 MCG TABLET PO SCH (06:05)
[2019-03-23 07:45] LABS: Hematocrit (blood only) 28.1 % (42-52)
[2019-03-23 07:50] LABS: INR 1.3 (0.9-1.1); Prothrombin Time 12.8 Seconds (9.0-12.0)
[2019-03-23] MEDS: INSULIN ASPART 100 UNITS/ML 3 ML PEN SC SCH ×4 (08:15→21:00)
[2019-03-23] MEDS: ATORVASTATIN 10 MG TAB PO SCH (08:16)
[2019-03-23] MEDS: MIDODRINE HCL 10 MG TAB PO SCH ×3 (08:16→17:31)
[2019-03-23] MEDS: ASPIRIN 81 MG ECTAB PO SCH (08:16)
[2019-03-23] MEDS: CEROVITE ADV FORMULA TAB PO SCH ×2 (08:16→20:28)
[2019-03-23] MEDS: CHOLECALCIFEROL 1,000 UNITS TAB PO SCH ×2 (08:16→20:27)
[2019-03-23] MEDS: [UNRECOGNIZED DRUG - REMARK] SCH ×2 (08:33→15:41)
[2019-03-23] MEDS: CYANOCOBALAMIN 500 MCG TABLET (VITAMIN B-12) PO SCH (12:02)
[2019-03-23] MEDS: ASCORBIC ACID 500 MG TAB PO SCH (12:03)
[2019-03-23] MEDS ORDERED: INSULIN GLARGINE SOLOSTAR 100 UNITS/ML 3 ML PEN SQ SCH ×2 (12:30→21:00)
--- NOTE | 2019-03-23 15:05 | Hospitalist Progress Note ---
Date of Service March 23, 2019 Assessment & Plan (1) Orthostatic hypotension: Patient continues to have orthostatic hypotension, Orthostatic vitals noted: Lying 145/69, sitting one 110/58, standing 93/52 Not had any symptom of dizzy spell or left-sided weakness while standing Started on midodrine 10 mg p.o. 3 times daily, We will increase midodrine to 25 mg p.o. 3 times daily, continue to monitor (2) Hematoma of right lower extremity: RLE Large Intramuscular hematoma secondary to fall US of RLE obtained, shows 20 cm intramuscular hematoma - ortho consulted, no surg. intervention at this time, Improvement of pain, and ecchymosis on the right lower thigh noted -Coumadin resumed -high risk for stroke due to history of paroxysmal A. fib Monitor H&H reports of improvement of pain swelling and discomfort on right lower extremity Able to bear weight (3) Supratherapeutic INR: INR elevated at 4.7, received PO vit.K and then IV vit. K by admitting night physician - symptomatically patient's pain and discomfort on the right leg improved, Coumadin resumed 5 milligrams daily, INR 1.3, continue to monitor no IV heparin bridge secondary to presence of large hematoma , goal INR 23 (4) Chronic atrial fibrillation: - on lopressor and digoxin - resumed Coumadin, given risk of acute CVA without anticoagulation - follows with Dr. Shah (5) Acute on chronic anemia: Hx of anemia of chronic disease, hx of CKD stage III - now exacerbated d/t hematoma Acute blood loss anemia Due to large right lower extremity hematoma, hb stable at 9.1 continue to monitor (6) Type 1 diabetes mellitus with complications: Hgb A1c 7.5% - follows w/ endocrine clinic, last visit per EMR, in 01/2019 -Hypoglycemic episode noted overnight, Lantus dose reduced Pharmacy consulted for glycemic management (7) Hypothyroidism: - cont. home levothyroxine - TSH slightly elevated, T4 wnl, will need to follow up as outpt CODE STATUS: FULL (8) Coronary artery disease: s/p stent in LAD in 2004 -Aspirin resumed a -No complaint of angina, no chest pain no shortness of breath no dyspnea on exertion -On digoxin digoxin Lopressor discontinued as patient was having orthostatic hypotension leading to weakness paresthesia on left lower extremity (9) Recurrent falls: Possible secondary to orthostatic hypotension? pt has been having intermittent weakness /jerky movement of left lower ext which extends to his left arm describes as complete numbness and weakness leading to fall recent admission to [facility] on 01/19/19 with complaint of episode of confusion and left leg weakness that occurred this morning lasting 5 to 10 minutes. Reports has had several episodes of the same over the last couple of months and symptoms lasted for a few minutes and resolve. few months back pt fell due to left sided weakness and hit his back of the head , did not lose consciousness Reports patient with frequent falls over the past year -symptoms has been progressively getting worse . Reports having some neck and lower back pain and rt knee pain intermittently. pt had detail neuro imaging done on 12/2018 admission for possible stroke like symptom , including Neurology eval --CT HEAD:No acute intracranial abnormality. Age-related atrophy and chronic small vessel change. --CTA HEAD:Moderate atherosclerotic narrowing of the cavernous components of the internal carotid arteries bilaterally. This is estimated at 30-40% bilaterally. 50% stenosis of the supraclinoid aspects of the internal carotid arteries bilaterally. No evidence for critical stenosis. Significant stenotic change of the distal vertebral arteries is again noted bilaterally. --NECK CTA: 40% stenosis origin right external carotid artery. RLQ. Scattered plaque formation of the carotid systems bilaterally with no additional stenosis. 75% stenosis superior aspect left vertebral artery with a 50% stenosis of the right vertebral artery. This is seen approximately the level of C1. MRI could not be done due to presence of Debirillator device --EEG:Normal during wakefulness without a focal generalized encephalopathy or potentially epileptogenic activity --ECHO: Mild global hypokinesis of left ventricle, EF 50%, no thrombus, pulmonary hypertension, no evidence of ASD. 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 fib on Coumadin, history of coronary artery disease, peripheral vascular disease high risk for embolic CVA No vascular surgery coverage until March 26 2019 [facility] Initial plan was to consider transfer to [facility] for possible neuro surgery procedure for left intravertebral artery stent, Discussed with on-call neurology Dr. Gaitan -given the fact patient does not present with acute stroke, recommend optimizing medical management, continue with aspirin, statin, Coumadin should be resumed when risk of bleeding is acceptable Do not believe patient needs an urgent left vertebral artery stent placement Patient should be seen neurology in the clinic for further evaluation (10) Chronic combined systolic and diastolic CHF (congestive heart failure): stable vol status Lasix discontinued secondary to postural hypotension On discharge, will be instructed to take Lasix as needed for lower extremity swelling CODE STATUS : FULL CODE DISPOSITION: PT/OT eval requested Patient will need to skilled rehab, referral made to [facility] Plan to discharge to skilled rehab tomorrow update given to pt;s family , pts family requested to discuss /update pt's DIL -Physician in [facility] Dr Jovita Sarah # [phone] given update Physical Exam Constitutional: WD/WN, vitals as above no acute distress Eyes: PERRL, conjunctivae normal, anicteric sclerae ENMT: external ear and nose normal, oropharynx normal Neck: trachea midline, no thyromegaly Respiratory: normal respiratory effort, lungs clear to auscultation Cardiovascular: RRR, no murmur, no edema Gastrointestinal (Abdomen): normal bowel sounds, soft, nontender, no hepatosplenomegaly Musculoskeletal: no cyanosis or clubbing, extremities motor strength 5/5 Extremities: + lower leg abnormality (Diffuse ecchymosis on right lower extremity) Neurologic: PERRL, EOMI, accommodation nl, no face palsy, no dysarthria Psychiatric: A+Ox3, euthymic affect Results & Data Vital Signs (Past 12 Hours) Vital Signs Temp Pulse Resp BP Pulse Ox 03/23/19 07:13 36.6 C 72 18 177/77 H 94 (1) Hematoma of right lower extremity Encounter type: initial encounter Qualified Code(s): S80.11XA - Contusion of right lower leg, initial encounter
--- NOTE | 2019-03-23 15:30 | Pharmacy Report ---
Pharmacy Glycemic Short Note 2 - Date of Service March 23, 2019 - Glycemic Short BSG Results (Last 24 hours): 03/22/19 03/22/19 03/22/19 16:44 20:09 20:10 POC Glucose 183 H 56 L* 57 L* 03/22/19 03/22/19 03/23/19 20:32 20:58 07:32 POC Glucose 62 L* 80 140 H 03/23/19 11:28 POC Glucose 243 H OUTPATIENT ANTIDIABETIC REGIMEN: * Lantus 8-10 units HS plus Novolog 6-12 units QID PRN (32-58 units/day) * A1c = 7.5% (03/17/19) ASSESSMENT: * See progress note from 03/18/19 for more background info, in short: * Pt receiving SQ basal bolus insulin regimen for hyperglycemia secondary to baseline DM (outpatient regimen on hold). * Patient is currently receiving an average of 25 units of insulin per day * 5 units of basal insulin (PM basal insulin held due to BSG of 56 mg/dL) * 20 units of prandial/correctional insulin * BSGs ranging 56-201 mg/dl over the past 24hrs * Changes needed to insulin regimen: * AM Fasting BSG = 140 mg/dl. Will resume Lantus dose of 8 units daily. * Lunch BSG is consistently high. Bedtime BSG is consistently low. I suspect episode of hypoglycemia last evening was due to Novolog dose given with dinner (too much correction). I will order a tighter correction factor and carb ratio to be given with breakfast and lunch in an attempt to avoid larger doses of bolus insulin be given later in the day. PLAN FOR INPATIENT GLYCEMIC CONTROL: * Basal insulin * Lantus 8 units SQ qPM * Bolus insulin * NovoLog per scale ACHS or Q6hrs while NPO * Goal Range: Low 110 mg/dL - High 140 mg/dL Breakfast/lunch: * Correction Factor: 25 mg/dL/unit * Nutritional / Prandial insulin per carb ratio of 1 unit per 9 grams CHO consumed Dinner/bedtime: * Correction Factor: 30 mg/dL/unit * Nutritional / Prandial insulin per carb ratio of 1 unit per 12 grams CHO consumed RECOMMENDATIONS FOR DISCHARGE: * Patient's HbA1C is reasonably controlled for his age and co-morbidities. May also not be entirely accurate due to anemia of chronic disease. Recommend following blood sugars as an outpatient and adjusting appropriately. PLAN FOR INPATIENT GLYCEMIC CONTROL: * Decreasing Lantus to 9 units SQ HS * Continuing correction factor of 25 mg/dl/unit * Changing carb ratio to 1 unit per 9 grams CHO consumed * Continuing goal range of Low 110 mg/dL - High 140 mg/dL
[2019-03-23] MEDS: WARFARIN SOD 5 MG TAB PO SCH (15:41)
[2019-03-23] MEDS: DIGOXIN 0.125 MG TAB PO SCH (15:41)
[2019-03-23] MEDS: ALPRAZolam 0.5 MG TABLET PO SCH (20:33)
[2019-03-24] MEDS: [UNRECOGNIZED DRUG - REMARK] SCH ×2 (01:07→08:40)
[2019-03-24] MEDS: LEVOTHYROXINE SODIUM 50 MCG TABLET PO SCH (05:50)
[2019-03-24 06:00] LABS: Hematocrit (blood only) 28.3 % (42-52); Hemoglobin 8.9 g/dL (14.0-18.0)
[2019-03-24 06:22] LABS: INR 1.3 (0.9-1.1); Prothrombin Time 13.5 Seconds (9.0-12.0)
[2019-03-24] MEDS: INSULIN ASPART 100 UNITS/ML 3 ML PEN SC SCH ×4 (08:39→21:42)
[2019-03-24] MEDS: ASPIRIN 81 MG ECTAB PO SCH (08:41)
[2019-03-24] MEDS: CEROVITE ADV FORMULA TAB PO SCH ×2 (08:41→21:09)
[2019-03-24] MEDS: ATORVASTATIN 10 MG TAB PO SCH (08:41)
[2019-03-24] MEDS: CHOLECALCIFEROL 1,000 UNITS TAB PO SCH ×2 (08:42→21:08)
[2019-03-24] MEDS: MIDODRINE HCL 10 MG TAB PO SCH ×3 (11:01→17:31)
[2019-03-24] MEDS: ASCORBIC ACID 500 MG TAB PO SCH (11:32)
[2019-03-24] MEDS: CYANOCOBALAMIN 500 MCG TABLET (VITAMIN B-12) PO SCH (11:32)
--- NOTE | 2019-03-24 14:31 | Pharmacy Report ---
Pharmacy Glycemic Short Note 2 - Date of Service March 24, 2019 - Glycemic Short BSG Results (Last 24 hours): 03/23/19 03/23/19 03/24/19 16:25 20:00 07:37 POC Glucose 189 H 77 164 H 03/24/19 11:30 POC Glucose 246 H OUTPATIENT ANTIDIABETIC REGIMEN: * Lantus 8-10 units HS plus Novolog 6-12 units QID PRN (32-58 units/day) * A1c = 7.5% (03/17/19) ASSESSMENT: 03/24 * Patient with T1DM currently receiving an average of 30 units of insulin per day * 8 units of basal insulin * 22 units of prandial/correctional insulin * BSGs ranging 77-246 over the past 24hrs * Risk factors for insulin resistance are constant over the past 24hrs * Anticipating insulin regimen will need increased for the next 24hrs d/t : * AM Fasting BSG = 164 therefore Basal insulin needs increased * Pre-lunch BSG remains elevated; therefore will tighten CR further 03/23 * See progress note from 03/18/19 for more background info, in short: * Pt receiving SQ basal bolus insulin regimen for hyperglycemia secondary to baseline DM (outpatient regimen on hold). * Patient is currently receiving an average of 25 units of insulin per day * 5 units of basal insulin (PM basal insulin held due to BSG of 56 mg/dL) * 20 units of prandial/correctional insulin * BSGs ranging 56-201 mg/dl over the past 24hrs * Changes needed to insulin regimen: * AM Fasting BSG = 140 mg/dl. Will resume Lantus dose of 8 units daily. * Lunch BSG is consistently high. Bedtime BSG is consistently low. I suspect episode of hypoglycemia last evening was due to Novolog dose given with dinner (too much correction). I will order a tighter correction factor and carb ratio to be given with breakfast and lunch in an attempt to avoid larger doses of bolus insulin be given later in the day. PLAN FOR INPATIENT GLYCEMIC CONTROL: * Basal insulin - increase * Lantus 10 units SQ qPM (start with dinner today as we're working our way back to HS administration) * Bolus insulin * NovoLog per scale ACHS or Q6hrs while NPO * Goal Range: Low 110 mg/dL - High 140 mg/dL Breakfast/lunch: * Correction Factor: 25 mg/dL/unit * Nutritional / Prandial insulin per carb ratio of 1 unit per 8 grams CHO consumed Dinner/bedtime: * Correction Factor: 30 mg/dL/unit * Nutritional / Prandial insulin per carb ratio of 1 unit per 12 grams CHO consumed RECOMMENDATIONS FOR DISCHARGE: * Patient's HbA1C is reasonably controlled for his age and co-morbidities. May also not be entirely accurate due to anemia of chronic disease. Recommend following blood sugars as an outpatient and adjusting appropriately.
[2019-03-24] MEDS ORDERED: WARFARIN SOD 7.5 MG TAB PO SCH (16:00)
[2019-03-24] MEDS ORDERED: INSULIN GLARGINE SOLOSTAR 100 UNITS/ML 3 ML PEN SQ SCH (16:30)
[2019-03-24] MEDS: DIGOXIN 0.125 MG TAB PO SCH (17:34)
--- NOTE | 2019-03-24 18:24 | Hospitalist Progress Note ---
Date of Service March 24, 2019 Assessment & Plan (1) Orthostatic hypotension: No specific etiology was identified, patient does not appear to be dehydrated, volume status stable Possible secondary to severe diabetic neuropathy? Continue on midodrine 10 mg p.o. 3 times daily, Monitor orthostatic vitals, patient reports of improvement of left lower extremity weakness, as blood pressure remains stable now (2) Hematoma of right lower extremity: RLE Large Intramuscular hematoma secondary to fall US of RLE obtained, shows 20 cm intramuscular hematoma - ortho consulted, no surg. intervention at this time, Improvement of pain, and ecchymosis on the right lower thigh noted -Coumadin resumed -high risk for stroke due to history of paroxysmal A. fib Monitor H&H reports of improvement of pain swelling and discomfort on right lower extremity Able to bear weight (3) Supratherapeutic INR: INR elevated at 4.7, received PO vit.K and then IV vit. K by admitting night physician - symptomatically patient's pain and discomfort on the right leg improved, Coumadin resumed 5 milligrams daily, INR 1.3, continue to monitor no IV heparin bridge secondary to presence of large hematoma Medium dose increased to 7.5 mg daily, as INR remained subtherapeutic for the past several days Repeat INR in a.m. goal INR 23 (4) Chronic atrial fibrillation: - on lopressor and digoxin - resumed Coumadin, given risk of acute CVA without anticoagulation - follows with Dr. 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 home levothyroxine - TSH slightly elevated, T4 wnl, will need to follow up as outpt CODE STATUS: FULL (8) Coronary artery disease: s/p stent in LAD in 2004 -Aspirin resumed a -No complaint of angina, no chest pain no shortness of breath no dyspnea on exertion -On digoxin digoxin Lopressor discontinued as patient was having orthostatic hypotension leading to weakness paresthesia on left lower extremity (9) Recurrent falls: Possible secondary to orthostatic hypotension? Symptom has markedly improved after starting of midodrine 10 mg 3 times daily pt has been having intermittent weakness /jerky movement of left lower ext which extends to his left arm describes as complete numbness and weakness leading to fall recent admission to [facility] on 01/19/19 with complaint of episode of confusion and left leg weakness that occurred this morning lasting 5 to 10 minutes. Reports has had several episodes of the same over the last couple of months and symptoms lasted for a few minutes and resolve. few months back pt fell due to left sided weakness and hit his back of the head , did not lose consciousness Reports patient with frequent falls over the past year -symptoms has been progressively getting worse . Reports having some neck and lower back pain and rt knee pain intermittently. pt had detail neuro imaging done on 12/2018 admission for possible stroke like symptom , including Neurology eval --CT HEAD:No acute intracranial abnormality. Age-related atrophy and chronic small vessel change. --CTA HEAD:Moderate atherosclerotic narrowing of the cavernous components of the internal carotid arteries bilaterally. This is estimated at 30-40% bilaterally. 50% stenosis of the supraclinoid aspects of the internal carotid arteries bilaterally. No evidence for critical stenosis. Significant stenotic change of the distal vertebral arteries is again noted bilaterally. --NECK CTA: 40% stenosis origin right external carotid artery. RLQ. Scattered plaque formation of the carotid systems bilaterally with no additional stenosis. 75% stenosis superior aspect left vertebral artery with a 50% stenosis of the right vertebral artery. This is seen approximately the level of C1. MRI could not be done due to presence of Debirillator device --EEG:Normal during wakefulness without a focal generalized encephalopathy or potentially epileptogenic activity --ECHO: Mild global hypokinesis of left ventricle, EF 50%, no thrombus, pulmonary hypertension, no evidence of ASD. 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 fib on Coumadin, history of coronary artery disease, peripheral vascular disease high risk for embolic CVA No vascular surgery coverage until March 26 2019 [facility] Initial plan was to consider transfer to [facility] for possible neuro surgery procedure for left intravertebral artery stent, Discussed with on-call neurology Dr. Gaitan -given the fact patient does not present with acute stroke, recommend optimizing medical management, continue with aspirin, statin, Coumadin should be resumed when risk of bleeding is acceptable Do not believe patient needs an urgent left vertebral artery stent placement Patient should be seen neurology in the clinic for further evaluation (10) Chronic combined systolic and diastolic CHF (congestive heart failure): stable vol status Lasix discontinued secondary to postural hypotension On discharge, will be instructed to take Lasix as needed for lower extremity swelling CODE STATUS : FULL CODE DISPOSITION: PT/OT eval requested Patient will need to skilled rehab, referral made to [facility]-no bed available today Referral made to other facilities Subjective No complaint of dizzy spell, no lightheadedness, weakness or paresthesia Right lower extremity pain discomfort has completely resolved No fever or chills Wants to return home today, Discussed with family members, patient still has significant deconditioning high fall risk, family member interested for short-term skilled rehab, No bed available at [facility] today, referral made to other facilities Review of Systems Constitutional: + weakness (jahaira. in lower extremities); no fever and no chills Musculoskeletal: + joint pain (Left knee) and + muscle weakness (Left lower ex tremity) Physical Exam Constitutional: WD/WN, vitals as above no acute distress Eyes: PERRL, conjunctivae normal, anicteric sclerae ENMT: external ear and nose normal, oropharynx normal Neck: trachea midline, no thyromegaly Respiratory: normal respiratory effort, lungs clear to auscultation Cardiovascular: RRR, no murmur, no edema Gastrointestinal (Abdomen): normal bowel sounds, soft, nontender, no hepatosplenomegaly Musculoskeletal: no cyanosis or clubbing, extremities motor strength 5/5 Neurologic: PERRL, EOMI, accommodation nl, no face palsy, no dysarthria Psychiatric: A+Ox3, euthymic affect Results & Data Vital Signs (Past 12 Hours) Vital Signs Temp Pulse Pulse Resp BP BP Pulse Ox 03/24/19 17:34 72 12/30/19 15:33 36.5 C 60 18 169/75 H 97 03/24/19 07:15 36.5 C 77 18 167/77 H 98 (1) Hematoma of right lower extremity Encounter type: initial encounter Qualified Code(s): S80.11XA - Contusion of right lower leg, initial encounter
[2019-03-24] MEDS: ALPRAZolam 0.5 MG TABLET PO SCH (21:08)
[2019-03-25] MEDS: LEVOTHYROXINE SODIUM 50 MCG TABLET PO SCH (06:27)
[2019-03-25] MEDS: INSULIN ASPART 100 UNITS/ML 3 ML PEN SC SCH ×2 (07:59→12:34)
[2019-03-25] MEDS: CEROVITE ADV FORMULA TAB PO SCH (08:00)
[2019-03-25] MEDS: MIDODRINE HCL 10 MG TAB PO SCH ×2 (08:00→12:35)
[2019-03-25] MEDS: ATORVASTATIN 10 MG TAB PO SCH (08:00)
[2019-03-25] MEDS: CHOLECALCIFEROL 1,000 UNITS TAB PO SCH (08:00)
[2019-03-25] MEDS: ASPIRIN 81 MG ECTAB PO SCH (08:00)
--- NOTE | 2019-03-25 08:51 | Pharmacy Report ---
Pharmacy Glycemic Short Note 2 - Date of Service March 25, 2019 - Glycemic Short BSG Results (Last 24 hours): 03/24/19 03/24/19 03/24/19 11:30 16:33 20:38 POC Glucose 246 H 165 H 131 H 03/25/19 07:50 POC Glucose 181 H OUTPATIENT ANTIDIABETIC REGIMEN: * Lantus 8-10 units HS plus Novolog 6-12 units QID PRN (32-58 units/day) * A1c = 7.5% (03/17/19) ASSESSMENT: 03/25 * Patient received 31 units of insulin yesterday (10 of which were basal) * BSGs ranging 131-246 mg/dL * Breakfast/lunch CR tightened to 8 yesterday - will continue * Lantus increased from 8 to 10 yesterday - will further increase today 03/23 * See progress note from 03/18/19 for more background info, in short: * Pt receiving SQ basal bolus insulin regimen for hyperglycemia secondary to baseline DM (outpatient regimen on hold). * Patient is currently receiving an average of 25 units of insulin per day * 5 units of basal insulin (PM basal insulin held due to BSG of 56 mg/dL) * 20 units of prandial/correctional insulin * BSGs ranging 56-201 mg/dl over the past 24hrs * Changes needed to insulin regimen: * AM Fasting BSG = 140 mg/dl. Will resume Lantus dose of 8 units daily. * Lunch BSG is consistently high. Bedtime BSG is consistently low. I suspect episode of hypoglycemia last evening was due to Novolog dose given with dinner (too much correction). I will order a tighter correction factor and carb ratio to be given with breakfast and lunch in an attempt to avoid larger doses of bolus insulin be given later in the day. PLAN FOR INPATIENT GLYCEMIC CONTROL: * Basal insulin - increase * 12 units of Lantus HS * Bolus insulin - continue * NovoLog per scale ACHS or Q6hrs while NPO * Goal Range: Low 110 mg/dL - High 140 mg/dL Breakfast/lunch: * Correction Factor: 25 mg/dL/unit * Nutritional / Prandial insulin per carb ratio of 1 unit per 8 grams CHO consumed Dinner/bedtime: * Correction Factor: 30 mg/dL/unit * Nutritional / Prandial insulin per carb ratio of 1 unit per 12 grams CHO consumed RECOMMENDATIONS FOR DISCHARGE: * Patient's HbA1C is reasonably controlled for his age and co-morbidities. May also not be entirely accurate due to anemia of chronic disease. Recommend following blood sugars as an outpatient and adjusting appropriately.
[2019-03-25] MEDS: CYANOCOBALAMIN 500 MCG TABLET (VITAMIN B-12) PO SCH (12:34)
[2019-03-25] MEDS: ASCORBIC ACID 500 MG TAB PO SCH (12:34)
--- NOTE | 2019-03-25 15:20 | Discharge Summary ---
Date of Service March 25, 2019 Admission HPI Per Admitting Provider DICTATED BY: Jerzy Morocho MD DATE OF ADMISSION: 03/16/2019 CHIEF COMPLAINT: Status post fall, anemia. HISTORY OF PRESENT ILLNESS: This is 88-year-old male with past medical history significant for type 2 diabetes, peripheral vascular disease, chronic kidney disease stage III, hypothyroidism, ischemic heart disease, chronic atrial fibrillation, chronic systolic heart failure, hypertension, BPH, anemia of chronic kidney disease, status post defibrillator, history of TIA, history of frequent falls, history of insomnia, who lives with his , walks with a walker. Comes in because of fall. The patient says now and then he is falling at home because his legs give away. Today he was walking with a walker and his legs gave away and he fell down, slightly hit his head, but not much impact on the head, but he has soreness in his right knee and thigh region. Whenever he falls, he could not get up. This is an ongoing issue. He says his legs are getting weak and they give up and he falls. He is on Coumadin for his atrial fibrillation. The patient denies any loss of consciousness. No headache, no blurred visions. He has some earache in the ear where he puts his hearing aids. No runny nose, no sore throat, no difficulty swallowing. Appetite is okay. No chest pain, no shortness of breath, no cough, no fever, no chills, no nausea, no abdominal pain. Normal bowel and bladder movements. No blood in the stools, black stools. No hematuria. No swelling or rash. Currently resting comfortable and hemodynamically stable. Principal Diagnosis FALL , RIGHT UPPER THIGH HEMATOMA , ORTHOSTATIC HYPOTENSION Discharge Exam Constitutional WD/WN, vitals as above no acute distress Eyes PERRL, conjunctivae normal, anicteric sclerae ENMT external ear and nose normal, oropharynx normal Neck trachea midline, no thyromegaly Respiratory normal respiratory effort, lungs clear to auscultation Cardiovascular RRR, no murmur, no edema Gastrointestinal (Abdomen) normal bowel sounds, soft, nontender, no hepatosplenomegaly Musculoskeletal no cyanosis or clubbing, extremities motor strength 5/5 Extremities: + lower leg abnormality (Diffuse ecchymosis on right lower extremity) Neurologic PERRL, EOMI, accommodation nl, no face palsy, no dysarthria Psychiatric A+Ox3, euthymic affect Discharge Data Allergies Allergy/AdvReac Type Severity Reaction Status Date / Time banana Allergy Unknown ` Verified 03/16/19 17:51 itraconazole AdvReac Intermediate UNKNOWN Unverified 03/16/19 17:51 Consultations 03/16/19 18:46 ED Decision to Admit Stat 03/16/19 21:28 Consult Case Management - Discharge Planning Routine 03/17/19 10:49 Consult Orthopedic Surgery Routine 03/19/19 14:03 Consult Neurology Routine Ordered Studies 03/16/19 17:01 CT head/brain wo con Stat 03/17/19 21:28 US extremity nonvascular Routine 03/20/19 07:40 US arterial duplex LE BI Routine 03/20/19 10:07 CT angio neck with con Routine 03/20/19 10:10 CT angio head wo/w Routine Hospital Course (1) Orthostatic hypotension: No specific etiology was identified, patient does not appear to be dehydrated, volume status stable Possible secondary to severe diabetic neuropathy? Continue on midodrine 10 mg p.o. 3 times daily, Monitor orthostatic vitals, patient reports of improvement of left lower extr emity weakness, as blood pressure remains stable now pt will be discharged to rehab today will cont with Midorine 10 mg TID (2) Hematoma of right lower extremity: RLE Large Intramuscular hematoma secondary to fall US of RLE obtained, shows 20 cm intramuscular hematoma - ortho consulted, no surg. intervention at this time, Improvement of pain, and ecchymosis on the right lower thigh noted -Coumadin resumed -high risk for stroke due to history of paroxysmal A. fib Monitor H&H reports of improvement of pain swelling and discomfort on right lower extremity Able to bear weight stable to tx to rehab (3) Supratherapeutic INR: INR elevated at 4.7, received PO vit.K and then IV vit. K by admitting night physician - symptomatically patient's pain and discomfort on the right leg improved, Coumadin resumed 5 milligrams daily, INR 1.3, continue to monitor no IV heparin bridge secondary to presence of large hematoma Medium dose increased to 7.5 mg daily, as INR remained subtherapeutic for the past several days Repeat INR in a.m. goal INR 23 pt is discharged to rehab with Coumadin 5 mg daily repeat PT/INR in 2 days (4) Chronic atrial fibrillation: - on lopressor and digoxin - resumed Coumadin, given risk of acute CVA without anticoagulation - follows with Dr. 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 home levothyroxine - TSH slightly elevated, T4 wnl, will need to follow up as outpt CODE STATUS: FULL (8) Coronary artery disease: s/p stent in LAD in 2004 -Aspirin resumed a -No complaint of angina, no chest pain no shortness of breath no dyspnea on exertion -On digoxin digoxin Lopressor discontinued as patient was having orthostatic hypotension leading to weakness paresthesia on left lower extremity (9) Recurrent falls: Possible secondary to orthostatic hypotension? Symptom has markedly improved after starting of midodrine 10 mg 3 times daily pt has been having intermittent weakness /jerky movement of left lower ext which extends to his left arm describes as complete numbness and weakness leading to fall recent admission to [facility] on 01/19/19 with complaint of episode of confusion and left leg weakness that occurred this morning lasting 5 to 10 minutes. Reports has had several episodes of the same over the last couple of months and symptoms lasted for a few minutes and resolve. few months back pt fell due to left sided weakness and hit his back of the head , did not lose consciousness Reports patient with frequent falls over the past year -symptoms has been progressively getting worse . Reports having some neck and lower back pain and rt knee pain intermittently. pt had detail neuro imaging done on 12/2018 admission for possible stroke like symptom , including Neurology eval --CT HEAD:No acute intracranial abnormality. Age-related atrophy and chronic small vessel change. --CTA HEAD:Moderate atherosclerotic narrowing of the cavernous components of the internal carotid arteries bilaterally. This is estimated at 30-40% bilaterally. 50% stenosis of the supraclinoid aspects of the internal carotid arteries bilaterally. No evidence for critical stenosis. Significant stenotic change of the distal vertebral arteries is again noted bilaterally. --NECK CTA: 40% stenosis origin right external carotid artery. RLQ. Scattered plaque formation of the carotid systems bilaterally with no additional stenosis. 75% stenosis superior aspect left vertebral artery with a 50% stenosis of the right vertebral artery. This is seen approximately the level of C1. MRI could not be done due to presence of Debirillator device --EEG:Normal during wakefulness without a focal generalized encephalopathy or potentially epileptogenic activity --ECHO: Mild global hypokinesis of left ventricle, EF 50%, no thrombus, pulmonary hypertension, no evidence of ASD. 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 fib on Coumadin, history of coronary artery disease, peripheral vascular disease high risk for embolic CVA No vascular surgery coverage until March 26 2019 [facility] Initial plan was to consider transfer to [facility] for possible neuro surgery procedure for left intravertebral artery stent, Discussed with on-call neurology Dr. Gaitan -given the fact patient does not present with acute stroke, recommend optimizing medical management, continue with aspirin, statin, Coumadin should be resumed when risk of bleeding is acceptable Do not believe patient needs an urgent left vertebral artery stent placement Patient should be seen neurology in the clinic for further evaluation (10) Chronic combined systolic and diastolic CHF (congestive heart failure): stable vol status Lasix discontinued secondary to postural hypotension On discharge, will be instructed to take Lasix as needed for lower extremity swelling CODE STATUS : FULL CODE DISPOSITION: PT/OT eval requested Patient will need to skilled rehab, stable to be discharged rehab Total Time Total Time Spent Total Time Spent (In Minutes): approx 45 mins Total Time Includes: Examination of the Patient, Discharge Planning and Medication Reconciliation Discharge Plan Discharge Items Patient Disposition: Transfer Inpatient Rehab Fac Reason For Visit: FALL Discharge Diagnosis: FALL , RIGHT UPPER THIGH HEMATOMA , ORTHOSTATIC HYPOTENSION Activity: As commented below Activity Comment: CONTINUE PHYSICAL THERAPY /OCCUPATIONAL THERAPY AT REHAB Non-emergency contact: Primary Care Provider Call non-emergency contact if: you have any medication questions Follow-up/Referrals: Robert Osullivan MD [Primary Care Provider] - 03/28/19 12:45 pm Diet: Heart Healthy Addtl Attending Provider Instructions: HOSPITAL FOLLOW UP WITH FAMILY PHYSICIAN AFTER DISCHARGE FROM REHAB LAB :PT/INR IN 2 DAYS /CBC IN 2 DAYS MEDICATION CHANGES : DO NOT TAKE METOPROLOL LASIX DOSE CHANGED TO 20 MG DAILY NEEDED FOR LOWER EXTREMITY EDEMA /SWELLING NEW MEDICATION: MIDODRINE 10 MG THREE TIMES DAILY YOU MAY EXPERIENCE DIZZY SPELL AND LIGHTHEADEDNESS ON CHANGING OF POSITION , STANDING UP PLEASE TAKE TIME TO CHANGE POSITION SLOWLY FROM SITTING TO STANDING , WAIT FOR 30 SECONDS THEN SLOWLY STAND UP , RETURN TO SITTING POSITION IF YOU EXPERIENCE DIZZY SPELL AND WAIT FOR ANOTHER 30 SEC FOR BODY TO ADJUST FOLLOW UP WITH NEUROSURGERY AT [facility] : Pending Studies at Discharge: Yes Studies:: PT/INR IN 2 DAYS COMPLETE BLOOD COUNT IN 2 DAYS Stand-Alone Forms: My [employer], Smoking Cessation Skilled Items Patient informed of condition?: Yes DNR: No Discharge Level of Care: Acute rehab Communicable Disease: No Discharge Prognosis: Stable Lines: None Urinary Catheter: No Medications and DC Order Prescriptions: New midodrine 10 mg Tablet 10 mg PO TID Qty: 90 RF: 3 ferrous sulfate [iron] 325 mg (65 mg iron) tablet 325 mg PO DAILY Qty: 30 RF: 0 Continued (DME) pen needle, diabetic [BD Ultra-Fine Short Pen Needle] 31 gauge x 5/16" needle See Dose Instructions .ROUTE .MEDSUPPLY Qty: 400 RF: 3 Glucagon Emergency Kit (human) 1 mg recon soln 1 mg IM Q20M PRN (Reason: hypoglycemia) Qty: 1 RF: 3 levothyroxine 50 mcg tablet 50 mcg PO DAILY Qty: 90 RF: 3 cyanocobalamin (vitamin B-12) 1,000 mcg Tablet 1,000 mcg PO QDL RF: 0 aspirin 81 mg Tablet,Delayed Release (Dr/Ec) 81 mg PO QAM RF: 0 alprazolam 0.5 mg tablet 0.5 mg PO HS RF: 0 ascorbic acid (vitamin C) 500 mg Tablet 500 mg PO QDL RF: 0 warfarin 5 mg tablet 5 mg PO UD RF: 0 digoxin 125 mcg (0.125 mg) tablet 125 mcg PO QAM RF: 0 cholecalciferol (vitamin D3) 1,000 unit (25 mcg) Tablet 1,000 unit PO BID RF: 0 biotin 1 mg Capsule 1 mg PO QDL RF: 0 PreserVision AREDS-2 [id number] [id number] Capsule 1 tab PO BID RF: 0 atorvastatin 10 mg Tablet 10 mg PO QAM Qty: 30 RF: 0 Novolog Flexpen U-100 Insulin 100 unit/mL (3 mL) insulin pen 6 - 12 unit SQ QID PRN (Reason: blood sugar) RF: 0 Basaglar KwikPen U-100 Insulin 100 unit/mL (3 mL) insulin pen 8 - 10 units SQ HS RF: 0 Prostate Therapy Capsule 1 cap PO BID RF: 0 Changed furosemide 20 mg tablet 20 mg PO DAILY PRN (Reason: EDEMA) 30 Days Qty: 0 RF: 0 Discontinued metoprolol tartrate 25 mg tablet 12.5 mg PO BID RF: 0 ibuprofen 200 mg Tablet 200 mg PO Q6H PRN (Reason: Pain) RF: 0 Discharge Orders: Discharge Order (Routine); Ordered 03/25/19 Ordered By: Mirtha Vasques/Other Patient Handouts: ED Hypotension Orthostatic Admission Data Admit Date/Time: 03/16/19 20:36 Attending Provider: Mirtha Arellano Admit Provider: Jerzy Morocho Primary Care Provider: Robert Osullivan Other Providers: Jerzy Morocho ; Ghassan Byrne ; Pratik Mendoza ; Migue Llamas ; Alisia Morocho Thomas J ; Jany Matos ; Rudy Foster ; Rojelio Raymond ; Denny Kennedy ; Rojelio Hester ; George Aponte ; Denny White ; Oz Mitchell ; Celestine Foreman ; Dae Cisneros ; Maged Noyola ; Robin Martini ; Jany Plummer Casey R ; Sebastien Crawford ; Sandro Sellers ; Lilly Fatima ; Sandro Tamez ; Lilly Mcfarland ; Phi Preston ; [facility] Other Interventions: Discharge Summary Assessment (RN) Last Done: 03/25/19 15:06 DC Date/Time DO NOT enter until pt leaves facility: 03/25/19 15:26
[2019-03-25] MEDS ORDERED: INSULIN GLARGINE SOLOSTAR 100 UNITS/ML 3 ML PEN SQ SCH (21:00)
== END 2019-03-25 15:26 | DRG 74 ==
LOC: ED 16:44 → 2W 20:36 → SUATTDRO 20:36 → 2W 20:54

== ENCOUNTER 2019-04-13 11:35 | Inpatient (IN) ==
--- NOTE | 2019-04-13 12:19 | Emergency Department Note ---
Entered by Kelly Parekh acting as a scribe for Devante Blount DO History of Present Illness General Chief complaint: Hyperglycemia Stated complaint: HIGH SUGAR, OVER 500 READING Time Seen by Provider: 04/13/19 11:49 Source: patient History of Present Illness Provider complaint: Hyperglycemia Onset (ago): day(s) 2 Pain Consistency: + constant Relieved By: + none Exacerbated By: + none Associated symptoms: + denies other symptoms (Back or abdominal pain), + confusion, + fever/chills and + other (Dizziness, Rhinorrhea); no nausea/vomitin g The patient is a 88 year old male who presents to the Emergency Room with comp laints of constant hyperglycemia with sugars over 500 that began about 2 days ago. The patient states that his pain is not relieved nor exacerbated by anything specific. The patient's family reports the patient experiencing increased confusion and fever/chills. Additionally, the patient's family reports the patient experiencing dizziness and rhinorrhea. The patient denies any back or abdominal pain or nausea/vomiting. The patient's family notes that the patient was here on March 17 for balance and weakness problems and stayed for a few nights. Home Medications Home Medications Medication Instructions Recorded Confirmed Type BD Ultra-Fine Short Pen Needle 31 #400 ea NS 12/03/18 03/16/19 Rx gauge x 5/16" PreserVision AREDS-2 1 tab PO BID 01/19/19 04/13/19 History ascorbic acid (vitamin C) 500 mg PO QDL 01/19/19 04/13/19 History aspirin 81 mg PO QAM 01/19/19 04/13/19 History biotin 1 mg PO QDL 01/19/19 04/13/19 History cholecalciferol (vitamin D3) 1,000 unit PO BID 01/19/19 04/13/19 History cyanocobalamin (vitamin B-12) 1,000 mcg PO QDL 01/19/19 04/13/19 History digoxin 125 mcg PO QAM 01/19/19 04/13/19 History atorvastatin 10 mg PO QAM #30 tab 01/20/19 04/13/19 Rx insulin aspart U-100 100 unit/mL 0 unit SQ ACHS PRN ml 02/12/19 04/13/19 History (3 mL) subcutaneous pen insulin glargine 100 unit/mL (3 16 units SQ HS ml 02/12/19 04/13/19 History mL) subcutaneous pen ferrous sulfate [iron] 325 mg PO DAILY #30 tab 03/25/19 04/13/19 Rx furosemide 20 mg PO DAILY PRN 30 Days #0 tab 03/25/19 04/13/19 Rx midodrine 10 mg PO TID #90 tab 03/25/19 04/13/19 Rx Super Beta Prostate 0 mg PO BID 04/13/19 04/13/19 History acetaminophen 650 mg PO QID PRN 04/13/19 04/13/19 History alfuzosin 10 mg PO DAILY 04/13/19 04/13/19 History alprazolam 0.25 mg PO BID PRN 04/13/19 04/13/19 History hydroxyzine HCl 50 mg PO Q6H PRN 04/13/19 04/13/19 History insulin glargine [Lantus Solostar 0 unit SUBCUT UNKNOWN 04/13/19 04/13/19 History U-100 Insulin] levothyroxine 50 mcg PO DAILYBB 04/13/19 04/13/19 History metoprolol tartrate 12.5 mg PO BID 04/13/19 04/13/19 History warfarin 5 mg PO SUTUTHSA 04/13/19 04/13/19 History warfarin 7.5 mg PO MOWEFR 04/13/19 04/13/19 History Allergies Allergy/AdvReac Type Severity Reaction Status Date / Time banana Allergy Unknown ` Verified 04/13/19 13:52 itraconazole AdvReac Intermediate UNKNOWN Unverified 04/13/19 13:52 Past Med/Surg History Medical History Anemia, chronic disease (Chronic) Cardiac defibrillator in place (Chronic) Cardiomyopathy, ischemic (Chronic) Chronic atrial fibrillation (Chronic) Chronic combined systolic and diastolic CHF (congestive heart failure) (Chronic) CKD (chronic kidney disease), stage III (Chronic) HTN (hypertension) (Chronic) Hypothyroidism (Chronic) Meniere disease (Chronic) Recurrent falls (Chronic) TIA (transient ischemic attack) (Chronic) 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) Surgical History History of appendectomy (Chronic) History of heart artery stent (Chronic) 2004 - Hx of cataract surgery (Chronic) Family History Other Cancer Heart disease Social History Preferred Language: Chilean Communication Ability: Effective 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 and A total of 10 systems reviewed and were otherwise negative Physical Exam Vital Signs Vital Signs - 24 hr 04/13/19 11:43 04/13/19 11:59 04/13/19 12:20 Temperature 36.8 C Temperature Source Oral Pulse Rate 61 62 Pulse Rate [Apical] Pulse Rate from SpO2 Sensor Respiratory Rate 20 23 Respiratory Effort / Characteristics Non-Labored Respiratory Depth Normal Blood Pressure 110/64 136/73 Blood Pressure [Right Arm] Blood Pressure Mean 79 101 Blood Pressure Mean [Right Arm] Pulse Oximetry 89 L 92 Oxygen Delivery Method Room Air Room Air Sepsis Recent Fever Within 48 Hours No Sepsis New/Unexplained Change in Mental Status No Sepsis Action Taken by Nursing No Action Required 04/13/19 12:24 04/13/19 12:30 04/13/19 12:52 Temperature Temperature Source Pulse Rate 61 66 Pulse Rate [Apical] 62 Pulse Rate from SpO2 Sensor 63 Respiratory Rate 18 14 20 Respiratory Effort / Characteristics Respiratory Depth Blood Pressure 157/83 H 158/79 H Blood Pressure [Right Arm] 136/73 Blood Pressure Mean 130 111 Blood Pressure Mean [Right Arm] 94 Pulse Oximetry 92 96 Oxygen Delivery Method Room Air Room Air Sepsis Recent Fever Within 48 Hours Sepsis New/Unexplained Change in Mental Status Sepsis Action Taken by Nursing 04/13/19 13:00 Temperature Temperature Source Pulse Rate 60 Pulse Rate [Apical] Pulse Rate from SpO2 Sensor 60 Respiratory Rate 21 Respiratory Effort / Characteristics Respiratory Depth Blood Pressure 163/91 H Blood Pressure [Right Arm] Blood Pressure Mean 132 Blood Pressure Mean [Right Arm] Pulse Oximetry 91 Oxygen Delivery Method Sepsis Recent Fever Within 48 Hours Sepsis New/Unexplained Change in Mental Status Sepsis Action Taken by Nursing GENERAL: Patient is somewhat listless but does follow commands. He does not appear to be uncomfortable or in pain. EYES: The conjunctivae are icteric. The pupils are round and reactive. EARS, NOSE, MOUTH AND THROAT: The nose is without any evidence of any deformity. Mucous membranes are dry. NECK: The neck is nontender and supple. RESPIRATORY: There are diminished breath sounds at both bases. There were rales noted at both bases. CARDIOVASCULAR: Irregular rhythm was noted to auscultation. There was no definite murmur noted. GASTROINTESTINAL: The abdomen is soft. The abdomen is mildly tender in the right upper quadrant. There is no guarding rigidity. MUSCULOSKELETAL/EXTREMITIES: There is no evidence of gross deformity full range of motion is noted in the hips and shoulders. SKIN: Skin is warm and dry. Skin is somewhat icteric appearing. There is no significant pedal edema. NEUROLOGIC: Patient is awake alert and oriented x3. Strength was diminished but symmetric. Course Course 1159: Past medical records reviewed. The patient was evaluated in room C02B. A complete history and physical exam was performed. 1331: I spoke with Tameka Houston about the patient's case and Dr. Resendiz- Hospitalist will accept the patient for further evaluation. Administered Medications Discontinued Medications Piperacillin Sod/Tazobactam Sod (Zosyn) 4.5 gm in 120 mls @ 240 mls/hr IV NOW ONE Stop: 04/13/19 13:06 Last Infusion: 04/13/19 13:40 Dose: 0 mls/hr Documented by: [id number] Admin: 04/13/19 13:10 Dose: 240 mls/hr Documented by: [id number] Sodium Chloride (Nss 1000ml) 500 mls @ 999 mls/hr IV .Q31M ONE Stop: 04/13/19 13:53 Last Infusion: 04/13/19 13:58 Dose: 0 mls/hr Documented by: [id number] Admin: 04/13/19 13:28 Dose: 999 mls/hr Documented by: [id number] Insulin Human Regular (Novolin R U-100 Per Unit) 4 units IV NOW STA Stop: 04/13/19 13:24 Last Admin: 04/13/19 13:28 Dose: 4 units Documented by: [id number] Cosigned by: [id number] Medical Decision Making Differential Diagnosis Differential Diagnosis includes but is not limited to dehydration, stroke, a nemia, hypoglycemia, hyponatremia, hypernatremia, urinary tract infection, pneumonia, bronchitis, sepsis, gastroenteritis, additional abdominal pathology, metabolic abnormalities and infections. Medical Records Attestation: I reviewed the patient's medical records. Home Medications Current Medication List: was personally reviewed by me Laboratory Data Attestation: I reviewed the patient's lab results. Result diagrams: 04/13/19 12:22 04/13/19 12:22 Lab Results 04/13/19 04/13/19 04/13/19 Range/Units 11:45 12:16 12:22 WBC 7.75 (4.8-10.8) K/uL RBC 3.81 L (4.7-6.1) M/uL Hgb 12.1 L (14.0-18.0) g/dL Hct 36.3 L (42-52) % MCV 95.3 (80-100) fL MCH 31.8 (25-34) pg MCHC 33.3 (32-36) g/dL RDW Std Deviation 56.3 H (36.4-46.3) fL RDW Coeff of Manohar 16.2 H (11.5-14.5) % Plt Count 129 L (130-400) K/uL MPV 12.7 H (7.4-10.4) fL Immature Gran % (Auto) 0.3 % Neut % (Auto) 91.3 % Lymph % (Auto) 2.2 % [place] % (Auto) 4.9 % Eos % (Auto) 1.2 % Baso % (Auto) 0.1 % Immature Gran # (Auto) 0.02 (0.00-0.02) K/uL Neut # (Auto) 7.08 H (1.4-6.5) K/uL Lymph # (Auto) 0.17 L (1.2-3.4) K/uL [place] # (Auto) 0.38 (0.11-0.59) K/uL Eos # (Auto) 0.09 (0-0.5) K/uL Baso # (Auto) 0.01 (0-0.2) K/uL Platelet Estimate Decreased L (Normal) PT (9.0-12.0) Seconds INR (0.9-1.1) APTT (21.0-31.0) Seconds PTT Ratio VBG pH (7.36-7.41) VBG pCO2 (38-50) mmHg VBG pO2 mmHg VBG HCO3 mmol/L VBG O2 Saturation % VBG Base Excess mEq/L Barometric Pressure mm/Hg Sodium (136-145) mmol/L Potassium (3.5-5.1) mmol/L Chloride (98-107) mmol/L Carbon Dioxide (21-32) mmol/L Anion Gap (3-11) BUN (7-18) mg/dl Creatinine (0.6-1.4) mg/dl Est Cr Clr Drug Dosing Est GFR ( Amer) Est GFR (Non-Af Amer) BUN/Creatinine Ratio (10-20) Glucose (70-99) mg/dl POC Glucose 431 H* (70-99) mg/dl Lactate (0.4-2.0) mmol/L Calcium (8.5-10.1) mg/dl Magnesium (1.8-2.4) mg/dl Total Bilirubin (0.2-1) mg/dl AST (15-37) U/L ALT (12-78) U/L Alkaline Phosphatase (45-117) U/L Troponin I (0-0.045) ng/ml NT-Pro-B Natriuret Pep (0-1800) pg/ml Total Protein (6.4-8.2) gm/dl Albumin (3.4-5.0) gm/dl Globulin (2.5-4.0) gm/dl Albumin/Globulin Ratio (0.9-2) Beta-Hydroxybutyric Acd (0.2-2.81) mg/dl Urine Color Urine Appearance (Clear) Urine pH (4.5-7.5) Ur Specific Clay (1.000-1.030) Urine Protein (Negative) Urine Glucose (UA) (Negative) Urine Ketones (Negative) Urine Blood (Negative) Urine Nitrite (Negative) Urine Bilirubin (Negative) Urine Urobilinogen (Negative) Ur Leukocyte Esterase (Negative) Urine WBC (Auto) (0-5) /hpf Urine RBC (Auto) (0-4) /hpf U Hyaline Cast (Auto) (0-5) /lpf U Epithel Cells (Auto) (0-5) /lpf Urine Bacteria (Auto) (Negative) Influenza Type A (PCR) Neg for Influ A (Neg) Influenza Type B (PCR) Neg for Influ B (Neg) 04/13/19 04/13/19 04/13/19 Range/Units 12:22 12:22 12:22 WBC (4.8-10.8) K/uL RBC (4.7-6.1) M/uL Hgb (14.0-18.0) g/dL Hct (42-52) % MCV (80-100) fL MCH (25-34) pg MCHC (32-36) g/dL RDW Std Deviation (36.4-46.3) fL RDW Coeff of Manohar (11.5-14.5) % Plt Count (130-400) K/uL MPV (7.4-10.4) fL Immature Gran % (Auto) % Neut % (Auto) % Lymph % (Auto) % [place] % (Auto) % Eos % (Auto) % Baso % (Auto) % Immature Gran # (Auto) (0.00-0.02) K/uL Neut # (Auto) (1.4-6.5) K/uL Lymph # (Auto) (1.2-3.4) K/uL [place] # (Auto) (0.11-0.59) K/uL Eos # (Auto) (0-0.5) K/uL Baso # (Auto) (0-0.2) K/uL Platelet Estimate (Normal) PT 23.8 H (9.0-12.0) Seconds INR 2.5 H (0.9-1.1) APTT 53.5 H* (21.0-31.0) Seconds PTT Ratio 2.0 VBG pH (7.36-7.41) VBG pCO2 (38-50) mmHg VBG pO2 mmHg VBG HCO3 mmol/L VBG O2 Saturation % VBG Base Excess mEq/L Barometric Pressure mm/Hg Sodium 133 L (136-145) mmol/L Potassium 4.0 (3.5-5.1) mmol/L Chloride 97 L (98-107) mmol/L Carbon Dioxide 30 (21-32) mmol/L Anion Gap 6.0 (3-11) BUN 40 H (7-18) mg/dl Creatinine 1.46 H (0.6-1.4) mg/dl Est Cr Clr Drug Dosing Not Reportable Est GFR ( Amer) 49.1 Est GFR (Non-Af Amer) 42.3 BUN/Creatinine Ratio 27.5 H (10-20) Glucose 441 H* (70-99) mg/dl POC Glucose (70-99) mg/dl Lactate 2.0 (0.4-2.0) mmol/L Calcium 8.9 (8.5-10.1) mg/dl Magnesium 2.0 (1.8-2.4) mg/dl Total Bilirubin 1.0 (0.2-1) mg/dl AST 17 (15-37) U/L ALT 20 (12-78) U/L Alkaline Phosphatase 72 (45-117) U/L Troponin I (0-0.045) ng/ml NT-Pro-B Natriuret Pep (0-1800) pg/ml Total Protein 7.7 (6.4-8.2) gm/dl Albumin 3.0 L (3.4-5.0) gm/dl Globulin 4.7 H (2.5-4.0) gm/dl Albumin/Globulin Ratio 0.6 L (0.9-2) Beta-Hydroxybutyric Acd 3.06 H (0.2-2.81) mg/dl Urine Color Urine Appearance (Clear) Urine pH (4.5-7.5) Ur Specific Clay (1.000-1.030) Urine Protein (Negative) Urine Glucose (UA) (Negative) Urine Ketones (Negative) Urine Blood (Negative) Urine Nitrite (Negative) Urine Bilirubin (Negative) Urine Urobilinogen (Negative) Ur Leukocyte Esterase (Negative) Urine WBC (Auto) (0-5) /hpf Urine RBC (Auto) (0-4) /hpf U Hyaline Cast (Auto) (0-5) /lpf U Epithel Cells (Auto) (0-5) /lpf Urine Bacteria (Auto) (Negative) Influenza Type A (PCR) (Neg) Influenza Type B (PCR) (Neg) 04/13/19 04/13/19 04/13/19 Range/Units 12:22 12:22 13:07 WBC (4.8-10.8) K/uL RBC (4.7-6.1) M/uL Hgb (14.0-18.0) g/dL Hct (42-52) % MCV (80-100) fL MCH (25-34) pg MCHC (32-36) g/dL RDW Std Deviation (36.4-46.3) fL RDW Coeff of Manohar (11.5-14.5) % Plt Count (130-400) K/uL MPV (7.4-10.4) fL Immature Gran % (Auto) % Neut % (Auto) % Lymph % (Auto) % [place] % (Auto) % Eos % (Auto) % Baso % (Auto) % Immature Gran # (Auto) (0.00-0.02) K/uL Neut # (Auto) (1.4-6.5) K/uL Lymph # (Auto) (1.2-3.4) K/uL [place] # (Auto) (0.11-0.59) K/uL Eos # (Auto) (0-0.5) K/uL Baso # (Auto) (0-0.2) K/uL Platelet Estimate (Normal) PT (9.0-12.0) Seconds INR (0.9-1.1) APTT (21.0-31.0) Seconds PTT Ratio VBG pH 7.46 H (7.36-7.41) VBG pCO2 41 (38-50) mmHg VBG pO2 47 mmHg VBG HCO3 29 mmol/L VBG O2 Saturation 83.0 % VBG Base Excess 4.8 mEq/L Barometric Pressure 730.6 mm/Hg Sodium (136-145) mmol/L Potassium (3.5-5.1) mmol/L Chloride (98-107) mmol/L Carbon Dioxide (21-32) mmol/L Anion Gap (3-11) BUN (7-18) mg/dl Creatinine (0.6-1.4) mg/dl Est Cr Clr Drug Dosing Est GFR ( Amer) Est GFR (Non-Af Amer) BUN/Creatinine Ratio (10-20) Glucose (70-99) mg/dl POC Glucose (70-99) mg/dl Lactate (0.4-2.0) mmol/L Calcium (8.5-10.1) mg/dl Magnesium (1.8-2.4) mg/dl Total Bilirubin (0.2-1) mg/dl AST (15-37) U/L ALT (12-78) U/L Alkaline Phosphatase (45-117) U/L Troponin I 0.169 H* (0-0.045) ng/ml NT-Pro-B Natriuret Pep H (0-1800) pg/ml Total Protein (6.4-8.2) gm/dl Albumin (3.4-5.0) gm/dl Globulin (2.5-4.0) gm/dl Albumin/Globulin Ratio (0.9-2) Beta-Hydroxybutyric Acd (0.2-2.81) mg/dl Urine Color Urine Appearance (Clear) Urine pH (4.5-7.5) Ur Specific Clay (1.000-1.030) Urine Protein (Negative) Urine Glucose (UA) (Negative) Urine Ketones (Negative) Urine Blood (Negative) Urine Nitrite (Negative) Urine Bilirubin (Negative) Urine Urobilinogen (Negative) Ur Leukocyte Esterase (Negative) Urine WBC (Auto) (0-5) /hpf Urine RBC (Auto) (0-4) /hpf U Hyaline Cast (Auto) (0-5) /lpf U Epithel Cells (Auto) (0-5) /lpf Urine Bacteria (Auto) (Negative) Influenza Type A (PCR) (Neg) Influenza Type B (PCR) (Neg) 04/13/19 Range/Units 13:35 WBC (4.8-10.8) K/uL RBC (4.7-6.1) M/uL Hgb (14.0-18.0) g/dL Hct (42-52) % MCV (80-100) fL MCH (25-34) pg MCHC (32-36) g/dL RDW Std Deviation (36.4-46.3) fL RDW Coeff of Manohar (11.5-14.5) % Plt Count (130-400) K/uL MPV (7.4-10.4) fL Immature Gran % (Auto) % Neut % (Auto) % Lymph % (Auto) % [place] % (Auto) % Eos % (Auto) % Baso % (Auto) % Immature Gran # (Auto) (0.00-0.02) K/uL Neut # (Auto) (1.4-6.5) K/uL Lymph # (Auto) (1.2-3.4) K/uL [place] # (Auto) (0.11-0.59) K/uL Eos # (Auto) (0-0.5) K/uL Baso # (Auto) (0-0.2) K/uL Platelet Estimate (Normal) PT (9.0-12.0) Seconds INR (0.9-1.1) APTT (21.0-31.0) Seconds PTT Ratio VBG pH (7.36-7.41) VBG pCO2 (38-50) mmHg VBG pO2 mmHg VBG HCO3 mmol/L VBG O2 Saturation % VBG Base Excess mEq/L Barometric Pressure mm/Hg Sodium (136-145) mmol/L Potassium (3.5-5.1) mmol/L Chloride (98-107) mmol/L Carbon Dioxide (21-32) mmol/L Anion Gap (3-11) BUN (7-18) mg/dl Creatinine (0.6-1.4) mg/dl Est Cr Clr Drug Dosing Est GFR ( Amer) Est GFR (Non-Af Amer) BUN/Creatinine Ratio (10-20) Glucose (70-99) mg/dl POC Glucose (70-99) mg/dl Lactate (0.4-2.0) mmol/L Calcium (8.5-10.1) mg/dl Magnesium (1.8-2.4) mg/dl Total Bilirubin (0.2-1) mg/dl AST (15-37) U/L ALT (12-78) U/L Alkaline Phosphatase (45-117) U/L Troponin I (0-0.045) ng/ml NT-Pro-B Natriuret Pep (0-1800) pg/ml Total Protein (6.4-8.2) gm/dl Albumin (3.4-5.0) gm/dl Globulin (2.5-4.0) gm/dl Albumin/Globulin Ratio (0.9-2) Beta-Hydroxybutyric Acd (0.2-2.81) mg/dl Urine Color Yellow Urine Appearance Clear (Clear) Urine pH 5.5 (4.5-7.5) Ur Specific Clay 1.020 (1.000-1.030) Urine Protein 1+ H (Negative) Urine Glucose (UA) 2+ H (Negative) Urine Ketones Trace H (Negative) Urine Blood Negative (Negative) Urine Nitrite Negative (Negative) Urine Bilirubin Negative (Negative) Urine Urobilinogen Negative (Negative) Ur Leukocyte Esterase Trace H (Negative) Urine WBC (Auto) 1-5 (0-5) /hpf Urine RBC (Auto) 5-10 H (0-4) /hpf U Hyaline Cast (Auto) 0 (0-5) /lpf U Epithel Cells (Auto) 20-30 H (0-5) /lpf Urine Bacteria (Auto) Negative (Negative) Influenza Type A (PCR) (Neg) Influenza Type B (PCR) (Neg) Imaging Data Radiologist's Impression: Radiology results as stated below per my review and the radiologist's interpretation: CT abd pelvis wo con CLINICAL HISTORY: 88 years-old Male presenting with altered mental status, hyperglycemia, rigors, fevers and chills. TECHNIQUE: Multidetector CT of the abdomen and pelvis was performed without the use of intravenous contrast. IV contrast: None. One or more dose lowering techniques were used consistent with the principles of ALARA (as low as reasonably achievable), including automatic exposure control, mA or kV adjustment to individual patient size, and/or use of iterative reconstruction. COMPARISON: None. CT DOSE (mGy.cm): The estimated cumulative dose is 888.25. FINDINGS: Image quality is compromised due to respiratory motion artifact. This most prominently degrades evaluation of the left upper quadrant to a mild to moderate degree. 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 Cardiomegaly. Surgical clips from prior hernia repair in the lower abdomen. Lung bases: Multichamber enlargement of the heart. Coronary artery and aortic valve calcification. Trace pericardial effusion. Small right pleural effusion with pleural thickening. Subpleural consolidative changes in the right lung. Multiple pulmonary nodules bilaterally. Peribronchovascular bundle thickening with interlobular septal thickening. Liver: Normal morphology. Normal density. Biliary: No gross biliary ductal dilatation allowing for noncontrast technique. Gallbladder decompressed or surgically absent. Pancreas: Moderate parenchymal atrophy. Spleen: Normal noncontrast appearance. Adrenal glands: Normal noncontrast appearance. Kidneys and ureters: Bilateral urothelial thickening, right greater than left. Right pelviectasis and mild distention of the right ureter. No obstructing calculus is apparent. Limited assessment on this noncontrast exam for urothelial mass. Few renal cysts suggested. No nephrolithiasis. No left hydronephrosis. Bladder: Significantly trabeculated urinary bladder wall with multiple bladder diverticula, some of which are intramural. Pelvic organs: Normal noncontrast appearance. Bowel: Diverticulosis of the proximal sigmoid and descending colon without wall thickening or pericolonic inflammatory change. Mild to moderate predominantly left-sided stool burden. The appendix is not visualized. No bowel obstruction. Peritoneal cavity: No free fluid or intraperitoneal gas. Lymph nodes: No gross lymphadenopathy allowing for noncontrast technique. Vasculature: Atherosclerosis of the normal caliber abdominal aorta. A stent is in place within the left external iliac artery. Abdominal wall: Postsurgical changes of prior bilateral inguinal hernia repairs. No significant recurrent hernia. Focal infiltration of the subcutaneous fat in the anterior abdomen likely blood products related to medication administration. Musculoskeletal: Degenerative changes of the spine. Osteopenia. Mild degenerative changes of the hips. IMPRESSION: 1. Chronic changes at the right lung base with chronic thickening and small effusion. 2. Bilateral pulmonary nodules at the lung bases, which are also chronic at least since December. Correlate for an underlying malignancy. 3. Cardiomegaly and congestive changes at the lung bases. 4. Diverticulosis coli. No diverticulitis. 5. Significantly trabeculated bladder likely due to chronic bladder outlet obstruction. 6. Urothelial thickening bilaterally without convincing evidence of hydronephrosis. Correlate with urinalysis to exclude upper tract infection as an etiology for this appearance, however, this is most likely due to chronic reflux uropathy in the setting of bladder outlet obstruction. ACT 112: Negative or not required by law. Electronically signed by: Maged Laguna M.D. 04/13/2019 12:[address] head/brain wo con CLINICAL HISTORY: 88 years-old Male presenting with rigors, fevers and chills, hyperglycemia. TECHNIQUE: Multidetector CT imaging of the head was performed without the use of intravenous contrast. IV contrast: None. One or more dose lowering techniques were used consistent with the principles of ALARA (as low as reasonably achievable), including automatic exposure control, mA or kV adjustment to individual patient size, and/or use of iterative reconstruction. COMPARISON: 03/20/2019. CT DOSE (mGy.cm): The estimated cumulative dose is 888.25 mGy.cm. FINDINGS: [employer] topogram: A subclavian ICD. Cardiomegaly. Comparison the lower abdomen. Proportional ventricular and sulcal prominence, likely age-related parenchymal volume loss. No hemorrhage. Periventricular and subcortical white matter hypoattenuation, nonspecific but likely indicative of chronic small vessel ischemic change. Old left cerebellar hemispheric infarct. No acute territorial infarct. No mass effect or midline shift. No extra-axial fluid collection. Paranasal sinuses and mastoid air cells clear. Calvarium intact. Absent [place] lenses. IMPRESSION: 1. 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 No acute intracranial abnormality. ACT 112: Negative or not required by law. Electronically signed by: Maged Laguna M.D. 04/13/2019 12:47 PM XR chest 1V portable CLINICAL HISTORY: 88 years-old Male presenting with SEPSIS. TECHNIQUE: Portable upright AP view of the chest was obtained. COMPARISON: 03/16/2019. FINDINGS: Left subclavian implanted cardiac defibrillator lead to the right ventricular apex. Atherosclerosis of the aortic arch. Cardiac silhouette moderately enlarged. Significant hilar prominence, which is exaggerated from prior. Pulmonary vascular prominence and interstitial prominence has significantly increased from prior. Small right pleural effusion, which may be loculated and is chronic. Patchy opacities in the mid lung bases bilaterally greater on the right, also significantly increased from prior. No pneumothorax. Osteopenia suspected. Upper abdomen normal. IMPRESSION: 1. Patchy mid to basilar predominant bilateral pulmonary infiltrates, right greater than left. This is concerning for pneumonia versus pulmonary edema. 2. Cardiomegaly with worsening volume overload and congestive change. 3. Prominence of the bilateral gt is presumably vascular in etiology or less likely lymphadenopathy. 4. Chronic right pleural effusion. ACT 112: Negative or not required by law. Electronically signed by: Maged Laguna M.D. 04/13/2019 12:26 PM ECG Data Indication: + other (Hyperglycemia) Rate (beats per minute): 65 Rhythm: + other (Ventricular paced rhythm) ECG Intervals/blocks: + Left bundle branch block ECG Findings: + Other ([place] beats) Comparison ECG Date: from (03/16/19) Change: no significant change Blood Pressure Blood Pressure Findings: Elevated blood pressure Blood Pressure Disposition: further management by hospitalist GAURAV Narrative The patient is an 88-year-old male who presented to the emergency department with family members for an evaluation of generalized weakness as well as elevated blood sugar. The patient presented with family members. The patient was found to have very elevated blood sugar but not DKA based on his blood gas. The patient was treated with a small fluid bolus given his history of CHF. He was treated with IV antibiotics and IV insulin. The patient was reevaluated multiple times. I discussed the patient's laboratory and radiographic studies with him and his family members. I also discussed his case with the on-call [facility] hospitalist group. They have agreed to evaluate the patient in the emergency department for further management and disposition. The patient was significantly improved on reevaluation. Impression & Plan Pneumonia, Weakness, Acute hyperglycemia Discharge Plan Visit Data *Final* Discharge Date/Time: 04/13/19 15:03 Chief Complaint: Hyperglycemia Stated Complaint: HIGH SUGAR, OVER 500 READING ED Provider: Devante Blount Discharge Problem: Pneumonia, Weakness, Acute hyperglycemia Patient Disposition: Admitted As Inpatient Discharge Instructions Interventions: ED Discharge Assessment Last Done: 04/13/19 15:03 Discharge Problem: Pneumonia Qualifiers: Pneumonia type: due to unspecified organism Laterality: unspecified laterality Lung location: unspecified part of lung Qualified Code(s): J18.9 - Pneumonia, unspecified organism The scribe's documentation has been prepared under my direction and personally reviewed by me in its entirety. I confirm that the note above accurately reflects all work, treatment, procedures, and medical decision making performed by me.
--- NOTE | 2019-04-13 12:27 | XRay Report ---
XR chest 1V portable CLINICAL HISTORY: 88 years-old Male presenting with SEPSIS. TECHNIQUE: Portable upright AP view of the chest was obtained. COMPARISON: 03/16/2019. FINDINGS: Left subclavian implanted cardiac defibrillator lead to the right ventricular apex. Atherosclerosis o f the aortic arch. Cardiac silhouette moderately enlarged. Significant hilar prominence, which is exa ggerated from prior. Pulmonary vascular prominence and interstitial prominence has significantly incr eased from prior. Small right pleural effusion, which may be loculated and is chronic. Patchy opaciti es in the mid lung bases bilaterally greater on the right, also significantly increased from prior. N o pneumothorax. Osteopenia suspected. Upper abdomen normal. IMPRESSION: 1. Patchy mid to basilar predominant bilateral pulmonary infiltrates, right greater than left. This is concerning for pneumonia versus pulmonary edema. 2. Cardiomegaly with worsening volume overload and congestive change. 3. Prominence of the bilateral gt is presumably vascular in etiology or less likely lymphadenopath y. 4. Chronic right pleural effusion. ACT 112: Negative or not required by law. Electronically signed by: Maged Laguna M.D. 04/13/2019 12:26 PM
[2019-04-13] MEDS ORDERED: PIPERACILLIN/TAZOBACTAM 4.5 GM/120 ML BAG IV ONE (12:37)
[2019-04-13] MEDS ORDERED: PIPERACILL/TAZOBAC CONSULT ACTIVE PRN (12:37)
--- NOTE | 2019-04-13 12:49 | CT Scan Report ---
CT head/brain wo con CLINICAL HISTORY: 88 years-old Male presenting with rigors, fevers and chills, hyperglycemia. TECHNIQUE: Multidetector CT imaging of the head was performed without the use of intravenous contrast . IV contrast: None. One or more dose lowering techniques were used consistent with the principles of ALARA (as low as reasonably achievable), including automatic exposure control, mA or kV adjustment t o individual patient size, and/or use of iterative reconstruction. COMPARISON: 03/20/2019. CT DOSE (mGy.cm): The estimated cumulative dose is 888.25 mGy.cm. FINDINGS: Final Inspector Shuttle topogram: A subclavian ICD. Cardiomegaly. Comparison the lower abdomen. Proportional ventricular and sulcal prominence, likely age-related parenchymal volume loss. No hemorr karla. Periventricular and subcortical white matter hypoattenuation, nonspecific but likely indicative of chronic small vessel ischemic change. Old left cerebellar hemispheric infarct. No acute territori al infarct. No mass effect or midline shift. No extra-axial fluid collection. Paranasal sinuses and m astoid air cells clear. Calvarium intact. Absent [place] lenses. IMPRESSION: 1. 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 No acute intrac ranial abnormality. ACT 112: Negative or not required by law. Electronically signed by: Maged Laguna M.D. 04/13/2019 12:47 PM
[2019-04-13 12:51] LABS: INR 2.5 (0.9-1.1); Prothrombin Time 23.8 Seconds (9.0-12.0)
[2019-04-13 12:52] LABS: Hematocrit (blood only) 36.3 % (42-52); Hemoglobin 12.1 g/dL (14.0-18.0); Mean Corpuscular Hemoglobin 31.8 pg (25-34); Mean Corpuscular Hgb Conc 33.3 g/dL (32-36); Mean Corpuscular Volume 95.3 fL (80-100); Mean Platelet Volume 12.7 fL (7.4-10.4); Platelet Count 129 K/uL (130-400); RDW Coefficient of Variation 16.2 % (11.5-14.5); RDW Standard Deviation 56.3 fL (36.4-46.3); Red Blood Count 3.81 M/uL (4.7-6.1); White Blood Count 7.75 K/uL (4.8-10.8)
[2019-04-13 12:53] LABS: Basophils # (auto) 0.01 K/uL (0-0.2); Basophils % (auto) 0.1 %; Eosinophils # (auto) 0.09 K/uL (0-0.5); Eosinophils % (auto) 1.2 %; Immature Granulocytes # (auto) 0.02 K/uL (0.00-0.02); Immature Granulocytes % (auto) 0.3 %; Lymphocytes # (auto) 0.17 K/uL (1.2-3.4); Lymphocytes % (auto) 2.2 %; Monocytes # (auto) 0.38 K/uL (0.11-0.59); Monocytes % (auto) 4.9 %; Neutrophils # (auto) 7.08 K/uL (1.4-6.5); Neutrophils % (auto) 91.3 %; Platelet Estimate Decreased (Normal)
[2019-04-13 12:55] LABS: Alanine Aminotransferase 20 U/L (12-78); Aspartate Aminotransferase 17 U/L (15-37); BUN Creatinine Ratio 27.5 (10-20); Blood Urea Nitrogen 40 mg/dl (7-18); Calcium 8.9 mg/dl (8.5-10.1); Carbon Dioxide 30 mmol/L (21-32); Chloride 97 mmol/L (98-107); Est GFR (African American) 49.1; Est GFR (Non-African American) 42.3; Glucose 441 mg/dl (70-99); Sodium 133 mmol/L (136-145)
[2019-04-13 12:58] LABS: Albumin Globulin Ratio 0.6 (0.9-2); Alkaline Phosphatase 72 U/L (45-117); Beta-Hydroxybutyrate 3.06 mg/dl (0.2-2.81); Globulin 4.7 gm/dl (2.5-4.0); Total Protein 7.7 gm/dl (6.4-8.2)
--- NOTE | 2019-04-13 12:58 | CT Scan Report ---
CT abd pelvis wo con CLINICAL HISTORY: 88 years-old Male presenting with altered mental status, hyperglycemia, rigors, fev ers and chills. TECHNIQUE: Multidetector CT of the abdomen and pelvis was performed without the use of intravenous co ntrast. IV contrast: None. One or more dose lowering techniques were used consistent with the princip les of ALARA (as low as reasonably achievable), including automatic exposure control, mA or kV adjust ment to individual patient size, and/or use of iterative reconstruction. COMPARISON: None. CT DOSE (mGy.cm): The estimated cumulative dose is 888.25. FINDINGS: Image quality is compromised due to respiratory motion artifact. This most prominently degrades evalu ation of the left upper quadrant to a mild to moderate degree. Basket Braider topogram: ICD lead. Cardiomegaly. Surgical clips from prior hernia repair in the lower abdomen. Lung bases: Multichamber enlargement of the heart. Coronary artery and aortic valve calcification. Tr neftaly pericardial effusion. Small right pleural effusion with pleural thickening. Subpleural consolidat amber changes in the right lung. Multiple pulmonary nodules bilaterally. Peribronchovascular bundle thi ckening with interlobular septal thickening. Liver: Normal morphology. Normal density. Biliary: No gross biliary ductal dilatation allowing for noncontrast technique. Gallbladder decompres sed or surgically absent. Pancreas: Moderate parenchymal atrophy. Spleen: Normal noncontrast appearance. Adrenal glands: Normal noncontrast appearance. Kidneys and ureters: Bilateral urothelial thickening, right greater than left. Right pelviectasis and mild distention of the right ureter. No obstructing calculus is apparent. Limited assessment on this noncontrast exam for urothelial mass. Few renal cysts suggested. No nephrolithiasis. No left hydrone phrosis. Bladder: Significantly trabeculated urinary bladder wall with multiple bladder diverticula, some of w hich are intramural. Pelvic organs: Normal noncontrast appearance. Bowel: Diverticulosis of the proximal sigmoid and descending colon without wall thickening or pericol onic inflammatory change. Mild to moderate predominantly left-sided stool burden. The appendix is not visualized. No bowel obstruction. Peritoneal cavity: No free fluid or intraperitoneal gas. Lymph nodes: No gross lymphadenopathy allowing for noncontrast technique. Vasculature: Atherosclerosis of the normal caliber abdominal aorta. A stent is in place within the le ft external iliac artery. Abdominal wall: Postsurgical changes of prior bilateral inguinal hernia repairs. No significant recur rent hernia. Focal infiltration of the subcutaneous fat in the anterior abdomen likely blood products related to medication administration. Musculoskeletal: Degenerative changes of the spine. Osteopenia. Mild degenerative changes of the hips . IMPRESSION: 1. Chronic changes at the right lung base with chronic thickening and small effusion. 2. Bilateral pulmonary nodules at the lung bases, which are also chronic at least since December. Cor relate for an underlying malignancy. 3. Cardiomegaly and congestive changes at the lung bases. 4. Diverticulosis coli. No diverticulitis. 5. Significantly trabeculated bladder likely due to chronic bladder outlet obstruction. 6. Urothelial thickening bilaterally without convincing evidence of hydronephrosis. Correlate with u rinalysis to exclude upper tract infection as an etiology for this appearance, however, this is most likely due to chronic reflux uropathy in the setting of bladder outlet obstruction. ACT 112: Negative or not required by law. Electronically signed by: Maged Laguna M.D. 04/13/2019 12:57 PM
[2019-04-13 13:05] LABS: Influenza A virus by PCR Neg for Influ A (Neg); Influenza B virus by PCR Neg for Influ B (Neg)
[2019-04-13 13:17] LABS: Base Excess VBG 4.8 mEq/L; pH VBG 7.46 (7.36-7.41)
[2019-04-13 13:20] LABS: Partial Thromboplastin Time 53.5 Seconds (21.0-31.0)
[2019-04-13] MEDS ORDERED: NovoLIN-R INSULIN PER UNIT CHARGE IV STA (13:23)
[2019-04-13] MEDS ORDERED: SODIUM CHLORIDE 0.9% 1000ML 500 ML IV ONE (13:23)
[2019-04-13 14:08] LABS: Appearance Urine Clear (Clear); Bacteria Urine Automated Negative (Negative); Bilirubin Urine Negative (Negative); Blood Urine Negative (Negative); Cast Urine Automated 0 /lpf (0-5); Color Urine Yellow; Epithelial Cell Urine Auto 20-30 /lpf (0-5); Glucose Urine UA 2+ (Negative); Ketones Urine Trace (Negative); Leukocyte Esterase Urine Trace (Negative); Nitrite Urine Negative (Negative); Protein Urine 1+ (Negative); Urobilinogen Urine Negative (Negative); pH Urine 5.5 (4.5-7.5)
[2019-04-13] MEDS ORDERED: INSULIN PROTOCOL GOAL RANGE ONE (14:53)
[2019-04-13] MEDS ORDERED: MODERATE STRESS LEVEL ONE (14:53)
[2019-04-13] MEDS ORDERED: GLUCOSE 10 TABS/TUBE PO PRN (15:15)
[2019-04-13] MEDS ORDERED: GLUCAGON FOR INJ 1 MG VIAL IM PRN (15:15)
[2019-04-13] MEDS ORDERED: GLUCOSE 40% GEL 15 GM TUBE PO PRN (15:15)
[2019-04-13] MEDS ORDERED: DEXTROSE 50% 50 ML SYRINGE IV PRN (15:15)
[2019-04-13] MEDS ORDERED: INSULIN REGULAR 250 UNITS in SODIUM CHLORIDE 0.9% 247.5 ML IV SCH (15:15)
[2019-04-13] MEDS ORDERED: NovoLIN-R BOLUS FROM BAG IV ONE (15:15)
[2019-04-13] MEDS ORDERED: INSULIN HUMAN REGULAR IV BOLUS 1.5 UNITS in SYRINGE 0 ML IV ONE (15:30)
--- NOTE | 2019-04-13 15:46 | CT Scan Report ---
CT chest wo con CLINICAL HISTORY: 88 years-old Male presenting with shortness of breath. TECHNIQUE: Multidetector CT imaging of the chest was performed without the use of intravenous contras t. IV contrast: None. One or more dose lowering techniques were used consistent with the principles o f ALARA (as low as reasonably achievable), including automatic exposure control, mA or kV adjustment to individual patient size, and/or use of iterative reconstruction. COMPARISON: Thoracic spine CT from 01/19/2019. CT DOSE (mGy.cm): The estimated cumulative dose is 209.36 mGy.cm. FINDINGS: Intern Brand topogram: Left subclavian implanted cardiac defibrillator lead. Cardiomegaly. Soft tissues: Normal thyroid and thoracic inlet. There is prominent mediastinal lymph nodes, some of which are hyperdense in the vast majority which are subcentimeter in short axis. Evaluation of the hi la limited in the absence of intravenous contrast. However, additional similar-appearing hilar lymph node suspected. Atherosclerosis of the aorta. Multichamber enlargement of the heart. Coronary artery and aortic valve calcification. Implanted cardiac defibrillator lead to the right ventricular apex. R ight pleural thickening and small right pleural effusion. Upper abdomen normal. Lungs and airways: Trace loculated pneumothorax along the right lung base (series 4 image 249). Centr al airways patent. Pulmonary arteries are not significantly enlarged relative to adjacent bronchi. Pl eural parenchymal scarring at the apices. Nodular pleural thickening. Interlobular septal thickening. Multiple solid pulmonary nodules noted bilaterally with basilar predominance. Subpleural consolidati ve changes in the dependent portions of the right lung base. Suture margin suggested at the posterior basal right lung base. Musculoskeletal: Degenerative changes of the spine. IMPRESSION: 1. Extensive bibasilar predominant pulmonary nodules and nodular pleural thickening as well as chron ic right pleural thickening and small right pleural effusion. These changes are evident on thoracic s pine CT from December. Etiology of this is uncertain. Metastatic disease should be excluded. 2. The right basilar suture margin may suggest a prior wedge resection. Correlate for pathology resu lts for possible history of lung biopsy. 3. Hyperdense mediastinal lymphadenopathy suggests the presence of calcification. There can be seen in the setting of inhalational lung disease such as pneumoconiosis or silicosis, sarcoidosis, treated lymphoma, and several additional infectious and malignant etiologies. 4. Cardiomegaly. ACT 112: Negative or not required by law. Electronically signed by: Maged Laguna M.D. 04/13/2019 3:45 PM
[2019-04-13] MEDS ORDERED: ACETAMINOPHEN 325 MG TAB PO PRN (15:51)
[2019-04-13] MEDS ORDERED: PHARMACY GLYCEMIC MGMT CONSULT PRN (16:15)
[2019-04-13] MEDS: DOXYCYCLINE HYCLATE 100 MG in DEXTROSE 5% 100 ML IV SCH (16:39)
--- NOTE | 2019-04-13 16:43 | History & Physical Report ---
Date of Service April 13, 2019 Assessment & Plan (1) Shortness of breath: (2) Pneumonia: (3) Chronic combined systolic and diastolic CHF (congestive heart failure): -Admit to telemetry -Patient presenting from home with reports of increasing weakness and shortness of breath -In the ED, chest imaging showing CHF and/or pneumonia; proBNP 19,000 -S/p Zosyn in the ED, will continue with given possible HCAP vs. aspiration; add doxycycline for atypical coverage -MRSA nasal swab, check procalcitonin -Does not appear septic -Speech eval -Given significantly elevated BNP, will give Lasix 20mg IV x1; further diuresis to be determined after morning assessment. Noted that scheduled Lasix was discontinued during previous admission due to orthostasis. Patient instructed to only use on a as needed basis. 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: -Hgb A1c 7.5 02/2019 -Blood sugar 441 on presentation -No signs of DKA -Insulin drip for glucose control -Pharmacy glycemic consulted (8) CKD (chronic kidney disease), stage III: - baseline creat runs in the low ones - creat noted to be 1.4 today - continue to monitor, avoid nephrotoxic agents when able (9) Elevated troponin: (10) Coronary artery disease: -Appears stable, no reports of chest pain -Mildly elevated troponin likely secondary to demand ischemia, EKG shows paced rhythm with PVCs -Continue to cycle cardiac enzymes (11) Cardiomyopathy, ischemic: (12) Cardiac defibrillator in place: -EF 50% on echo 12/2018 -No acute issues with defibrillator -Management for acute CHF as above (13) Hypothyroidism: -Continue levothyroxine (14) Chronic atrial fibrillation: -Rate controlled on digoxin and metoprolol -Anticoagulated on Coumadin, INR 2.5 (15) Anemia, chronic disease: -Hgb stable at 12.1 (16) DVT prophylaxis: -Anticoagulated on Coumadin, INR 2.5 History of Present Illness Chief Complaint: Weakness, falls, shortness of breath Primary Care Provider: Robert Osullivan MD 88-year-old male who presents the ED for evaluation of generalized weakness, falls, shortness of breath. Patient most recently admitted to [facility] 03/16-03/25 for orthostasis and right lower extremity edema. Patient was started on midodrine and furosemide was stopped to field cane scaler helper with orthostasis. Patient was discharged to [facility] for rehab. He returned home on 04/03. Over the past few days, patient has been having increasing weakness and shortness of breath. reports numerous falls. Patient has been having chills and low-grade fevers. No cough or sputum production. Denies lightheadedness, dizziness, diaphoresis, syncopal events. Denies orthopnea and lower extremity edema. Blood sugars have been running high as well. Does not weigh himself on a day-to-day basis. No chest pain. Denies abdominal pain, nausea, vomiting, diarrhea. No urinary symptoms. In the ED, labs show hyperglycemia with glucose 441, mildly elevated troponin 0.169, proBNP 19,000. Chest imaging shows CHF versus pneumonia. Patient was given IV insulin, IV Zosyn, IVF. Allergies Allergy/AdvReac Type Severity Reaction Status Date / Time banana Allergy Unknown ` Verified 04/13/19 13:52 itraconazole AdvReac Intermediate UNKNOWN Unverified 04/13/19 13:52 Home Medications Home Medications Medication Instructions Recorded Confirmed Type BD Ultra-Fine Short Pen Needle 31 #400 ea NS 12/03/18 03/16/19 Rx gauge x 5/16" PreserVision AREDS-2 1 tab PO BID 01/19/19 04/13/19 History ascorbic acid (vitamin C) 500 mg PO QDL 01/19/19 04/13/19 History aspirin 81 mg PO QAM 01/19/19 04/13/19 History biotin 1 mg PO QDL 01/19/19 04/13/19 History cholecalciferol (vitamin D3) 1,000 unit PO BID 01/19/19 04/13/19 History cyanocobalamin (vitamin B-12) 1,000 mcg PO QDL 01/19/19 04/13/19 History digoxin 125 mcg PO QAM 01/19/19 04/13/19 History atorvastatin 10 mg PO QAM #30 tab 01/20/19 04/13/19 Rx insulin aspart U-100 100 unit/mL 0 unit SQ ACHS PRN ml 02/12/19 04/13/19 History (3 mL) subcutaneous pen insulin glargine 100 unit/mL (3 16 units SQ HS ml 02/12/19 04/13/19 History mL) subcutaneous pen ferrous sulfate [iron] 325 mg PO DAILY #30 tab 03/25/19 04/13/19 Rx furosemide 20 mg PO DAILY PRN 30 Days #0 tab 03/25/19 04/13/19 Rx midodrine 10 mg PO TID #90 tab 03/25/19 04/13/19 Rx Super Beta Prostate 0 mg PO BID 04/13/19 04/13/19 History acetaminophen 650 mg PO QID PRN 04/13/19 04/13/19 History alfuzosin 10 mg PO DAILY 04/13/19 04/13/19 History alprazolam 0.25 mg PO BID PRN 04/13/19 04/13/19 History hydroxyzine HCl 50 mg PO Q6H PRN 04/13/19 04/13/19 History insulin glargine [Lantus Solostar 0 unit SUBCUT UNKNOWN 04/13/19 04/13/19 History U-100 Insulin] levothyroxine 50 mcg PO DAILYBB 04/13/19 04/13/19 History metoprolol tartrate 12.5 mg PO BID 04/13/19 04/13/19 History warfarin 5 mg PO SUTUTHSA 04/13/19 04/13/19 History warfarin 7.5 mg PO MOWEFR 04/13/19 04/13/19 History Past Med/Surg History Medical History Anemia, chronic disease (Chronic) Cardiac defibrillator in place (Chronic) Cardiomyopathy, ischemic (Chronic) Chronic atrial fibrillation (Chronic) Chronic combined systolic and diastolic CHF (congestive heart failure) (Chronic) CKD (chronic kidney disease), stage III (Chronic) Coronary artery disease (Chronic) 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) HTN (hypertension) (Chronic) Hypothyroidism (Chronic) Meniere disease (Chronic) Orthostatic hypotension TIA (transient ischemic attack) (Chronic) 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) Surgical History History of appendectomy (Chronic) History of heart artery stent (Chronic) 2004 - Hx of cataract surgery (Chronic) Family History Other Cancer Heart disease Social History Preferred Language: Nepali Communication Ability: Effective Tire Buster Required: No Beliefs That Will Affect Care: None marital status: Current Living Situation: Spouse Other Information That Helps Us Care for You: No Feels Safe at Home: Yes Safety Concerns: Feels Safe At This Time Smoking Status: Never smoker Hx Alcohol Use: Yes Alcohol type: beer and wine Alcohol Intake Frequency: Weekly Hx Substance Use: No Review of Systems Review of Systems: ROS per HPI, all other systems reviewed and negative Physical Exam Physical Exam: Please refer to Dr. Resendiz's addendum for physical exam. Results & Data Vital Signs (Past 12 Hours) Vital Signs Temp Pulse Pulse Resp BP BP Pulse Ox 04/13/19 15:03 60 18 153/87 H 04/13/19 14:45 60 18 164/91 H 97 04/13/19 13:00 60 21 163/91 H 91 04/13/19 12:52 66 20 158/79 H 96 04/13/19 12:30 61 14 157/83 H 04/13/19 12:24 62 18 136/73 92 04/13/19 12:20 92 04/13/19 11:59 62 23 136/73 04/13/19 11:43 36.8 C 61 20 110/64 89 L Laboratory Results Short CBC 04/13/19 04/13/19 Range/Units 12:22 12:22 WBC 7.75 (4.8-10.8) K/uL Hgb 12.1 L (14.0-18.0) g/dL Hct 36.3 L (42-52) % Plt Count 129 L (130-400) K/uL Creatinine 1.46 H (0.6-1.4) mg/dl BMP 04/13/19 12:22 Sodium 133 L Potassium 4.0 Chloride 97 L Carbon Dioxide 30 BUN 40 H Creatinine 1.46 H Glucose 441 H* Calcium 8.9 Cardiac Enzymes 04/13/19 Range/Units 12:22 Troponin I 0.169 H* (0-0.045) ng/ml Liver Function 04/13/19 Range/Units 12:22 Total Bilirubin 1.0 (0.2-1) mg/dl AST 17 (15-37) U/L ALT 20 (12-78) U/L Alkaline Phosphatase 72 (45-117) U/L Albumin 3.0 L (3.4-5.0) gm/dl Urine 04/13/19 Range/Units 13:35 Urine Color Yellow Urine Appearance Clear (Clear) Urine pH 5.5 (4.5-7.5) Ur Specific [place] 1.020 (1.000-1.030) Urine Protein 1+ H (Negative) Urine Glucose (UA) 2+ H (Negative) Diagnostic Findings CHEST CT IMPRESSION: 1. Extensive bibasilar predominant pulmonary nodules and nodular pleural thickening as well as chronic right pleural thickening and small right pleural effusion. These changes are evident on thoracic spine CT from December. Etiology of this is uncertain. Metastatic disease should be excluded. 2. The right basilar suture margin may suggest a prior wedge resection. Correlate for pathology results for possible history of lung biopsy. 3. Hyperdense mediastinal lymphadenopathy suggests the presence of calcification. There can be seen in the setting of inhalational lung disease such as pneumoconiosis or silicosis, sarcoidosis, treated lymphoma, and several additional infectious and malignant etiologies. 4. Cardiomegaly. HEAD CT IMPRESSION: 1. 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 No acute intracranial abnormality. CXR IMPRESSION: 1. Patchy mid to basilar predominant bilateral pulmonary infiltrates, right greater than left. This is concerning for pneumonia versus pulmonary edema. 2. Cardiomegaly with worsening volume overload and congestive change. 3. Prominence of the bilateral gt is presumably vascular in etiology or less likely lymphadenopathy. 4. Chronic right pleural effusion. CT ABD/PELVIS IMPRESSION: 1. Chronic changes at the right lung base with chronic thickening and small effusion. 2. Bilateral pulmonary nodules at the lung bases, which are also chronic at least since December. Correlate for an underlying malignancy. 3. Cardiomegaly and congestive changes at the lung bases. 4. Diverticulosis coli. No diverticulitis. 5. Significantly trabeculated bladder likely due to chronic bladder outlet obstruction. 6. Urothelial thickening bilaterally without convincing evidence of hydronephrosis. Correlate with urinalysis to exclude upper tract infection as an etiology for this appearance, however, this is most likely due to chronic reflux uropathy in the setting of bladder outlet obstruction. Code Status & VTE Plan Code Status Patient is a full code as per Dr. Robin's discussion with him and his and son who are at the bedside. VTE Prophylaxis Plan VTE Prophylaxis will be ordered: No Supervising Physician Co-Signing Physician Notes Attending Addendum: care coordinated with PRISCILLA Baum please refer to her notes for full details, I agree with her notes patient seen and examined, records reviewed by myself as well on exam, patient seen resting in bed, appears weak, but oriented, cooperative not in distress, speaks in sentences with no effort reports feeling weak, chills, loss of appetite, dyspnea on minimal exertion x few days blood sugar elevated today no other symptoms VS noted and reviewed oriented x 3 , not in distress, speaks in sentences with no effort nor accessory muscle use normal rate, regular rhythm, no murmurs (+) crackles at bilateral bases right>left non distended, soft, nontender no bipedal edema, erythema, warmth no neuro deficits WBC 7.7 [address] chest: 1. Extensive bibasilar predominant pulmonary nodules and nodular pleural thickening as well as chronic right pleural thickening and small right pleural effusion. These changes are evident on thoracic spine CT from December. Etiology of this is uncertain. Metastatic disease should be excluded. 2. The right basilar suture margin may suggest a prior wedge resection. Correlate for pathology results for possible history of lung biopsy. 3. Hyperdense mediastinal lymphadenopathy suggests the presence of calcification. There can be seen in the setting of inhalational lung disease such as pneumoconiosis or silicosis, sarcoidosis, treated lymphoma, and several additional infectious and malignant etiologies. 4. Cardiomegaly. ASSESSMENT AND PLAN [facility] PNEUMONIA Procal 4.6 MRSA swab negative blood cultures pending ZosynMary; Nebs Lasix 20mg IV one dose for possible component of mild CHF HYPERGLYCEMIA, DM 2 likely secondary to above Insulin drip Pharmacy Glycemic Control ABNORMAL CT CHEST pulmonary nodules, pleural thickening, mediastinal lymphadenopathy Pulm consulted other diagnoses and plan of care as per PRISCILLA Baum's notes Oswaldo Resendiz MD
[2019-04-13] MEDS: MIDODRINE HCL 10 MG TAB PO SCH (16:55)
[2019-04-13] MEDS: INSULIN ASPART 100 UNITS/ML 3 ML PEN SC SCH ×2 (16:57→20:38)
[2019-04-13] MEDS ORDERED: INSULIN GLARGINE SOLOSTAR 100 UNITS/ML 3 ML PEN SC SCH (17:00)
[2019-04-13] MEDS ORDERED: WARFARIN SOD 5 MG TAB PO SCH (17:00)
[2019-04-13] MEDS ORDERED: FUROSEMIDE 20 MG in SYRINGE 0 ML IV ONE (17:00)
[2019-04-13] MEDS: PIPERACILLIN/TAZOBACTAM 3.375 GM in DEXTROSE 5% 100 ML IV SCH (18:22)
[2019-04-13] MEDS: CHOLECALCIFEROL 1,000 UNITS 25 MCG TAB PO SCH (20:38)
[2019-04-13] MEDS: METOPROLOL TARTRATE 25 MG TAB PO SCH (20:38)
[2019-04-13] MEDS: CEROVITE ADV FORMULA TAB PO SCH (20:38)
[2019-04-14] MEDS: PIPERACILLIN/TAZOBACTAM 3.375 GM in DEXTROSE 5% 100 ML IV SCH ×3 (01:03→18:03)
[2019-04-14] MEDS: DOXYCYCLINE HYCLATE 100 MG in DEXTROSE 5% 100 ML IV SCH ×2 (03:42→16:42)
[2019-04-14] MEDS: INSULIN ASPART 100 UNITS/ML 3 ML PEN SC SCH ×5 (03:57→20:46)
[2019-04-14] MEDS: LEVOTHYROXINE SODIUM 50 MCG TABLET PO SCH (05:31)
[2019-04-14 06:56] LABS: Hematocrit (blood only) 37.7 % (42-52); Hemoglobin 12.1 g/dL (14.0-18.0); Mean Corpuscular Hemoglobin 30.7 pg (25-34); Mean Corpuscular Hgb Conc 32.1 g/dL (32-36); Mean Corpuscular Volume 95.7 fL (80-100); Mean Platelet Volume 11.9 fL (7.4-10.4); Platelet Count 139 K/uL (130-400); RDW Coefficient of Variation 16.1 % (11.5-14.5); RDW Standard Deviation 56.8 fL (36.4-46.3); Red Blood Count 3.94 M/uL (4.7-6.1); White Blood Count 6.15 K/uL (4.8-10.8)
[2019-04-14 07:03] LABS: INR 3.1 (0.9-1.1); Prothrombin Time 29.7 Seconds (9.0-12.0)
[2019-04-14 07:35] LABS: BUN Creatinine Ratio 27.4 (10-20); Calcium 9.1 mg/dl (8.5-10.1); Creatinine Clr Calc Pharmacy 28.8 ml/min; Est GFR (African American) 44.6; Est GFR (Non-African American) 38.5; Potassium 3.4 mmol/L (3.5-5.1)
[2019-04-14] MEDS: FERROUS SULFATE 325 MG TAB PO SCH (08:05)
[2019-04-14] MEDS: ATORVASTATIN 10 MG TAB PO SCH (08:05)
[2019-04-14] MEDS: ASPIRIN 81 MG ECTAB PO SCH (08:05)
[2019-04-14] MEDS: METOPROLOL TARTRATE 25 MG TAB PO SCH ×2 (08:06→19:43)
[2019-04-14] MEDS: MIDODRINE HCL 10 MG TAB PO SCH ×3 (08:07→16:44)
[2019-04-14] MEDS: CEROVITE ADV FORMULA TAB PO SCH ×2 (08:07→19:44)
[2019-04-14] MEDS: ALFUZOSIN HCL 10 MG TAB PO SCH (08:07)
[2019-04-14] MEDS: CHOLECALCIFEROL 1,000 UNITS 25 MCG TAB PO SCH ×2 (08:08→19:44)
[2019-04-14] MEDS ORDERED: POTASSIUM CHLORIDE 20 MEQ TABCR PO ONE (09:45)
--- NOTE | 2019-04-14 10:39 | Pulmonary Consultation ---
Date of Consultation April 14, 2019 Assessment & Plan (1) Shortness of breath: Impression: 88-year-old male admitted with systolic and diastolic heart failure weakness and falls. He was found to have incidentally noted pulmonary nodules. There was concern about possible aspiration and pneumonia. His white count is normal. He has been afebrile throughout his hospitalization. He is being diuresed. Recommendation: 1. Pulmonary nodules:. This is an outpatient evaluation. The patient should follow-up with the manager support services he saw in [place] with copies of his current scan to see if the currently described nodules represent new radiographic findings or if they are stable compared to previous. The patient relates a prior history of histoplasmosis and states that he has had evaluation for pulmonary nodules previously. This was apparently performed in [place] about 4 years ago. The scans are not available to review. Given his advanced age and medical comorbidities, the patient is not a candidate for aggressive interventions. 2. Shortness of breath: Multifactorial. Suspect combinations of systolic and diastolic heart failure. Unclear if the patient has underlying lung disease. Would hold inhalers for now. 3. Questionable pneumonia: The patient is currently on Zosyn. Swallow study is pending. Recommend checking pro calcitonin and if it is negative would de-e scalate or discontinue antibiotics. We will sign off. Feel free to contact us with questions or concerns. (2) Pulmonary nodules: (3) Abnormal CT scan of lung: History of Present Illness Attending Physician: Edis Brambila MD History of Present Illness Asked by hospitalist service to evaluate this patient with multiple pulmonary nodules. History is obtained from discussion with the patient at bedside as well as review the electronic medical record. Patient is an 88-year-old male with a history of ischemic cardiomyopathy and valvular heart disease.. He is a non-smoker. He states that he was diagnosed with histoplasmosis previously and apparently saw manager support services in [place] about 4 years ago. He had CT scans performed at that time and was advised that the nodules identified there were consistent with histoplasmosis. We do not have those prior scans available to review nor do we have any records from his prior pulmonary evaluation. Patient was admitted to the hospital 03/1919 with complaints of shortness of breath, generalized weakness, and falls. He did not report any specific cough or sputum production. No obvious constitutional symptoms such as fevers chills or night sweats. He underwent a CT scan in the emergency room which demonstrated multiple noncalcified pulmonary nodules as well as cardiomegaly and bilateral pleural effusions. He was admitted to the hospitalist service with a diagnosis of systolic and diastolic heart failure. He CT scan did demonstrate pulmonary nodules which prompted a pulmonary consultation. The patient cannot recall having had PFTs performed previously. Allergies Allergy/AdvReac Type Severity Reaction Status Date / Time banana Allergy Unknown ` Verified 04/13/19 13:52 itraconazole AdvReac Intermediate UNKNOWN Unverified 04/13/19 13:52 Home Medications Home Medications Medication Instructions Recorded Confirmed Type BD Ultra-Fine Short Pen Needle 31 #400 ea NS 12/03/18 03/16/19 Rx gauge x 5/16" PreserVision AREDS-2 1 tab PO BID 01/19/19 04/13/19 History ascorbic acid (vitamin C) 500 mg PO QDL 01/19/19 04/13/19 History aspirin 81 mg PO QAM 01/19/19 04/13/19 History biotin 1 mg PO QDL 01/19/19 04/13/19 History cholecalciferol (vitamin D3) 1,000 unit PO BID 01/19/19 04/13/19 History cyanocobalamin (vitamin B-12) 1,000 mcg PO QDL 01/19/19 04/13/19 History digoxin 125 mcg PO QAM 01/19/19 04/13/19 History atorvastatin 10 mg PO QAM #30 tab 01/20/19 04/13/19 Rx insulin aspart U-100 100 unit/mL 0 unit SQ ACHS PRN ml 02/12/19 04/13/19 Hist ory (3 mL) subcutaneous pen insulin glargine 100 unit/mL (3 16 units SQ HS ml 02/12/19 04/13/19 History mL) subcutaneous pen ferrous sulfate [iron] 325 mg PO DAILY #30 tab 03/25/19 04/13/19 Rx furosemide 20 mg PO DAILY PRN 30 Days #0 tab 03/25/19 04/13/19 Rx midodrine 10 mg PO TID #90 tab 03/25/19 04/13/19 Rx Super Beta Prostate 0 mg PO BID 04/13/19 04/13/19 History acetaminophen 650 mg PO QID PRN 04/13/19 04/13/19 History alfuzosin 10 mg PO DAILY 04/13/19 04/13/19 History alprazolam 0.25 mg PO BID PRN 04/13/19 04/13/19 History hydroxyzine HCl 50 mg PO Q6H PRN 04/13/19 04/13/19 History insulin glargine [Lantus Solostar 0 unit SUBCUT UNKNOWN 04/13/19 04/13/19 Hi story U-100 Insulin] levothyroxine 50 mcg PO DAILYBB 04/13/19 04/13/19 History metoprolol tartrate 12.5 mg PO BID 04/13/19 04/13/19 History warfarin 5 mg PO SUTUTHSA 04/13/19 04/13/19 History warfarin 7.5 mg PO MOWEFR 04/13/19 04/13/19 History Patient History Medical History Anemia, chronic disease (Chronic) Cardiac defibrillator in place (Chronic) Cardiomyopathy, ischemic (Chronic) Chronic atrial fibrillation (Chronic) Chronic combined systolic and diastolic CHF (congestive heart failure) (Chronic) CKD (chronic kidney disease), stage III (Chronic) Coronary artery disease (Chronic) 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) HTN (hypertension) (Chronic) Hypothyroidism (Chronic) Meniere disease (Chronic) Orthostatic hypotension TIA (transient ischemic attack) (Chronic) 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) Surgical History History of appendectomy (Chronic) History of heart artery stent (Chronic) 2005 - Hx of cataract surgery (Chronic) Family History Other Cancer Heart disease Social History Preferred Language: Bahraini Communication Ability: Effective Claim Review Medical Director Required: No Beliefs That Will Affect Care: None marital status: Current Living Situation: Spouse Other Information That Helps Us Care for You: No Feels Safe at Home: Yes Safety Concerns: Feels Safe At This Time Smoking Status: Never smoker Hx Alcohol Use: Yes Alcohol type: beer and wine Alcohol Intake Frequency: Weekly Hx Substance Use: No Review of Systems Review of Systems: Please refer to admission H&P. I have no additions or deletions. Physical Exam Constitutional: + cachectic Elderly male. Significant sensorineural hearing loss. Neck: trachea midline, no thyromegaly Respiratory: Coarse bilateral breath sounds without wheezing Cardiovascular: Heart Sounds: normal S1, normal S2 and + murmur Gastrointestinal (Abdomen): normal bowel sounds, soft, nontender, no hepatosplenomegaly Results & Data Vital Signs (Past 12 Hours) Vital Signs Temp Pulse Resp BP BP Pulse Ox 04/14/19 07:39 36.3 C L 60 18 151/76 H 95 04/14/19 02:54 36.7 C 67 20 141/70 H 94 04/13/19 23:17 36.9 C 61 16 144/80 H 94 Laboratory Results 04/14/19 06:36 04/14/19 06:36 Diagnostic Findings Chest x-ray and CT scan independently reviewed CT chest wo con CLINICAL HISTORY: 88 years-old Male presenting with shortness of breath. TECHNIQUE: Multidetector CT imaging of the chest was performed without the use of intravenous contrast. IV contrast: None. One or more dose lowering techniques were used consistent with the principles of ALARA (as low as reasonably achievable), including automatic exposure control, mA or kV adjustment to individual patient size, and/or use of iterative reconstruction. COMPARISON: Thoracic spine CT from 01/19/2019. CT DOSE (mGy.cm): The estimated cumulative dose is 209.36 mGy.cm. FINDINGS: [employer] topogram: Left subclavian implanted cardiac defibrillator lead. Cardiomegaly. Soft tissues: Normal thyroid and thoracic inlet. There is prominent mediastinal lymph nodes, some of which are hyperdense in the vast majority which are subcentimeter in short axis. Evaluation of the gt limited in the absence of intravenous contrast. However, additional similar-appearing hilar lymph node suspected. Atherosclerosis of the aorta. Multichamber enlargement of the heart. Coronary artery and aortic valve calcification. Implanted cardiac defibrillator lead to the right ventricular apex. Right pleural thickening and small right pleural effusion. Upper abdomen normal. Lungs and airways: Trace loculated pneumothorax along the right lung base (series 4 image 249). Central airways patent. Pulmonary arteries are not significantly enlarged relative to adjacent bronchi. Pleural parenchymal scarring at the apices. Nodular pleural thickening. Interlobular septal thickening. Multiple solid pulmonary nodules noted bilaterally with basilar predominance. Subpleural consolidative changes in the dependent portions of the right lung base. Suture margin suggested at the posterior basal right lung base. Musculoskeletal: Degenerative changes of the spine. IMPRESSION: 1. Extensive bibasilar predominant pulmonary nodules and nodular pleural thickening as well as chronic right pleural thickening and small right pleural effusion. These changes are evident on thoracic spine CT from December. Etiology of this is uncertain. Metastatic disease should be excluded. 2. The right basilar suture margin may suggest a prior wedge resection. Correlate for pathology results for possible history of lung biopsy. 3. Hyperdense mediastinal lymphadenopathy suggests the presence of calcification. There can be seen in the setting of inhalational lung disease such as pneumoconiosis or silicosis, sarcoidosis, treated lymphoma, and several additional infectious and malignant etiologies. 4. Cardiomegaly. ACT 112: Negative or not required by law. XR chest 1V portable CLINICAL HISTORY: 88 years-old Male presenting with SEPSIS. TECHNIQUE: Portable upright AP view of the chest was obtained. COMPARISON: 03/16/2019. FINDINGS: Left subclavian implanted cardiac defibrillator lead to the right ventricular apex. Atherosclerosis of the aortic arch. Cardiac silhouette moderately enlarged. Significant hilar prominence, which is exaggerated from prior. Pulmonary vascular prominence and interstitial prominence has significantly increased from prior. Small right pleural effusion, which may be loculated and is chronic. Patchy opacities in the mid lung bases bilaterally greater on the right, also significantly increased from prior. No pneumothorax. Osteopenia suspected. Upper abdomen normal. IMPRESSION: 1. Patchy mid to basilar predominant bilateral pulmonary infiltrates, right greater than left. This is concerning for pneumonia versus pulmonary edema. 2. Cardiomegaly with worsening volume overload and congestive change. 3. Prominence of the bilateral gt is presumably vascular in etiology or less likely lymphadenopathy. 4. Chronic right pleural effusion. ACT 112: Negative or not required by law. Electronically signed by: Maged Laguna M.D. 04/13/2019 12:26 PM PG Care Time/CCT Total # of Minutes Spent Total Time Spent with Patient: Total time spent is greater than 50% in coordination of care (as documented) at patient's floor/unit and/or counseling patient:
[2019-04-14] MEDS ORDERED: INSULIN HUMAN REGULAR PER UNIT 3 UNITS in SYRINGE 2.97 ML IV ONE (12:00)
[2019-04-14] MEDS: CYANOCOBALAMIN 500 MCG TABLET (VITAMIN B-12) PO SCH (12:20)
--- NOTE | 2019-04-14 15:02 | Pharmacy Report ---
Glycemic Control Consultation - Date of Service April 14, 2019 - Scope Scope: Glycemic Pharmacist consulted by Tameka Sarika on 04/13/2019 for glycemic control and to write orders per [facility] inpatient glycemic control protocol - Objective Weight: 63 kg Accuchecks BSG (last 24hrs): 04/13/19 04/13/19 04/13/19 16:54 18:27 19:33 Glucose POC Glucose 294 H 306 H* 237 H 04/13/19 04/13/19 04/13/19 20:34 21:31 22:33 Glucose POC Glucose 207 H 202 H 170 H 04/13/19 04/13/19 04/14/19 23:29 23:56 00:59 Glucose POC Glucose 116 H 120 H 142 H 04/14/19 04/14/19 04/14/19 02:51 03:53 06:36 Glucose 237 H POC Glucose 176 H 235 H 04/14/19 04/14/19 07:26 11:32 Glucose POC Glucose 240 H 359 H* Laboratory Data (last 24hrs): 04/14/19 06:36 Potassium 3.4 L Carbon Dioxide 32 Anion Gap 6.0 Creatinine 1.58 H Est Cr Clr Drug Dosing 28.8 - Recent Pertinent Medications Outpatient Anti-diabetic Regimen: * Levemir plus Novolog The patient is currently receiving: * Basal insulin: Lantus 10 units every 24 hours * Correctional Insulin: Novolog Correction per scale ACHS Goal Range: Low 110 mg/dL - High 180 mg/dL Correction Factor: -- mg/dL/unit * Prandial insulin: Per carb ratio of 1 unit per 10 grams CHO consumed * IV insulin: on insulin infusion from ~1600 until 2300 Risk Factors for Insulin Resistance: * Infection: Zosyn * Diet: T2DM - Assessment & Plan Assessment & Plan: ASSESSMENT: * Mr Sarah is an 88 y/o M with a PMH of T1DM on insulin. Patient known to the glycemic service. Per H&P patient has had some difficulty controlling blood sugars over the past few days. His blood sugars have been > 500 mg/dL. * On admission, patient's BSGs were elevated over 400 mg/dL. Tameka Baum started insulin infusion. Since patient had no metabolic problems, gave Lantus 10 units (which was tolerated at last admission). Will continue with this with available Lantus 12 units available. Appeared patient tolerated this increased dose sparingly. * Novolog was started at previously tolerated parameters. Elevated lunch BSG treated with a tightening of CR and a small IV bolus. PLAN FOR INPATIENT GLYCEMIC CONTROL: * Basal insulin * Lantus 10 units SQ HS (12 units if BSG greater than 200 mg/dL) * Bolus insulin * NovoLog per scale ACHS or Q6hrs while NPO * Goal Range: Low 120 mg/dL - High 150 mg/dL * Correction Factor: 25 mg/dL/unit * Nutritional / Prandial insulin per carb ratio of 1 unit per 8 grams CHO consumed * Please note that the plan above was derived based on current level of insulin resistance and hospital stress. These recommendations are appropriate for inpatient admission only. Plan of care upon discharge will need to be reassessed to avoid potential outpatient hypo/hyperglycemia. Thank you.
[2019-04-14] MEDS ORDERED: WARFARIN SOD 7.5 MG TAB PO SCH (16:00)
[2019-04-14] MEDS: WARFARIN SOD 2 MG TAB PO SCH (16:41)
[2019-04-14] MEDS: DIGOXIN 0.125 MG TAB PO SCH (16:42)
[2019-04-14] MEDS: INSULIN GLARGINE SOLOSTAR 100 UNITS/ML 3 ML PEN SC SCH (16:45)
--- NOTE | 2019-04-14 17:32 | Hospitalist Progress Note ---
Date of Service April 14, 2019 Assessment & Plan (1) Shortness of breath: (2) Pneumonia: (3) Chronic combined systolic and diastolic CHF (congestive heart failure): Acute on chronic systolic and diastolic CHF --CT Chest: Extensive bibasilar predominant pulmonary nodules and nodular pleu ral thickening as well as chronic right pleural thickening and small right pleural effusion. These changes are evident on thoracic spine CT from December. Etiology of this is uncertain. Metastatic disease should be excluded. The right basilar suture margin may suggest a prior wedge resection. Correlate for pathology results for possible history of lung biopsy. Hyperdense mediastinal lymphadenopathy suggests the presence of calcification. There can be seen in the setting of inhalational lung disease such as pneumoconiosis or silicosis, sarcoidosis, treated lymphoma, and several additional infectious and malignant etiologies. Cardiomegaly. --Had ECHO in Dec 2018 --Received IV Lasix --Monitor I's and O's, daily weight, electrolytes --Continue p.o. 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 No acute intracranial abnormality. Continue aspirin, statin PT/OT eval fall precautions (5) Pulmonary nodules: Further work-up as outpatient (6) Orthostatic hypotension: continue midodrine (7) Type 1 diabetes mellitus with complications: Hgb A1c 7.5 02/2019 Uncontrolled blood glucose levels No acidosis, normal anion gap labs Continue insulin therapy Pharmacy glycemic consulted Monitor BGs (8) CKD (chronic kidney disease), stage III: Baseline Cr low ones Creatinine elevation likely secondary to IV Lasix Monitor renal function avoid nephrotoxic agents when able (9) Elevated troponin: (10) Coronary artery disease: Mildly elevated troponin likely secondary to demand ischemia Trended down Underweight BMI 17.4 (11) Cardiomyopathy, ischemic: (12) Cardiac defibrillator in place: Management as above (13) Hypothyroidism: Continue levothyroxine (14) Chronic atrial fibrillation: Continue digoxin and metoprolol Continue Coumadin Monitor PT/INR: 3.1 Coumadin dose adjusted today (15) Anemia, chronic disease: Hb stable (16) DVT prophylaxis: Coumadin Disposition PT/OT prior to discharge Subjective Patient is seen and examined at bedside States feeling better today Dizziness improved Denies any chest pain, shortness of breath, cough, nausea, abdominal pain Offers no other complaints Review of Systems Review of Systems: All systems reviewed & are unremarkable except as noted in HPI & below Physical Exam Physical Exam: Physical Exam: Vitals signs as noted above General Appearance:Thin, frail, no apparent distress, elderly Head: normocephalic, Atraumatic Eyes: normal inspection, EOMI Neck: supple, Trachea midline Respiratory/Chest: Normal breath sounds, left basal crackles, No accessory muscle use Cardiovascular: S1, S2, No murmur Abdomen/GI:Soft, Non tender, Bowel sounds present Extremities/Musculoskelatal:normal inspection, no edema Neurologic/Psych:AAOX3, grossly no focal neurological deficits Skin: normal color, warm Results & Data Vital Signs (Past 12 Hours) Vital Signs Temp Pulse Pulse Pulse Resp BP Pulse Ox 04/14/19 15:18 36.3 C L 57 L 19 112/63 93 04/14/19 14:28 64 04/14/19 11:09 36.8 C 60 16 139/71 93 04/14/19 07:39 36.3 C L 60 18 151/76 H 95 Laboratory Results Short CBC 04/14/19 Range/Units 06:36 WBC 6.15 (4.8-10.8) K/uL Hgb 12.1 L (14.0-18.0) g/dL Hct 37.7 L (42-52) % Plt Count 139 (130-400) K/uL BMP 04/14/19 06:36 Sodium 137 Potassium 3.4 L Chloride 98 Carbon Dioxide 32 BUN 43 H Creatinine 1.58 H Glucose 237 H Calcium 9.1 Cardiac Enzymes 04/13/19 04/14/19 Range/Units 18:08 00:18 Troponin I 0.117 H* 0.099 H* (0-0.045) ng/ml
[2019-04-14] MEDS: FUROSEMIDE 20 MG TAB PO SCH (18:03)
[2019-04-14] MEDS: ALPRAZolam 0.25 MG TABLET PO PRN (20:54)
[2019-04-14] MEDS ORDERED: INSULIN GLARGINE SOLOSTAR 100 UNITS/ML 3 ML PEN SC SCH (21:00)
--- NOTE | 2019-04-14 21:33 | Electrocardiogram Report ---
Test Reason : Blood Pressure : / mmHG Vent. Rate : 065 BPM Atrial Rate : 065 BPM P-R Int : 000 ms QRS Dur : 144 ms QT Int : 432 ms P-R-T Axes : 000 -21 252 degrees QTc Int : 449 ms Ventricular-paced rhythm Atrial fibrillation Abnormal ECG When compared with ECG of 16-MAR-2019 17:23, Vent. rate has increased BY 2 BPM Confirmed by Thomas Zepeda ([id number]) on 04/14/2019 9:33:33 PM Referred By: REFERRED SELF Confirmed By:Thomas Zepeda
[2019-04-15] MEDS: INSULIN ASPART 100 UNITS/ML 3 ML PEN SC SCH ×6 (00:17→20:32)
[2019-04-15] MEDS: PIPERACILLIN/TAZOBACTAM 3.375 GM in DEXTROSE 5% 100 ML IV SCH ×3 (01:40→18:50)
[2019-04-15] MEDS: DOXYCYCLINE HYCLATE 100 MG in DEXTROSE 5% 100 ML IV SCH ×2 (03:36→16:24)
--- NOTE | 2019-04-15 05:45 | Electrocardiogram Report ---
Test Reason : Blood Pressure : / mmHG Vent. Rate : 069 BPM Atrial Rate : 000 BPM P-R Int : 000 ms QRS Dur : 128 ms QT Int : 398 ms P-R-T Axes : 000 -42 107 degrees QTc Int : 426 ms Atrial fibrillation with occasional ventricular-paced complexes Left axis deviation Left ventricular hypertrophy Left bundle branch block Abnormal ECG When compared with ECG of 13-APR-2019 12:14, Vent. rate has increased BY 4 BPM Confirmed by Thomas Zepeda ([id number]) on 04/15/2019 5:44:52 AM Referred By: REFERRED SELF Confirmed By:Thomas Zepeda
[2019-04-15] MEDS: LEVOTHYROXINE SODIUM 50 MCG TABLET PO SCH (06:43)
[2019-04-15 06:58] LABS: Hematocrit (blood only) 33.4 % (42-52); Hemoglobin 10.8 g/dL (14.0-18.0); Mean Corpuscular Hemoglobin 30.7 pg (25-34); Mean Corpuscular Hgb Conc 32.3 g/dL (32-36); Mean Corpuscular Volume 94.9 fL (80-100); Mean Platelet Volume 11.6 fL (7.4-10.4); Platelet Count 132 K/uL (130-400); RDW Coefficient of Variation 15.8 % (11.5-14.5); RDW Standard Deviation 55.1 fL (36.4-46.3); Red Blood Count 3.52 M/uL (4.7-6.1); White Blood Count 5.22 K/uL (4.8-10.8)
[2019-04-15 07:19] LABS: INR 3.6 (0.9-1.1)
[2019-04-15 07:26] LABS: BUN Creatinine Ratio 25.5 (10-20); Calcium 8.7 mg/dl (8.5-10.1); Creatinine Clr Calc Pharmacy 28.8 ml/min; Est GFR (African American) 43.3; Est GFR (Non-African American) 37.3; Potassium 3.9 mmol/L (3.5-5.1)
[2019-04-15] MEDS: CHOLECALCIFEROL 1,000 UNITS 25 MCG TAB PO SCH ×2 (08:20→20:37)
[2019-04-15] MEDS: METOPROLOL TARTRATE 25 MG TAB PO SCH ×2 (08:20→20:37)
[2019-04-15] MEDS: ALFUZOSIN HCL 10 MG TAB PO SCH (08:21)
[2019-04-15] MEDS: ASPIRIN 81 MG ECTAB PO SCH (08:21)
[2019-04-15] MEDS: MIDODRINE HCL 10 MG TAB PO SCH ×3 (08:21→16:55)
[2019-04-15] MEDS: CEROVITE ADV FORMULA TAB PO SCH ×2 (08:21→20:37)
[2019-04-15] MEDS: FUROSEMIDE 20 MG TAB PO SCH (08:21)
[2019-04-15] MEDS: FERROUS SULFATE 325 MG TAB PO SCH (08:21)
[2019-04-15] MEDS: ATORVASTATIN 10 MG TAB PO SCH (08:21)
--- NOTE | 2019-04-15 10:33 | Hospitalist Progress Note ---
Date of Service April 15, 2019 Assessment & Plan (1) Shortness of breath: (2) Pneumonia: (3) Chronic combined systolic and diastolic CHF (congestive heart failure): Acute on chronic systolic and diastolic CHF --CT Chest: Extensive bibasilar predominant pulmonary nodules and nodular pleural thickening as well as chronic right pleural thickening and small right pleural effusion. These changes are evident on thoracic spine CT from December. Etiology of this is uncertain. Metastatic disease should be excluded. The right basilar suture margin may suggest a prior wedge resection. Correlate for pathology results for possible history of lung biopsy. Hyperdense mediastinal lymphadenopathy suggests the presence of calcification. There can be seen in the setting of inhalational lung disease such as pneumoconiosis or silicosis, sarcoidosis, treated lymphoma, and several additional infectious and malignant etiologies. Cardiomegaly. --Had ECHO in Dec 2018 --Received IV Lasix --Monitor I's and O's, daily weight, electrolytes --Continue p.o. 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 No acute intracranial abnormality. Continue aspirin, statin PT/OT eval fall precautions (5) Pulmonary nodules: Further work-up as outpatient (6) Orthostatic hypotension: continue midodrine (7) Type 1 diabetes mellitus with complications: Hgb A1c 7.5 02/2019 Uncontrolled blood glucose levels No acidosis, normal anion gap labs Continue insulin therapy Pharmacy glycemic consulted Monitor BGs (8) CKD (chronic kidney disease), stage III: Baseline Cr low ones Creatinine elevation likely secondary to IV Lasix Monitor renal function avoid nephrotoxic agents when able (9) Elevated troponin: (10) Coronary artery disease: Mildly elevated troponin likely secondary to demand ischemia Trended down Underweight BMI 17.4 (11) Cardiomyopathy, ischemic: (12) Cardiac defibrillator in place: Management as above (13) Hypothyroidism: Continue levothyroxine (14) Chronic atrial fibrillation: Continue digoxin and metoprolol Continue Coumadin Monitor PT/INR: 3.1 Coumadin dose adjusted today (15) Anemia, chronic disease: Hb stable (16) DVT prophylaxis: Coumadin Disposition PT/OT prior to discharge Labs checked ROS-Offers little history Physical Exam Gen-AAO x 2, NAD, Afebrile, weak Head-NCAT, EOMI, PERRLA, Anicteric Sclera, No Posterior Pharyngeal Erythema Neck-Supple, No JVD, No Thyromegaly, No Masses, No LAD, No Bruits Lungs-Clear to Auscultation Bilaterally, No Rales, No Rhonchi, No Wheezing, No Crepitus Chest-No S4, +S1, +S2, No S3, No Murmurs, No Rubs, No Gallops, No Ectopy Abdomen-Soft, Bowel Sounds Present, Non Tender, Non Distended, No Hepatomegaly, No Splenomegaly, No Palpable Masses, No Rebound, No Rigidity, No Guarding Musculoskeletal-Full Range of Motion Bilaterally, No CVAT Extremities-No Cyanosis, No Clubbing, No Edema Nuero-Cranial Nerves II-XII grossly intact, Motor WNL, DTRs WNL, Strength WNL, Non Focal Psych- Flat Mood Results & Data Vital Signs (Past 12 Hours) Vital Signs Temp Pulse Pulse Resp BP Pulse Ox 04/15/19 07:27 60 04/15/19 07:00 36.8 C 64 16 165/77 H 95 04/15/19 03:12 36.4 C L 62 20 146/83 H 97 04/15/19 00:01 64 04/14/19 23:55 62 18 123/73 96
[2019-04-15] MEDS: CYANOCOBALAMIN 500 MCG TABLET (VITAMIN B-12) PO SCH (11:13)
--- NOTE | 2019-04-15 11:47 | Fluoroscopy Report ---
MODIFIED BARIUM SWALLOW CLINICAL HISTORY: r/o aspiration COMPARISON STUDY: None. FLUOROSCOPY TIME: 1.9 minutes. TECHNIQUE: A modified barium swallow was performed in conjunction with Speech Pathology. The patient ingested varying consistencies of barium containing material. Video fluoroscopy was performed. FINDINGS: No aspiration was identified with spoonfuls of thin liquids. There were several episodes of a small amount of tracheal aspiration with swallows of thin liquids. Initially, no cough was elicite d. There was a subsequent cough. Tracheal aspiration was also noted with nectar thick liquids. There was penetration and possible aspiration with pudding consistencies. Small amount of tracheal aspirati on was noted with crackers with paste. Esophageal dysmotility was noted. IMPRESSION: 1. Multiple episodes of a small amount of tracheal aspiration with multiple consistencies, as describ ed above. 2. Mild to moderate esophageal dysmotility. 3. Full recommendations by speech pathology to follow. ACT 112: Negative or not required by law. Electronically signed by: Lj Guzman M.D. 04/15/2019 11:45 AM
[2019-04-15] MEDS: DIGOXIN 0.125 MG TAB PO SCH (16:53)
[2019-04-15] MEDS: INSULIN GLARGINE SOLOSTAR 100 UNITS/ML 3 ML PEN SC SCH (20:34)
[2019-04-15] MEDS: ALPRAZolam 0.25 MG TABLET PO PRN (20:36)
--- NOTE | 2019-04-15 22:16 | Electrocardiogram Report ---
Test Reason : Blood Pressure : / mmHG Vent. Rate : 066 BPM Atrial Rate : 000 BPM P-R Int : 000 ms QRS Dur : 132 ms QT Int : 386 ms P-R-T Axes : 000 011 110 degrees QTc Int : 404 ms Atrial fibrillation with frequent ventricular-paced complexes Left bundle branch block Abnormal ECG When compared with ECG of 14-APR-2019 06:36, Vent. rate has decreased BY 3 BPM Confirmed by Thomas Zepeda ([id number]) on 04/15/2019 10:16:51 PM Referred By: REFERRED SELF Confirmed By:Thomas Zepeda
[2019-04-15] MEDS: CARBOHYDRATES FOR HYPOGLYCEMIA PO PRN ×3 (23:10→23:43)
[2019-04-16] MEDS: PIPERACILLIN/TAZOBACTAM 3.375 GM in DEXTROSE 5% 100 ML IV SCH ×3 (03:15→18:32)
[2019-04-16] MEDS ORDERED: INSULIN ASPART 100 UNITS/ML 3 ML PEN SC SCH (04:00)
[2019-04-16] MEDS: DOXYCYCLINE HYCLATE 100 MG in DEXTROSE 5% 100 ML IV SCH ×2 (04:14→16:30)
[2019-04-16] MEDS: LEVOTHYROXINE SODIUM 50 MCG TABLET PO SCH (05:36)
[2019-04-16 05:59] LABS: Mean Corpuscular Hemoglobin 30.6 pg (25-34); Mean Corpuscular Hgb Conc 32.4 g/dL (32-36); Mean Corpuscular Volume 94.7 fL (80-100); Mean Platelet Volume 12.3 fL (7.4-10.4); Platelet Count 151 K/uL (130-400); RDW Coefficient of Variation 15.8 % (11.5-14.5); RDW Standard Deviation 54.5 fL (36.4-46.3); Red Blood Count 3.59 M/uL (4.7-6.1); White Blood Count 6.07 K/uL (4.8-10.8)
[2019-04-16 06:27] LABS: BUN Creatinine Ratio 25.1 (10-20); Creatinine Clr Calc Pharmacy 29.8 ml/min; Est GFR (African American) 45.6; Est GFR (Non-African American) 39.4
[2019-04-16 06:38] LABS: INR 2.4 (0.9-1.1); Prothrombin Time 23.1 Seconds (9.0-12.0)
[2019-04-16] MEDS: ALFUZOSIN HCL 10 MG TAB PO SCH (08:55)
[2019-04-16] MEDS: CHOLECALCIFEROL 1,000 UNITS 25 MCG TAB PO SCH ×2 (08:55→20:39)
[2019-04-16] MEDS: ASPIRIN 81 MG ECTAB PO SCH (08:56)
[2019-04-16] MEDS: MIDODRINE HCL 10 MG TAB PO SCH ×3 (08:56→16:33)
[2019-04-16] MEDS: CEROVITE ADV FORMULA TAB PO SCH ×2 (08:56→20:39)
[2019-04-16] MEDS: INSULIN ASPART 100 UNITS/ML 3 ML PEN SC SCH ×4 (08:56→20:41)
[2019-04-16] MEDS: FERROUS SULFATE 325 MG TAB PO SCH (08:56)
[2019-04-16] MEDS: ATORVASTATIN 10 MG TAB PO SCH (08:56)
[2019-04-16] MEDS: FUROSEMIDE 20 MG TAB PO SCH (08:56)
[2019-04-16] MEDS: METOPROLOL TARTRATE 25 MG TAB PO SCH ×2 (08:57→20:39)
[2019-04-16] MEDS: CYANOCOBALAMIN 500 MCG TABLET (VITAMIN B-12) PO SCH (11:58)
--- NOTE | 2019-04-16 15:13 | Pharmacy Report ---
Pharmacy Glycemic Short Note 2 - Date of Service April 16, 2019 - Glycemic Short BSG Results (Last 24 hours): 04/15/19 04/15/19 04/15/19 11:49 16:04 20:01 Glucose POC Glucose 280 H 233 H 128 H 04/15/19 04/15/19 04/15/19 23:06 23:07 23:25 Glucose POC Glucose 53 L* 57 L* 59 L* 04/15/19 04/15/19 04/16/19 23:41 23:58 00:57 Glucose POC Glucose 69 L* 74 91 04/16/19 04/16/19 04/16/19 04:09 05:32 07:28 Glucose 135 H POC Glucose 106 H 189 H 04/16/19 11:36 Glucose POC Glucose 254 H OUTPATIENT ANTIDIABETIC REGIMEN: * Lantus 8-10 units HS * Novolog 6-12 units QID prn ASSESSMENT: * Patient received total 35 units of insulin yesterday: 10 units basal + 25 units bolus. * He had hypoglycemia around 2300 last night which was quickly corrected. This was most likely caused by the 13 units of Novolog insulin he received at dinner yesterday for elevated BSG. Serum creatinine was elevated as well and he was probably holding on to all the insulin he received during the day. * Fasting BSG this AM was elevated again. Lantus dose tonight was increased slightly. * Novolog parameters were adjusted down today for dinner and bedtime so that juanito vicente receives lesser insulin later in the day to prevent hypoglycemia overnight. PLAN FOR INPATIENT GLYCEMIC CONTROL: * Basal insulin: increase * Lantus 12 units SQ HS * Bolus insulin: loosened CF/CR at dinner and HS * NovoLog per scale ACHS or Q6hrs while NPO * Goal Range: Low 120 mg/dL - High 150 mg/dL * Correction Factor: 25 mg/dL/unit for breakfast and lunch; 30 mg/dl/unit for dinner and bedtime * Nutritional / Prandial insulin per carb ratio of 1 unit per 8 grams CHO consumed for breakfast & lunch; 1:12 CHO for dinner & HS PLAN FOR DISCHARGE: * HbA1c = 7.5% on 03/17/19 * Goal A1c is less than 8%. Recommend continue with home insulin regimen which includes Lantus and Novolog as long as patient is not reporting hypoglycemia and he follows up closely with outpatient provider.
[2019-04-16] MEDS: DIGOXIN 0.125 MG TAB PO SCH (16:24)
[2019-04-16] MEDS: WARFARIN SOD 2 MG TAB PO SCH (16:25)
--- NOTE | 2019-04-16 19:07 | Hospitalist Progress Note ---
Date of Service April 16, 2019 Assessment & Plan (1) Shortness of breath: Presented with dyspnea. Symptoms may have been secondary to CHF or pneumonia as discussed below. Improved. (2) Chronic combined systolic and diastolic CHF (congestive heart failure): History of chronic left ventricular combined systolic and diastolic heart failure. Echo Dec 2018 showed LVEF 50%. Chest x-ray showed cardiomegaly and pulmonary vascular congestion. Pro-BNP 19,000. Acute on chronic ventricular combined systolic and diastolic heart failure. Improving with diuretics. (3) Pneumonia: Possible pneumonia on chest x-ray. Afebrile. Normal WBC. Elevated procalcitonin. Possible aspiration pneumonia. Receiving IV piperacillin / tazobactam. Check follow-up procalcitonin. (4) Coronary artery disease: No anginal symptoms. Continue aspirin, metoprolol, statin. (5) Chronic atrial fibrillation: Continue metoprolol, digoxin, and warfarin. (6) Orthostatic hypotension: Continue midodrine. Take care not to over-diurese. (7) Aspiration into airway: Video swallow demonstrated aspiration. HEARING AID TECHNICIAN consulted. Aspiration precautions. (8) Pulmonary nodules: Multiple pulmonary nodules noted on CT. Followed by Pulmonary Medicine in [place] for same. Will need outpatient follow-up. (9) Diabetes mellitus: History of DM. Records indicated type 1- need to clarify. Pharmacy consulted for glycemic management. Receiving Lantus / NovoLog per protocol. FBS today = 189. (10) Hypothyroidism: Continue levothyroxine. (11) DVT prophylaxis: Continue warfarin. Ambulate. Subjective Recheck for multiple problems. Patient seen in their room around 1900. Feels better. Decreased cough. Decreased SOB. No fever. Constipated. Review of Systems: Constitutional- no fever. Cardiac- no chest pain. Pulmonary- as noted above. GI- no nausea, vomiting, diarrhea, melena, hematochezia. - no urinary symptoms. Otherwise, as noted above. Physical Exam Constitutional: no acute distress Eyes: + anicteric sclerae Respiratory: no respiratory distress Auscultation: lungs clear to auscultation bilaterally Cardiovascular: Rate/Rhythm: regular rate and regular rhythm Heart Sounds: no gallop Vessels: no JVD Extremities: no calf tenderness and no edema Gastrointestinal (Abdomen): normal bowel sounds, soft, nontender, no hepatosplenomegaly Skin: no rashes, warm and dry Psychiatric: Orientation: alert and oriented x 3 Results & Data Vital Signs (Past 12 Hours) Vital Signs Temp Pulse Pulse Resp BP Pulse Ox 04/16/19 16:24 78 04/16/19 15:42 36.4 C L 58 L 18 134/71 97 04/16/19 11:33 36.8 C 59 L 16 159/81 H 98 04/16/19 08:00 64 04/16/19 07:21 36.8 C 60 18 159/85 H 96
[2019-04-16] MEDS: ALPRAZolam 0.25 MG TABLET PO PRN (20:03)
[2019-04-16] MEDS: DOCUSATE SODIUM/SENNA 50/8.6MG TAB PO SCH (20:39)
[2019-04-16] MEDS ORDERED: INSULIN GLARGINE SOLOSTAR 100 UNITS/ML 3 ML PEN SC SCH (21:00)
[2019-04-17] MEDS: PIPERACILLIN/TAZOBACTAM 3.375 GM in DEXTROSE 5% 100 ML IV SCH ×3 (00:52→17:54)
[2019-04-17] MEDS: DOXYCYCLINE HYCLATE 100 MG in DEXTROSE 5% 100 ML IV SCH (05:17)
[2019-04-17] MEDS: LEVOTHYROXINE SODIUM 50 MCG TABLET PO SCH (06:00)
[2019-04-17 06:10] LABS: INR 1.8 (0.9-1.1); Prothrombin Time 17.5 Seconds (9.0-12.0)
[2019-04-17 06:29] LABS: BUN Creatinine Ratio 24.6 (10-20); Calcium 8.9 mg/dl (8.5-10.1); Creatinine Clr Calc Pharmacy 31.8 ml/min; Est GFR (African American) 48.7; Potassium 3.5 mmol/L (3.5-5.1)
--- NOTE | 2019-04-17 07:51 | XRay Report ---
XR chest 1V portable CLINICAL HISTORY: CHF dyspnea COMPARISON STUDY: 04/13/2019 FINDINGS: Mild stable cardiomegaly. Improving aeration of the lung bases. Pulmonary apices remain livan ssly clear. IMPRESSION: Improving components of congestive failure versus basilar parenchymal infiltrative rendon e. ACT 112: Negative or not required by law. The above report was generated using voice recognition software. It may contain grammatical, syntax or spelling errors. Electronically signed by: Rojelio Watkins M.D. 04/17/2019 7:50 AM
[2019-04-17] MEDS: METOPROLOL TARTRATE 25 MG TAB PO SCH ×2 (08:33→21:03)
[2019-04-17] MEDS: CHOLECALCIFEROL 1,000 UNITS 25 MCG TAB PO SCH ×2 (08:34→21:03)
[2019-04-17] MEDS: MIDODRINE HCL 10 MG TAB PO SCH ×3 (08:35→17:56)
[2019-04-17] MEDS: ALFUZOSIN HCL 10 MG TAB PO SCH (08:35)
[2019-04-17] MEDS: FUROSEMIDE 20 MG TAB PO SCH (08:35)
[2019-04-17] MEDS: ASPIRIN 81 MG ECTAB PO SCH (08:35)
[2019-04-17] MEDS: ATORVASTATIN 10 MG TAB PO SCH (08:35)
[2019-04-17] MEDS: CEROVITE ADV FORMULA TAB PO SCH ×2 (08:36→21:03)
[2019-04-17] MEDS: FERROUS SULFATE 325 MG TAB PO SCH (08:36)
[2019-04-17] MEDS: INSULIN ASPART 100 UNITS/ML 3 ML PEN SC SCH ×4 (08:37→21:04)
[2019-04-17] MEDS: CYANOCOBALAMIN 500 MCG TABLET (VITAMIN B-12) PO SCH (11:39)
--- NOTE | 2019-04-17 14:41 | Pharmacy Report ---
Pharmacy Glycemic Short Note 2 - Date of Service April 17, 2019 - Glycemic Short BSG Results (Last 24 hours): 04/16/19 04/16/19 04/17/19 16:27 20:28 05:31 Glucose 92 POC Glucose 131 H 131 H 04/17/19 04/17/19 07:43 11:33 Glucose POC Glucose 116 H 192 H OUTPATIENT ANTIDIABETIC REGIMEN: * Glargine 8-10 units HS * Novolog 6-12 units QID prn ASSESSMENT: * Patient received total 31 units of insulin yesterday: 12 units basal + 19 units bolus. * AM Fasting BSG is below goal range at 92 mg/dl. Will decrease basal insulin from 12 units to 10 units HS * Post-prandial BSGs all in goal range except for pre-lunch. May be secondary to over-correction of hypo that morning. Will not make any changes to CF/CR at this time. Will re-evaluate if this becomes a pattern PLAN FOR INPATIENT GLYCEMIC CONTROL: * Basal insulin: decrease dosing * Lantus 10 units SQ HS * Bolus insulin: no change * NovoLog per scale ACHS or Q6hrs while NPO * Goal Range: Low 120 mg/dL - High 150 mg/dL * Correction Factor: 25 mg/dL/unit for breakfast and lunch; 30 mg/dl/unit for dinner and bedtime * Nutritional / Prandial insulin per carb ratio of 1 unit per 8 grams CHO consumed for breakfast & lunch; 1:12 CHO for dinner & HS PLAN FOR DISCHARGE: * HbA1c = 7.5% on 03/17/19 * Goal A1c is less than 8%. No changes needed to outpatient regimen * Continue to follow-up with Endocrinology- Dr. Perkins on 05/16 at 1:30pm
[2019-04-17] MEDS: DIGOXIN 0.125 MG TAB PO SCH (16:25)
[2019-04-17] MEDS: WARFARIN SOD 2 MG TAB PO SCH (16:25)
[2019-04-17] MEDS ORDERED: INSULIN GLARGINE SOLOSTAR 100 UNITS/ML 3 ML PEN SC SCH (21:00)
[2019-04-17] MEDS: DOCUSATE SODIUM/SENNA 50/8.6MG TAB PO SCH (21:03)
[2019-04-17] MEDS: DOXYCYCLINE HYCLATE 100 MG CAP PO SCH (21:03)
[2019-04-17] MEDS: ALPRAZolam 0.25 MG TABLET PO PRN (21:17)
--- NOTE | 2019-04-17 21:21 | Hospitalist Progress Note ---
Date of Service April 17, 2019 Assessment & Plan (1) Shortness of breath: Presented with dyspnea. Symptoms may have been secondary to CHF or pneumonia as discussed below. Improved. (2) Chronic combined systolic and diastolic CHF (congestive heart failure): History of chronic left ventricular combined systolic and diastolic heart failure. Echo Dec 2018 showed LVEF 50%. Chest x-ray showed cardiomegaly and pulmonary vascular congestion. Pro-BNP 19,000. Acute on chronic ventricular combined systolic and diastolic heart failure. Improving with diuretics. History of orthostatic hypotension- need to be careful not to over-diurese. (3) Pneumonia: Possible pneumonia on chest x-ray. Afebrile. Normal WBC. Elevated procalcitonin. Possible aspiration pneumonia. Receiving IV piperacillin / tazobactam. Follow-up procalcitonin down to 0.49. Transition to oral antibiotic therapy with amoxicillin / clavulanic acid. (4) Coronary artery disease: No anginal symptoms. Continue aspirin, metoprolol, statin. (5) Chronic atrial fibrillation: Continue metoprolol, digoxin, and warfarin. (6) Orthostatic hypotension: Continue midodrine. Take care not to over-diurese. (7) Aspiration into airway: Video swallow demonstrated aspiration. CHIEF ORTHOPTIST consulted. Aspiration precautions. (8) Pulmonary nodules: Multiple pulmonary nodules noted on CT. Diagnosed with histoplasmosis several years ago. Will need outpatient follow-up with comparison of past and present films. Followed by Pulmonary Medicine in [place] for same. Had been previously followed by [facility] and would like to reestablish there. (9) Diabetes mellitus: History of DM. Records indicated type 1- need to clarify. Pharmacy consulted for glycemic management. Receiving Lantus / NovoLog per protocol. FBS today = 116. (10) Hypothyroidism: Continue levothyroxine. (11) DVT prophylaxis: Continue warfarin. Ambulate. (12) Discharge planning issues: Anticipated need for skilled care before returning home where he lives with his son and [id number]. Family Medicine follow-up with Dr. Osullivan. Subjective Recheck for multiple problems. Patient seen in their room around 1840. Family visiting. Feels better. Decreased cough. Decreased SOB. No fever. Constipation resolved. Feels somewhat lightheaded when standing. Review of Systems: Constitutional- no fever. Cardiac- no chest pain. Pulmonary- as noted above. GI- no nausea, vomiting, diarrhea, melena, hematochezia. - no urinary symptoms. Otherwise, as noted above. Physical Exam Constitutional: no acute distress Eyes: + anicteric sclerae Respiratory: no respiratory distress Auscultation: lungs clear to auscultation bilaterally Cardiovascular: Rate/Rhythm: regular rate and regular rhythm Heart Sounds: no gallop Vessels: no JVD Extremities: no calf tenderness and no edema Gastrointestinal (Abdomen): normal bowel sounds, soft, nontender, no hepatosplenomegaly Skin: no rashes, warm and dry Psychiatric: Orientation: alert and oriented x 3 Results & Data Vital Signs (Past 12 Hours) Vital Signs Temp Pulse Pulse Resp BP BP Pulse Ox 04/17/19 20:02 36.5 C 59 L 18 149/69 H 98 04/17/19 16:25 68 04/17/19 16:00 37.1 C 58 L 18 153/73 H 98 04/17/19 11:54 36.7 C 60 16 155/80 H 98 Laboratory Results Laboratory Results - last 24 hr 04/17/19 04/17/19 04/17/19 05:31 05:31 07:43 PT 17.5 H INR 1.8 H Sodium 138 Potassium 3.5 Chloride 101 Carbon Dioxide 33 H Anion Gap 4.0 BUN 36 H Creatinine 1.47 H Est Cr Clr Drug Dosing 31.8 Est GFR ( Amer) 48.7 Est GFR (Non-Af Amer) 42.0 BUN/Creatinine Ratio 24.6 H Glucose 92 POC Glucose 116 H Calcium 8.9 Procalcitonin 04/17/19 04/17/19 04/17/19 11:33 13:12 16:46 PT INR Sodium Potassium Chloride Carbon Dioxide Anion Gap BUN Creatinine Est Cr Clr Drug Dosing Est GFR ( Amer) Est GFR (Non-Af Amer) BUN/Creatinine Ratio Glucose POC Glucose 192 H 197 H Calcium Procalcitonin 0.49 04/17/19 20:42 PT INR Sodium Potassium Chloride Carbon Dioxide Anion Gap BUN Creatinine Est Cr Clr Drug Dosing Est GFR ( Amer) Est GFR (Non-Af Amer) BUN/Creatinine Ratio Glucose POC Glucose 197 H Calcium Procalcitonin
[2019-04-18] MEDS: LEVOTHYROXINE SODIUM 50 MCG TABLET PO SCH (05:44)
[2019-04-18 06:03] LABS: INR 1.4 (0.9-1.1)
[2019-04-18 06:07] LABS: BUN Creatinine Ratio 23.9 (10-20); Calcium 8.9 mg/dl (8.5-10.1); Est GFR (African American) 46.4; Potassium 3.5 mmol/L (3.5-5.1)
[2019-04-18] MEDS: CEROVITE ADV FORMULA TAB PO SCH (07:59)
[2019-04-18] MEDS: INSULIN ASPART 100 UNITS/ML 3 ML PEN SC SCH ×3 (07:59→17:02)
[2019-04-18] MEDS: FERROUS SULFATE 325 MG TAB PO SCH (08:00)
[2019-04-18] MEDS: DOXYCYCLINE HYCLATE 100 MG CAP PO SCH (08:00)
[2019-04-18] MEDS: METOPROLOL TARTRATE 25 MG TAB PO SCH (08:00)
[2019-04-18] MEDS: FUROSEMIDE 20 MG TAB PO SCH (08:00)
[2019-04-18] MEDS: ATORVASTATIN 10 MG TAB PO SCH (08:00)
[2019-04-18] MEDS: ALFUZOSIN HCL 10 MG TAB PO SCH (08:00)
[2019-04-18] MEDS: ASPIRIN 81 MG ECTAB PO SCH (08:00)
[2019-04-18] MEDS ORDERED: AMOXICILLIN/CLAVULANATE 875 MG TAB PO SCH (08:00)
[2019-04-18] MEDS: CHOLECALCIFEROL 1,000 UNITS 25 MCG TAB PO SCH (08:00)
[2019-04-18] MEDS: MIDODRINE HCL 10 MG TAB PO SCH ×3 (08:05→16:00)
--- NOTE | 2019-04-18 11:41 | Hospitalist Progress Note ---
Date of Service April 18, 2019 Assessment & Plan (1) Chronic combined systolic and diastolic CHF (congestive heart failure): Presented with cough and shortness of breath. 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 Echo Dec 2018 showed LVEF 50%. Chest x-ray showed cardiomegaly and pulmonary vascular congestion. Pro-BNP 19,000. Acute on chronic ventricular combined systolic and diastolic heart failure. Improving with diuretics. History of orthostatic hypotension- need to be careful not to over-diurese. Discharge on furosemide 20 mg daily. No TOSHIA or ARB because of orthostatic hypotension and only mildly reduced LVEF. (2) Pneumonia: Presented with cough and shortness of breath. SEASONAL SALES ASSOCIATE swab for influenza A/B negative. Possible pneumonia on chest x-ray. Afebrile. Normal WBC. Elevated procalcitonin. Possible aspiration pneumonia. Received IV piperacillin / tazobactam with improvement. Follow-up procalcitonin down to 0.49. Transitioned to oral antibiotic therapy with amoxicillin / clavulanic acid- co ntinue Rx for 5 more days. (3) Aspiration into airway: Video swallow demonstrated aspiration. INDIGO MIXER consulted. Aspiration precautions. (4) Coronary artery disease: No anginal symptoms. Continue aspirin, metoprolol, statin. (5) Chronic atrial fibrillation: Continue metoprolol, digoxin, and warfarin. Monitor INR closely while receiving antibiotic coverage. Most recent outpatient warfarin dose 7.5 mg MoWeFr + 5 mg TuThSaSu. INR at time of admission was 2.5. Warfarin dose decreased to 2 mg daily. INR queta to 3.6 while receiving antibiotics. INR today 1.4. Will change dose to 5 mg daily with ongoing adjustments. (6) Orthostatic hypotension: Continue midodrine. Take care not to over-diurese. (7) Pulmonary nodules: Multiple pulmonary nodules noted on CT. Diagnosed with histoplasmosis several years ago. Will need outpatient follow-up with comparison of past and present films. Followed by Pulmonary Medicine in [place] for same. Had been previously followed by [facility] and would like to reestablish there. CT images are being sent to [facility] for review. (8) Diabetes mellitus: History of DM. Records indicated type 1- need to clarify. Pharmacy consulted for glycemic management. Receiving Lantus / NovoLog per protocol. FBS today = 73. (9) Hypothyroidism: Continue levothyroxine. (10) DVT prophylaxis: Continue warfarin. Ambulate. (11) Discharge planning issues: Needs skilled care before returning home where he lives with his son and [id number]. Arrangements being made for transfer to [facility]. Family Medicine follow-up with Dr. Osullivan. Subjective Recheck for multiple problems. Patient seen in their room around 0950. Doing well. Minimal cough. Decreased SOB. Not requiring supplemental O2. No fever. Constipation resolved with Senokot-S. Review of Systems: Constitutional- no fever. Cardiac- no chest pain. Pulmonary- as noted above. GI- no nausea, vomiting, melena, hematochezia. - no urinary symptoms. Otherwise, as noted above. Physical Exam Constitutional: no acute distress Eyes: + anicteric sclerae Respiratory: no respiratory distress Auscultation: lungs clear to auscultation bilaterally Cardiovascular: Rate/Rhythm: regular rate and regular rhythm Heart Sounds: no gallop Vessels: no JVD Extremities: no calf tenderness and no edema Gastrointestinal (Abdomen): normal bowel sounds, soft, nontender, no hepatosplenomegaly Skin: no rashes, warm and dry Psychiatric: Orientation: alert and oriented x 3 Results & Data Vital Signs (Past 12 Hours) Vital Signs Temp Pulse Pulse Pulse Resp BP BP 04/18/19 08:04 36.6 C 73 124/66 04/18/19 07:35 68 18 184/77 H 04/18/19 04:22 36.6 C 66 17 137/76 04/18/19 00:00 60 04/17/19 23:29 36.5 C 60 17 158/78 H Pulse Ox 04/18/19 08:04 04/18/19 07:35 95 04/18/19 04:22 98 04/18/19 00:00 04/17/19 23:29 97 Laboratory Results Laboratory Results - last 24 hr 04/17/19 04/17/19 04/17/19 11:33 13:12 16:46 PT INR Sodium Potassium Chloride Carbon Dioxide Anion Gap BUN Creatinine Est Cr Clr Drug Dosing Est GFR ( Amer) Est GFR (Non-Af Amer) BUN/Creatinine Ratio Glucose POC Glucose 192 H 197 H Calcium Procalcitonin 0.49 04/17/19 04/18/19 04/18/19 20:42 05:35 05:35 PT 14.0 H INR 1.4 H Sodium 139 Potassium 3.5 Chloride 102 Carbon Dioxide 34 H Anion Gap 3.0 BUN 37 H Creatinine 1.53 H Est Cr Clr Drug Dosing 30.0 Est GFR ( Amer) 46.4 Est GFR (Non-Af Amer) 40.0 BUN/Creatinine Ratio 23.9 H Glucose 72 POC Glucose 197 H Calcium 8.9 Procalcitonin 04/18/19 07:34 PT INR Sodium Potassium Chloride Carbon Dioxide Anion Gap BUN Creatinine Est Cr Clr Drug Dosing Est GFR ( Amer) Est GFR (Non-Af Amer) BUN/Creatinine Ratio Glucose POC Glucose 73 Calcium Procalcitonin
[2019-04-18] MEDS ORDERED: WARFARIN SOD 5 MG TAB PO ONE (11:50)
[2019-04-18] MEDS: CYANOCOBALAMIN 500 MCG TABLET (VITAMIN B-12) PO SCH (11:53)
--- NOTE | 2019-04-18 12:30 | Discharge Summary ---
Date of Service Date of Admission: 04/13/19 Date of Discharge: 04/18/19 Admission HPI Per Admitting Provider 88-year-old male who presents the ED for evaluation of generalized weakness, falls, shortness of breath. Patient most recently admitted to [facility] 03/16-03/25 for orthostasis and right lower extremity edema. 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 Patient was discharged to [facility] for rehab. He returned home on 04/03. Over the past few days, patient has been having increasing weakness and shortness of breath. reports numerous falls. Patient has been having chills and low-grade fevers. No cough or sputum production. Denies lightheadedness, dizziness, diaphoresis, syncopal events. Denies orthopnea and lower extremity edema. Blood sugars have been running high as well. Does not weigh himself on a day-to-day basis. No chest pain. Denies abdominal pain, nausea, vomiting, diarrhea. No urinary symptoms. In the ED, labs show hyperglycemia with glucose 441, mildly elevated troponin 0.169, proBNP 19,000. Chest imaging shows CHF versus pneumonia. Patient was given IV insulin, IV Zosyn, IVF. Principal Diagnosis acute on chronic left ventricular combined systolic + diastolic heart failure pneumonia, suspected aspiration Discharge Data Allergies Allergy/AdvReac Type Severity Reaction Status Date / Time banana Allergy Unknown ` Verified 04/13/19 13:52 itraconazole AdvReac Intermediate UNKNOWN Unverified 04/13/19 13:52 Consultations 04/13/19 13:31 ED Decision to Admit Stat 04/13/19 15:51 Consult Case Management - Discharge Planning Routine 04/13/19 16:21 Consult Pulmonology Routine Ordered Studies 04/13/19 12:03 CT abd pelvis wo con Stat CT head/brain wo con Stat 04/13/19 14:59 CT chest wo con Routine 04/15/19 11:30 FL video swallow Routine Hospital Course (1) Chronic combined systolic and diastolic CHF (congestive heart failure): Presented with cough and shortness of breath. 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 Echo Dec 2018 showed LVEF 50%. Chest x-ray showed cardiomegaly and pulmonary vascular congestion. Pro-BNP 19,000. Acute on chronic ventricular combined systolic and diastolic heart failure. Improving with diuretics. History of orthostatic hypotension- need to be careful not to over-diurese. Discharge on furosemide 20 mg daily. No TOSHIA or ARB because of orthostatic hypotension and only mildly reduced LVEF. (2) Pneumonia: Presented with cough and shortness of breath. 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 Possible pneumonia on chest x-ray. Afebrile. Normal WBC. Elevated procalcitonin. Possible aspiration pneumonia. Received IV piperacillin / tazobactam with improvement. Follow-up procalcitonin down to 0.49. Transitioned to oral antibiotic therapy with amoxicillin / clavulanic acid- continue Rx for 5 more days. (3) Aspiration into airway: Video swallow demonstrated aspiration. 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 Aspiration precautions. (4) Coronary artery disease: No anginal symptoms. Continue aspirin, metoprolol, statin. (5) Chronic atrial fibrillation: Continue metoprolol, digoxin, and warfarin. Monitor INR closely while receiving antibiotic coverage. Most recent outpatient warfarin dose 7.5 mg MoWeFr + 5 mg TuThSaSu. INR at time of admission was 2.5. Warfarin dose decreased to 2 mg daily. INR queta to 3.6 while receiving antibiotics. INR today 1.4. Will change dose to 5 mg daily with ongoing adjustments (received dose at [facility] on 04/18 prior to transfer). (6) Orthostatic hypotension: Continue midodrine. Take care not to over-diurese. Please note discussion below regarding BPH. (7) Pulmonary nodules: Multiple pulmonary nodules noted on CT. Diagnosed with histoplasmosis several years ago. Will need outpatient follow-up with comparison of past and present films. Followed by Pulmonary Medicine in [place] for same. Had been previously followed by [facility] and would like to reestablish there. CT images are being sent to [employer] PACS for review. (8) Diabetes mellitus: History of DM type 2, followed by Dr. Perkins. Pharmacy consulted for glycemic management. Receiving Lantus / NovoLog per protocol. FBS day of discharge 73. (9) Hypothyroidism: Continue levothyroxine. (10) Benign prostatic hyperplasia: Takes alfuzosin for BPH. Takes hydroxyzine for anxiety which may worsen urinary retention. Recently started on midodrine for orthostatic hypotension which may be caused or aggravated by alfuzosin. Try stopping hydroxyzine. Consider trial of holding alfuzosin. If able to void without difficulty without alfuzosin, may be able to wean and stop midodrine. (11) DVT prophylaxis: Continue warfarin. Ambulate. (12) Discharge planning issues: Needs skilled care before returning home where he lives with his son and [id number]. Arrangements being made for transfer to [facility]. Family Medicine follow-up with Dr. Osullivan. Total Time Total Time Spent Total Time Spent (In Minutes): 50 Discharge Plan Discharge Items Patient Disposition: [facility] Reason For Visit: congestive heart failure, pneumonia Discharge Diagnosis: congestive heart failure, pneumonia Condition on Discharge: Good Activity: As commented below Activity Comment: gradually increase activity as tolerated Non-emergency contact: Primary Care Provider and Hospitalist Call non-emergency contact if: you have any medication questions and your symptoms worsen Follow-up/Referrals: Robert Osullivan MD [Primary Care Provider] - (Please arrange for follow-up in clinic at time of discharge from [facility].) Diet: Carb Consistent or DM2 and Heart Healthy Addtl Attending Provider Instructions: Fingerstick blood sugars AC + HS. Fall precautions. Aspiration precautions. alternate solids and liquids supervise meals fully alert and upright give meds in a carrier single bites / small sips / slow rate no straws Please check INR twice a week and adjust warfarin as necessary to maintain INR 2-3. Please check BMP weekly until stable, then as clinically indicated. Thank you for receiving this patient in transfer. Please call if you have any questions. Sandro Owen Pending Studies at Discharge: No Stand-Alone Forms: My [facility] Skilled Items Patient informed of condition?: Yes DNR: No Discharge Level of Care: Skilled Communicable Disease: No Discharge Prognosis: Improving Lines: None Urinary Catheter: No Medications and DC Order Prescriptions: New amoxicillin-pot clavulanate [Augmentin] 875-125 mg tablet 1 tab PO BID Qty: 10 RF: 0 warfarin 5 mg tablet 5 mg PO DAILY Qty: 30 RF: 0 Continued cyanocobalamin (vitamin B-12) 1,000 mcg Tablet 1,000 mcg PO QDL RF: 0 aspirin 81 mg Tablet,Delayed Release (Dr/Ec) 81 mg PO QAM RF: 0 ascorbic acid (vitamin C) 500 mg Tablet 500 mg PO QDL RF: 0 digoxin 125 mcg (0.125 mg) tablet 125 mcg PO QAM RF: 0 cholecalciferol (vitamin D3) 1,000 unit (25 mcg) Tablet 1,000 unit PO BID RF: 0 biotin 1 mg Capsule 1 mg PO QDL RF: 0 PreserVision AREDS-2 [id number] Capsule 1 tab PO BID RF: 0 atorvastatin 10 mg Tablet 10 mg PO QAM Qty: 30 RF: 0 Novolog Flexpen U-100 Insulin 100 unit/mL (3 mL) insulin pen 0 unit SQ ACHS PRN (Reason: blood sugar) RF: 0 Basaglar KwikPen U-100 Insulin 100 unit/mL (3 mL) insulin pen 16 units SQ HS RF: 0 midodrine 10 mg Tablet 10 mg PO TID Qty: 90 RF: 3 furosemide 20 mg tablet 20 mg PO DAILY PRN (Reason: EDEMA) 30 Days Qty: 0 RF: 0 ferrous sulfate [iron] 325 mg (65 mg iron) tablet 325 mg PO DAILY Qty: 30 RF: 0 acetaminophen 325 mg Tablet 650 mg PO QID PRN (Reason: Pain and Fever) RF: 0 alprazolam 0.25 mg tablet 0.25 mg PO BID PRN (Reason: Anxiety) RF: 0 metoprolol tartrate 25 mg tablet 12.5 mg PO BID RF: 0 Super Beta Prostate 0 mg 0 mg PO BID RF: 0 levothyroxine 50 mcg tablet 50 mcg PO DAILYBB RF: 0 alfuzosin 10 mg tablet extended release 24 hr 10 mg PO DAILY RF: 0 Discontinued (DME) pen needle, diabetic [BD Ultra-Fine Short Pen Needle] 31 gauge x 5/16" needle See Dose Instructions .ROUTE .MEDSUPPLY Qty: 400 RF: 3 warfarin 7.5 mg tablet 7.5 mg PO MOWEFR RF: 0 hydroxyzine HCl 50 mg tablet 50 mg PO Q6H PRN (Reason: Anxiety) RF: 0 warfarin 5 mg tablet 5 mg PO SUTUTHSA RF: 0 Admission Data Admit Date/Time: 04/13/19 14:15 Attending Provider: Sandro Owen Admit Provider: Oswaldo Resendiz Primary Care Provider: Robert Osullivan Other Providers: Oswaldo Resendiz ; Mary Flores ; [facility] ; [facility] ; Shantanu Tapia
[2019-04-18] MEDS: DIGOXIN 0.125 MG TAB PO SCH (16:00)
[2019-04-18] MEDS ORDERED: AMOXICILLIN/CLAVULANATE 500 MG TAB PO SCH (17:00)
== END 2019-04-18 17:59 | DRG 193 ==
LOC: ED 11:35 → SUATTDRO 14:15 → 2S 14:15

== ENCOUNTER 2019-05-12 13:19 | Inpatient (IN) ==
[2019-05-12] MEDS ORDERED: SODIUM CHLORIDE 0.9% 1000ML 1,000 ML IV SCH (13:45)
--- NOTE | 2019-05-12 14:00 | XRay Report ---
XR chest 1V portable HISTORY: weakness COMPARISON: Chest 04/17/2019. FINDINGS: No pneumothorax. Left-sided single lead pacemaker/defibrillator is again noted. The heart r emains mildly enlarged. Small right pleural effusion persists. Right basilar pleural thickening is ag ain noted. Slight progression of the right perihilar hazy airspace opacities. The patient's known sca ttered pulmonary nodules are better appreciated on the recent chest CT. No evidence for pulmonary damian ma. IMPRESSION: 1. Slight progression of the right perihilar hazy airspace opacity. This could be due to layering ple ural fluid or developing airspace opacity. 2. The right basilar pleural thickening and scattered pulmonary nodules are better appreciated on the recent chest CT. 3. Stable cardiomegaly. ACT 112: Negative or not required by law. Electronically signed by: Hitesh Pike M.D. 05/12/2019 1:58 PM
[2019-05-12 14:04] LABS: Basophils # (auto) 0.02 K/uL (0-0.2); Basophils % (auto) 0.2 %; Eosinophils # (auto) 0.02 K/uL (0-0.5); Eosinophils % (auto) 0.2 %; Hematocrit (blood only) 38.6 % (42-52); Hemoglobin 12.8 g/dL (14.0-18.0); Immature Granulocytes # (auto) 0.02 K/uL (0.00-0.02); Immature Granulocytes % (auto) 0.2 %; Lymphocytes # (auto) 0.26 K/uL (1.2-3.4); Lymphocytes % (auto) 2.3 %; Mean Corpuscular Hemoglobin 31.1 pg (25-34); Mean Corpuscular Hgb Conc 33.2 g/dL (32-36); Mean Corpuscular Volume 93.9 fL (80-100); Mean Platelet Volume 12.1 fL (7.4-10.4); Monocytes # (auto) 0.57 K/uL (0.11-0.59); Monocytes % (auto) 5.1 %; Platelet Count 163 K/uL (130-400); RDW Coefficient of Variation 15.2 % (11.5-14.5); Red Blood Count 4.11 M/uL (4.7-6.1); White Blood Count 11.19 K/uL (4.8-10.8)
[2019-05-12 14:37] LABS: Alanine Aminotransferase 20 U/L (12-78); Albumin Globulin Ratio 0.6 (0.9-2); Albumin Level 3.4 gm/dl (3.4-5.0); Alkaline Phosphatase 90 U/L (45-117); Aspartate Aminotransferase 14 U/L (15-37); BUN Creatinine Ratio 25.1 (10-20); Blood Urea Nitrogen 40 mg/dl (7-18); Calcium 9.3 mg/dl (8.5-10.1); Carbon Dioxide 31 mmol/L (21-32); Chloride 99 mmol/L (98-107); Creatine Kinase 102 U/L (39-308); Est GFR (African American) 43.9; Est GFR (Non-African American) 37.9; Globulin 5.4 gm/dl (2.5-4.0); Glucose 325 mg/dl (70-99); Potassium 4.1 mmol/L (3.5-5.1); Sodium 135 mmol/L (136-145); Total Protein 8.8 gm/dl (6.4-8.2); Troponin I 0.044 ng/ml (0-0.045)
[2019-05-12 14:54] LABS: Beta-Hydroxybutyrate 7.25 mg/dl (0.2-2.81)
[2019-05-12] MEDS ORDERED: PIPERACILLIN/TAZOBACTAM 4.5 GM/120 ML BAG IV ONE (15:37)
[2019-05-12] MEDS ORDERED: PIPERACILL/TAZOBAC CONSULT ACTIVE PRN (15:37)
--- NOTE | 2019-05-12 16:16 | Emergency Department Note ---
Entered by Jack Bautista acting as a scribe for Tony Vora DO History of Present Illness General Chief complaint: Hyperglycemia Time Seen by Provider: 05/12/19 13:24 Source: family () and RN notes reviewed History of Present Illness Onset (ago): day(s) (couple) Location: left and right Pain Consistency: + other (episode) Quality: + other (generally worsening health conditions ) Associated symptoms: + other (+weight loss; +left sided facial droop; +slurred speech; +hyperglycemia ) The patient is an 88 year old male, with past medical history of BPH, diabetes, CAD, CHF, TIA and CKD, who presents to the Emergency Room with complaints of an episode of generally worsening health conditions over the past couple days, according to the RN. The RN reports the patient was at [facility] for deconditioning, but the RN states the patient was sent home about a week ago after the patient was doing well. However, the RN reports that the patients home nurse reports that the patient has been doing worse again over the last couple days. She states the patient has had a recent 8 pound weight loss, and she states that EMS noted a left-sided facial droop and slurred speech. The RN states that the patients reports that the patients left- sided facial droop is normal, and she states slurred speech is normal to the patient when his blood sugar is elevated. The RN states that EMS found the patients sugar to be 243, and she state it is currently at 309. She states his axillary temperature is 35.5. Home Medications Home Medications Medication Instructions Recorded Confirmed Type PreserVision AREDS-2 1 tab PO BID 01/19/19 05/12/19 History ascorbic acid (vitamin C) 500 mg PO QDL 01/19/19 05/12/19 History aspirin 81 mg PO QAM 01/19/19 05/12/19 History biotin 1 mg PO QDL 01/19/19 05/12/19 History cholecalciferol (vitamin D3) 1,000 unit PO BID 01/19/19 05/12/19 History cyanocobalamin (vitamin B-12) 1,000 mcg PO QDL 01/19/19 05/12/19 History digoxin 125 mcg PO QAM 01/19/19 05/12/19 History atorvastatin 10 mg PO QAM #30 tab 01/20/19 05/12/19 Rx insulin aspart U-100 100 unit/mL 6 unit SQ QDD ml 02/12/19 05/12/19 History (3 mL) subcutaneous pen insulin glargine 100 unit/mL (3 10 units SQ HS ml 02/12/19 05/12/19 History mL) subcutaneous pen midodrine 10 mg PO TID #90 tab 03/25/19 05/12/19 Rx levothyroxine 50 mcg PO DAILYBB 04/13/19 05/12/19 History metoprolol tartrate 12.5 mg PO BID 04/13/19 05/12/19 History Prostate Health Sftg 1 cap PO BIDM 05/12/19 05/12/19 History ferrous sulfate [iron] 325 mg PO QAM 05/12/19 05/12/19 History insulin aspart U-100 [Novolog 6 unit SUBCUT QDL 05/12/19 05/12/19 History Flexpen U-100 Insulin] insulin aspart U-100 [Novolog 8 unit SUBCUT QDB 05/12/19 05/12/19 History Flexpen U-100 Insulin] warfarin 5 mg PO MOTUTHFRSA@2100 05/12/19 05/12/19 History warfarin 7.5 mg PO SUWE@2100 05/12/19 05/12/19 History Allergies Allergy/AdvReac Type Severity Reaction Status Date / Time banana Allergy Unknown ` Verified 05/12/19 14:59 itraconazole AdvReac Intermediate UNKNOWN Unverified 05/12/19 14:59 Past Med/Surg History Medical History Anemia, chronic disease (Chronic) Benign prostatic hyperplasia Cardiac defibrillator in place (Chronic) Cardiomyopathy, ischemic (Chronic) Chronic atrial fibrillation (Chronic) Chronic combined systolic and diastolic CHF (congestive heart failure) (Chronic) CKD (chronic kidney disease), stage III (Chronic) Coronary artery disease (Chronic) 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) HTN (hypertension) (Chronic) Hypothyroidism (Chronic) Meniere disease (Chronic) Orthostatic hypotension TIA (transient ischemic attack) (Chronic) Surgical History History of appendectomy (Chronic) History of heart artery stent (Chronic) 2005 - LAD Hx of cataract surgery (Chronic) Family History Other Cancer Heart disease Social History Preferred Language: Chadian Communication Ability: Effective Die Reamer Required: No Beliefs That Will Affect Care: None marital status: Current Living Situation: Spouse Feels Safe at Home: Yes Smoking Status: Unknown if ever smoked Hx Alcohol Use: Yes Alcohol type: beer and wine Alcohol Intake Frequency: Weekly Hx Substance Use: No Review of Systems See HPI for pertinent positives & negatives. and A total of 10 systems reviewed and were otherwise negative Physical Exam Vital Signs Vital Signs - 24 hr 05/12/19 13:20 05/12/19 13:39 05/12/19 15:00 Temperature 35.7 C L 36.2 C L Temperature Source Rectal Rectal Pulse Rate 64 64 Pulse Rate [Apical] 62 Pulse Rhythm Regular Regular Pulse Rhythm [Apical] Regular Respiratory Rate 16 20 16 Respiratory Effort / Characteristics Non-Labored Non-Labored Respiratory Depth Normal Normal Respiratory Pattern Regular Regular Blood Pressure 134/75 Blood Pressure [Right Arm] 128/70 Blood Pressure Mean 94 Blood Pressure Mean [Right Arm] 89 Pulse Oximetry 100 100 100 Oxygen Delivery Method Room Air Room Air Room Air Sepsis Recent Fever Within 48 Hours No Sepsis New/Unexplained Change in Mental Status No Sepsis Action Taken by Nursing No Action Required CONSTITUTIONAL/VITAL SIGNS: Reviewed / noted above. GENERAL: Cachectic in appearance. INTEGUMENTARY: Warm, dry, and [place]. HEAD: Normocephalic. EYES: without scleral icterus or trauma. ENT/OROPHARYNX: Dry mucus membranes. LYMPHADENOPATHY/NECK: Is supple without lymphadenopathy or meningismus. RESPIRATORY: Lungs clear and equal. CARDIOVASCULAR: Regular rate and rhythm. GI/ABDOMEN: Soft and nontender. No organomegaly or pulsatile mass. No rebound or guarding. Normal bowel sounds. EXTREMITIES: Warm and well perfused. BACK: No CVA tenderness. NEUROLOGICAL: Intact without focal deficits. PSYCHIATRIC: normal affect. MUSCULOSKELETAL: Normally developed with good muscle tone. Course Course 1329: Past medical records reviewed. The patient was evaluated in room B10. A complete history and physical exam was performed. 1545: I reviewed the patient's case with Jo Ann Holguin-SHANNA Hartman. Dr. Dyer-Hospitalbernice Hartman will evaluate the patient for further management. Consultations Consultation #1: I reviewed the patient's case with Jo Ann Holguin-SHANNA Hartman. Dr. Dyer-Hospitalist Minnie will evaluate the patient for further management. Time: 15:45 Administered Medications Discontinued Medications Sodium Chloride (Nss 1000ml) 1,000 mls @ 999 mls/hr IV .Q1H1M AZAEL Stop: 05/12/19 14:45 Last Infusion: 05/12/19 15:08 Dose: 0 mls/hr Documented by: [id number] Admin: 05/12/19 13:51 Dose: 999 mls/hr Documented by: [id number] Medical Decision Making Differential Diagnosis Differential diagnosis: Etiologies such as metabolic, infection, hypo/hyperglycemia, electrolyte abnormalities, cardiac sources, intracerebral event, toxicologic, neurologic, as well as others were entertained. Medical Records Attestation: I reviewed the patient's medical records. Home Medications Current Medication List: was personally reviewed by me Laboratory Data Attestation: I reviewed the patient's lab results. Result diagrams: 05/12/19 13:50 05/12/19 13:50 Lab Results 05/12/19 05/12/19 05/12/19 Range/Units 13:30 13:50 13:50 WBC 11.19 H (4.8-10.8) K/uL RBC 4.11 L (4.7-6.1) M/uL Hgb 12.8 L (14.0-18.0) g/dL Hct 38.6 L (42-52) % MCV 93.9 (80-100) fL MCH 31.1 (25-34) pg MCHC 33.2 (32-36) g/dL RDW Std Deviation 52.0 H (36.4-46.3) fL RDW Coeff of Manohar 15.2 H (11.5-14.5) % Plt Count 163 (130-400) K/uL MPV 12.1 H (7.4-10.4) fL Immature Gran % (Auto) 0.2 % Neut % (Auto) 92.0 % Lymph % (Auto) 2.3 % [place] % (Auto) 5.1 % Eos % (Auto) 0.2 % Baso % (Auto) 0.2 % Immature Gran # (Auto) 0.02 (0.00-0.02) K/uL Neut # (Auto) 10.30 H (1.4-6.5) K/uL Lymph # (Auto) 0.26 L (1.2-3.4) K/uL [place] # (Auto) 0.57 (0.11-0.59) K/uL Eos # (Auto) 0.02 (0-0.5) K/uL Baso # (Auto) 0.02 (0-0.2) K/uL Sodium 135 L (136-145) mmol/L Potassium 4.1 (3.5-5.1) mmol/L Chloride 99 (98-107) mmol/L Carbon Dioxide 31 (21-32) mmol/L Anion Gap 5.0 (3-11) BUN 40 H (7-18) mg/dl Creatinine 1.60 H (0.6-1.4) mg/dl Est Cr Clr Drug Dosing Not Reportable Est GFR ( Amer) 43.9 Est GFR (Non-Af Amer) 37.9 BUN/Creatinine Ratio 25.1 H (10-20) Glucose 325 H* (70-99) mg/dl POC Glucose 309 H* (70-99) mg/dl Lactate (0.4-2.0) mmol/L Calcium 9.3 (8.5-10.1) mg/dl Total Bilirubin 1.0 (0.2-1) mg/dl AST 14 L (15-37) U/L ALT 20 (12-78) U/L Alkaline Phosphatase 90 (45-117) U/L Total Creatine Kinase 102 (39-308) U/L Troponin I 0.044 (0-0.045) ng/ml Total Protein 8.8 H (6.4-8.2) gm/dl Albumin 3.4 (3.4-5.0) gm/dl Globulin 5.4 H (2.5-4.0) gm/dl Albumin/Globulin Ratio 0.6 L (0.9-2) Beta-Hydroxybutyric Acd 7.25 H (0.2-2.81) mg/dl TSH 1.360 (0.300-4.500) uIu/ml 05/12/19 Range/Units 13:50 WBC (4.8-10.8) K/uL RBC (4.7-6.1) M/uL Hgb (14.0-18.0) g/dL Hct (42-52) % MCV (80-100) fL MCH (25-34) pg MCHC (32-36) g/dL RDW Std Deviation (36.4-46.3) fL RDW Coeff of Manohar (11.5-14.5) % Plt Count (130-400) K/uL MPV (7.4-10.4) fL Immature Gran % (Auto) % Neut % (Auto) % Lymph % (Auto) % [place] % (Auto) % Eos % (Auto) % Baso % (Auto) % Immature Gran # (Auto) (0.00-0.02) K/uL Neut # (Auto) (1.4-6.5) K/uL Lymph # (Auto) (1.2-3.4) K/uL [place] # (Auto) (0.11-0.59) K/uL Eos # (Auto) (0-0.5) K/uL Baso # (Auto) (0-0.2) K/uL Sodium (136-145) mmol/L Potassium (3.5-5.1) mmol/L Chloride (98-107) mmol/L Carbon Dioxide (21-32) mmol/L Anion Gap (3-11) BUN (7-18) mg/dl Creatinine (0.6-1.4) mg/dl Est Cr Clr Drug Dosing Est GFR ( Amer) Est GFR (Non-Af Amer) BUN/Creatinine Ratio (10-20) Glucose (70-99) mg/dl POC Glucose (70-99) mg/dl Lactate 2.3 H* (0.4-2.0) mmol/L Calcium (8.5-10.1) mg/dl Total Bilirubin (0.2-1) mg/dl AST (15-37) U/L ALT (12-78) U/L Alkaline Phosphatase (45-117) U/L Total Creatine Kinase (39-308) U/L Troponin I (0-0.045) ng/ml Total Protein (6.4-8.2) gm/dl Albumin (3.4-5.0) gm/dl Globulin (2.5-4.0) gm/dl Albumin/Globulin Ratio (0.9-2) Beta-Hydroxybutyric Acd (0.2-2.81) mg/dl TSH (0.300-4.500) uIu/ml Imaging Data Radiologist's Impression: Radiology results as stated below per my review and the radiologist's interpretation: XR chest 1V portable HISTORY: weakness COMPARISON: Chest 04/17/2019. FINDINGS: No pneumothorax. Left-sided single lead pacemaker/defibrillator is again noted. The heart remains mildly enlarged. Small right pleural effusion persists. Right basilar pleural thickening is again noted. Slight progression of the right perihilar hazy airspace opacities. The patient's known scattered pulmonary nodules are better appreciated on the recent chest CT. No evidence for pulmonary edema. IMPRESSION: 1. Slight progression of the right perihilar hazy airspace opacity. This could be due to layering pleural fluid or developing airspace opacity. 2. The right basilar pleural thickening and scattered pulmonary nodules are better appreciated on the recent chest CT. 3. Stable cardiomegaly. ACT 112: Negative or not required by law. Electronically signed by: Hitesh Pike M.D. 05/12/2019 1:58 PM ECG Data Attestation: I personally reviewed and interpreted this ECG as follows: Indication: + weakness and + other Rate (beats per minute): 66 Rhythm: + other (ventricular paced ) ECG Intervals/blocks: + Prolonged QT ECG ST segments: + T-wave inversions (Lateral) ECG Findings: no PACs Blood Pressure Blood Pressure Findings: Elevated blood pressure Blood Pressure Disposition: elevated BP felt to be situational MDM Narrative This is an 88-year-old male who presents to the ED with a chief complaint of generalized weakness. The patient was [facility] about a week ago. The patient has been progressively more weak over the past couple of days. He is also had 8 pounds weight loss. His blood sugars have been running at high. He has not been eating or drinking well. The patient is a poor historian. His physical exam reveals a cachectic appearing generally weak male who is in no distress. His vital signs reveal hypothermia. His blood sugar is elevated at 325. His CBC was unremarkable. Lactic acid level slightly elevated 2.3. TSH was normal. BUN is 40 and creatinine is 1.6. This is above his baseline. Troponin was negative. Chest x-ray reveals some slight haziness in Yasmany hilar Hai that could be suggestive of a pneumonia. The patient was given IV fluids. He was given IV Zosyn. He will be seen by the hospitalist for further evaluation and care. Impression & Plan Weakness, Pneumonia, Elevated lactic acid level, Acute hyperglycemia, Acute on chronic renal failure Discharge Plan Visit Data Chief Complaint: Hyperglycemia ED Provider: Tony Vora Discharge Problem: Weakness, Pneumonia, Elevated lactic acid level, Acute hyperglycemia, Acute on chronic renal failure Patient Disposition: Being Evaluated by Hospitalist Forms Stand Alone Forms: [facility] Prescriptions Prescriptions: No Action cyanocobalamin (vitamin B-12) 1,000 mcg Tablet 1,000 mcg PO QDL RF: 0 aspirin 81 mg Tablet,Delayed Release (Dr/Ec) 81 mg PO QAM RF: 0 ascorbic acid (vitamin C) 500 mg Tablet 500 mg PO QDL RF: 0 digoxin 125 mcg (0.125 mg) tablet 125 mcg PO QAM RF: 0 cholecalciferol (vitamin D3) 1,000 unit (25 mcg) Tablet 1,000 unit PO BID RF: 0 biotin 1 mg Capsule 1 mg PO QDL RF: 0 PreserVision AREDS-2 [id number] Capsule 1 tab PO BID RF: 0 atorvastatin 10 mg Tablet 10 mg PO QAM Qty: 30 RF: 0 Novolog Flexpen U-100 Insulin 100 unit/mL (3 mL) insulin pen 6 unit SQ QDD RF: 0 Basaglar KwikPen U-100 Insulin 100 unit/mL (3 mL) insulin pen 10 units SQ HS RF: 0 midodrine 10 mg Tablet 10 mg PO TID Qty: 90 RF: 3 metoprolol tartrate 25 mg tablet 12.5 mg PO BID RF: 0 levothyroxine 50 mcg tablet 50 mcg PO DAILYBB RF: 0 warfarin 7.5 mg tablet 7.5 mg PO SUWE@2100 RF: 0 insulin aspart U-100 [Novolog Flexpen U-100 Insulin] 100 unit/mL (3 mL) insulin pen 8 unit SUBCUT QDB RF: 0 insulin aspart U-100 [Novolog Flexpen U-100 Insulin] 100 unit/mL (3 mL) insulin pen 6 unit SUBCUT QDL RF: 0 Prostate Health Sftg 1 cap PO BIDM RF: 0 ferrous sulfate [iron] 325 mg (65 mg iron) tablet 325 mg PO QAM RF: 0 warfarin 5 mg tablet 5 mg PO VA@2100 RF: 0 Referrals Referrals: Robert Osullivan MD [Primary Care Provider] - Discharge Problem: Pneumonia Qualifiers: Pneumonia type: due to unspecified organism Laterality: unspecified laterality Lung location: unspecified part of lung Qualified Code(s): J18.9 - Pneumonia, unspecified organism Acute on chronic renal failure Qualifiers: Acute renal failure type: unspecified Chronic kidney disease stage: unspecified stage Qualified Code(s): N17.9 - Acute kidney failure, unspecified The scribe's documentation has been prepared under my direction and personally reviewed by me in its entirety. I confirm that the note above accurately ref lects all work, treatment, procedures, and medical decision making performed by me.
--- NOTE | 2019-05-12 16:43 | History & Physical Report ---
Date of Service May 12, 2019 Assessment & Plan (1) Pneumonia: Presented with complaints of weakness, fever with chills since last evening Noted to have right basilar infiltration Has been started on intravenous Zosyn and IV doxycycline added to cover atypicals Clinically does not have any sepsis Present on Admission?: Yes (2) Acute hyperglycemia: Blood sugar has been running high since last evening when it was more than 400 Noted to be 325 in the emergency room We will continue insulin with adjustment for carb count Monitor blood sugar (3) Weakness: Noted to be profoundly weak since this morning Multifactorial but could be mainly secondary to pneumonia and dehydration with hypoglycemia Following discharge from the rehab recently, he has been doing reasonably at home as per the We will get PT and OT evaluation (4) Diabetes mellitus: Uncontrolled with hyperglycemia As above (5) HTN (hypertension): We will continue current medications (6) CKD (chronic kidney disease), stage III: We will give cautious amount of intravenous fluid (7) Chronic combined systolic and diastolic CHF (congestive heart failure): No signs of fluid overload (8) Hypothyroidism: Continue supplement DVT prophylaxis On Coumadin-we will continue Monitor INR CODE STATUS DNR History of Present Illness Chief Complaint: Fever with chills and profound weakness Primary Care Provider: Robert Osullivan MD He is an 88-year-old male with significant past medical history of chronic kidney disease stage III, chronic combined systolic and diastolic heart failure, ischemic cardiomyopathy, hypertension, hypothyroidism, type 2 diabetes on insulin and recent history hospitalization due to pneumonia has been out from acute rehab on Sunday last. He was noted to have generally weak and not been eating or drinking enough with fever and chills by his since last evening. His weakness got worse and at that point he was not responding normally to any verbal commands. No history of any weakness involving any side in particular, no chest pain or palpitation, no abdominal pain nausea or vomiting, no headache and no blurred vision and no history of weakness involving any side or any fall. Noted to be hypothermic in the ER with minimal increased white count and chest x-ray showing possible increasing infiltration in the right lower lobe from that point he was started with intravenous Zosyn and doxycycline and was admitted to medical floor for continuation of care. He was noted to have high blood sugar as well on admission. Allergies Allergy/AdvReac Type Severity Reaction Status Date / Time banana Allergy Unknown ` Verified 05/12/19 14:59 itraconazole AdvReac Intermediate UNKNOWN Unverified 05/12/19 14:59 Home Medications Home Medications Medication Instructions Recorded Confirmed Type PreserVision AREDS-2 1 tab PO BID 01/19/19 05/12/19 History ascorbic acid (vitamin C) 500 mg PO QDL 01/19/19 05/12/19 History aspirin 81 mg PO QAM 01/19/19 05/12/19 History biotin 1 mg PO QDL 01/19/19 05/12/19 History cholecalciferol (vitamin D3) 1,000 unit PO BID 01/19/19 05/12/19 History cyanocobalamin (vitamin B-12) 1,000 mcg PO QDL 01/19/19 05/12/19 History digoxin 125 mcg PO QAM 01/19/19 05/12/19 History atorvastatin 10 mg PO QAM #30 tab 01/20/19 05/12/19 Rx insulin aspart U-100 100 unit/mL 6 unit SQ QDD ml 02/12/19 05/12/19 History (3 mL) subcutaneous pen insulin glargine 100 unit/mL (3 10 units SQ HS ml 02/12/19 05/12/19 History mL) subcutaneous pen midodrine 10 mg PO TID #90 tab 03/25/19 05/12/19 Rx levothyroxine 50 mcg PO DAILYBB 04/13/19 05/12/19 History metoprolol tartrate 12.5 mg PO BID 04/13/19 05/12/19 History Prostate Health Sftg 1 cap PO BIDM 05/12/19 05/12/19 History ferrous sulfate [iron] 325 mg PO QAM 05/12/19 05/12/19 History insulin aspart U-100 [Novolog 6 unit SUBCUT QDL 05/12/19 05/12/19 History Flexpen U-100 Insulin] insulin aspart U-100 [Novolog 8 unit SUBCUT QDB 05/12/19 05/12/19 History Flexpen U-100 Insulin] warfarin 5 mg PO MOTUTHFRSA@209905/12/19 05/12/19 History warfarin 7.5 mg PO SUWE@209905/12/19 05/12/19 History Past Med/Surg History Medical History Anemia, chronic disease (Chronic) Benign prostatic hyperplasia Cardiac defibrillator in place (Chronic) Cardiomyopathy, ischemic (Chronic) Chronic atrial fibrillation (Chronic) Chronic combined systolic and diastolic CHF (congestive heart failure) (Chronic) CKD (chronic kidney disease), stage III (Chronic) Coronary artery disease (Chronic) 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) HTN (hypertension) (Chronic) Hypothyroidism (Chronic) Meniere disease (Chronic) Orthostatic hypotension TIA (transient ischemic attack) (Chronic) Surgical History History of appendectomy (Chronic) History of heart artery stent (Chronic) 2004 - Hx of cataract surgery (Chronic) Family History Other Cancer Heart disease Social History Preferred Language: Chadian Communication Ability: Effective Compliance Nurse Required: No Beliefs That Will Affect Care: None marital status: Current Living Situation: Spouse Feels Safe at Home: Yes Smoking Status: Unknown if ever smoked Hx Alcohol Use: Yes Alcohol type: beer and wine Alcohol Intake Frequency: Weekly Hx Substance Use: No Review of Systems Review of Systems: All systems reviewed & are unremarkable except as noted in HPI & below Physical Exam Physical Exam: Lying in bed minimally responsive to vocal commands but no acute distress Constitutional: + ill appearing and + thin; no acute distress ENMT: external ear and nose normal, oropharynx normal Neck: trachea midline, no thyromegaly Respiratory: normal respiratory effort; no respiratory distress Auscultation: + diminished lung sounds and + crackles (Right basilar crackles) Cardiovascular: Heart Sounds: no murmur Ventricular paced rhythm Gastrointestinal (Abdomen): Inspection/Auscultation: abdomen normal to inspection and normal bowel sounds Percussion/Palpation: abdomen soft; abdomen nontender Musculoskeletal: No acute arthritis in any joints Neurologic: Minimally responsive to vocal commands. Gross examination did not show any focal neuro deficit Lymphatic: no cervical or axillary lymphadenopathy Results & Data Vital Signs (Past 12 Hours) Vital Signs Temp Pulse Pulse Resp BP BP Pulse Ox 05/12/19 15:00 36.2 C L 62 16 128/70 100 05/12/19 13:39 64 20 100 05/12/19 13:20 35.7 C L 64 16 134/75 100 Laboratory Results Short CBC 05/12/19 Range/Units 13:50 WBC 11.19 H (4.8-10.8) K/uL Hgb 12.8 L (14.0-18.0) g/dL Hct 38.6 L (42-52) % Plt Count 163 (130-400) K/uL BMP 05/12/19 13:50 Sodium 135 L Potassium 4.1 Chloride 99 Carbon Dioxide 31 BUN 40 H Creatinine 1.60 H Glucose 325 H* Calcium 9.3 Cardiac Enzymes 05/12/19 Range/Units 13:50 Total Creatine Kinase 102 (39-308) U/L Troponin I 0.044 (0-0.045) ng/ml Liver Function 05/12/19 Range/Units 13:50 Total Bilirubin 1.0 (0.2-1) mg/dl AST 14 L (15-37) U/L ALT 20 (12-78) U/L Alkaline Phosphatase 90 (45-117) U/L Albumin 3.4 (3.4-5.0) gm/dl Code Status & VTE Plan VTE Prophylaxis Plan VTE Prophylaxis will be ordered: Yes (1) Pneumonia Laterality: unspecified laterality Lung location: unspecified part of lung Pneumonia type: due to unspecified organism Qualified Code(s): J18.9 - Pneumonia, unspecified organism
[2019-05-12] MEDS ORDERED: INSULIN ASPART 100 UNITS/ML 3 ML PEN SQ SCH (19:10)
[2019-05-12] MEDS ORDERED: [UNRECOGNIZED DRUG - OTHER] PO SCH (19:10)
--- NOTE | 2019-05-12 19:41 | CT Scan Report ---
CT head/brain wo con CLINICAL HISTORY: 88 years-old Male presenting with weakness, concern for Stroke. TECHNIQUE: Multidetector CT imaging of the head was performed without the use of intravenous contrast . IV contrast: None. One or more dose lowering techniques were used consistent with the principles of ALARA (as low as reasonably achievable), including automatic exposure control, mA or kV adjustment t o individual patient size, and/or use of iterative reconstruction. COMPARISON: 04/13/2019. CT DOSE (mGy.cm): The estimated cumulative dose is 614.27 mGy.cm. FINDINGS: Section Chief topogram: Unremarkable. Proportional ventricular and sulcal prominence, likely age-related parenchymal volume loss. No hemorr karla. Marked periventricular and subcortical white matter hypoattenuation, nonspecific but likely ind icative of chronic small vessel ischemic change. Old left cerebellar hemispheric infarct. No acute te rritorial infarct. No mass effect or midline shift. No extra-axial fluid collection. Paranasal sinuse s and mastoid air cells clear. Calvarium intact. Intracranial atherosclerosis noted. IMPRESSION: 1. 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 No acute intracranial abnormality. ACT 112: Negative or not required by law. Electronically signed by: Maged Laguna M.D. 05/12/2019 7:40 PM
[2019-05-12] MEDS: CHOLECALCIFEROL 1,000 UNITS 25 MCG TAB PO SCH (21:08)
[2019-05-12 21:09] LABS: Prothrombin Time 44.7 Seconds (9.0-12.0)
[2019-05-12] MEDS: CEROVITE ADV FORMULA TAB PO SCH (21:09)
[2019-05-12] MEDS: METOPROLOL TARTRATE 25 MG TAB PO SCH (21:10)
[2019-05-12] MEDS: INSULIN GLARGINE SOLOSTAR 100 UNITS/ML 3 ML PEN SQ SCH (21:15)
[2019-05-12] MEDS: INSULIN ASPART 100 UNITS/ML 3 ML PEN SC SCH (21:16)
[2019-05-12] MEDS: SODIUM CHLORIDE 0.9% 1000ML 1,000 ML IV SCH (21:21)
[2019-05-12] MEDS: DOXYCYCLINE HYCLATE 100 MG in DEXTROSE 5% 100 ML IV SCH (21:22)
[2019-05-12 21:41] LABS: INR 4.9 (0.9-1.1)
[2019-05-12] MEDS: PIPERACILLIN/TAZOBACTAM 3.375 GM in DEXTROSE 5% 100 ML IV SCH (22:20)
[2019-05-13] MEDS: PIPERACILLIN/TAZOBACTAM 3.375 GM in DEXTROSE 5% 100 ML IV SCH ×3 (05:38→21:03)
[2019-05-13] MEDS: LEVOTHYROXINE SODIUM 50 MCG TABLET PO SCH (05:45)
--- NOTE | 2019-05-13 06:19 | Electrocardiogram Report ---
Test Reason : Blood Pressure : / mmHG Vent. Rate : 066 BPM Atrial Rate : 041 BPM P-R Int : 000 ms QRS Dur : 170 ms QT Int : 548 ms P-R-T Axes : 000 -78 091 degrees QTc Int : 574 ms Ventricular-paced rhythm with frequent Premature ventricular complexes Atrial fibrillation Voltage criteria for left ventricular hypertrophy with repolarization abnormality Abnormal ECG When compared with ECG of 15-APR-2019 06:38, Premature ventricular complexes are now Present Confirmed by Thomas Zepeda ([id number]) on 05/13/2019 6:19:30 AM Referred By: REFERRED SELF Confirmed By:Thomas Zepeda
[2019-05-13 07:23] LABS: Basophils # (auto) 0.01 K/uL (0-0.2); Basophils % (auto) 0.2 %; Eosinophils # (auto) 0.69 K/uL (0-0.5); Hematocrit (blood only) 35.1 % (42-52); Hemoglobin 11.5 g/dL (14.0-18.0); Immature Granulocytes # (auto) 0.01 K/uL (0.00-0.02); Immature Granulocytes % (auto) 0.2 %; Lymphocytes # (auto) 0.54 K/uL (1.2-3.4); Lymphocytes % (auto) 8.6 %; Mean Corpuscular Hemoglobin 30.8 pg (25-34); Mean Corpuscular Hgb Conc 32.8 g/dL (32-36); Mean Corpuscular Volume 94.1 fL (80-100); Mean Platelet Volume 12.2 fL (7.4-10.4); Monocytes # (auto) 0.34 K/uL (0.11-0.59); Monocytes % (auto) 5.4 %; Neutrophils # (auto) 4.67 K/uL (1.4-6.5); Neutrophils % (auto) 74.6 %; Platelet Count 170 K/uL (130-400); RDW Coefficient of Variation 15.2 % (11.5-14.5); RDW Standard Deviation 51.2 fL (36.4-46.3); Red Blood Count 3.73 M/uL (4.7-6.1); White Blood Count 6.26 K/uL (4.8-10.8)
[2019-05-13] MEDS ORDERED: INSULIN ASPART 100 UNITS/ML 3 ML PEN SQ SCH ×2 (07:30→11:30)
[2019-05-13 07:46] LABS: INR 8.7 (0.9-1.1)
[2019-05-13 07:57] LABS: BUN Creatinine Ratio 28.2 (10-20); Creatinine Clr Calc Pharmacy 35.7 ml/min; Est GFR (African American) 55.4; Est GFR (Non-African American) 47.8; Magnesium 1.9 mg/dl (1.8-2.4); Potassium 3.6 mmol/L (3.5-5.1)
[2019-05-13 07:58] LABS: Phosphorus 2.4 mg/dl (2.5-4.9)
[2019-05-13] MEDS: INSULIN ASPART 100 UNITS/ML 3 ML PEN SC SCH ×4 (08:32→20:53)
[2019-05-13] MEDS: DOXYCYCLINE HYCLATE 100 MG in DEXTROSE 5% 100 ML IV SCH ×2 (08:36→21:03)
[2019-05-13] MEDS: FERROUS SULFATE 325 MG TAB PO SCH (08:37)
[2019-05-13] MEDS: ATORVASTATIN 10 MG TAB PO SCH (08:37)
[2019-05-13] MEDS: CEROVITE ADV FORMULA TAB PO SCH ×2 (08:37→20:54)
[2019-05-13] MEDS: METOPROLOL TARTRATE 25 MG TAB PO SCH ×2 (08:37→20:54)
[2019-05-13] MEDS: ASPIRIN 81 MG ECTAB PO SCH (08:37)
[2019-05-13] MEDS: MIDODRINE HCL 10 MG TAB PO SCH ×3 (08:37→17:45)
[2019-05-13] MEDS: CHOLECALCIFEROL 1,000 UNITS 25 MCG TAB PO SCH ×2 (08:38→20:55)
[2019-05-13] MEDS: SODIUM CHLORIDE 0.9% 1000ML 1,000 ML IV SCH (09:00)
[2019-05-13] MEDS ORDERED: NON-FORMULARY MEDICATION (Biotin 1 MG) PO SCH (11:30)
[2019-05-13] MEDS: CYANOCOBALAMIN 500 MCG TABLET (VITAMIN B-12) PO SCH (13:02)
[2019-05-13] MEDS: ASCORBIC ACID 500 MG TAB PO SCH (13:03)
[2019-05-13] MEDS: DIGOXIN 0.125 MG TAB PO SCH (17:44)
--- NOTE | 2019-05-13 18:29 | Hospitalist Progress Note ---
Date of Service May 13, 2019 Assessment & Plan (1) Pneumonia: Presented with complaints of weakness, fever with chills since last evening CXR showed right basilar infiltration WBC elevated on admission Continue intravenous Zosyn and IV doxycycline WBC back to normal blood cx pending and urine cx pending (2) Acute hyperglycemia: Continue monitor BS Continue lantus and novolog sliding scale Monitor blood sugar (3) Weakness: Multifactorial but could be mainly secondary to pneumonia and dehydration with hypoglycemia Continue PT/OT Fall precaution (4) Diabetes mellitus: Uncontrolled with hyperglycemia As above (5) HTN (hypertension): We will continue current medications (6) CKD (chronic kidney disease), stage III: We will give cautious amount of intravenous fluid (7) Chronic combined systolic and diastolic CHF (congestive heart failure): No signs of fluid overload (8) Hypothyroidism: Continue supplement Chronic Afib Rate control with digoxin and metoprolol INR supratherapeutic 8.7 Will hold coumadin Supratherapeutic INR 8.7 No sign of bleeding Hold coumadin Monitor PT/INR DVT prophylaxis Hold Coumadin CODE STATUS DNR Admission and Anticipated Discharge Date Admission Date: May 12, 2019 Subjective Pt was seen and examined Lying in bed with no distress Pt said that he feels much better He said that his cough and his breathing are much better Pt said that he would like to go back to rehab again Denies any chest pain, palpitation and SOB Physical Exam Physical Exam: General- No acute distress Head- atraumatic Eyes- PERRL, EOMI, ENT- oropharynx clear Neck- supple, no JVD Lungs- +diminished BS, + crackles Heart- regular rhythm; no murmur Abdomen- normal bowel sounds, soft, nontender Extremities- no calf tenderness Neuro- alert, oriented x 3; PERRL, EOMI; no facial palsy; no dysarthria Skin- warm & dry Results & Data ([facility]) Vital Signs (Past 12 Hours) Vital Signs Temp Pulse Pulse Resp BP Pulse Ox 05/13/19 17:44 64 05/13/19 17:31 64 171/87 H 97 05/13/19 15:39 36.6 C 66 18 154/78 H 96 05/13/19 12:08 36.6 C 59 L 18 162/80 H 97 05/13/19 07:46 36.3 C L 62 18 133/82 97 (1) Pneumonia Laterality: unspecified laterality Lung location: unspecified part of lung Pneumonia type: due to unspecified organism Qualified Code(s): J18.9 - Pneumonia, unspecified organism
[2019-05-13] MEDS: INSULIN GLARGINE SOLOSTAR 100 UNITS/ML 3 ML PEN SQ SCH (20:55)
[2019-05-13] MEDS ORDERED: WARFARIN SOD 5 MG TAB PO SCH (21:00)
[2019-05-13 21:58] LABS: Appearance Urine Cloudy (Clear); Bilirubin Urine Negative (Negative); Blood Urine Negative (Negative); Color Urine Yellow; Glucose Urine UA Negative (Negative); Ketones Urine Negative (Negative); Leukocyte Esterase Urine 3+ (Negative); Nitrite Urine Negative (Negative); Protein Urine Trace (Negative); RBC Urine Automated 0-4 /hpf (0-4); Urobilinogen Urine Negative (Negative); WBC Urine Automated >30 /hpf (0-5)
[2019-05-13 22:16] LABS: Bacteria Urine Automated 1+ (Negative)
[2019-05-14] MEDS: PIPERACILLIN/TAZOBACTAM 3.375 GM in DEXTROSE 5% 100 ML IV SCH ×3 (05:49→22:22)
[2019-05-14] MEDS: LEVOTHYROXINE SODIUM 50 MCG TABLET PO SCH (05:50)
[2019-05-14 05:52] LABS: Basophils # (auto) 0.03 K/uL (0-0.2); Basophils % (auto) 0.5 %; Eosinophils # (auto) 0.84 K/uL (0-0.5); Eosinophils % (auto) 14.2 %; Hematocrit (blood only) 35.7 % (42-52); Hemoglobin 11.7 g/dL (14.0-18.0); Immature Granulocytes # (auto) 0.02 K/uL (0.00-0.02); Immature Granulocytes % (auto) 0.3 %; Lymphocytes # (auto) 0.74 K/uL (1.2-3.4); Lymphocytes % (auto) 12.5 %; Mean Corpuscular Hemoglobin 30.3 pg (25-34); Mean Corpuscular Hgb Conc 32.8 g/dL (32-36); Mean Corpuscular Volume 92.5 fL (80-100); Mean Platelet Volume 12.1 fL (7.4-10.4); Monocytes % (auto) 10.1 %; Neutrophils # (auto) 3.69 K/uL (1.4-6.5); Neutrophils % (auto) 62.4 %; Platelet Count 202 K/uL (130-400); RDW Coefficient of Variation 15.1 % (11.5-14.5); RDW Standard Deviation 50.6 fL (36.4-46.3); Red Blood Count 3.86 M/uL (4.7-6.1); White Blood Count 5.92 K/uL (4.8-10.8)
[2019-05-14 06:21] LABS: INR 4.9 (0.9-1.1)
[2019-05-14] MEDS: CHOLECALCIFEROL 1,000 UNITS 25 MCG TAB PO SCH ×2 (08:17→20:25)
[2019-05-14] MEDS: ATORVASTATIN 10 MG TAB PO SCH (08:17)
[2019-05-14] MEDS: MIDODRINE HCL 10 MG TAB PO SCH (08:17)
[2019-05-14] MEDS: CEROVITE ADV FORMULA TAB PO SCH ×2 (08:17→20:23)
[2019-05-14] MEDS: METOPROLOL TARTRATE 25 MG TAB PO SCH ×2 (08:17→20:21)
[2019-05-14] MEDS: ASPIRIN 81 MG ECTAB PO SCH (08:18)
[2019-05-14] MEDS: FERROUS SULFATE 325 MG TAB PO SCH (08:18)
[2019-05-14] MEDS: INSULIN ASPART 100 UNITS/ML 3 ML PEN SC SCH ×4 (08:19→20:27)
[2019-05-14] MEDS: DOXYCYCLINE HYCLATE 100 MG in DEXTROSE 5% 100 ML IV SCH ×2 (10:06→20:20)
--- NOTE | 2019-05-14 10:14 | Hospitalist Progress Note ---
Date of Service May 14, 2019 Assessment & Plan (1) Pneumonia: Presented with complaints of weakness, fever with chills since last evening CXR showed right basilar infiltration WBC elevated on admission at 11k now 5.9K Continue intravenous Zosyn and IV doxycycline for now. Plan to deescalate to po meds if remains stable and cultures negative by tomorrow (2) Acute hyperglycemia: Continue monitor BS Continue lantus and novolog sliding scale Monitor blood sugar (3) Weakness: Multifactorial but could be mainly secondary to pneumonia and dehydration with hypoglycemia Needs PT eval Fall precaution (4) Diabetes mellitus: Uncontrolled with hyperglycemia As above (5) HTN (hypertension): Poorly controlled today Midodrine suspended Monitor (6) CKD (chronic kidney disease), stage III: Avoid nephrotoxins (7) Chronic combined systolic and diastolic CHF (congestive heart failure): No signs of fluid overload (8) Hypothyroidism: Continue levothyroxine Chronic Afib Rate control with digoxin and metoprolol INR supratherapeutic 8.7 yesterday, 4.9 today Will hold coumadin and monitor Supratherapeutic INR 8.7 yesterday, 4.9 today No sign of bleeding Hold coumadin Monitor PT/INR DVT prophylaxis Hold Coumadin CODE STATUS DNR Admission and Anticipated Discharge Date Admission Date: May 14, 2019 Subjective Patient seen and examined Reports he feels better today Still has some cough which is he states is occasionally productive and improving Review of Systems Constitutional: + weakness Ear, Nose, Mouth, Throat: + hearing loss (chronic) Respiratory: + cough; no dyspnea Cardiovascular: no chest pain, no dyspnea and no palpitations Gastrointestinal: no abdominal pain, no nausea and no vomiting Genitourinary: + nocturia (chronic) Neurologic: no problem reported Physical Exam Constitutional: + well hydrated; no acute distress Eyes: PERRL, conjunctivae normal, anicteric sclerae ENMT: Ears: + hearing impairment (hearing aide in situ) Respiratory: normal respiratory effort, lungs clear to auscultation no respiratory distress Cardiovascular: RRR, no murmur, no edema Chest (Breasts): Chest: + pacemaker Gastrointestinal (Abdomen): normal bowel sounds, soft, nontender, no hepatosplenomegaly Neurologic: PERRL, EOMI, accommodation nl, no face palsy, no dysarthria Psychiatric: A+Ox3, euthymic affect Insight: good insight Judgement: good judgement Results & Data ([facility]) Vital Signs (Past 12 Hours) Vital Signs Temp Pulse Resp BP Pulse Ox 05/14/19 07:05 36.3 C L 70 18 176/84 H 94 05/14/19 03:16 36.4 C L 67 18 146/74 H 93 05/13/19 23:54 36.5 C 62 18 166/84 H 97 Laboratory Results Abnormal lab results 05/13/19 05/13/19 05/13/19 Range/Units 12:53 17:45 20:42 RBC (4.7-6.1) M/uL Hgb (14.0-18.0) g/dL Hct (42-52) % RDW Std Deviation (36.4-46.3) fL RDW Coeff of Manohar (11.5-14.5) % MPV (7.4-10.4) fL Lymph # (Auto) (1.2-3.4) K/uL [place] # (Auto) (0.11-0.59) K/uL Eos # (Auto) (0-0.5) K/uL PT (9.0-12.0) Seconds INR (0.9-1.1) POC Glucose 282 H 111 H 140 H (70-99) mg/dl Urine Appearance (Clear) Urine Protein (Negative) Ur Leukocyte Esterase (Negative) Urine WBC (Auto) (0-5) /hpf U Epithel Cells (Auto) (0-5) /lpf Urine Bacteria (Auto) (Negative) Urine Yeast (None Prsent) 05/13/19 05/14/19 05/14/19 Range/Units 21:00 05:35 05:35 RBC 3.86 L (4.7-6.1) M/uL Hgb 11.7 L (14.0-18.0) g/dL Hct 35.7 L (42-52) % RDW Std Deviation 50.6 H (36.4-46.3) fL RDW Coeff of Manohar 15.1 H (11.5-14.5) % MPV 12.1 H (7.4-10.4) fL Lymph # (Auto) 0.74 L (1.2-3.4) K/uL [place] # (Auto) 0.60 H (0.11-0.59) K/uL Eos # (Auto) 0.84 H (0-0.5) K/uL PT 45.0 H (9.0-12.0) Seconds INR 4.9 H (0.9-1.1) POC Glucose (70-99) mg/dl Urine Appearance Cloudy A (Clear) Urine Protein Trace H (Negative) Ur Leukocyte Esterase 3+ H (Negative) Urine WBC (Auto) >30 H (0-5) /hpf U Epithel Cells (Auto) 10-20 H (0-5) /lpf Urine Bacteria (Auto) 1+ H (Negative) Urine Yeast Present A (None Prsent) 05/14/19 Range/Units 07:14 RBC (4.7-6.1) M/uL Hgb (14.0-18.0) g/dL Hct (42-52) % RDW Std Deviation (36.4-46.3) fL RDW Coeff of Manohar (11.5-14.5) % MPV (7.4-10.4) fL Lymph # (Auto) (1.2-3.4) K/uL [place] # (Auto) (0.11-0.59) K/uL Eos # (Auto) (0-0.5) K/uL PT (9.0-12.0) Seconds INR (0.9-1.1) POC Glucose 209 H (70-99) mg/dl Urine Appearance (Clear) Urine Protein (Negative) Ur Leukocyte Esterase (Negative) Urine WBC (Auto) (0-5) /hpf U Epithel Cells (Auto) (0-5) /lpf Urine Bacteria (Auto) (Negative) Urine Yeast (None Prsent) (1) Pneumonia Laterality: unspecified laterality Lung location: unspecified part of lung Pneumonia type: due to unspecified organism Qualified Code(s): J18.9 - Pneumonia, unspecified organism
[2019-05-14] MEDS: ASCORBIC ACID 500 MG TAB PO SCH (12:25)
[2019-05-14] MEDS: CYANOCOBALAMIN 500 MCG TABLET (VITAMIN B-12) PO SCH (12:25)
[2019-05-14] MEDS: DIGOXIN 0.125 MG TAB PO SCH (17:21)
[2019-05-14] MEDS: INSULIN GLARGINE SOLOSTAR 100 UNITS/ML 3 ML PEN SQ SCH (20:27)
[2019-05-14] MEDS ORDERED: WARFARIN SOD 7.5 MG TAB PO SCH (21:00)
[2019-05-15] MEDS: LEVOTHYROXINE SODIUM 50 MCG TABLET PO SCH (05:43)
[2019-05-15] MEDS: PIPERACILLIN/TAZOBACTAM 3.375 GM in DEXTROSE 5% 100 ML IV SCH (05:47)
[2019-05-15] MEDS: FERROUS SULFATE 325 MG TAB PO SCH (08:22)
[2019-05-15] MEDS: ATORVASTATIN 10 MG TAB PO SCH (08:22)
[2019-05-15] MEDS: CHOLECALCIFEROL 1,000 UNITS 25 MCG TAB PO SCH (08:22)
[2019-05-15] MEDS: DOXYCYCLINE HYCLATE 100 MG in DEXTROSE 5% 100 ML IV SCH (08:23)
[2019-05-15] MEDS: METOPROLOL TARTRATE 25 MG TAB PO SCH (08:24)
[2019-05-15] MEDS: CEROVITE ADV FORMULA TAB PO SCH (08:24)
[2019-05-15] MEDS: ASPIRIN 81 MG ECTAB PO SCH (08:24)
[2019-05-15] MEDS: INSULIN ASPART 100 UNITS/ML 3 ML PEN SC SCH ×2 (08:27→13:01)
--- NOTE | 2019-05-15 09:27 | Hospitalist Progress Note ---
Date of Service May 15, 2019 Assessment & Plan (1) Pneumonia: Reported fevers, chills, weakness CXR showed right basilar infiltration WBC elevated on admission at 11k Had been on Zosyn and IV doxycycline Changed to po augmentin and doxycycline to complete therapy (2) Acute hyperglycemia: Continue monitor BS Continue lantus and novolog sliding scale Monitor blood sugar (3) Weakness: Multifactorial but could be mainly secondary to pneumonia and dehydration with hypoglycemia Needs PT eval Fall precaution (4) Diabetes mellitus: Provided basic diabetes education and need for proper management (5) HTN (hypertension): BP elevated Orthostatic BP was + Review of patient's PCP note showed patient has history of orthostatic hypotension and symptoms have been well controlled with midodrine Patient has been asymptomatic and stated he has been doing well on the midodrine Resume midodrine at half the home dose of 5mg tid due to elevated BP Counselled patient on need for close follow up with PCP He reported he has BP machine at home. I advised him to keep record on discharge to aid PCP manage appropriately Will avoid starting any antihypertensive now due to history of orthostatic hypotension, fall risks and anticoagulation with supratherapeutic INR Monitor (6) CKD (chronic kidney disease), stage III: Cr had been 1.2 -1.4 in the past 3 months Cr was 1.6 on admission which is not too different from Cr on 04/18/19 which was 1.53 Patient likely has SALONI on CKD as Cr improved to 1.32 today Awaiting labs from today Avoid nephrotoxins (7) Chronic combined systolic and diastolic CHF (congestive heart failure): No signs of fluid overload (8) Hypothyroidism: Continue levothyroxine Chronic Afib Rate control with digoxin and metoprolol INR supratherapeutic 8.7 two days ago, 4.9 yesterday. INR is 2.2 today Supratherapeutic INR supratherapeutic 8.7 two days ago, 4.9 yesterday. INR is 2.2 today No sign of bleeding Will plan to discharge on coumadin 5mg daily for now and repeat INR in 2 days Continue follow up with anticoagulation clinic CODE STATUS DNR Admission and Anticipated Discharge Date Admission Date: May 14, 2019 Subjective Reports cough is much better No shortness of breath. No chest pain No fevers, chills, anorexia No dysuria, frequency, urgency, abd pain, flank pain. Reports chronic nocturia that has not changed. Physical Exam Constitutional: + well hydrated; no acute distress Eyes: PERRL, conjunctivae normal, anicteric sclerae ENMT: Ears: + hearing impairment Neck: trachea midline, no thyromegaly Respiratory: normal respiratory effort, lungs clear to auscultation Cardiovascular: RRR, no murmur, no edema Gastrointestinal (Abdomen): normal bowel sounds, soft, nontender, no hepatosplenomegaly Neurologic: PERRL, EOMI, accommodation nl, no face palsy, no dysarthria Psychiatric: A+Ox3, euthymic affect Genitourinary: no CVA tenderness Results & Data ([facility]) Vital Signs (Past 12 Hours) Vital Signs Temp Pulse Pulse Resp BP BP Pulse Ox 05/15/19 07:46 36.6 C 69 18 179/88 H 94 05/15/19 04:24 36.6 C 62 18 180/93 H 95 05/14/19 23:42 64 05/14/19 23:15 176/89 H 05/14/19 22:51 36.6 C 64 12 183/94 H 97 (1) Pneumonia Laterality: unspecified laterality Lung location: unspecified part of lung Pneumonia type: due to unspecified organism Qualified Code(s): J18.9 - Pneumonia, unspecified organism
[2019-05-15 09:31] LABS: Hematocrit (blood only) 38.2 % (42-52); Hemoglobin 12.6 g/dL (14.0-18.0); INR 2.2 (0.9-1.1); Mean Corpuscular Hemoglobin 30.5 pg (25-34); Mean Corpuscular Volume 92.5 fL (80-100); Mean Platelet Volume 12.1 fL (7.4-10.4); Platelet Count 207 K/uL (130-400); Prothrombin Time 21.5 Seconds (9.0-12.0); RDW Standard Deviation 50.7 fL (36.4-46.3); Red Blood Count 4.13 M/uL (4.7-6.1); White Blood Count 6.75 K/uL (4.8-10.8)
[2019-05-15 09:47] LABS: BUN Creatinine Ratio 21.9 (10-20); Calcium 9.3 mg/dl (8.5-10.1); Creatinine Clr Calc Pharmacy 40.3 ml/min; Est GFR (African American) 62.2; Est GFR (Non-African American) 53.7
[2019-05-15] MEDS: CYANOCOBALAMIN 500 MCG TABLET (VITAMIN B-12) PO SCH (11:44)
[2019-05-15] MEDS: ASCORBIC ACID 500 MG TAB PO SCH (11:44)
[2019-05-15] MEDS ORDERED: MIDODRINE HCL 2.5 MG TAB PO SCH (12:00)
[2019-05-15] MEDS ORDERED: AMOXICILLIN/CLAVULANATE 875 MG TAB PO SCH (17:00)
--- NOTE | 2019-05-15 18:01 | Discharge Summary ---
Date of Service May 15, 2019 Admission HPI Per Admitting Provider He is an 88-year-old male with significant past medical history of chronic kidney disease stage III, chronic combined systolic and diastolic heart failure, ischemic cardiomyopathy, hypertension, hypothyroidism, type 2 diabetes on insulin and recent history hospitalization due to pneumonia has been out from acute rehab on Sunday last. He was noted to have generally weak and not been eating or drinking enough with fever and chills by his since last evening. His weakness got worse and at that point he was not responding normally to any verbal commands. No history of any weakness involving any side in particular, no chest pain or palpitation, no abdominal pain nausea or vomiting, no headache and no blurred vision and no history of weakness involving any side or any fall. Noted to be hypothermic in the ER with minimal increased white count and chest x-ray showing possible increasing infiltration in the right lower lobe from that point he was started with intravenous Zosyn and doxycycline and was admitted to medical floor for continuation of care. He was noted to have high blood sugar as well on admission. Admission Exam Per Admitting Provider Physical Exam: Lying in bed minimally responsive to vocal commands but no acute distress Constitutional: + ill appearing and + thin; no acute distress ENMT: external ear and nose normal, oropharynx normal Neck: trachea midline, no thyromegaly Respiratory: normal respiratory effort; no respiratory distress Auscultation: + diminished lung sounds and + crackles (Right basilar crackles) Cardiovascular: Heart Sounds: no murmur Ventricular paced rhythm Gastrointestinal (Abdomen): Inspection/Auscultation: abdomen normal to inspection and normal bowel sounds Percussion/Palpation: abdomen soft; abdomen nontender Musculoskeletal: No acute arthritis in any joints Neurologic: Minimally responsive to vocal commands. Gross examination did not show any focal neuro deficit Lymphatic: no cervical or axillary lymphadenopathy Principal Diagnosis Community Acquired Pneumonia SALONI on CKD Hyperglycemia Hypertension Supratherapeutic INR Discharge Exam Constitutional: + well hydrated; no acute distress Eyes: PERRL, conjunctivae normal, anicteric sclerae ENMT: Ears: + hearing impairment Neck: trachea midline, no thyromegaly Respiratory: normal respiratory effort, lungs clear to auscultation Cardiovascular: RRR, no murmur, no edema Gastrointestinal (Abdomen): normal bowel sounds, soft, nontender, no hepatosplenomegaly Neurologic: PERRL, EOMI, accommodation nl, no face palsy, no dysarthria Psychiatric: A+Ox3, euthymic affect Genitourinary: no CVA tenderness Discharge Data Allergies Allergy/AdvReac Type Severity Reaction Status Date / Time banana Allergy Unknown ` Verified 05/12/19 14:59 peanut Allergy Verified 05/14/19 16:48 itraconazole AdvReac Intermediate UNKNOWN Unverified 05/12/19 14:59 Consultations 05/12/19 15:37 ED Decision to Admit Stat Ordered Studies 05/12/19 16:17 CT head/brain wo con Urgent XR chest 1V portable HISTORY: weakness COMPARISON: Chest 04/17/2019. FINDINGS: No pneumothorax. Left-sided single lead pacemaker/defibrillator is again noted. The heart remains mildly enlarged. Small right pleural effusion persists. Right basilar pleural thickening is again noted. Slight progression of the right perihilar hazy airspace opacities. The patient's known scattered pulmonary nodules are better appreciated on the recent chest CT. No evidence for pulmonary edema. IMPRESSION: 1. Slight progression of the right perihilar hazy airspace opacity. This could be due to layering pleural fluid or developing airspace opacity. 2. The right basilar pleural thickening and scattered pulmonary nodules are better appreciated on the recent chest CT. 3. Stable cardiomegaly. Hospital Course (1) Pneumonia: Reported fevers, chills, weakness CXR showed right basilar infiltration Due to resent treatment for pneumonia, aspiration; there is possibility of gram negative pneumonia WBC elevated on admission at 11k Had been on Zosyn and IV doxycycline Changed to po augmentin and doxycycline to complete therapy for another 2 days Provided education on how to minimize aspirations (2) Acute hyperglycemia: Provided basic diabetes education with present Continue home insulin regimen A1c was 7.5 in february 2019 Follow up with PCP (3) Weakness: Much improved Multifactorial but could be mainly secondary to pneumonia and dehydration Was evaluated by PT (4) Diabetes mellitus: Provided basic diabetes education and need for proper management (5) HTN (hypertension): BP elevated Orthostatic BP was + Review of patient's PCP note showed patient has history of orthostatic hypotension and symptoms have been well controlled with midodrine Patient has been asymptomatic and stated he has been doing well on the midodrine Resume midodrine at half the home dose of 5mg tid due to elevated BP Counselled patient and on need for close follow up with PCP He reported he has BP machine at home. I advised him to keep record on discharge to aid PCP manage appropriately Will avoid starting any antihypertensive now due to history of orthostatic hypotension, fall risks and anticoagulation with supratherapeutic INR (6) CKD (chronic kidney disease), stage III: Cr had been 1.2 -1.4 in the past 3 months Cr was 1.6 on admission which is not too different from Cr on 04/18/19 which was 1.53 Has SALONI on CKD as Cr improved to 1.2 today Avoid nephrotoxins (7) Chronic combined systolic and diastolic CHF (congestive heart failure): No signs of fluid overload (8) Hypothyroidism: Continue levothyroxine Chronic Afib Rate control with digoxin and metoprolol INR supratherapeutic 8.7 two days ago, 4.9 yesterday. INR is 2.2 today Supratherapeutic INR supratherapeutic 8.7 two days ago, 4.9 yesterday. INR is 2.2 today No sign of bleeding Discharge on coumadin 5mg daily for now and repeat INR in 2 days Continue follow up with anticoagulation clinic Updated and patient on these recommendations CODE STATUS DNR Total Time Total Time Spent Total Time Spent (In Minutes): 45 Total Time Includes: Examination of the Patient, Discharge Planning, Medication Reconciliation and Other (Communication with and patient ) Discharge Plan Discharge Items Patient Disposition: Home - Home Health Services Reason For Visit: FEVER W/CHILLS,GENERALIZED WEAKNESS,HYPERGLYCEMIA Discharge Diagnosis: Community acquired pneumonia Supratherapeutic INR Activity: Resume your previous activity Non-emergency contact: Primary Care Provider Call non-emergency contact if: you have any medication questions and your symptoms worsen Follow-up/Referrals: Robert Osullivan MD [Primary Care Provider] - 05/19/19 11:00 am (Appointment scheduled for [facility]. If you are unable to keep this appointment, please call the office to reschedule.) Diet: Carb Consistent or DM2 and Heart Healthy Ambulatory Orders: Prothrombin Time INR (Routine) Timeframe: 2 Days Location: Determined by Patient Ordered By: Akilah Rubio Attending Provider Instructions: Mr Sarah. You came to the hospital complaining about fever, weakness and cough. You were evaluated and treated for pneumonia. Please complete the remaining day of antibiotic treatment. You were also found to have very high INR. You coumadin was suspended temporarily. You are being discharged to resume your coumadin at 5mg daily. Please follow up with anticoagulation clinic for continued management of your coumadin. Your home midodrine for your orthostatic hypotension was reduced to 5mg three times daily due to elevated Blood pressure. Please continue to follow up with your Primary doctor about this. Pending Studies at Discharge: No Stand-Alone Forms: My [facility], Smoking Cessation Medications and DC Order Prescriptions: New doxycycline hyclate 100 mg Capsule 100 mg PO BID@0630,1830 2 Days Qty: 4 RF: 0 amoxicillin-pot clavulanate [Augmentin] 875-125 mg Tablet 1 tab PO BIDM 2 Days Qty: 4 RF: 0 warfarin 5 mg tablet 5 mg PO DAILY Qty: 30 RF: 0 midodrine 10 mg Tablet 5 mg PO TID 30 Days Qty: 30 RF: 0 Continued cyanocobalamin (vitamin B-12) 1,000 mcg Tablet 1,000 mcg PO QDL RF: 0 aspirin 81 mg Tablet,Delayed Release (Dr/Ec) 81 mg PO QAM RF: 0 ascorbic acid (vitamin C) 500 mg Tablet 500 mg PO QDL RF: 0 digoxin 125 mcg (0.125 mg) tablet 125 mcg PO QAM RF: 0 cholecalciferol (vitamin D3) 1,000 unit (25 mcg) Tablet 1,000 unit PO BID RF: 0 biotin 1 mg Capsule 1 mg PO QDL RF: 0 PreserVision AREDS-2 [id number] [id number]-mg Capsule 1 tab PO BID RF: 0 atorvastatin 10 mg Tablet 10 mg PO QAM Qty: 30 RF: 0 Novolog Flexpen U-100 Insulin 100 unit/mL (3 mL) insulin pen 6 unit SQ QDD RF: 0 Basaglar KwikPen U-100 Insulin 100 unit/mL (3 mL) insulin pen 10 units SQ HS RF: 0 metoprolol tartrate 25 mg tablet 12.5 mg PO BID RF: 0 levothyroxine 50 mcg tablet 50 mcg PO DAILYBB RF: 0 insulin aspart U-100 [Novolog Flexpen U-100 Insulin] 100 unit/mL (3 mL) insulin pen 8 unit SUBCUT QDB RF: 0 insulin aspart U-100 [Novolog Flexpen U-100 Insulin] 100 unit/mL (3 mL) insulin pen 6 unit SUBCUT QDL RF: 0 Prostate Health Sftg 1 cap PO BIDM RF: 0 ferrous sulfate [iron] 325 mg (65 mg iron) tablet 325 mg PO QAM RF: 0 Discontinued warfarin 7.5 mg tablet 7.5 mg PO SUWE@2100 RF: 0 Discharge Orders: Discharge Order (Routine); Ordered 05/15/19 Ordered By: Akilah Dubois Admission Data Admit Date/Time: 05/14/19 07:55 Attending Provider: Akilah Dubois I. Admit Provider: Aisha Dyer Primary Care Provider: Robert Osullivan Other Providers: Aisha Dyer ; [facility] ; Bethanie Crawford Other Interventions: Discharge Summary Assessment (RN) Last Done: 05/15/19 14:17 DC Date/Time DO NOT enter until pt leaves facility: 05/15/19 14:44
[2019-05-15] MEDS ORDERED: DOXYCYCLINE HYCLATE 100 MG CAP PO SCH (18:30)
[2019-05-15] MEDS ORDERED: WARFARIN SOD 5 MG TAB PO SCH (21:00)
--- NOTE | 2019-05-21 05:54 | Coding Query ---
CODING QUERY To promote full compliance with coding requirements relating to patient care, provider participation is requested in all cases of director of promotions uncertainty. Please assist us with the question(s) below: Coding Question(s): Seeking to clarify the type of pneumonia . H/P stated patient admitted with pneumonia. X-ray with infiltrates in RLL. Xosyn and doxycycline started. DS - states " CAP. Due to recent treatment for aspiration pneumonia, gram negative pneumonia is also possible. WBC elevated to 11 on admission.". Please check the statement below that describes the Pneumonia that was treated during this Inpatient stay. Thanks for your help! K[facility] [place] [facility] Physician's Response(s): Community Acquired Pneumonia ____x____ Gram negative Pneumonia Cannot Clinically Correlate if Community Acquired Pneumonia or Gram Negative Pneumonia was treated Other/ Please document: Principal Diagnosis: "that condition established after study, to be chiefly responsible for occasioning the admission of the patient to the hospital for care." Co-Existing Principal Diagnosis: "when two or more diagnoses equally meet the criteria for principal diagnosis as determined by the circumstances of admission, diagnostic work up, and/or therapy provided, and the Alphabetic Index, Tabular List, or another coding guideline does not provide sequencing direction, any one of the diagnoses may be sequenced first." "When the physician has documented what appears to be a current diagnosis in the body of the record, but has not included the diagnosis in the final diagnostic statement, the physician should be asked whether the diagnosis should be added." (Source Coding [facility] 2 QTR90. p3-4) JAMI
== END 2019-05-15 14:44 | disposition home health service (06) | DRG 178 ==
LOC: 2N 13:19 → ED 13:19 → SUATTDRO 16:25 → 2N 18:23